=== PATIENT | female | born 1950 | race Caucasian/White ===

== ENCOUNTER 2021-04-01 11:02 | Outpatient (AMB) | payer MEDICARE, BC, SELFPAY ==
[2021-04-01 11:14] VITALS: BP 122/61; PULSE 61; RESP 18; TEMP 36.4; BMI 24.7
--- NOTE | 2021-04-01 11:14 | UROVISIT ---
Intake Vital Signs 04/01/21 11:14 Height 1.57 m Height Method Stated Weight 61.405 kg Weight Measurement Method Standing Scale BMI 24.7 Temp 97.6 F Temp Source Temporal Artery Scan Pulse 61 Pulse Source Monitor Respiration 18 BP 122/61 Blood Pressure Source Automatic Cuff Blood Pressure Location Left Upper Arm Position Sitting Intake Visit Reasons: Uro Cystocopy in office Allergy Allergies Penicillins Allergy (Mild, Verified 04/01/21 11:19) Rash Home Meds Medication Reconciliation buspirone 15 mg tablet 15 mg PO BID 06/27/19 [History Confirmed 04/01/21] levothyroxine 88 mcg tablet (Synthroid) 88 mcg PO QDAY 06/27/19 [History Confirmed 04/01/21] alprazolam 0.5 mg tablet 0.5 mg PO TID 03/03/21 [History Confirmed 04/01/21] trazodone 50 mg tablet 50 mg PO QHS PRN 04/01/21 [History Confirmed 04/01/21] Nurse Note: BALBIR Rueda- patient to follow up for biopsy results. Current Vital Signs Height Height Method Weight Weight Measurement Method Body Mass Index Temperature Temperature Source 1.57 m Stated 61.405 kg Standing Scale 24.7 97.6 F Temporal Artery Scan 04/01/21 11:14 04/01/21 11:14 04/01/21 11:14 04/01/21 11:14 04/01/21 11:14 04/01/21 11:14 04/01/21 11:14 Pulse Rate Pulse Source Respiratory Rate Blood Pressure Blood Pressure Source Blood Pressure Location Blood Pressure Position 61 Monitor 18 122/61 Automatic Cuff Left Upper Arm Sitting 04/01/21 11:14 04/01/21 11:14 04/01/21 11:14 04/01/21 11:14 04/01/21 11:14 04/01/21 11:14 04/01/21 11:14 Nursing Documentation Social History Living Situation History Housing: [facility] home Tobacco History Smoking Status: Never smoker Alcohol History Alcohol Intake: Current Office Procedures Uro Cystoscopy in office Office Procedure Informed consent given: Yes Consent signed: Yes Time out staff in room: Yes IMMEDIATELY PRIOR TO START OF PROCEDURE: ALL MEMBERS of the procedural team are in attendance and actively involved together in the TIME-OUT and verified as applies to the patient:: Correct Patient Identity, Correct Site, Consent Signed and Accurate, Team Agrees on Procedure, Patient has completed pre-procedure preparations, Antibiotic prophylaxis, Pre-procedure medications, Review of allergies and potential blood loss, Safety Precautions are in place based on patient history, Correct Patient Positioning, Procedural site marked by appropriate provider, Procedural site marking is visible after prep and draping, Relevant images and results are properly labeled and displayed, Reqd blood products, implants, devices and necessary equip available, Specimen container(s) and lab req(s) are available & labeled properly., H&P, assessments, and other pertinent documents are available and Antibiotics are administered, antibiotic irrigation fluids prepared. Time out verified: Yes Time out date: 04/01/21 Time out time: 12:01 Sterilizing agent: betadine Type of anesthesia: local Type of scope: rigid Tumor present: No Stone present: No Patient tolerated procedure: well Complications: No Visual taken: Yes Charges for this visit: My Supervising Practitioner for this visit is:: Syed Pitts Cystoscopy w/Biopsy: Yes Uro Level of Care Nursing/Assessment/Reassessment Patient Status: Established Patient Nursing Assessment/Reassessment: Update [facility] data in EMR, Vital Signs and Medication Reconciliation Coordination of Care: Comp Pt/[facility] Ed for care and Consent,records obtained Miscellaneous Interventions: Phys Asssit w/procedure Established Patient Point Assignment: 80 Procedure IM Injection: Yes Transrectal Ultrasound: No Office Meds lorazepam Performing Provider: Syed Pitts MD Documented (not given) by: JIAN Silvestre on 04/01/21 11:45 Reason Not Given: No Longer Necessary gentamicin Performing Provider: Syed Pitts MD Administered by: JIAN Silvestre on 04/01/21 11:45 Dose Route Admin Location Lot Number Expiration Date [facility] Team Facilitator 120 mg IM right glut lidocaine HCl Performing Provider: Syed Pitts MD Administered by: JIAN Silvesrte on 04/01/21 11:45 Dose Route Admin Location Lot Number Expiration Date [facility] Team Facilitator 1 applic topical hydrocodone-acetaminophen 5-325 mg Performing Provider: Syed Pitts MD Administered by: JIAN Silvestre on 04/01/21 11:45 Dose Route Admin Location Lot Number Expiration Date [facility] Team Facilitator 1 tab PO [facility] Office Visit Office Visit Date of visit:: April 01, 2021 11:02 Allergies & Home Medications: Allergies Penicillins Allergy (Mild, Verified 03/17/21 09:58) Rash Visit: Reason for visit: [] Office Visit findings: [] Urology Cystoscopy Cystoscopy Procedure Date: April 01, 2021 11:02 Pre-procedure diagnosis:: Microscopic hematuria recurrent Post-procedure diagnosis:: Same plus lesion in the bladder biopsy was obtained fulguration was carried out plus urethral stenosis Procedure:: Cystoscopic examination of bladder biopsy and urethral dilation biopsy and fulguration Anesthetic:: 2% lidocaine and 2% lidocaine + 0.25% Marcaine Indication(s): This is 70-year-old female she was seen by me because of recurrent microscopic hematuria urine for cytology was done this revealed atypical cells possible bladder tumor she was recommended above procedure procedure and complications were discussed with the patient in great detail informed consent is obtained she had CAT scan of the abdomen and pelvis done there was no stone identified. Procedure Description:: The patient received 120 mg Gentamicin IM pre-op prophylaxis. Informed consent was obtained for the procedure. The patient was prepped in a sterile manner. Local anesthetic was placed in the urethra. Cystoscopy was then performed. The urethra had no intrinsic lesions. Examination of the bladder revealed no evidence of cancerous lesions, papillary or polyp type, lesions or stones. Both ureters were putting out clear urine. There was a small lesion about 2 to 3 mm in the anterior bladder wall biopsy was obtained fulguration was carried out the urethra had mid urethral stenosis and the urethra was dilated up to 30Fr with dilators. The bladder was completely drained and the scope was removed. The patient tolerated the procedure well. Post-op instructions were given. The patient is to call the office should any problems occur. Patient disposition she is discharged home with a full postoperative instructions she is going to see me in the office in 2 weeks I will repeat her urine for cytology
[2021-04-01 13:47] LABS: Bilirubin,Urine Clinitek Negative (Negative); Blood,Urine Clinitek Negative (Negative); Glucose, Urine Clinitek Negative (Negative); Ketones,Urine Clinitek Negative (Negative); Leukocyte Esterase,Urine Clin 3+ (Negative); Nitrite,Urine Clinitek Negative (Negative); Protein,Urine Clinitek Negative (Neg - Trace); Urobilinogen,Urine Clinitek 0.2 mg/dL (0.0-1.0)
== END 2021-04-01 14:09 | disposition home or self-care (01) ==
LOC: HODURO 11:02
PROVIDERS: PCP Family Medicine; Visit Provider Urology

== ENCOUNTER 2024-05-10 18:19 | Inpatient (IN) | payer MEDICARE, BC, SELFPAY ==
[2024-05-10] VITALS (8 sets, daily range): BP systolic 116–164; BP diastolic 68–103; PULSE 81–100; RESP 18–20; TEMP 37.1; O2SAT 98–100
--- NOTE | 2024-05-10 18:22 | EKG_ITS ---
[facility] Test Date: 2024-05-10 Pat Name: NAYELY PERRY Department: Room: - Gender: Female Customer Contact Representative: : 1950 Requested By: ED Temporary Provider Order Number: [id number] Reading MD: ED Temporary Provider Measurements Intervals [place] Rate: 86 P: 61 [place]: 147 QRS: -29 QRSD: 83 T: 16 QT: 354 QTc: 425 Interpretive Statements SINUS RHYTHM WITH OCCASIONAL SUPRAVENTRICULAR PREMATURE COMPLEXES BORDERLINE LEFT AXIS DEVIATION [QRS AXIS < -20] Compared to ECG 03/12/2022 06:19:27 No significant changes /store/S0/[id number].pdf
--- NOTE | 2024-05-10 19:12 | PD.EDRME ---
Rapid Medical Screening Exam RME Arrival date/time: 05/10/24 18:19 73F with history of HTN, hypothyroidism and anxiety presents to ED with 1 hour of CP and some SOB. Chief Complaint: Chest Pain Vital signs: Vital Signs Temperature 98.7 F 05/10/24 19:07 Pulse Rate 81 05/10/24 19:07 Respiratory Rate 20 05/10/24 19:07 Blood Pressure 146/90 H 05/10/24 19:07 Pulse Oximetry (%) 98 05/10/24 19:07 Oxygen Delivery Method Room Air 05/10/24 19:07
--- NOTE | 2024-05-10 19:13 | XR_ITS ---
Examination: AP chest single view TECHNIQUE: AP portable upright chest single view Standing time: May 10, 2024 1949 hours INDICATIONS: Chest pain and nausea beginning 3 hours ago FINDINGS: Normal heart size No pneumonia or pulmonary edema. Prominent osteopenia IMPRESSION: No pneumonia or pulmonary edema
--- NOTE | 2024-05-10 19:33 | PD.EDCHEST ---
ED Chest Pain RME/HPI General Chief Complaint: Chest Pain Stated Complaint: PT THINKS SHE'S HAVING A HEART ATTACK Time Seen by Provider: 05/10/24 19:25 Arrival date/time: 05/10/24 18:19 Limitations: no limitations RME / HPI RME / HPI narrative: 05/10/24 18:19 73F with history of HTN, hypothyroidism and anxiety presents to ED with 1 hour of CP and some SOB. ------ Dr. 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 She describes her pain as sharp and aching in nature, reporting it started when she was laying in bed. No radiation or migration. No aggravating or alleviating factors. She currently rates her pain a 7 out of 10 in severity. She denies any shortness of breath, cough, fever, chills, dizziness, bloody stools or any other associated symptoms. She denies any tobacco use. She reports having a familial history of heart disease. PCP: Dr. Montilla Related Data Home Medications ?Medication ?Instructions ?Recorded ?Confirmed buspirone 15 mg tablet 15 mg PO BID 06/27/19 03/12/22 alprazolam 0.5 mg tablet 0.5 mg PO TID 03/03/21 03/12/22 Held on 07/31/21. Instructions: Resume on 08/01/21. lisinopril 5 mg tablet 5 mg PO QDAY 07/31/21 03/12/22 amitriptyline 10 mg tablet 20 mg PO HS 03/12/22 03/12/22 fluoxetine 20 mg capsule 20 mg PO BID 03/12/22 03/12/22 hydrocodone 5 mg-acetaminophen 325 1 tab PO TID PRN Pain 03/12/22 03/12/22 mg tablet levothyroxine 75 mcg tablet 75 mcg PO QAM 03/12/22 03/12/22 trazodone 100 mg tablet 200 mg PO HS 03/12/22 03/12/22 Allergies Allergy/AdvReac Type Severity Reaction Status Date / Time Penicillins Allergy Mild Rash Verified 05/10/24 18:21 Review of Systems Review of Systems Systems Reviewed: All systems reviewed, normal except as documented Past Medical History Past Medical History NEUROLOGIC: Positive Neurological Disorders and Head Trauma; Negative Seizures CARDIAC: Negative Cardiac Disorders, Congestive Heart Failure, Edema, Cellulitis or Varicose Veins RESPIRATORY: Negative Chronic Obstructive Pulmonary Disease (COPD), Asthma, Pulmonary Embolism or Sleep Apnea GASTROINTESTINAL: Positive Gastrointestinal Disorders, Gall Bladder Disease, Colitis, Ulcer, Irritable Bowel, Hiatal Hernia and Gastroesophageal Reflux Disease; Negative Hepatitis GENITOURINARY: Negative Genitourinary Disorders or Renal Disease REPRODUCTIVE: Positive Endometriosis and Previous Pregnancies MUSCULOSKELETAL: Positive Musculoskeletal Disorders, Arthritis and Fibromyalgia ENT: Positive Cataracts and Head Trauma ENDOCRINE: Positive Endocrine Disorders, Hypoglycemia and Hypothyroidism; Negative Diabetes Mellitus Type 1 or Diabetes Mellitus Type 2 HEMATOLOGIC: Negative Blood Disorders or Sickle Cell Disease PSYCHO/SOCIAL: Positive Depression and Anxiety OTHER HISTORY: Positive Anesthesia Reactions, Chicken Pox, Measles and Rubella (Hungarian Measles); Negative Hospitalization, Autoimmune Disease, Shingles, Falls, Blood Transfusions, Blood Transfusion Reaction, Chemotherapy, Radiation Therapy, MRSA, Mumps or Cancer Family History FAMILY HISTORY: Positive Family Psychiatric Problems, Family Respiratory Disorders, Family Cardiac Disorders, Family Gastrointestinal Problems, Family Cancer and Family Surgery; Negative Family Anesthesia Reaction Surgical History SURGICAL: Positive Thyroidectomy, Abdominal Surgery, Bowel Surgery, Hysterectomy and Section; Negative Cardiac Surgery or Pacemaker Social History SMOKING STATUS: Never smoker ED Exam General Limitations: Present no limitations General appearance: Present alert and in no apparent distress Head Head exam: Present atraumatic Eye Eye exam: Present normal appearance, PERRL and EOMI ENT ENT exam: Present normal exam, normal oropharynx and mucous membranes moist Neck Neck exam: Present normal inspection, full ROM and trachea midline Chest Chest inspection: Present normal inspection and symmetric chest wall rise Respiratory Respiratory exam: Present normal lung sounds bilaterally Cardiovascular Cardiovascular exam: Present regular rate, normal rhythm and normal heart sounds Abdominal Exam Abdominal exam: Present soft and normal bowel sounds Extremities Exam Extremities exam: Present normal inspection and full ROM Back Exam Back exam: Present normal inspection and full ROM Neurological Exam Neurological exam: Present alert, oriented X3 and CN II-XII intact Psychiatric Psychiatric exam: Present normal affect and normal mood Skin Skin exam: Present warm, dry, intact and normal color Course Course Course Narrative: CXR is ordered for determining the etiology of chest pain. Quality Measures none Orders Category Date Time Status Admit to Inpatient Status Routine Admission 05/10/24 21:18 Active COVID-19 Screening Questionnaire NOW Care 05/10/24 20:58 Active Decision to Admit X1 Care 05/10/24 20:58 Active EKG (ED ONLY) *Do not use* NOW Care 05/10/24 18:22 Completed EKG (ED ONLY) *Do not use* NOW Care 05/10/24 19:25 Completed Notify provider NOW Care 05/10/24 21:15 Active Consult to Cardiology Routine Cons 05/10/24 21:16 Ordered CA echo doppler complete Routine Exams 05/10/24 21:17 Ordered EKG (ED Only) Stat Exams 05/10/24 18:22 Draft EKG (ED Only) Stat Exams 05/10/24 19:25 Ordered XR chest 1V portable Stat Exams 05/10/24 19:13 Completed B-Type Natriuretic Peptide Stat Lab 05/10/24 19:22 Completed CBC Stat Lab 05/10/24 19:22 Completed Comprehensive Metabolic Panel Stat Lab 05/10/24 19:22 Completed INR [Prothrombin Time with INR] Stat Lab 05/10/24 21:15 Ordered Partial Thromboplastin Time AM DRAW Lab 05/12/24 05:00 Ordered Prothrombin Time with INR AM DRAW Lab 05/12/24 05:00 Ordered Troponin I Stat Lab 05/10/24 19:22 Completed Acetaminophen Tab [Tylenol Tab] Med 05/10/24 20:55 Active 650 mg PO PRN PRN Aspirin Med 05/10/24 19:13 Discontinued 325 mg PO X1 ONE Aspirin [Ecotrin] Med 05/11/24 09:00 Ordered 81 mg PO QDAY Diltiazem Inj [Cardizem Inj] Med 05/10/24 21:00 Discontinued 15 mg IV X1 ONE Heparin Inj Med 05/10/24 21:15 Once 3,550 unit IV X1 ONE Heparin/D5w 25K 250 ML Ivpb [Heparin in D5w Ivpb] Med 05/10/24 21:15 Ordered 25,000 unit in 250 ml IV 12 units/kg/hr Nitroglycerin [Nitrostat 1/150] Med 05/10/24 20:18 Discontinued 0.4 mg SL Q5MIN PRN Ticagrelor [Brilinta] Med 05/10/24 21:17 Once 180 mg PO X1 ONE Ticagrelor [Brilinta] Med 05/11/24 09:00 Ordered 90 mg PO BID Vital Signs Vital signs: Vital Signs Temperature 98.7 F 05/10/24 19:07 Pulse Rate 81 05/10/24 19:07 Respiratory Rate 20 05/10/24 19:07 Blood Pressure 146/90 H 05/10/24 19:07 Pulse Oximetry (%) 98 05/10/24 19:07 Oxygen Delivery Method Room Air 05/10/24 19:07 Chest Pain MDM Narrative MDM Narrative:: 73-year-old female with history of hypertension, and cardiac score of 2 based on age and hypertension presenting to the emergency department with chest pain that started approximately 2 hours prior to arrival. Patient was immediately placed into a bed and repeat EKG was checked which did not show an ST elevation [place] or ischemia. She was given nitroglycerin with improvement of her symptoms. While the workup was completed it was noted that her troponin is elevated at 0.33. Chest x-ray is noted to have no wide mediastinum, CHF, or pneumonia. I discussed the risks benefits for heparin and at this time the patient agrees to being heparinized. Initial EKG was not given to me until 1844. 2121: No contraindications to Heparin. Heparin ordered, by inpatient team. Repeat eKG s/p pain-free is pending. Disposition:Emergency Department nursing documentation was reviewed including triage complaint, associated symptoms, administration of medications, response to therapy and vital signs. Given the history, physical exam, and review of laboratory and imaging studies the patient is determined to be unsafe for discharge and is being moved into the hospital for further diagnostic tests, treatments, stabilization, and monitored response to therapy. I communicated the history, physical exam, pertinent laboratory and imaging studies to the inpatient physician. The inpatient physician has access to electronic copies of all emergency department laboratory testing and imaging studies as well as medications ordered and administered. Patient data External records reviewed:: [facility] previous records (Per chart review, patient was seen here on 03/12/22 for alcohol intoxication.) Clinical information provided by:: patient Social determinants that could affect healthcare access:: none Patient has the following chronic illnesses:: HTN How is presenting disease/condition affected by chronic disease/condition?: uneffected by Evaluation data The following diagnostics were reviewed and interpreted by me:: lab results, radiology exam(s) and EKG tracing(s) Lab and/or radiology exams considered but not ordered:: none Interpretation Summary: CBC is normal, CMP is normal, Troponin is elevated at 0.333, BNP is normal, according to my interpretation. EKG done at 1823, sinus tachycardia, rate of 100, left axis deviation, no ST elevation, QTc: 389, according to my interpretation. EKG done at 1934, NSR, rate of 86, left axis deviation, QTc: 425, no STEMI, similar to previous EKG done in 2022, according to my interpretation. [facility] Report Signed Patient: NAYELY PERRY Record#: [id number] Birthdate: 1950 Age/Sex: 73 / F Location: [facility] Attending Dr: Ordering Physician: Berhane Liao PA-C Date of Service: 05/10/24 Procedure(s): XR chest 1V portable Accession Number(s): [id number] cc: Sawyer Robles MD; Yamile Montilla MD; Berhane Liao PA-C~ Examination: AP chest single view TECHNIQUE: AP portable upright chest single view Standing time: May 10, 2024 1949 hours INDICATIONS: Chest pain and nausea beginning 3 hours ago FINDINGS: Normal heart size No pneumonia or pulmonary edema. Prominent osteopenia IMPRESSION: No pneumonia or pulmonary edema Dictated By: Sawyer Robles MD Signed By: <Electronically signed by Sawyer Robles MD in OV> 05/10/241954 Medications / Prescriptions Medications or Prescriptions considered but not ordered:: none Medication administrations:: Medication Administration History Acetaminophen (Acetaminophen 325 Mg Tablet) 650 mg PO PRN PRN PRN Reason: HEADACHE Stop: 06/09/24 20:54 Aspirin (Aspirin Ec 81 Mg Tabec) 81 mg PO QDAY ALPHONSO Stop: 06/10/24 08:59 Heparin Sodium (Porcine) (Heparin Sod Inj 5000 Unit/Ml Vial) 3,550 unit 60 unit/kg (3550 unit) IV X1 ONE; Protocol Stop: 05/10/24 21:16 Heparin Sodium/Dextrose (Heparin In D5w Ivpb) 25,000 unit in 250 mls @ 7.076 mls/hr IV .Q24H ALPHONSO; Protocol Stop: 05/24/24 21:14 Ticagrelor (Ticagrelor 90 Mg Tablet) 180 mg PO X1 ONE Stop: 05/10/24 21:18 Ticagrelor (Ticagrelor 90 Mg Tablet) 90 mg PO BID ALPHONSO Stop: 06/10/24 08:59 Discontinued Medications Aspirin (Aspirin 325 Mg Tablet) 325 mg PO X1 ONE Stop: 05/10/24 19:14 Last Admin: 05/10/24 19:38 Dose: 325 mg Documented By: KG Diltiazem HCl (Diltiazem Inj 5 Mg/Ml Vial 5 Ml) 15 mg IV X1 ONE Stop: 05/10/24 21:01 Nitroglycerin (Nitroglycerin 0.4 Mg Subl Btl #25) 0.4 mg SL Q5MIN PRN PRN Reason: CHEST PAIN Last Admin: 05/10/24 21:06 Dose: 0.4 mg Documented By: Admin: 05/10/24 21:00 Dose: 0.4 mg Documented By: Admin: 05/10/24 20:55 Dose: 0.4 mg Documented By: KG see above Consultations Consultation(s) initiated? (list below): Yes Consultation #1 (Physician, Specialty, Details): Discussed case with [Dr. Dubois] from Hospitalist service regarding admission. Discussed patients ED course, exam findings, labs, and radiology results. The Hospitalist [agrees] to accept the patient for admission. Time: 20:50 Diagnosis Chest Pain Differential Diagnosis: other (angina, stomach condition, IBS, NSTEMI, STEMI) Most likely diagnosis given after review of the tests above:: see clinical impression below Admission Indicated Admission indicated?: indicated Admission Request Was there a request for admission?: Yes Admission Attestation Admission request attestation: Discussed case with [] from Hospitalist service regarding admission. Discussed patients ED course, exam findings, labs, and radiology results. The Hospitalist [agrees,declines] to accept the patient for admission. Disposition Plan Disposition Plan: Admit Critical Care Time Critical Care Time Critical Care Time: Yes Total Critical Care Time (min.): 60 Attestation: The high probability of sudden, clinically significant deterioration in the patient?s condition required the highest level of my preparedness to intervene urgently. The services I provided to this patient were to treat and/or prevent clinically significant deterioration. Services included the following: chart data review, reviewing nursing notes and/or old charts, documentation time, [employer] consultant collaboration regarding findings and treatment options, medication orders and management, direct patient care, vital sign assessments and ordering, interpreting and reviewing diagnostic studies and lab tests. Aggregate critical care time includes only time during which I was engaged in work directly related to the patient?s care, as described above, whether at bedside or elsewhere in the Emergency Department. It did not include time spent performing other reported procedures or the services of residents, students, nurses or physician assistants. Discharge Plan Plan Patient Disposition: Admit Acute Care w/in Hospital Disposition Comment: Admitted to Dr. Dubois Prescriptions/Referrals Prescriptions/Med Rec: No Action buspirone 15 mg Tablet 15 mg PO BID Rx Instructions: 1 & 1/2 tab po bid. lisinopril 5 mg Tablet 5 mg PO QDAY alprazolam 0.5 mg tablet 0.5 mg PO TID levothyroxine 75 mcg tablet 75 mcg PO QAM Patient Comments: TAKE 1 TABLET BY MOUTH EVERY DAY IN THE MORNING ON AN EMPTY STOMACH trazodone 100 mg tablet 200 mg PO HS Patient Comments: TAKE 2 TABLETS BY MOUTH EVERY DAY AT BEDTIME 90 amitriptyline 10 mg tablet 20 mg PO HS Patient Comments: TAKE 2 TABLETS BY MOUTH EVERY DAY AT BEDTIME fluoxetine 20 mg capsule 20 mg PO BID Patient Comments: TAKE 1 CAPSULE BY MOUTH TWICE A DAY hydrocodone-acetaminophen 5-325 mg tablet 1 tab PO TID MDD 3 PRN (Reason: Pain) Referrals: Yamile Montilla MD [Primary Care Provider] - In 1 week Problem List Clinical Impression: Elevated troponin, Chest pain Patient/Caregiver Discharge Instructions Print Language: Togolese Stand Alone Forms: Iliana Award Info., Patient Portal Info Letter
--- NOTE | 2024-05-10 19:35 | PC.NURSE ---
Pt to room 3 at this time from lobby; assumed care.
[2024-05-10] MEDS: Aspirin 325 MG TABLET PO (19:38)
--- NOTE | 2024-05-10 19:45 | PC.NURSE ---
XRAY at the bedside.
[2024-05-10 19:50] LABS: Basophils % (Auto) 1 % (0-2.5); Eosinophils # (Auto) 0.2 Thou/mm3 (0.0-0.5); Eosinophils % (Auto) 3 % (0-10); Hematocrit 35.5 % (36.0-46.0); Hemoglobin 11.8 g/dL (12.0-16.0); Immature Granulocytes % (Auto) 0 % (0-0); Immature Granulocytes Auto 0.02 Thou/mm3 (0.00-0.00); Lymphocytes # (Auto) 1.5 Thou/mm3 (1.0-4.8); Lymphocytes % (Auto) 23 % (10-50); Mean Corpuscular HGB Conc 33.2 g/dl (31.0-37.0); Mean Corpuscular Hemoglobin 29.1 pg (25.0-35.0); Mean Corpuscular Volume 88 fL (80-100); Monocytes # (Auto) 0.5 Thou/mm3 (0.0-0.8); Monocytes % (Auto) 8 % (0-12); Neutrophils # (Auto) 4.2 Thou/mm3 (1.8-7.7); Neutrophils % (Auto) 65 % (37-80); Nucleated Red Blood Cell % 0 /100 WBC (0); Platelet Count 254 Thou/mm3 (140-440); RDW Standard Deviation 49.6 fL (36.4-46.3); Red Blood Count 4.05 Miln/mm3 (4.00-5.20); White Blood Count 6.4 Thou/mm3 (3.6-11.0)
--- NOTE | 2024-05-10 20:11 | PC.NURSE ---
Dr. Ortega at the bedside at this time.
[2024-05-10 20:13] LABS: B-Type Natriuretic Peptide 47 pg/mL (0-100)
[2024-05-10 20:31] LABS: Alanine Aminotransferase 31 U/L (10-49); Albumin, Serum 3.6 gm/dL (3.4-4.8); Albumin/Globulin Ratio 1.6 (1.2-2.2); Alkaline Phosphatase 61 U/L (46-116); Anion Gap 8 (7-16); Aspartate Amino Transferase 37 U/L (0-34); BUN/Creatinine Ratio 21 Ratio (12-20); Bilirubin,Total < 0.2 mg/dL (0.3-1.2); Blood Urea Nitrogen 23 mg/dL (9-23); Calcium 8.6 mg/dL (8.3-10.6); Calcium (Corrected) 8.9 mg/dL (8.5-10.1); Carbon Dioxide 26.7 mMol/L (20.0-31.0); Chloride 105 mMol/L (98-107); Creatinine (Component) 1.1 mg/dL (0.6-1.3); Globulin 2.3 gm/dL (2.3-3.5); Glucose 105 mg/dL (74-106); Osmolality,Calculated 283 (275-295); Potassium 4.8 mMol/L (3.4-5.1); Sodium 140 mMol/L (136-145); Total Protein 5.9 gm/dL (5.7-8.2); eGFR 54 See Note
[2024-05-10 20:33] LABS: Troponin I 0.333 ng/mL (0.0-0.045)
[2024-05-10] MEDS: NITROGLYCERIN 0.4 MG SUBL BTL #25 SL ×3 (20:55→21:06)
--- NOTE | 2024-05-10 21:04 | PC.NURSE ---
Dr. Dubois at the bedside.
--- NOTE | 2024-05-10 21:21 | EVENTNT_ITS ---
Documentation for date of: 05/10/24 Event Note Event Note: A 73-year-old female presented to the ER with the chief complaint of retrosternal chest pain. The patient reports that the chest pain began approximately four hours prior to arrival and is described as constant, pressure-like, and stabbing in character. The pain radiates slightly to the back but not to the arm. She notes associated nausea and shallow breathing. There was no diaphoresis or vomiting due to a prior gastrectomy. This is her first episode of chest pain. She is currently experiencing ongoing chest pain rated at 7?8 out of 10. 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 Additional surgical history includes thyroidectomy for benign pathology, orthopedic surgeries (shoulder, arm), and eye surgery. Current medications include Fluoxetine, Buspirone, Xanax, Levothyroxine 75 mcg, Lisinopril, Trazodone. Social history includes former alcohol use, last drink two days ago; no smoking or recreational drug use. She has a family history of significant cardiac disease (father with CABG, sisters with valvular disease and HTN). She has not had previous PR or stroke. Last hospitalization was over a year ago. She lives independently. In the ER, vital signs recorded as temp 98.7 F, HR 81, RR 20, BP 146/60 mmHg. GCS 15. Labs revealed WBC 6.4, Hb 11.8, Plt 254, Na 140, K 4.8, Cl 105, BUN 23, Creatinine 1.1, and Troponin 0.333 (H). CXR showed no pneumonia or pulmonary edema. EKG demonstrated sinus rhythm without ST elevation. The patient was admitted for NSTEMI. NSTEMI #Assessment: - Ongoing retrosternal chest pain (pressure-like, radiating to back), associated with nausea and dyspnea - Troponin elevated at 0.333 ng/mL - EKG: sinus rhythm, no ST elevation - No prior history of PR - Risk factors: age >65, female, family history of CAD, hypertension - ANDRESSA score at least 2 #Plan: - Monitor telemetry - Initiate dual antiplatelet therapy: Aspirin 325 mg loading dose, then 81 mg daily + Ticagrelor 180 mg loading dose, then 90 mg BID - Anticoagulation: IV Heparin per ACS protocol - Monitor serial troponins and EKGs - Cardiology consult - Continue Lisinopril - Add Beta-julia - Lipid panel, HbA1c for risk stratification - Address pain with acetaminophen; avoid NSAIDs
--- NOTE | 2024-05-10 22:07 | PC.NURSE ---
Resident at the bedside at this time.
[2024-05-10] MEDS: MORPHINE SULF INJ 10 MG/ML VIAL 2 MG IVP (22:17)
[2024-05-10 22:18] LABS: INR 0.9 (0.9-1.3); Partial Thromboplastin Time 23.7 Seconds (22.0-36.0); Prothrombin Time 10.4 Seconds (9.0-12.2)
[2024-05-10] MEDS: DILTIAZEM INJ 5 MG/ML VIAL 5 ML 15 MG IV (22:18)
[2024-05-10] MEDS: TICAGRELOR 90 MG TABLET 180 MG PO (22:18)
[2024-05-10 22:22] LABS: Alcohol, Blood Medical 36.4 mg/dL (0-10.0)
--- NOTE | 2024-05-10 22:43 | PD.RESHP ---
Documentation for date of: 05/10/24 HPI History of Present Illness Chief complaint: Chest pain for 2 hrs before presentation History of present illness: HPI: A 73-year-old female patient with past medical history of multiple abdominal surgeries, hypothyroidism, anxiety and depression, IBS, presented to the ED due to acute chest pain that started at 4:30 PM over 10 May 2024, patient arrived at 6:30 PM. Mentions that the pain is located in the central of the chest pressure-like not relieved by rest as the patient was lying in bed. She reported that the pain radiate to the left side of her neck and to the left shoulder. She reported that the pain associated with shortness of breath, however denied any orthopnea or paroxysmal nocturnal dyspnea denied any lower limb swelling the pain occurred when the patient was lying in bed after she received the news that her childhood friend has she also mentioned that she has lost her last year. Patient denied any palpitation, blackout,. Patient denied any relation between respiratory effort and the pain. Home medications: Alprazolam, buspirone, fluoxetine, levothyroxine, lisinopril, trazodone ED course: In the ER, vital signs recorded as temp 98.7 F, HR 81, RR 20, BP 146/60 mmHg. GCS 15. Labs revealed WBC 6.4, Hb 11.8, Plt 254, Na 140, K 4.8, Cl 105, BUN 23, Creatinine 1.1, and Troponin 0.333 (H). CXR showed no pneumonia or pulmonary edema. EKG demonstrated sinus rhythm without ST elevation. Chest x-ray was clear. Patient was given nitroglycerin sublingual x 3, morphine, aspirin at the ED. Her symptoms were relieved at that time. The patient was admitted for NSTEMI type I PMH: As above PSX:anti-reflux procedures, pyloroplasty, cholecystectomy, appendectomy, hysterectomy, , and partial liver resection for hemangioma. Additional surgical history includes thyroidectomy for benign pathology, orthopedic surgeries (shoulder, arm), and eye surgery. PFX: History of coronary artery disease in the father Social hx: Alcohol: Patient reported being drinking every 2 to 3 days, Tobacco: Denied Illicit drugs: Denied Allergies: Penicillins Review of Systems Review of Systems Systems Reviewed: All systems reviewed, normal except as documented Exam Vital Signs Temp Pulse Resp BP Pulse Ox O2 Del Method 98.7 F 90 18 138/82 H 98 Room Air 05/10/24 19:07 05/10/24 22:18 05/10/24 20:00 05/10/24 22:18 05/10/24 20:00 05/10/24 20:00 Narrative Exam GEN: AOx3, able to speak full sentences, appears anxious and shaky HEENT: NC/AC, oral mucosa moist, neck supple CVS: RRR, S1-S2 present, no murmurs appreciated RESP: CTAB GI: soft,non distended, non tender, NBS MSK: able to move all 4 limbs, no lower extremity edema SKIN: warm and dry [employer]: CN II-XII and Sensation grossly intact. Results: Labs 05/11/24 03:12 05/11/24 03:12 Labs: Short CBC 05/10/24 Range/Units 19:22 WBC 6.4 (3.6-11.0) Thou/mm3 Hgb 11.8 L (12.0-16.0) g/dL Hct 35.5 L (36.0-46.0) % Plt Count 254 (140-440) Thou/mm3 BMP 05/10/24 19:22 Sodium 140 Potassium 4.8 Chloride 105 Carbon Dioxide 26.7 BUN 23 Creatinine 1.1 Glucose 105 Calcium 8.6 Cardiac Enzymes 05/10/24 Range/Units 19:22 Troponin I 0.333 H* (0.0-0.045) ng/mL Liver Function 05/10/24 Range/Units 19:22 Total Bilirubin < 0.2 L (0.3-1.2) mg/dL AST 37 H (0-34) U/L ALT 31 (10-49) U/L Alkaline Phosphatase 61 (46-116) U/L Albumin 3.6 (3.4-4.8) gm/dL Quality Measures Quality Measures none Advance care planning discussed with:: patient and child Medications Home Medications and Allergies Home Medications ?Medication ?Instructions ?Recorded ?Confirmed ?Type buspirone 15 mg tablet 15 mg PO BID 06/27/19 05/10/24 History alprazolam 0.5 mg tablet 0.5 mg PO TID 03/03/21 05/10/24 History lisinopril 5 mg tablet 5 mg PO QDAY 07/31/21 05/10/24 History fluoxetine 20 mg capsule 20 mg PO BID 03/12/22 05/10/24 History levothyroxine 75 mcg tablet 75 mcg PO QAM 03/12/22 05/10/24 History trazodone 100 mg tablet 200 mg PO HS 03/12/22 05/10/24 History Allergies Allergy/AdvReac Type Severity Reaction Status Date / Time Penicillins Allergy Mild Rash Verified 05/10/24 18:21 Visit Medications Acetaminophen (Acetaminophen 325 Mg Tablet) 650 mg PO PRN PRN PRN Reason: Headache or mild pain 1-3 Stop: 06/09/24 20:54 Aspirin (Aspirin Ec 81 Mg Tabec) 81 mg PO QDAY [facility] Stop: 06/10/24 08:59 Folic Acid (Folic Acid 1 Mg Tablet) 1 mg PO BID [facility] Stop: 05/15/24 22:44 Heparin Sodium/Dextrose (Heparin In D5w Ivpb) 25,000 unit in 250 mls @ 7.076 mls/hr IV .Q24H [facility]; Protocol Stop: 05/24/24 21:14 Sodium Chloride (Ns) 1,000 mls @ 75 mls/hr IV .[id number] [facility] Stop: 05/11/24 11:49 Lorazepam (Lorazepam 0.5 Mg Tablet) 0.5 mg PO Q4HR PRN PRN Reason: CIWA Score 2-7 Stop: 05/15/24 22:33 Lorazepam (Lorazepam 2 Mg/Ml Vial) 0.5 mg IV Q2HR PRN PRN Reason: CIWA SCORE 8-13 Stop: 05/15/24 22:33 Lorazepam (Lorazepam 2 Mg/Ml Vial) 1 mg IV Q2HR PRN PRN Reason: CIWA SCORE 14-19 Stop: 05/15/24 22:33 Lorazepam (Lorazepam 2 Mg/Ml Vial) 2 mg IV Q2HR PRN PRN Reason: CIWA SCORE 20-25 Stop: 05/15/24 22:33 Morphine Sulfate (Morphine Sulf Inj 10 Mg/Ml Vial) 2 mg IVP Q4HR PRN PRN Reason: PAIN Stop: 05/15/24 22:01 Last Admin: 05/10/24 22:17 Dose: 2 mg Ondansetron HCl (Ondansetron Inj 2 Mg/Ml Inj 2 Ml) 4 mg IV Q6H PRN; Protocol PRN Reason: NAUSEA OR VOMITING Stop: 06/09/24 22:28 Oxycodone/Acetaminophen (Oxycodone/Apap 5/325 Tablet) 1 tab PO Q6H PRN PRN Reason: PAIN SCALE 4-6 (Moderate Stop: 05/15/24 22:28 Pantoprazole Sodium (Pantoprazole Inj 40 Mg Vial) 40 mg IVP QDAY [facility] Stop: 06/10/24 08:59 Thiamine HCl (Thiamine 100 Mg Tablet) 100 mg PO BID [facility] Stop: 05/15/24 22:44 Ticagrelor (Ticagrelor 90 Mg Tablet) 90 mg PO BID [facility] Stop: 06/10/24 08:59 Discontinued Medications Acetaminophen (Acetaminophen 325 Mg Tablet) 650 mg PO PRN PRN PRN Reason: HEADACHE Stop: 06/09/24 20:54 Aspirin (Aspirin 325 Mg Tablet) 325 mg PO X1 ONE Stop: 05/10/24 19:14 Last Admin: 05/10/24 19:38 Dose: 325 mg Diltiazem HCl (Diltiazem Inj 5 Mg/Ml Vial 5 Ml) 15 mg IV X1 ONE Stop: 05/10/24 21:01 Last Admin: 05/10/24 22:18 Dose: 15 mg Heparin Sodium (Porcine) (Heparin Sod Inj 5000 Unit/Ml Vial) 3,550 unit 60 unit/kg (3550 unit) IV X1 ONE; Protocol Stop: 05/10/24 21:16 Nitroglycerin (Nitroglycerin 0.4 Mg Subl Btl #25) 0.4 mg SL Q5MIN PRN PRN Reason: CHEST PAIN Last Admin: 05/10/24 21:06 Dose: 0.4 mg Ticagrelor (Ticagrelor 90 Mg Tablet) 180 mg PO X1 ONE Stop: 05/10/24 21:18 Last Admin: 05/10/24 22:18 Dose: 180 mg Assessment & Plan Plan Summary:A 73-year-old female patient with past medical history of multiple abdominal surgeries, hypothyroidism, anxiety and depression, IBS, presented to the ED due to acute chest pain that started at 4:30 PM over 10 May 2024, patient arrived at 6:30 PM. Mentions that the pain is located in the central of the chest pressure-like not relieved by rest as the patient was lying in bed. She reported that the pain radiate to the left side of her neck and to the left shoulder. Patient was admitted for management of non-STEMI type I. #Non-STEMI type I Patient presented with acute chest pain. Pressure-like, radiated to the left side of the neck and shoulder Troponin were elevated 0.333, EKG was with no significant ischemic changes ANDRESSA score was 2?points 8% risk at 14 days of: all-cause mortality, new or recurrent VA, or severe recurrent ischemia requiring urgent revascularization. Plan ? Admit patient telemetry ? Start the patient on aspirin, ticagrelor ? Start the patient on heparin ACS protocol ? Cardiology consultation to Dr. Teresa was sent, pending recommendations ? Coagulation panel as needed ? Pain management with acetaminophen, oxycodone, morphine ? Continue trending troponins ? Echocardiogram #? Alcohol use disorder Patient reported social drinking however on further questioning she reported being drinking every 2 to 3 days During her previous visits patient was noticed to be positive for alcohol, highest level was in the 300s Patient's appears to be jittery and shaky Apparently patient struggling with anxiety, her last year, her childhood friend 1 hour before her symptoms started Plan ? Send for blood alcohol level ? Start the patient on CIWA protocol #History of hypothyroidism Plan ? Resume patient's home medication levothyroxine 75 mcg before breakfast #History of anxiety #History of IBS Plan ? Consider resuming home medication Xanax after patient weaned off CIWA protocol Hospital Maintenance: FEN: Cardiac diet DVT ppx: Heparin GI ppx: Protonix IV lines: PIV Vicente: None Code status: Full code Dispo: Telemetry Patient's plan and care discussed with my attending, Dr. Silvino Mckinney MD Internal Medicine PGY-2 Attending Provider Attestation/Addendum Pt was evaluated and plan formulated together with the housestaff team. I have reviewed the residents note above and agree with most of its content. Please refer to the residents note for additional details.
[2024-05-10] MEDS: FOLIC ACID 1 MG TABLET PO (22:57)
[2024-05-10] MEDS: THIAMINE 100 MG TABLET PO (22:57)
[2024-05-10] MEDS: ONDANSETRON INJ 2 MG/ML INJ 2 ML 4 MG IV ×2 (22:57→23:01)
[2024-05-10] MEDS: SODIUM CHLORIDE 0.9% 1000 ML 1,000 ML 75 ML IV (23:01)
[2024-05-10] MEDS: HEPARIN SOD INJ 5000 UNIT/ML VIAL 3550 UNIT IV (23:03)
[2024-05-10] MEDS: Heparin/D5w 25K 250 ML Ivpb 25,000 UNIT/250 ML BAG 7.076 UNIT IV (23:03)
[2024-05-10] MEDS: oxyCODONE/APAP 5/325 TABLET 1 TAB PO (23:12)
[2024-05-11] VITALS (31 sets, daily range): BP systolic 95–187; BP diastolic 64–97; PULSE 75–99; RESP 10–23; TEMP 36.6–37; O2SAT 87–99
[2024-05-11 00:03] LABS: Cholesterol 182 mg/dL (132-200); HDL Cholesterol 89 mg/dL (40-60); LDL Cholesterol,Calculated 71 mg/dL (0-130); Triglycerides 112 mg/dL (30-150)
[2024-05-11 00:14] LABS: Troponin I 2.277 ng/mL (0.0-0.045)
[2024-05-11] MEDS: LORazepam 2 MG/ML VIAL 0.5 MG IV ×3 (01:32→21:01)
[2024-05-11 03:32] LABS: Basophils % (Auto) 0 % (0-2.5); Eosinophils % (Auto) 0 % (0-10); Hematocrit 33.5 % (36.0-46.0); Immature Granulocytes % (Auto) 0 % (0-0); Immature Granulocytes Auto 0.02 Thou/mm3 (0.00-0.00); Lymphocytes # (Auto) 0.8 Thou/mm3 (1.0-4.8); Lymphocytes % (Auto) 10 % (10-50); Mean Corpuscular HGB Conc 32.8 g/dl (31.0-37.0); Mean Corpuscular Hemoglobin 28.6 pg (25.0-35.0); Mean Corpuscular Volume 87 fL (80-100); Monocytes # (Auto) 0.8 Thou/mm3 (0.0-0.8); Monocytes % (Auto) 11 % (0-12); Neutrophils # (Auto) 5.8 Thou/mm3 (1.8-7.7); Neutrophils % (Auto) 78 % (37-80); Nucleated Red Blood Cell % 0 /100 WBC (0); Platelet Count 231 Thou/mm3 (140-440); RDW Standard Deviation 49.5 fL (36.4-46.3); Red Blood Count 3.84 Miln/mm3 (4.00-5.20); White Blood Count 7.3 Thou/mm3 (3.6-11.0)
[2024-05-11 04:13] LABS: Alanine Aminotransferase 275 U/L (10-49); Albumin, Serum 3.4 gm/dL (3.4-4.8); Albumin/Globulin Ratio 1.6 (1.2-2.2); Alkaline Phosphatase 134 U/L (46-116); Anion Gap 10 (7-16); Aspartate Amino Transferase 975 U/L (0-34); BUN/Creatinine Ratio 20 Ratio (12-20); Bilirubin,Total 0.5 mg/dL (0.3-1.2); Blood Urea Nitrogen 20 mg/dL (9-23); Calcium 7.7 mg/dL (8.3-10.6); Calcium (Corrected) 8.2 mg/dL (8.5-10.1); Carbon Dioxide 25.9 mMol/L (20.0-31.0); Chloride 103 mMol/L (98-107); Globulin 2.1 gm/dL (2.3-3.5); Glucose 98 mg/dL (74-106); Magnesium 1.9 mg/dL (1.6-2.6); Osmolality,Calculated 280 (275-295); Phosphorous 4.5 mg/dL (2.4-5.1); Potassium 4.3 mMol/L (3.4-5.1); Sodium 139 mMol/L (136-145); Total Protein 5.5 gm/dL (5.7-8.2); eGFR > 60 See Note
[2024-05-11 04:15] LABS: Troponin I 1.841 ng/mL (0.0-0.045)
--- NOTE | 2024-05-11 04:18 | XR_ITS ---
Examination: Abdomen sonogram, Limited Date and time of exam: May 11, 2024 0504 hours INDICATIONS: Elevated liver function tests on laboratory examination today Technique: Real-time ivey scale transabdominal sonographic images of the upper abdomen obtained. Findings: Absent gallbladder Common bile duct 1.2 cm Pancreatic head 2.5 cm Liver 14.4 cm no focal liver lesions Normal hepatopedal portal venous flow Patent IVC IMPRESSION: Abnormally enlarged common bile duct 12 mm, consider MRCP follow-up to exclude common bile duct stones and/or stricture
[2024-05-11 05:12] LABS: Amphetamine/Methamp Scrn,U Negative (Negative); Barbiturate Screen,Urine Negative (Negative); Benzodiazepines Screen,Urine Positive (Negative); Benzoylecgonine Screen, Ur Negative (Negative); Fentanyl Screen,Urine Negative (Negative); Opiate Screen,Urine Positive (Negative); THC Screen,Urine Negative (Negative)
--- NOTE | 2024-05-11 05:49 | PRELIM_ITS ---
Ultrasound liver with doppler and wave doppler spectral analysis. May 11, 2024 at 0504 hours Clinical history: Abnormal LFT. Comparison: No prior study is available for comparison. Findings: The liver measures cm and demonstrates normal echotexture. There is no intrahepatic biliary ductal dilatation. The main portal vein demonstrates hepatopetal flow. The visualized hepatic veins appear patent. The common hepatic duct is normal in caliber. Status post cholecystectomy. The CBD measures 1.2 cm. The hepatic veins are patent with normal wave Doppler spectral analysis. The inferior vena cava is patent with normal wave Doppler spectral analysis. The portal vein is patent with hepatopetal flow and normal wave Doppler spectral analysis. Impression: Dilated CBD in status post cholecystectomy, probably functional. Report Electronically Signed By: Eitan Veloz 05/11/2024 5:49:28 AM [EST]
[2024-05-11 06:23] LABS: Partial Thromboplastin Time 44.7 Seconds (22.0-36.0)
[2024-05-11 06:56] LABS: Troponin I 1.676 ng/mL (0.0-0.045)
[2024-05-11 08:05] LABS: Hepatitis A Antibody IgM Non Reactive (Non React); Hepatitis B Core Antibody IgM Non Reactive (Non React); Hepatitis B Surface Antigen Non Reactive (Non React); Hepatitis C Antibody Non Reactive (Non React)
[2024-05-11] MEDS: PANTOPRAZOLE INJ 40 MG VIAL IVP (08:18)
[2024-05-11] MEDS: ASPIRIN EC 81 MG TABEC PO (08:19)
[2024-05-11] MEDS: LEVOTHYROXINE SODIUM 25 MCG TABLET 75 MCG PO (08:19)
[2024-05-11] MEDS: FOLIC ACID 1 MG TABLET PO ×2 (08:19→20:57)
[2024-05-11] MEDS: THIAMINE 100 MG TABLET PO ×2 (08:19→20:58)
[2024-05-11] MEDS: HEPARIN SOD INJ 5000 UNIT/ML VIAL 1750 UNIT IV (08:34)
--- NOTE | 2024-05-11 09:22 | PD.RESCONSUL ---
HPI Data of Consult Patient: new to practice Consult date: 05/10/24 Requesting Physician: Dick Arechiga MD Admitting Provider: Nicolas Dubois MD Attending Provider: Dick Arechiga MD Primary Care Provider: Yamile Montilla MD Consult Narrative Reason for consult: Chest pain History of present illness: Ms. Manzo is a 73-year-old female with history of anxiety, hypothyroidism, depression, multiple abdominal surgeries, binge drinking alcohol use disorder, irritable bowel syndrome who presented to [facility] emergency department on 05/10/2024 with a chief complaint of chest pain. Patient reported that she received a phone call that her childhood friend , since then later in the afternoon she started having substernal chest pressure 10/10 while she was lying in bed, reported that the pain radiated to her neck and abdomen was associated with shortness of breath has not been relieved to totally, currently still has 5/10 similar chest pressure. 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 Patient on examination is anxious, nohemi reports that she has severe anxiety and is on alprazolam 3 times daily 0.5 mg, has fallen multiple psychiatrists and positions for anxiety in the past and alprazolam works best for her, denies any recent alcohol use reports last drink was 2 weeks ago. Patient also complains of generalized body pain for which she takes [id number] Tylenol frequently, she also mentioned that she has been having more anxiety since her last year. Patient denies any orthopnea, PND, lower extremity edema, palpitations, syncope, near syncope, dizziness. ED course: On presentation in ED patient blood pressure 146/90, heart rate 81, respiratory rate 20, temp 98.7, O2 sat 98 on room air ED labs significant for hemoglobin 11.8, hematocrit 35.5, sodium 140 potassium 4.8 chloride 105 venous CO2 26.7 AST 37 troponin I 0.333. Urine tox screen positive for opiates, benzodiazepine, blood alcohol level 36.4.Chest x-ray in ED was negative for pneumonia or pulmonary edema EKG showed sinus rhythm with no acute ST?T changes. Patient was given aspirin loading dose 325 in ED, nitroglycerin 0.4 mg sublingual x 3, morphine 2 mg IV x 1 and Dilt 15 mg IV x 1 in ED cc:: cc: Dick Arechiga MD Review of Systems Review of Systems Narrative Review of Systems: ROS: -CONSTITUTIONAL: Denies weight loss, fever and chills. -HEENT: Denies changes in vision and hearing. -RESPIRATORY: Denies SOB and cough. -CV: Denies palpitations and positive for Chest Pain. -GI: Denies abdominal pain, nausea, vomiting,constipation and diarrhea. -: Denies dysuria and urinary frequency. -MSK: Denies myalgia and joint pain. -SKIN: Denies rash and pruritus. -NEUROLOGICAL: Denies headache and syncope. -PSYCHIATRIC: Denies recent changes in mood. Denies anxiety and depression. 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 Additional surgical history includes thyroidectomy for benign pathology, orthopedic surgeries (shoulder, arm), and eye surgery. Allergies: Penicillin?rash Social history: -Smoking: Denied -Alcohol Use: Reports last use was 2 weeks ago, however blood alcohol level positive on admission -Illicit Drug Use: Denies -Martial Status: , has 1 son Family History:father with CABG, sisters with valvular disease and HTN Exam Vital Signs Temp Pulse Resp BP Pulse Ox O2 Del Method 98.7 F 92 18 147/73 H 97 Room Air 05/10/24 19:07 05/11/24 05:00 05/11/24 05:00 05/11/24 05:00 05/11/24 05:00 05/11/24 05:00 Narrative Exam Physical Exam General: Awake and in no acute distress. Conversational and non-toxic appearing. Shaky and anxious HEENT: Normocephalic, atraumatic, mucous membranes moist. Heart: Tachycardic regular rhythm, no murmurs. Lungs: Clear to auscultation with no wheezing or crackles. Abdomen: Soft, nondistended, nontender, positive bowel sounds. ?No guarding or rebound tenderness. Neurologic: Alert and oriented x3, no gross neurological deficit, and patient able to move all 4 extremities. Extremities: No edema. Skin: No rash or ecchymoses. Results Labs 05/11/24 03:12 05/11/24 03:12 Labs: Short CBC 05/10/24 05/11/24 Range/Units 19:22 03:12 WBC 6.4 7.3 (3.6-11.0) Thou/mm3 Hgb 11.8 L 11.0 L (12.0-16.0) g/dL Hct 35.5 L 33.5 L (36.0-46.0) % Plt Count 254 231 (140-440) Thou/mm3 BMP 05/10/24 05/11/24 19:22 03:12 Sodium 140 139 Potassium 4.8 4.3 D Chloride 105 103 Carbon Dioxide 26.7 25.9 BUN 23 20 Creatinine 1.1 1.0 Glucose 105 98 Calcium 8.6 7.7 L Cardiac Enzymes 05/10/24 05/10/24 05/11/24 Range/Units 19:22 23:09 03:12 Troponin I 0.333 H* 2.277 H* D 1.841 H* D (0.0-0.045) ng/mL 05/11/24 Range/Units 05:00 Troponin I 1.676 H* (0.0-0.045) ng/mL Liver Function 05/10/24 05/11/24 Range/Units 19:22 03:12 Total Bilirubin < 0.2 L 0.5 (0.3-1.2) mg/dL AST 37 H 975 H* (0-34) U/L ALT 31 275 H (10-49) U/L Alkaline Phosphatase 61 134 H D (46-116) U/L Albumin 3.6 3.4 (3.4-4.8) gm/dL Quality Measures Quality Measures none Advance care planning discussed with:: patient Medications Home Medications and Allergies Home Medications ?Medication ?Instructions ?Recorded ?Confirmed ?Type buspirone 15 mg tablet 15 mg PO BID 06/27/19 05/10/24 History alprazolam 0.5 mg tablet 0.5 mg PO TID 03/03/21 05/10/24 History lisinopril 5 mg tablet 5 mg PO QDAY 07/31/21 05/10/24 History fluoxetine 20 mg capsule 20 mg PO BID 03/12/22 05/10/24 History levothyroxine 75 mcg tablet 75 mcg PO QAM 03/12/22 05/10/24 History trazodone 100 mg tablet 200 mg PO HS 03/12/22 05/10/24 History Allergies Allergy/AdvReac Type Severity Reaction Status Date / Time Penicillins Allergy Mild Rash Verified 05/10/24 18:21 Visit Medications Acetaminophen (Acetaminophen 325 Mg Tablet) 650 mg PO Q6HR PRN PRN Reason: HEADACHE OR MILD PAIN 1-3 Stop: 06/10/24 01:41 Aspirin (Aspirin Ec 81 Mg Tabec) 81 mg PO QDAY [facility] Stop: 06/10/24 08:59 Last Admin: 05/11/24 08:19 Dose: 81 mg Folic Acid (Folic Acid 1 Mg Tablet) 1 mg PO BID [facility] Stop: 05/15/24 22:44 Last Admin: 05/11/24 08:19 Dose: 1 mg Heparin Sodium/Dextrose (Heparin In D5w Ivpb) 25,000 unit in 250 mls @ 7.076 mls/hr IV .Q24H [facility]; Protocol Stop: 05/24/24 21:14 Last Titration: 05/11/24 08:37 Dose: 14 units/kg/hr, 8.255 mls/hr Sodium Chloride (Ns) 1,000 mls @ 75 mls/hr IV .[id number] [facility] Stop: 05/11/24 11:49 Last Admin: 05/10/24 23:01 Dose: 75 mls/hr Magnesium Sulfate (Magnesium Sulfate Ivpb) 2 gm in 50 mls @ 25 mls/hr IV X1 ONE Stop: 05/11/24 10:47 Levothyroxine Sodium (Levothyroxine Sodium 25 Mcg Tablet) 75 mcg PO ACBR [facility] Stop: 06/10/24 07:59 Last Admin: 05/11/24 08:19 Dose: 75 mcg Lisinopril (Lisinopril 2.5 Mg Tablet) 5 mg PO QDAY [facility] Stop: 06/10/24 09:14 Lorazepam (Lorazepam 0.5 Mg Tablet) 0.5 mg PO Q4HR PRN PRN Reason: CIWA Score 2-7 Stop: 05/15/24 22:33 Lorazepam (Lorazepam 2 Mg/Ml Vial) 0.5 mg IV Q2HR PRN PRN Reason: CIWA SCORE 8-13 Stop: 05/15/24 22:33 Last Admin: 05/11/24 01:32 Dose: 0.5 mg Lorazepam (Lorazepam 2 Mg/Ml Vial) 1 mg IV Q2HR PRN PRN Reason: CIWA SCORE 14-19 Stop: 05/15/24 22:33 Lorazepam (Lorazepam 2 Mg/Ml Vial) 2 mg IV Q2HR PRN PRN Reason: CIWA SCORE 20-25 Stop: 05/15/24 22:33 Morphine Sulfate (Morphine Sulf Inj 10 Mg/Ml Vial) 2 mg IVP Q4HR PRN PRN Reason: PAIN Stop: 05/15/24 22:01 Last Admin: 05/10/24 22:17 Dose: 2 mg Ondansetron HCl (Ondansetron Inj 2 Mg/Ml Inj 2 Ml) 4 mg IV Q6H PRN; Protocol PRN Reason: NAUSEA OR VOMITING Stop: 06/09/24 22:28 Last Admin: 05/10/24 23:01 Dose: 4 mg Oxycodone/Acetaminophen (Oxycodone/Apap 5/325 Tablet) 1 tab PO Q6H PRN PRN Reason: PAIN SCALE 4-6 (Moderate Stop: 05/15/24 22:28 Last Admin: 05/10/24 23:12 Dose: 1 tab Pantoprazole Sodium (Pantoprazole Inj 40 Mg Vial) 40 mg IVP QDAY [facility] Stop: 06/10/24 08:59 Last Admin: 05/11/24 08:18 Dose: 40 mg Thiamine HCl (Thiamine 100 Mg Tablet) 100 mg PO BID [facility] Stop: 05/15/24 22:44 Last Admin: 05/11/24 08:19 Dose: 100 mg Ticagrelor (Ticagrelor 90 Mg Tablet) 90 mg PO BID [facility] Stop: 06/10/24 08:59 Discontinued Medications Acetaminophen (Acetaminophen 325 Mg Tablet) 650 mg PO PRN PRN PRN Reason: HEADACHE Stop: 06/09/24 20:54 Acetaminophen (Acetaminophen 325 Mg Tablet) 650 mg PO PRN PRN PRN Reason: Headache or mild pain 1-3 Stop: 06/09/24 20:54 Aspirin (Aspirin 325 Mg Tablet) 325 mg PO X1 ONE Stop: 05/10/24 19:14 Last Admin: 05/10/24 19:38 Dose: 325 mg Diltiazem HCl (Diltiazem Inj 5 Mg/Ml Vial 5 Ml) 15 mg IV X1 ONE Stop: 05/10/24 21:01 Last Admin: 05/10/24 22:18 Dose: 15 mg Heparin Sodium (Porcine) (Heparin Sod Inj 5000 Unit/Ml Vial) 3,550 unit 60 unit/kg (3550 unit) IV X1 ONE; Protocol Stop: 05/10/24 21:16 Last Admin: 05/10/24 23:03 Dose: 3,550 unit Heparin Sodium (Porcine) (Heparin Sod Inj 5000 Unit/Ml Vial) 1,750 unit 30 unit/kg (1750 unit) IV X1 ONE Stop: 05/11/24 07:51 Last Admin: 05/11/24 08:34 Dose: 1,750 unit Levothyroxine Sodium (Levothyroxine Sodium 88 Mcg Tablet) 75 mcg PO ACBR [facility] Stop: 06/10/24 05:59 Nitroglycerin (Nitroglycerin 0.4 Mg Subl Btl #25) 0.4 mg SL Q5MIN PRN PRN Reason: CHEST PAIN Last Admin: 05/10/24 21:06 Dose: 0.4 mg Ticagrelor (Ticagrelor 90 Mg Tablet) 180 mg PO X1 ONE Stop: 05/10/24 21:18 Last Admin: 05/10/24 22:18 Dose: 180 mg Assessment & Plan Plan Assessment and Plan: Summary: Ms. Manzo is a 73-year-old female with history of anxiety, hypothyroidism, depression, multiple abdominal surgeries, binge drinking alcohol use disorder, irritable bowel syndrome who presented to [facility] emergency department on 05/10/2024 with a chief complaint of chest pain. Cardiology consulted for NSTEMI type I versus type II. #ACS?NSTEMI type I versus type II #Typical cardiac chest pain #Elevated troponin Reported that she received a phone call that her childhood friend , since then later in the afternoon she started having substernal chest pressure 10/10 while she was lying in bed, reported that the pain radiated to her neck and abdomen was associated with shortness of breath has not been relieved to totally. 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 EKG showed sinus rhythm with no acute ST?T changes. Pain alleviated with 3 times dose of nitro and one-time morphine, still had some chest pain. Troponin 0.333 -> 2.277 -> 1.841 -> 1.676 Chanelle score 107 points, low risk category less than 1% probability of in hospital, intermediate risk 6-month post discharge, 3 to 8% probability of post discharge Patient currently complaining of chest pain as well, 05/25 Recommendations: -Patient has significant transaminitis and labs from today compared to yesterday consistent with acute liver injury. -Will repeat liver panel today, if LFTs trending down we will schedule patient for cardiac catheterization -Explained the plan to the patient; explained risks and benefits of cardiac catheterization, patient agrees to proceed with procedure if needed -Continue aspirin and Brilinta -Continue heparin drip -Monitor for chest pain #Hypothyroidism Patient has history of hypothyroidism TSH 0.60, within normal limits, home dose levothyroxine 75 mcg resumed by primary team #Acute liver injury #Binge drinking alcohol use disorder #Transaminitis Patient's liver function enzyme AST 975, ALT 275, alk phos 134 compared to yesterday AST 37, ALT 31, alk phos 61, significant elevation noted Tylenol levels negative, platelet count within normal limits bilirubin within normal limits, Tylenol levels normal. Patient did have positive blood alcohol level on presentation, reports only drinking wine last 2 weeks ago Possible acute alcoholic hepatitis, ultrasound negative for thrombus does show CBD 1.2 cm. Patient does have history of cholecystectomy, did have choledocholithiasis in the past. Per Dr. Mcneill's note from 2021 patient has some sort of a blind loop which common bile duct is attached to and finding that blind loop prior to proceeding with procedure was the plan. -Management per primary team #Normocytic normochromic anemia -Consider outpatient workup #Alcohol dependence with withdrawal #Benzodiazepine dependence with withdrawal Patient is anxious, sweating, tremulous, has elevated CIWA scores on CIWA protocol #Hypocalcemia Corrected calcium 8.2 today, continue to follow, consider outpatient workup if consistently low #Anxiety On BuSpar, trazodone and alprazolam at home, currently on CIWA protocol. Thank you for the consult and allowing to participate in the care of the patient. Cardiology will continue to follow. Case discussed with Attending Dr. Rivas. Marcellus Downey PGY1 Disclaimer: This note was dictated by speech recognition. Minor errors in finisher map and chart may be present due to voice recognition software. Attending Provider Attestation/Addendum I have personally seen and examined the patient separately on the above date of service and discussed the plan of care with the resident. I reviewed the resident Dr. Marcellus Downey consultation progress note and agree with the resident findings and plan in the note above and have also edited the documentation to reflect my findings and plan. 19-year-old female with a past medical history of hypothyroidism, anxiety, depression, history of abdominal surgeries including cholecystectomy, alcohol abuse with history of binge drinking in the last 1 year since she lost her , irritable bowel syndrome and came in for further evaluation of chest pain to the emergency department on 05/10/2024. Patient apparently received a phone call last night with her friend and later in the lobe she started having substernal chest pain 11/24 as if there is a heavy boulders placed on her chest patient with complaint of pain radiating to the neck as well as the complaint of shortness of breath and patient has been feeling anxious. Also complained of some abdominal pain. Patient came into the emergency department blood pressure slightly elevated but rest of vitals were stable. Rest of the labs were normal initial troponin was 0.33 with repeat troponin was 2.22 and peaked around 2.22 and now downtrending. Initial LFTs were normal with repeat LFTs showed AST of 975 and ALT of 275, alk phos of 134. Cholesterol 182, LDL 71, HDL 89, and TG 112 TSH normal, EKG showed normal sinus rhythm without any acute ST-T changes. Assessment and plan: 1. Acute coronary syndrome-elevated troponins-NSTEMI type I versus type II 2. Typical chest pain 3. Abnormal liver tests-transaminitis 4. Hypothyroidism 5. Alcohol use disorder with recent EGD for the last 1 year 6. Anxiety 7. Depression 8. Mild anemia Patient presented with typical chest pain Troponins increased to 2.2. EKG without any acute ST changes. NSTEMI type I versus type II and recommended cardiac catheterization given her above risk factors. Patient continues to have some chest pain. Patient is already on heparin drip, aspirin and Brilinta by the night team which will continue after the cardiac catheterization. Unfortunately patient has elevated LFTs which showed normal earlier on presentation but now at 975. Will repeat the care function test and if it concentrates or downtrending then will perform a cardiac catheterization today echocardiogram was ordered and will follow-up echo prior to cardiac catheterization. Aspirin high intensity statin as well as beta-julia if blood pressure is permissible. Continue Brilinta until on-call to the cardiac Nub Card Tender. Troponin is now downtrending and recommend no further troponins for now. Already significantly moderators of performing a left heart cardiac evaluation including the risks of bleeding, heart attack, stroke and were discussed in detail with the patient and patient agreeable and provided the consent. Will keep the patient n.p.o. and will plan for the cardiac cath in the afternoon after reviewing the labs of repeat liver function test, INR. Malick Rivas M.D. Interventional Cardiology
[2024-05-11 09:56] LABS: Acetaminophen 2.6 mcg/mL (10.0-20.0); Bilirubin,Direct 0.2 mg/dL (0.0-0.3); LDH (Lactate Dehydrogenase) 561 U/L (120-246)
[2024-05-11] MEDS: TICAGRELOR 90 MG TABLET PO (10:35)
[2024-05-11] MEDS: Magnesium Sulfate 2 GM Ivpb 2 GM/50 ML BAG IV (10:37)
[2024-05-11] MEDS: Lisinopril 2.5 MG TABLET 5 MG PO (10:38)
[2024-05-11 13:07] LABS: Alanine Aminotransferase 265 U/L (10-49); Albumin, Serum 3.4 gm/dL (3.4-4.8); Alkaline Phosphatase 140 U/L (46-116); Aspartate Amino Transferase 506 U/L (0-34); Bilirubin,Direct 0.2 mg/dL (0.0-0.3); Bilirubin,Total 0.5 mg/dL (0.3-1.2); Total Protein 5.6 gm/dL (5.7-8.2)
[2024-05-11 13:18] LABS: Partial Thromboplastin Time 59.3 Seconds (22.0-36.0); Prothrombin Time 10.5 Seconds (9.0-12.2)
--- NOTE | 2024-05-11 14:29 | ESPR_ITS ---
<Statement entered by Dick Arechiga MD - 05/12/24 11:26> I have discussed and was present for the essential components of the history, physical examination, diagnosis, and treatment plan with the resident. I agree with the patient's care as documented by the resident and amended herein by me. Dick Arechiga MD FACP. <Statement entered by Joann Rincon MD - 05/11/24 16:22> I discussed with and supervised the application development intern physician who took care of this patient. I personally saw and examined the patient and discussed the assessment and plan with the entire medicine team, including my attending Dr. Arechiga, I agree with most of the assessment and plan as documented below Joann Rincon M.D. PGY-2 Documentation for date of: 05/11/24 Subjective Subjective Interval history: No overnight events. Patient seen and examined at bedside. Patient is restless headache, anxiety, chest pain, denies fever, chills, shortness of breath, nausea, vomiting, abdominal pain. Patient went for cardiac catheterization. Continue to trend LFTs. Continue CIWA protocol. Cardiac catheterization revealed no new disease. Exam Vital Signs Temp Pulse Resp BP Pulse Ox O2 Del Method 98.7 F 92 18 146/78 H 97 Room Air 05/10/24 19:07 05/11/24 10:38 05/11/24 05:00 05/11/24 10:38 05/11/24 05:00 05/11/24 05:00 Narrative Exam PE: Gen: Well-developed and well-nourished. Anxious. HEENT: NCAT, PERRLA, EOMI, MMM, anicteric conjunctivae. CVS: normal S1 and S2. RRR. No M/R/G. Resp: CTA B/L. No rhonchi, rales, crackles or wheezing. Abd: soft, non-tender, non-distended. MSK: Good ROM in BUE & BLE. No edema or rash. Neuro: CN II-XII grossly intact. Strength 5/5 in BUE & BLE. Alert and oriented x3. Mild tremors. Psych: appropriate mood and affect. Objective Labs 05/11/24 03:12 05/11/24 03:12 Labs: Laboratory Results - last 24 hr 05/10/24 05/10/24 05/10/24 04:30 19:22 23:09 WBC 6.4 RBC 4.05 Hgb 11.8 L Hct 35.5 L MCV 88 MCH 29.1 MCHC 33.2 RDW Std Deviation 49.6 H Plt Count 254 Neut % (Auto) 65 Lymph % (Auto) 23 [place] % (Auto) 8 Eos % (Auto) 3 Baso % (Auto) 1 Neut # (Auto) 4.2 Lymph # (Auto) 1.5 [place] # (Auto) 0.5 Eos # (Auto) 0.2 Baso # (Auto) 0.0 Immature Gran # (Auto) 0.02 H Absolute Nucleated RBC 0.00 Immature Gran % 0 Nucleated RBC % 0 PT 10.4 INR 0.9 APTT 23.7 Sodium 140 Potassium 4.8 Chloride 105 Carbon Dioxide 26.7 Anion Gap 8 BUN 23 Creatinine 1.1 Estim Creat Clear Calc Not Performed. eGFR 54 L BUN/Creatinine Ratio 21 H Glucose 105 Calculated Osmolality 283 Calcium 8.6 Corrected Calcium 8.9 Phosphorus Magnesium Total Bilirubin < 0.2 L Direct Bilirubin AST 37 H ALT 31 Alkaline Phosphatase 61 Lactate Dehydrogenase Troponin I 0.333 H* 2.277 H* D B-Natriuretic Peptide 47 Total Protein 5.9 Albumin 3.6 Globulin 2.3 Albumin/Globulin Ratio 1.6 Triglycerides 112 Cholesterol 182 LDL Cholesterol, Calc 71 HDL Cholesterol 89 H Cholesterol/HDL Ratio 2.0 L TSH Urine Opiates Screen Positive A Urine Fentanyl Screen Negative Acetaminophen Ur Barbiturates Screen Negative U Amphetamin/Meth Scrn Negative U Benzodiazepines Scrn Positive A U Cocaine Metab Screen Negative U Marijuana (THC) Screen Negative Ethyl Alcohol 36.4 H Hepatitis A IgM Ab Hep Bs Antigen Hep B Core IgM Ab Hepatitis C Antibody 05/11/24 05/11/24 05/11/24 03:12 05:00 12:40 WBC 7.3 RBC 3.84 L Hgb 11.0 L Hct 33.5 L MCV 87 MCH 28.6 MCHC 32.8 RDW Std Deviation 49.5 H Plt Count 231 Neut % (Auto) 78 Lymph % (Auto) 10 [place] % (Auto) 11 Eos % (Auto) 0 Baso % (Auto) 0 Neut # (Auto) 5.8 Lymph # (Auto) 0.8 L [place] # (Auto) 0.8 Eos # (Auto) 0.0 Baso # (Auto) 0.0 Immature Gran # (Auto) 0.02 H Absolute Nucleated RBC 0.00 Immature Gran % 0 Nucleated RBC % 0 PT 10.5 INR 1.0 APTT 44.7 H D 59.3 H D Sodium 139 Potassium 4.3 D Chloride 103 Carbon Dioxide 25.9 Anion Gap 10 BUN 20 Creatinine 1.0 Estim Creat Clear Calc Not Performed. eGFR > 60 BUN/Creatinine Ratio 20 Glucose 98 Calculated Osmolality 280 Calcium 7.7 L Corrected Calcium 8.2 L Phosphorus 4.5 Magnesium 1.9 Total Bilirubin 0.5 0.5 Direct Bilirubin 0.2 0.2 AST 975 H* 506 H* ALT 275 H 265 H Alkaline Phosphatase 134 H D 140 H Lactate Dehydrogenase 561 H Troponin I 1.841 H* D 1.676 H* B-Natriuretic Peptide Total Protein 5.5 L 5.6 L Albumin 3.4 3.4 Globulin 2.1 L Albumin/Globulin Ratio 1.6 Triglycerides Cholesterol LDL Cholesterol, Calc HDL Cholesterol Cholesterol/HDL Ratio TSH 0.60 Urine Opiates Screen Urine Fentanyl Screen Acetaminophen 2.6 L Ur Barbiturates Screen U Amphetamin/Meth Scrn U Benzodiazepines Scrn U Cocaine Metab Screen U Marijuana (THC) Screen Ethyl Alcohol Hepatitis A IgM Ab Non Reactive Hep Bs Antigen Non Reactive Hep B Core IgM Ab Non Reactive Hepatitis C Antibody Non Reactive Quality Measures Quality Measures VTE prophylaxis Advance care planning discussed with:: patient Assessment & Plan Assessment Current Active Medications: Generic Name Dose Route Start Last Admin Trade Name Freq PRN Reason Stop Dose Admin Acetaminophen 650 mg 05/11/24 01:42 Acetaminophen 325 Mg Tablet PO 06/10/24 01:41 Q6HR PRN HEADACHE OR MILD PAIN 1-3 Aspirin 81 mg 05/11/24 09:00 05/11/24 08:19 Aspirin Ec 81 Mg Tabec PO 06/10/24 08:59 81 mg QDAY ALPHONSO Administration Chlordiazepoxide HCl 25 mg 05/11/24 14:00 Chlordiazepoxide Hcl 25 Mg Capsule PO 05/15/24 13:59 Q4HR ALPHONSO Taper Folic Acid 1 mg 05/10/24 22:45 05/11/24 08:19 Folic Acid 1 Mg Tablet PO 05/15/24 22:44 1 mg BID ALPHONSO Administration Heparin Sodium/Dextrose 25,000 unit in 250 mls @ 7.076 mls/hr 05/10/24 21:15 05/11/24 08:37 Heparin In D5w Ivpb IV 05/24/24 21:14 14 units/kg/hr .Q24H ALPHONSO 8.255 mls/hr Titration Protocol 12 UNITS/KG/HR Levothyroxine Sodium 75 mcg 05/11/24 08:00 05/11/24 08:19 Levothyroxine Sodium 25 Mcg Tablet PO 06/10/24 07:59 75 mcg ACBR ALPHONSO Administration Lisinopril 5 mg 05/11/24 09:15 05/11/24 10:38 Lisinopril 2.5 Mg Tablet PO 06/10/24 09:14 5 mg QDAY ALPHONSO Administration Lorazepam 0.5 mg 05/10/24 22:34 Lorazepam 0.5 Mg Tablet PO 05/15/24 22:33 Q4HR PRN CIWA Score 2-7 Lorazepam 0.5 mg 05/11/24 11:11 05/11/24 12:05 Lorazepam 2 Mg/Ml Vial IV 05/16/24 11:10 0.5 mg Q2HR PRN Administration CIWA SCORE 8-13 Lorazepam 1 mg 05/11/24 11:11 Lorazepam 2 Mg/Ml Vial IV 05/16/24 11:10 Q2HR PRN CIWA SCORE 14-19 Lorazepam 2 mg 05/11/24 11:11 Lorazepam 2 Mg/Ml Vial IV 05/16/24 11:10 Q2HR PRN CIWA SCORE 20-25 Morphine Sulfate 2 mg 05/10/24 22:02 05/10/24 22:17 Morphine Sulf Inj 10 Mg/Ml Vial IVP 05/15/24 22:01 2 mg Q4HR PRN Administration PAIN Protocol Ondansetron HCl 4 mg 05/10/24 22:29 05/10/24 23:01 Ondansetron Inj 2 Mg/Ml Inj 2 Ml IV 06/09/24 22:28 4 mg Q6H PRN Administration NAUSEA OR VOMITING Protocol Oxycodone/Acetaminophen 1 tab 05/10/24 22:29 05/10/24 23:12 Oxycodone/Apap 5/325 Tablet PO 05/15/24 22:28 1 tab Q6H PRN Administration PAIN SCALE 4-6 (Moderate Pantoprazole Sodium 40 mg 05/11/24 09:00 05/11/24 08:18 Pantoprazole Inj 40 Mg Vial IVP 06/10/24 08:59 40 mg QDAY ALPHONSO Administration Thiamine HCl 100 mg 05/10/24 22:45 05/11/24 08:19 Thiamine 100 Mg Tablet PO 05/15/24 22:44 100 mg BID ALPHONSO Administration Ticagrelor 90 mg 05/11/24 09:00 05/11/24 10:35 Ticagrelor 90 Mg Tablet PO 06/10/24 08:59 90 mg BID LAPHONSO Administration Plan 73-year-old female patient with past medical history of multiple abdominal surgeries, hypothyroidism, anxiety and depression, IBS, presented to the ED due to acute chest pain that started at 4:30 PM over 10 May 2024, patient arrived at 6:30 PM. Mentions that the pain is located in the central of the chest pressure-like not relieved by rest as the patient was lying in bed. She reported that the pain radiate to the left side of her neck and to the left shoulder. Patient was admitted for management of non-STEMI type I. #Alcohol use disorder #Transaminitis Patient reported social drinking however on further questioning she reported being drinking every 2 to 3 days During her previous visits patient was noticed to be positive for alcohol, highest level was in the 300s Patient's appears to be jittery and shaky Apparently patient struggling with anxiety, her last year, her childhood friend 1 hour before her symptoms started Blood alcohol level elevated. Patient had significant elevation in LFTs, rapidly downtrended. Suspect component of alcoholic hepatitis.?Now negative, liver ultrasound unremarkable. MELD score 6, low risk of mortality. Maddrey's discriminant function -6.9, good prognosis, steroids not recommended. -[facility] protocol -Trend LFTs daily -Avoid hepatotoxins -Counseled patient regarding alcohol use #Non-STEMI type II Patient presented with acute chest pain. Pressure-like, radiated to the left side of the neck and shoulder Troponin were elevated 0.333, EKG was with no significant ischemic changes ANDRESSA score was 2?points 8% risk at 14 days of: all-cause mortality, new or recurrent MS, or severe recurrent ischemia requiring urgent revascularization. Troponin peaked at 2.27 Patient a cardiac catheterization, showed no signs of blockage. Cardiology recommend stop anticoagulation. -Telemetry -Appreciate cardiology recommendations -Pain management with acetaminophen, oxycodone, morphine -Echocardiogram #History of hypertension #History of hypothyroidism Patient history as stated. -Resume patient's home medication levothyroxine 75 mcg before breakfast -Resume home meds: Lisinopril 5 mg p.o. daily #History of anxiety #History of IBS Patient history as stated. -Consider resuming home medication Xanax after patient weaned off CIWA protocol FEN: Cardiac diet DVT ppx: Lovenox GI ppx: Protonix IV lines: PIV Code status: Full code Plan of care discussed with senior resident Dr. Rincon PGY?[address] Arechiga. Kyle Marquez MD PGY?1
--- NOTE | 2024-05-11 15:00 | PD.CARDCATH ---
Cardiac Cath Procedure Procedure Name Date of procedure: 05/11/2024 SHAREPOINT APPLICATION DEVELOPER: Malick Rivas MD PROCEDURE PERFORMED: 1. Left heart cardiac catheterization including right, left coronary angiograms and left ventriculogram 2. Ultrasound-guided access of the right radial artery 3. Conscious sedation for 30 minutes. Procedure Narrative HISTORY AND INDICATIONS: A 73 year-old female with a past medical history of hypothyroidism, anxiety, depression, history of abdominal surgeries including cholecystectomy, alcohol abuse with history of binge drinking in the last 1 year since she lost her , irritable bowel syndrome and came in for further evaluation of chest pain to the emergency department on 05/10/2024. Troponins peaked at 2.2 and pt continued to complain of chest pain inspite of medical treatment and decision was made to perform a cardiac catheterization. Patient was explained the risk benefits and alternatives of performing a left heart cardiac catheterization including the risk of bleeding, heart attack, stroke and in detail and the agreeable for the procedure. Consent signed, placed in the chart and H&P updated. DESCRIPTION OF PROCEDURE: The patient was brought to the cardiac catheterization lab and all asceptic precautions were followed. Patient was given 1 Mg of Versed and 50 mcg of fentanyl for moderate conscious sedation. 2 mL of lidocaine was given in the right wrist. The right radial artery was accessed via the ultrasound guidance as well as micropuncture technique. A 6 Yoruba glide sheath was introduced. We then used a 5 Yoruba TIG 4 catheter to perform the left and right coronary angiograms as well as a left ventriculogram which showed the following findings. 1. Left ventricular ejection fraction was normal at 60 to 65% without any regional wall motion abnormalities. LVEDP was elevated at 18 mmHg. There was no significant transvalvular aortic gradient. 2. Left dominant circulation 3. Left main artery is a large-caliber vessel without any significant stenosis. 4. LAD is a large sized artery with a medium size diagonal and without show any significant disease. 5. LCx is a large sized artery with medium OM1, small OM2, medium LPDA and small LPL without any significant disease. 6. RCA is a small non dominant artery without any significant disease. A radial band was used to achieve the hemostasis of the right radial artery access. Patient will be monitored in the cardiac joint machine operator for the next 2 to 3 hours and will be discharged home / telemetry later today if hemodynamically stable. Patient had brief afib with RVR during the procedure which was immediately terminated with 5 mg metoprolol IV x 1. Complications: None Specimens: None Blood loss: Estimated 5-10 ml Summary/findings: 1. NSTEMI - Typical chest pain with troponin of 2.2: LHC showed normal coronaries without any angiographically significant obstruction. 2. LVEF was normal at 60-65% and normal LVEDP of 18 mmHg. No transvalvular aortic gradient. Recommendations: 1. Recommended aggressive risk factor modification, aggressive medical treatment of her HTN and pt possibly has underlying microvascular dysfunction. 2. Recommended no lifting more than 5 pounds for next 7-10 days and follow up in my office in 7 days. Malick Rivas MD Interventional Cardiology.
--- NOTE | 2024-05-11 17:45 | PC.NURSE ---
TR band removed at this time. Surgical site note with a bruise extending about 5 cm distal to the surgical site and 6 cm proximal to the surgical site and about 2 cm wide, no active bleeding, no hematoma noted on right upper extremity or around the surgical site. Capillary refill < 3 seconds. No noted changes in color or temperature on right upper extremity. Patient denies general and localized pain, no loss in sensation, no tingling or numbness felt to right upper extremity. Tagaderm and Coban wrap applied. Will continue to monitor
[2024-05-11] MEDS: oxyCODONE/APAP 5/325 TABLET 1 TAB PO (18:15)
[2024-05-11 19:27] LABS: Partial Thromboplastin Time 23.2 Seconds (22.0-36.0)
[2024-05-11] MEDS: ONDANSETRON INJ 2 MG/ML INJ 2 ML 4 MG IV (20:58)
[2024-05-11] MEDS: chlordiazePOXIDE HCl 25 MG CAPSULE PO (21:02)
--- NOTE | 2024-05-11 21:17 | ECHO_ITS ---
Transthoracic Echo Report Ht (in): 62 Wt (lb): 129 Exam Location: Echo Lab Status: Inpatient Herpetology Teacher: EMILE Martínez^^^^ Indications: Procedure Performed: BP: 116 / 89 HR: 93 Technical Quality: Fair MEASUREMENTS (Male / Female) Normal Values 2D ECHO LV Diastolic Diameter PLAX 4.5 cm 4.2 - 5.9 / 3.9 - 5.3 cm LV Systolic Diameter PLAX 3.2 cm IVS Diastolic Thickness 0.9 cm 0.6 - 1.0 / 0.6 - 0.9 cm LVPW Diastolic Thickness 0.7 cm 0.6 - 1.0 / 0.6 - 0.9 cm LV Relative Wall Thickness 0.4 LVOT Diameter 1.8 cm Aortic Root Diameter 3.4 cm LA Systolic Diameter LX 3.2 cm 3.0 - 4.0 / 2.7 - 3.8 cm LV Ejection Fraction MOD BP 60.5 % >= 55 % LV Cardiac Index MOD BP 2440.1 cm?/min?m? LV Ejection Fraction MOD 4C 59.9 % LV Cardiac Index MOD 4C 2792.8 cm?/min?m? LV Ejection Fraction 4C AL 60.6 % LV Cardiac Index 4C AL 2922.1 cm?/min?m? LV Ejection Fraction MOD 2C 61.5 % LV Cardiac Index MOD 2C 2151.0 cm?/min?m? LV Ejection Fraction 2C AL 64.1 % LV Cardiac Index 2C AL 2335.6 cm?/min?m? LA Volume Index 26.2 cm?/m? 16 - 28 cm?/m? Ascending Aorta Diameter 2.6 cm DOPPLER AV Peak Velocity 154.0 cm/s AV Peak Gradient 9.5 mmHg AV Mean Gradient 6.0 mmHg AV Velocity Time Integral 32.5 cm LVOT Peak Velocity 99.0 cm/s LVOT Peak Gradient 3.9 mmHg LVOT Velocity Time Integral 25.3 cm LVOT Cardiac Index 3722.7 cm?/min?m? AV Area Cont Eq vti 2.0 cm? AV Area Cont Eq pk 1.6 cm? MV Peak Velocity 103.0 cm/s MV Peak Gradient 4.2 mmHg MV Mean Velocity 69.4 cm/s MV Mean Gradient 2.0 mmHg MV Area PHT 2.9 cm? MR Peak Velocity 727.0 cm/s MR Peak Gradient 211.4 mmHg Mitral E Point Velocity 56.3 cm/s Mitral A Point Velocity 79.4 cm/s Mitral E to A Ratio 0.7 TR Peak Velocity 301.5 cm/s TR Peak Gradient 36.4 mmHg PV Peak Velocity 90.4 cm/s PV Peak Gradient 3.3 mmHg RVOT Peak Velocity 51.0 cm/s FINDINGS Left Ventricle Normal left ventricular size, wall thickness, systolic function with no obvious regional wall motion abnormalities.there is grade III diastolic dysfunction of the left ventricle (restrictive filling pattern). The left ventricular ejection fraction is normal, estimated at 55-60%. Right Ventricle The right ventricle is normal in size and systolic function. The estimated right ventricular systolic pressure, 45 mmHg. Left Atrium The left atrium is normal by two-dimensional, color flow and Doppler imaging with no structural abnormalities, no thrombus formation present. Right Atrium The right atrium is normal by two-dimensional imaging, color flow and Doppler imaging with no structural abnormalities, no thrombus formation present. Atrial Septum The interatrial septum appears normal with no evidence of a shunt. Aorta The aorta is normal by two-dimensional, color flow and Doppler interrogation. Mitral Valve Moderate mitral regurgitation. Mitral annular calcification. Aortic Valve The aortic valve is trileaflet and normal to two-dimensional, color flow and Doppler interrogation. Tricuspid Valve There is mild to moderate tricuspid valve regurgitation. Pulmonic Valve Trivial pulmonic valve regurgitation. Vessels The pulmonary artery appears normal. The inferior vena cava pulmonary and hepatic veins appear normal. Pericardium The pericardium is normal by two-dimensional imaging. There is no significant pericardial effusion. CONCLUSIONS Indication: Chest pain, NSTEMI Normal LV size and function with and estimated EF 55-60%. Mild LVH. Diastolic Dysfunction stage I. Normal RV size and function with mildly elevated RVSP 45 mmHg. Mild MR & mild MAC. Mild-moderate TR. Ni pericardial effusion. Malick Rivas (Electronically Signed) Final Date: 12 May 2024 01:24
[2024-05-12] VITALS (7 sets, daily range): BP systolic 128–155; BP diastolic 75–89; PULSE 81–105; RESP 17–18; TEMP 36–36.7; O2SAT 93–98; BMI 26.8; BMI 25.3
[2024-05-12] MEDS: chlordiazePOXIDE HCl 25 MG CAPSULE PO ×5 (02:07→21:08)
[2024-05-12] MEDS: ACETAMINOPHEN 325 MG TABLET 650 MG PO ×2 (02:16→14:27)
[2024-05-12] MEDS: LEVOTHYROXINE SODIUM 25 MCG TABLET 75 MCG PO (05:57)
[2024-05-12] MEDS: LORazepam 0.5 MG TABLET PO (06:05)
[2024-05-12 06:33] LABS: Basophils % (Auto) 1 % (0-2.5); Eosinophils # (Auto) 0.1 Thou/mm3 (0.0-0.5); Eosinophils % (Auto) 2 % (0-10); Hematocrit 34.5 % (36.0-46.0); Hemoglobin 11.3 g/dL (12.0-16.0); Immature Granulocytes % (Auto) 0 % (0-0); Immature Granulocytes Auto 0.01 Thou/mm3 (0.00-0.00); Lymphocytes # (Auto) 0.9 Thou/mm3 (1.0-4.8); Lymphocytes % (Auto) 19 % (10-50); Mean Corpuscular HGB Conc 32.8 g/dl (31.0-37.0); Mean Corpuscular Volume 89 fL (80-100); Monocytes # (Auto) 0.6 Thou/mm3 (0.0-0.8); Monocytes % (Auto) 11 % (0-12); Neutrophils # (Auto) 3.4 Thou/mm3 (1.8-7.7); Neutrophils % (Auto) 67 % (37-80); Nucleated Red Blood Cell % 0 /100 WBC (0); Platelet Count 234 Thou/mm3 (140-440); RDW Standard Deviation 51.8 fL (36.4-46.3); Red Blood Count 3.89 Miln/mm3 (4.00-5.20)
[2024-05-12 07:01] LABS: Alanine Aminotransferase 176 U/L (10-49); Albumin, Serum 3.4 gm/dL (3.4-4.8); Albumin/Globulin Ratio 1.6 (1.2-2.2); Alkaline Phosphatase 123 U/L (46-116); Anion Gap 7 (7-16); Aspartate Amino Transferase 150 U/L (0-34); BUN/Creatinine Ratio 10 Ratio (12-20); Bilirubin,Total 0.4 mg/dL (0.3-1.2); Blood Urea Nitrogen 8 mg/dL (9-23); Calcium 8.5 mg/dL (8.3-10.6); Carbon Dioxide 28.7 mMol/L (20.0-31.0); Chloride 104 mMol/L (98-107); Creatinine (Component) 0.8 mg/dL (0.6-1.3); Estimated Creatinine Clearance 56.1 mL/min (>60); Globulin 2.1 gm/dL (2.3-3.5); Glucose 108 mg/dL (74-106); Magnesium 2.1 mg/dL (1.6-2.6); Osmolality,Calculated 278 (275-295); Phosphorous 3.3 mg/dL (2.4-5.1); Potassium 4.6 mMol/L (3.4-5.1); Sodium 140 mMol/L (136-145); Total Protein 5.5 gm/dL (5.7-8.2); eGFR > 60 See Note
[2024-05-12 07:43] LABS: INR 0.9 (0.9-1.3); Partial Thromboplastin Time 23.1 Seconds (22.0-36.0); Prothrombin Time 10.1 Seconds (9.0-12.2)
--- NOTE | 2024-05-12 08:46 | ESPR_ITS ---
Documentation for date of: 05/12/24 Subjective Subjective Interval history: Patient seen and examined at bedside. Labs and vitals reviewed Considering patient's cardiac chest pain, elevated troponin 2.2 multiple risk factors patient had a successful cardiac catheterization performed yesterday. Left heart cardiac catheterization significant for normal coronaries without any angiographically significant obstruction LVEF was normal at 60 to 65% with normal LVEDP of 18 mmHg. Patient probably has underlying microvascular dysfunction, recommend aggressive risk factor modification and medical management of hypertension Patient did have an episode of A-fib with RVR during cardiac catheterization yesterday which resolved with metoprolol tartrate 5 mg IV, continue telemetry monitoring Today patient reports that her chest pain has resolved and reports that she is feeling much better. Patient continues to require as needed Ativan for management of alcohol withdrawal, was given Librium yesterday, management per primary team. Exam Vital Signs Temp Pulse Resp BP Pulse Ox O2 Del Method 98.0 F 87 18 154/89 H 93 L Room Air 05/12/24 04:00 05/12/24 04:00 05/12/24 04:00 05/12/24 04:00 05/12/24 04:00 05/11/24 18:35 Narrative Exam Physical Exam General: Awake and in no acute distress. Conversational and non-toxic appearing. Shaky and anxious HEENT: Normocephalic, atraumatic, mucous membranes moist. Heart: Regular rate and rhythm, no murmurs. Lungs: Clear to auscultation with no wheezing or crackles. Abdomen: Soft, nondistended, nontender, positive bowel sounds. ?No guarding or rebound tenderness. Neurologic: Alert and oriented x3, no gross neurological deficit, and patient able to move all 4 extremities. Extremities: No edema. Skin: No rash or ecchymoses. Objective Labs 05/13/24 05:05 05/13/24 05:05 Labs: Laboratory Results - last 24 hr 05/11/24 05/11/24 05/11/24 05:00 12:40 18:56 WBC RBC Hgb Hct MCV MCH MCHC RDW Std Deviation Plt Count Neut % (Auto) Lymph % (Auto) [place] % (Auto) Eos % (Auto) Baso % (Auto) Neut # (Auto) Lymph # (Auto) [place] # (Auto) Eos # (Auto) Baso # (Auto) Immature Gran # (Auto) Absolute Nucleated RBC Immature Gran % Nucleated RBC % PT 10.5 INR 1.0 APTT 59.3 H D 23.2 D Sodium Potassium Chloride Carbon Dioxide Anion Gap BUN Creatinine Estim Creat Clear Calc eGFR BUN/Creatinine Ratio Glucose Calculated Osmolality Calcium Corrected Calcium Phosphorus Magnesium Total Bilirubin 0.5 Direct Bilirubin 0.2 0.2 AST 506 H* ALT 265 H Alkaline Phosphatase 140 H Lactate Dehydrogenase 561 H Total Protein 5.6 L Albumin 3.4 Globulin Albumin/Globulin Ratio Acetaminophen 2.6 L 05/12/24 05:56 WBC 5.0 RBC 3.89 L Hgb 11.3 L Hct 34.5 L MCV 89 MCH 29.0 MCHC 32.8 RDW Std Deviation 51.8 H Plt Count 234 Neut % (Auto) 67 Lymph % (Auto) 19 [place] % (Auto) 11 Eos % (Auto) 2 Baso % (Auto) 1 Neut # (Auto) 3.4 Lymph # (Auto) 0.9 L [place] # (Auto) 0.6 Eos # (Auto) 0.1 Baso # (Auto) 0.0 Immature Gran # (Auto) 0.01 H Absolute Nucleated RBC 0.00 Immature Gran % 0 Nucleated RBC % 0 PT 10.1 INR 0.9 APTT 23.1 Sodium 140 Potassium 4.6 Chloride 104 Carbon Dioxide 28.7 Anion Gap 7 BUN 8 L Creatinine 0.8 Estim Creat Clear Calc 56.1 L eGFR > 60 BUN/Creatinine Ratio 10 L Glucose 108 H Calculated Osmolality 278 Calcium 8.5 Corrected Calcium 9.0 Phosphorus 3.3 Magnesium 2.1 Total Bilirubin 0.4 Direct Bilirubin AST 150 H ALT 176 H Alkaline Phosphatase 123 H Lactate Dehydrogenase Total Protein 5.5 L Albumin 3.4 Globulin 2.1 L Albumin/Globulin Ratio 1.6 Acetaminophen Quality Measures Quality Measures VTE prophylaxis Advance care planning discussed with:: patient Assessment & Plan Assessment Current Active Medications: Generic Name Dose Route Start Last Admin Trade Name Freq PRN Reason Stop Dose Admin Acetaminophen 650 mg 05/11/24 01:42 05/12/24 02:16 Acetaminophen 325 Mg Tablet PO 06/10/24 01:41 650 mg Q6HR PRN Administration HEADACHE OR MILD PAIN 1-3 Chlordiazepoxide HCl 25 mg 05/12/24 14:00 Chlordiazepoxide Hcl 25 Mg Capsule PO 05/16/24 13:59 TID ALPHONSO Taper Enoxaparin Sodium 40 mg 05/12/24 09:00 Enoxaparin Sod Inj 40 Mg/0.4 Ml Syringe SC 05/26/24 08:59 QDAY ALPHONSO Folic Acid 1 mg 05/10/24 22:45 05/11/24 20:57 Folic Acid 1 Mg Tablet PO 05/15/24 22:44 1 mg BID ALPHONSO Administration Levothyroxine Sodium 75 mcg 05/11/24 08:00 05/12/24 05:57 Levothyroxine Sodium 25 Mcg Tablet PO 06/10/24 07:59 75 mcg ACBR ALPHONSO Administration Lisinopril 5 mg 05/11/24 09:15 05/11/24 10:38 Lisinopril 2.5 Mg Tablet PO 06/10/24 09:14 5 mg QDAY ALPHONSO Administration Lorazepam 0.5 mg 05/10/24 22:34 05/12/24 06:05 Lorazepam 0.5 Mg Tablet PO 05/15/24 22:33 0.5 mg Q4HR PRN Administration CIWA Score 2-7 Lorazepam 0.5 mg 05/11/24 11:11 05/11/24 21:01 Lorazepam 2 Mg/Ml Vial IV 05/16/24 11:10 0.5 mg Q2HR PRN Administration CIWA SCORE 8-13 Lorazepam 1 mg 05/11/24 11:11 Lorazepam 2 Mg/Ml Vial IV 05/16/24 11:10 Q2HR PRN CIWA SCORE 14-19 Lorazepam 2 mg 05/11/24 11:11 Lorazepam 2 Mg/Ml Vial IV 05/16/24 11:10 Q2HR PRN CIWA SCORE 20-25 Morphine Sulfate 2 mg 05/10/24 22:02 05/10/24 22:17 Morphine Sulf Inj 10 Mg/Ml Vial IVP 05/15/24 22:01 2 mg Q4HR PRN Administration PAIN Protocol Ondansetron HCl 4 mg 05/10/24 22:29 05/11/24 20:58 Ondansetron Inj 2 Mg/Ml Inj 2 Ml IV 06/09/24 22:28 4 mg Q6H PRN Administration NAUSEA OR VOMITING Protocol Oxycodone/Acetaminophen 1 tab 05/10/24 22:29 05/11/24 18:15 Oxycodone/Apap 5/325 Tablet PO 05/15/24 22:28 1 tab Q6H PRN Administration PAIN SCALE 4-6 (Moderate Pantoprazole Sodium 40 mg 05/11/24 09:00 05/11/24 08:18 Pantoprazole Inj 40 Mg Vial IVP 06/10/24 08:59 40 mg QDAY ALPHONSO Administration Thiamine HCl 100 mg 05/10/24 22:45 05/11/24 20:58 Thiamine 100 Mg Tablet PO 05/15/24 22:44 100 mg BID ALPHONSO Administration Plan Assessment and Plan: Summary: Ms. Manzo is a 73-year-old female with history of anxiety, hypothyroidism, depression, multiple abdominal surgeries, binge drinking alcohol use disorder, irritable bowel syndrome who presented to [facility] emergency department on 05/10/2024 with a chief complaint of chest pain. Cardiology consulted for NSTEMI type I versus type II. #ACS?NSTEMI type I versus type II # Status post cardiac catheterization 05/11/24 #Typical cardiac chest pain, resolved #Elevated troponin Reported that she received a phone call that her childhood friend , since then later in the afternoon she started having substernal chest pressure 10/10 while she was lying in bed, reported that the pain radiated to her neck and abdomen was associated with shortness of breath has not been relieved to totally. 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 EKG showed sinus rhythm with no acute ST?T changes. Pain alleviated with 3 times dose of nitro and one-time morphine, still had some chest pain. Troponin 0.333 -> 2.277 -> 1.841 -> 1.676 Chanelle score 107 points, low risk category less than 1% probability of in hospital, intermediate risk 6-month post discharge, 3 to 8% probability of post discharge. Lipid panel: Triglyceride 112, cholesterol 182, LDL 71, HDL 89 TSH 0.60 A1c 5.1 - 08/31/2023 Echocardiogram 05/11/2024: Normal LV size and function with and estimated EF 55-60%. Mild LVH. Diastolic Dysfunction stage I. Normal RV size and function with mildly elevated RVSP 45 mmHg. Mild MR & mild MAC. Mild-moderate TR. No pericardial effusion. Left heart cardiac catheterization 05/11/2024: LHC showed normal coronaries without any angiographically significant obstruction. LVEF was normal at 60-65% and normal LVEDP of 18 mmHg. No transvalvular aortic gradient. Recommendations: -Discontinue aspirin, Brilinta and heparin drip. -Patient has microvascular disease suspicion of microvascular angina. -Recommend aggressive risk factor management, consider starting on low-dose statin after stabilization of liver enzymes, LDL goal less than 70. -Patient is currently experiencing alcohol withdrawal, once stable aggressive management of hypertension. -Continue levothyroxine, maintain euthyroidism -Recommend following outpatient in 1 week to establish cardiology care. #Hypothyroidism Patient has history of hypothyroidism TSH 0.60, within normal limits, home dose levothyroxine 75 mcg resumed by primary team #Acute liver injury #Binge drinking alcohol use disorder #Transaminitis, improving Patient's liver function enzyme AST 975, ALT 275, alk phos 134 compared to yesterday AST 37, ALT 31, alk phos 61, significant elevation noted Tylenol levels negative, platelet count within normal limits bilirubin within normal limits, Tylenol levels normal. Patient did have positive blood alcohol level on presentation, reports only drinking wine last 2 weeks ago Possible acute alcoholic hepatitis, ultrasound negative for thrombus does show CBD 1.2 cm. Patient does have history of cholecystectomy, did have choledocholithiasis in the past. Per Dr. Mcneill's note from 2021 patient has some sort of a blind loop which common bile duct is attached to and finding that blind loop prior to proceeding with procedure was the plan. -Management per primary team #Normocytic normochromic anemia -Consider outpatient workup #Alcohol dependence with withdrawal #Benzodiazepine dependence with withdrawal Patient is anxious, sweating, tremulous, has elevated CIWA scores on CIWA protocol #Hypocalcemia Corrected calcium 8.2 today, continue to follow, consider outpatient workup if consistently low #Anxiety On BuSpar, trazodone and alprazolam at home, currently on CIWA protocol. Thank you for the consult and allowing to participate in the care of the patient. Cardiology will continue to follow. Case discussed with Attending Dr. Rivas. Marcellus Downey PGY1 Disclaimer: This note was dictated by speech recognition. Minor errors in coagulating operator may be present due to voice recognition software. Attending Provider Attestation/Addendum I have personally seen and examined the patient separately on the above date of service and discussed the plan of care with the resident. I reviewed the resident Dr. Marcellus Downey consultation progress note and agree with the resident findings and plan in the note above and have also edited the documentation to reflect my findings and plan. Malick Rivas M.D. Interventional Cardiology
[2024-05-12] MEDS: PANTOPRAZOLE INJ 40 MG VIAL IVP (09:08)
[2024-05-12] MEDS: FOLIC ACID 1 MG TABLET PO ×2 (09:09→21:08)
[2024-05-12] MEDS: Lisinopril 2.5 MG TABLET 5 MG PO (09:09)
[2024-05-12] MEDS: ENOXAPARIN SOD INJ 40 MG/0.4 ML SYRINGE SC (09:09)
[2024-05-12] MEDS: THIAMINE 100 MG TABLET PO ×2 (09:09→21:08)
[2024-05-12] MEDS: LORazepam 2 MG/ML VIAL 0.5 MG IV ×2 (09:22→15:06)
--- NOTE | 2024-05-12 11:19 | ESPR_ITS ---
<Statement entered by Dick Arechiga MD - 05/13/24 17:12> I have discussed and was present for the essential components of the history, physical examination, diagnosis, and treatment plan with the resident. I agree with the patient's care as documented by the resident and amended herein by me. Dick Arechiga MD FACP. <Statement entered by Joann Rincon MD - 05/13/24 14:38> I discussed with and supervised the mechanical engineering intern physician who took care of this patient. I personally saw and examined the patient and discussed the assessment and plan with the entire medicine team, including my attending Dr. Arechiga, I agree with most of the assessment and plan as documented below Joann Rincon M.D. PGY-2 Documentation for date of: 05/12/24 Subjective Subjective Interval history: No overnight events. Patient seen and examined at bedside, resting comfortably. Patient had cardiac catheterization which showed no blockage. Patient denies chest pain, shortness of breath, fevers, chills. Patient does continue to endorse anxiety, nausea, tremors. Continue CIWA protocol. Continue to monitor LFTs. Weaning down Librium, probable DC tomorrow. Exam Vital Signs Temp Pulse Resp BP Pulse Ox O2 Del Method 96.8 F 81 18 144/84 H 98 Room Air 05/12/24 08:00 05/12/24 09:09 05/12/24 08:00 05/12/24 09:09 05/12/24 08:00 05/11/24 18:35 Narrative Exam PE: Gen: Well-developed and well-nourished. Anxious. HEENT: NCAT, PERRLA, EOMI, MMM, anicteric conjunctivae. CVS: normal S1 and S2. RRR. No M/R/G. Resp: CTA B/L. No rhonchi, rales, crackles or wheezing. Abd: soft, non-tender, non-distended. MSK: Good ROM in BUE & BLE. No edema or rash. Neuro: CN II-XII grossly intact. Strength 5/5 in BUE & BLE. Alert and oriented x3. Mild tremors. Psych: appropriate mood and affect. Objective Labs 05/12/24 05:56 05/12/24 05:56 Labs: Laboratory Results - last 24 hr 05/11/24 05/11/24 05/12/24 12:40 18:56 05:56 WBC 5.0 RBC 3.89 L Hgb 11.3 L Hct 34.5 L MCV 89 MCH 29.0 MCHC 32.8 RDW Std Deviation 51.8 H Plt Count 234 Neut % (Auto) 67 Lymph % (Auto) 19 [place] % (Auto) 11 Eos % (Auto) 2 Baso % (Auto) 1 Neut # (Auto) 3.4 Lymph # (Auto) 0.9 L [place] # (Auto) 0.6 Eos # (Auto) 0.1 Baso # (Auto) 0.0 Immature Gran # (Auto) 0.01 H Absolute Nucleated RBC 0.00 Immature Gran % 0 Nucleated RBC % 0 PT 10.5 10.1 INR 1.0 0.9 APTT 59.3 H D 23.2 D 23.1 Sodium 140 Potassium 4.6 Chloride 104 Carbon Dioxide 28.7 Anion Gap 7 BUN 8 L Creatinine 0.8 Estim Creat Clear Calc 56.1 L eGFR > 60 BUN/Creatinine Ratio 10 L Glucose 108 H Calculated Osmolality 278 Calcium 8.5 Corrected Calcium 9.0 Phosphorus 3.3 Magnesium 2.1 Total Bilirubin 0.5 0.4 Direct Bilirubin 0.2 AST 506 H* 150 H ALT 265 H 176 H Alkaline Phosphatase 140 H 123 H Total Protein 5.6 L 5.5 L Albumin 3.4 3.4 Globulin 2.1 L Albumin/Globulin Ratio 1.6 Quality Measures Quality Measures VTE prophylaxis Advance care planning discussed with:: patient Assessment & Plan Assessment Current Active Medications: Generic Name Dose Route Start Last Admin Trade Name Neelima PRN Reason Stop Dose Admin Acetaminophen 650 mg 05/11/24 01:42 05/12/24 02:16 Acetaminophen 325 Mg Tablet PO 06/10/24 01:41 650 mg Q6HR PRN Administration HEADACHE OR MILD PAIN 1-3 Chlordiazepoxide HCl 25 mg 05/12/24 14:00 Chlordiazepoxide Hcl 25 Mg Capsule PO 05/16/24 13:59 TID ALPHONSO Taper Enoxaparin Sodium 40 mg 05/12/24 09:00 05/12/24 09:09 Enoxaparin Sod Inj 40 Mg/0.4 Ml Syringe SC 05/26/24 08:59 40 mg QDAY ALPHONSO Administration Folic Acid 1 mg 05/10/24 22:45 05/12/24 09:09 Folic Acid 1 Mg Tablet PO 05/15/24 22:44 1 mg BID ALPHONSO Administration Levothyroxine Sodium 75 mcg 05/11/24 08:00 05/12/24 05:57 Levothyroxine Sodium 25 Mcg Tablet PO 06/10/24 07:59 75 mcg ACBR ALPHONSO Administration Lisinopril 5 mg 05/11/24 09:15 05/12/24 09:09 Lisinopril 2.5 Mg Tablet PO 06/10/24 09:14 5 mg QDAY ALPHONSO Administration Lorazepam 0.5 mg 05/10/24 22:34 05/12/24 06:05 Lorazepam 0.5 Mg Tablet PO 05/15/24 22:33 0.5 mg Q4HR PRN Administration CIWA Score 2-7 Lorazepam 0.5 mg 05/11/24 11:11 05/12/24 09:22 Lorazepam 2 Mg/Ml Vial IV 05/16/24 11:10 0.5 mg Q2HR PRN Administration CIWA SCORE 8-13 Lorazepam 1 mg 05/11/24 11:11 Lorazepam 2 Mg/Ml Vial IV 05/16/24 11:10 Q2HR PRN CIWA SCORE 14-19 Lorazepam 2 mg 05/11/24 11:11 Lorazepam 2 Mg/Ml Vial IV 05/16/24 11:10 Q2HR PRN CIWA SCORE 20-25 Morphine Sulfate 2 mg 05/10/24 22:02 05/10/24 22:17 Morphine Sulf Inj 10 Mg/Ml Vial IVP 05/15/24 22:01 2 mg Q4HR PRN Administration PAIN Protocol Ondansetron HCl 4 mg 05/10/24 22:29 05/11/24 20:58 Ondansetron Inj 2 Mg/Ml Inj 2 Ml IV 06/09/24 22:28 4 mg Q6H PRN Administration NAUSEA OR VOMITING Protocol Oxycodone/Acetaminophen 1 tab 05/10/24 22:29 05/11/24 18:15 Oxycodone/Apap 5/325 Tablet PO 05/15/24 22:28 1 tab Q6H PRN Administration PAIN SCALE 4-6 (Moderate Pantoprazole Sodium 40 mg 05/11/24 09:00 05/12/24 09:08 Pantoprazole Inj 40 Mg Vial IVP 06/10/24 08:59 40 mg QDAY ALPHONSO Administration Thiamine HCl 100 mg 05/10/24 22:45 05/12/24 09:09 Thiamine 100 Mg Tablet PO 05/15/24 22:44 100 mg BID ALPHONSO Administration Plan 73-year-old female patient with past medical history of multiple abdominal surgeries, hypothyroidism, anxiety and depression, IBS, presented to the ED due to acute chest pain that started at 4:30 PM over 10 May 2024, patient arrived at 6:30 PM. Mentions that the pain is located in the central of the chest pressure-like not relieved by rest as the patient was lying in bed. She reported that the pain radiate to the left side of her neck and to the left shoulder. Patient was admitted for management of non-STEMI type I. #Alcohol use disorder #Transaminitis, improving Patient reported social drinking however on further questioning she reported being drinking every 2 to 3 days During her previous visits patient was noticed to be positive for alcohol, highest level was in the 300s Patient's appears to be jittery and shaky Apparently patient struggling with anxiety, her last year, her childhood friend 1 hour before her symptoms started Blood alcohol level elevated. Patient had significant elevation in LFTs, rapidly downtrended. Suspect component of alcoholic hepatitis.?Now negative, liver ultrasound unremarkable. MELD score 6, low risk of mortality. Maddrey's discriminant function -6.9, good prognosis, steroids not recommended. -[facility] protocol -Trend LFTs daily -Avoid hepatotoxins -Counseled patient regarding alcohol use -Librium 3 times daily, wean down #Non-STEMI type II Patient presented with acute chest pain. Pressure-like, radiated to the left side of the neck and shoulder Troponin were elevated 0.333, EKG was with no significant ischemic changes ANDRESSA score was 2?points 8% risk at 14 days of: all-cause mortality, new or recurrent AL, or severe recurrent ischemia requiring urgent revascularization. Troponin peaked at 2.27 Patient a cardiac catheterization, showed no signs of blockage. Cardiology recommend stop anticoagulation. Echocardiogram showed mild LVH. Diastolic Dysfunction stage I. -Telemetry -Appreciate cardiology recommendations -Pain management with acetaminophen, oxycodone, morphine #History of hypertension #History of hypothyroidism Patient history as stated. -Resume patient's home medication levothyroxine 75 mcg before breakfast -Resume home meds: Lisinopril 5 mg p.o. daily #History of anxiety #History of IBS Patient history as stated. -Consider resuming home medication Xanax after patient weaned off CIWA protocol FEN: Cardiac diet DVT ppx: Lovenox GI ppx: Protonix IV lines: PIV Code status: Full code Plan of care discussed with senior resident Dr. Rincon PGY?[address] Arechiga. Kyle Marquez MD PGY?1
--- NOTE | 2024-05-12 12:30 | CHAP ---
[employer] Volunteer prayed silently for them. (Volunteer was in the hospital from 09:15-12:30).
--- NOTE | 2024-05-12 15:47 | PC.SS ---
SS met with patient who is alert/oriented. Patient was admitted for NStemi. Patient is independent with ADL's. She drives herself to appointments. No DME at home. Patient pharmacy: [facility] Alt medical decision maker: SonJuan Carlos, . PCP: Dr. Montilla Patient states she has not seen an o/p [facility]. She is aware to follow up with PCP for referral to [facility]. No further d/c needs.
[2024-05-12] MEDS: MORPHINE SULF INJ 10 MG/ML VIAL 2 MG IVP (16:38)
[2024-05-12] MEDS: oxyCODONE/APAP 5/325 TABLET 1 TAB PO (21:12)
[2024-05-13] VITALS (8 sets, daily range): BP systolic 128–146; BP diastolic 72–86; PULSE 83–140; RESP 13–20; TEMP 36.3–36.9; O2SAT 93–98; BMI 26.6
[2024-05-13] MEDS: MORPHINE SULF INJ 10 MG/ML VIAL 2 MG IVP (02:30)
[2024-05-13] MEDS: chlordiazePOXIDE HCl 25 MG CAPSULE PO ×5 (02:30→23:00)
[2024-05-13] MEDS: ONDANSETRON INJ 2 MG/ML INJ 2 ML 4 MG IV (05:13)
[2024-05-13] MEDS: LEVOTHYROXINE SODIUM 25 MCG TABLET 75 MCG PO (05:51)
[2024-05-13] MEDS: LORazepam 0.5 MG TABLET PO ×3 (05:51→21:02)
[2024-05-13 05:57] LABS: Basophils % (Auto) 0 % (0-2.5); Eosinophils # (Auto) 0.1 Thou/mm3 (0.0-0.5); Eosinophils % (Auto) 3 % (0-10); Hematocrit 34.9 % (36.0-46.0); Hemoglobin 11.3 g/dL (12.0-16.0); Immature Granulocytes % (Auto) 0 % (0-0); Immature Granulocytes Auto 0.02 Thou/mm3 (0.00-0.00); Lymphocytes # (Auto) 1.1 Thou/mm3 (1.0-4.8); Lymphocytes % (Auto) 23 % (10-50); Mean Corpuscular HGB Conc 32.4 g/dl (31.0-37.0); Mean Corpuscular Hemoglobin 29.2 pg (25.0-35.0); Mean Corpuscular Volume 90 fL (80-100); Monocytes # (Auto) 0.5 Thou/mm3 (0.0-0.8); Monocytes % (Auto) 10 % (0-12); Neutrophils # (Auto) 3.1 Thou/mm3 (1.8-7.7); Neutrophils % (Auto) 64 % (37-80); Nucleated Red Blood Cell % 0 /100 WBC (0); Platelet Count 220 Thou/mm3 (140-440); RDW Standard Deviation 52.2 fL (36.4-46.3); Red Blood Count 3.87 Miln/mm3 (4.00-5.20); White Blood Count 4.9 Thou/mm3 (3.6-11.0)
[2024-05-13 06:53] LABS: Alanine Aminotransferase 356 U/L (10-49); Albumin, Serum 3.4 gm/dL (3.4-4.8); Albumin/Globulin Ratio 1.5 (1.2-2.2); Alkaline Phosphatase 262 U/L (46-116); Anion Gap 4 (7-16); Aspartate Amino Transferase 728 U/L (0-34); BUN/Creatinine Ratio 11 Ratio (12-20); Bilirubin,Total 0.8 mg/dL (0.3-1.2); Blood Urea Nitrogen 9 mg/dL (9-23); Calcium 8.5 mg/dL (8.3-10.6); Carbon Dioxide 31.1 mMol/L (20.0-31.0); Chloride 105 mMol/L (98-107); Creatinine (Component) 0.8 mg/dL (0.6-1.3); Estimated Creatinine Clearance 55.9 mL/min (>60); Globulin 2.2 gm/dL (2.3-3.5); Glucose 101 mg/dL (74-106); Magnesium 2.1 mg/dL (1.6-2.6); Osmolality,Calculated 278 (275-295); Phosphorous 3.7 mg/dL (2.4-5.1); Potassium 4.2 mMol/L (3.4-5.1); Sodium 140 mMol/L (136-145); Total Protein 5.6 gm/dL (5.7-8.2); eGFR > 60 See Note
[2024-05-13] MEDS: Lisinopril 2.5 MG TABLET 5 MG PO (09:14)
[2024-05-13] MEDS: FOLIC ACID 1 MG TABLET PO ×2 (09:14→20:57)
[2024-05-13] MEDS: ENOXAPARIN SOD INJ 40 MG/0.4 ML SYRINGE SC (09:14)
[2024-05-13] MEDS: PANTOPRAZOLE INJ 40 MG VIAL IVP (09:14)
[2024-05-13] MEDS: THIAMINE 100 MG TABLET PO ×2 (09:15→20:57)
[2024-05-13] MEDS: ACETAMINOPHEN 325 MG TABLET 650 MG PO (09:19)
--- NOTE | 2024-05-13 10:09 | PD.RESPRO ---
Documentation for date of: 05/13/24 Subjective Subjective Interval history: Patient seen and examined at bedside. Patient's labs and vitals reviewed. Patient denies any chest pain today, is currently on Librium 25 every 4 hours and CIWA protocol. Continues to have symptoms of withdrawal, complains of headache today. Patient's AST/ALT elevated again today. Patient denies any right upper quadrant pain. 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 Patient did have a CBD stone in distal common bile duct in 2020, was following Dr. Mcneill outpatient, per review of chart last note by Dr. Mcneill from 2021, patient reports that she has been on to follow-up with Dr. Mcneill otherwise. Patient currently has no cardiac applications, will continue to monitor patient. Exam Vital Signs Temp Pulse Resp BP Pulse Ox O2 Del Method 97.6 F 90 13 146/77 H 98 Room Air 05/13/24 08:00 05/13/24 09:14 05/13/24 08:00 05/13/24 09:14 05/13/24 08:00 05/13/24 08:00 Narrative Exam Physical Exam General: Awake and in no acute distress. Conversational and non-toxic appearing. Shaky and anxious HEENT: Normocephalic, atraumatic, mucous membranes moist. Heart: Regular rate and rhythm, no murmurs. Lungs: Clear to auscultation with no wheezing or crackles. Abdomen: Soft, nondistended, nontender, positive bowel sounds. ?No guarding or rebound tenderness. Neurologic: Alert and oriented x3, no gross neurological deficit, and patient able to move all 4 extremities. Extremities: No edema. Skin: No rash or ecchymoses. Objective Labs 05/13/24 05:05 05/13/24 05:05 Labs: Laboratory Results - last 24 hr 05/13/24 05:05 WBC 4.9 RBC 3.87 L Hgb 11.3 L Hct 34.9 L MCV 90 MCH 29.2 MCHC 32.4 RDW Std Deviation 52.2 H Plt Count 220 Neut % (Auto) 64 Lymph % (Auto) 23 [place] % (Auto) 10 Eos % (Auto) 3 Baso % (Auto) 0 Neut # (Auto) 3.1 Lymph # (Auto) 1.1 [place] # (Auto) 0.5 Eos # (Auto) 0.1 Baso # (Auto) 0.0 Immature Gran # (Auto) 0.02 H Absolute Nucleated RBC 0.00 Immature Gran % 0 Nucleated RBC % 0 Sodium 140 Potassium 4.2 Chloride 105 Carbon Dioxide 31.1 H Anion Gap 4 L BUN 9 Creatinine 0.8 Estim Creat Clear Calc 55.9 L eGFR > 60 BUN/Creatinine Ratio 11 L Glucose 101 Calculated Osmolality 278 Calcium 8.5 Corrected Calcium 9.0 Phosphorus 3.7 Magnesium 2.1 Total Bilirubin 0.8 AST 728 H* ALT 356 H Alkaline Phosphatase 262 H D Total Protein 5.6 L Albumin 3.4 Globulin 2.2 L Albumin/Globulin Ratio 1.5 Quality Measures Quality Measures VTE prophylaxis Advance care planning discussed with:: patient Assessment & Plan Assessment Current Active Medications: Generic Name Dose Route Start Last Admin Trade Name Freq PRN Reason Stop Dose Admin Acetaminophen 650 mg 05/11/24 01:42 05/13/24 09:19 Acetaminophen 325 Mg Tablet PO 06/10/24 01:41 650 mg Q6HR PRN Administration HEADACHE OR MILD PAIN 1-3 Chlordiazepoxide HCl 25 mg 05/12/24 14:00 05/13/24 09:15 Chlordiazepoxide Hcl 25 Mg Capsule PO 05/16/24 13:59 25 mg Q4HR ALPHONSO Administration Taper Enoxaparin Sodium 40 mg 05/12/24 09:00 05/13/24 09:14 Enoxaparin Sod Inj 40 Mg/0.4 Ml Syringe SC 05/26/24 08:59 40 mg QDAY ALPHONSO Administration Folic Acid 1 mg 05/10/24 22:45 05/13/24 09:14 Folic Acid 1 Mg Tablet PO 05/15/24 22:44 1 mg BID ALPHONSO Administration Levothyroxine Sodium 75 mcg 05/11/24 08:00 05/13/24 05:51 Levothyroxine Sodium 25 Mcg Tablet PO 06/10/24 07:59 75 mcg ACBR ALPHONSO Administration Lisinopril 5 mg 05/11/24 09:15 05/13/24 09:14 Lisinopril 2.5 Mg Tablet PO 06/10/24 09:14 5 mg QDAY ALPHONSO Administration Lorazepam 0.5 mg 05/10/24 22:34 05/13/24 05:51 Lorazepam 0.5 Mg Tablet PO 05/15/24 22:33 0.5 mg Q4HR PRN Administration CIWA Score 2-7 Lorazepam 0.5 mg 05/11/24 11:11 05/12/24 09:22 Lorazepam 2 Mg/Ml Vial IV 05/16/24 11:10 0.5 mg Q2HR PRN Administration CIWA SCORE 8-13 Lorazepam 1 mg 05/11/24 11:11 Lorazepam 2 Mg/Ml Vial IV 05/16/24 11:10 Q2HR PRN CIWA SCORE 14-19 Lorazepam 2 mg 05/11/24 11:11 Lorazepam 2 Mg/Ml Vial IV 05/16/24 11:10 Q2HR PRN CIWA SCORE 20-25 Morphine Sulfate 2 mg 05/10/24 22:02 05/13/24 02:30 Morphine Sulf Inj 10 Mg/Ml Vial IVP 05/15/24 22:01 2 mg Q4HR PRN Administration PAIN Protocol Ondansetron HCl 4 mg 05/10/24 22:29 05/13/24 05:13 Ondansetron Inj 2 Mg/Ml Inj 2 Ml IV 06/09/24 22:28 4 mg Q6H PRN Administration NAUSEA OR VOMITING Protocol Oxycodone/Acetaminophen 1 tab 05/10/24 22:29 05/12/24 21:12 Oxycodone/Apap 5/325 Tablet PO 05/15/24 22:28 1 tab Q6H PRN Administration PAIN SCALE 4-6 (Moderate Pantoprazole Sodium 40 mg 05/11/24 09:00 05/13/24 09:14 Pantoprazole Inj 40 Mg Vial IVP 06/10/24 08:59 40 mg QDAY ALPHONSO Administration Thiamine HCl 100 mg 05/10/24 22:45 05/13/24 09:15 Thiamine 100 Mg Tablet PO 05/15/24 22:44 100 mg BID ALPHONSO Administration Plan Assessment and Plan: Summary: Ms. Manzo is a 73-year-old female with history of anxiety, hypothyroidism, depression, multiple abdominal surgeries, binge drinking alcohol use disorder, irritable bowel syndrome who presented to [facility] emergency department on 05/10/2024 with a chief complaint of chest pain. Cardiology consulted for NSTEMI type I versus type II. #ACS?NSTEMI type I versus type II #Status post Cardiac Catheterization 05/11/24 #Typical cardiac chest pain, resolved #Elevated troponin Reported that she received a phone call that her childhood friend , since then later in the afternoon she started having substernal chest pressure 10/10 while she was lying in bed, reported that the pain radiated to her neck and abdomen was associated with shortness of breath has not been relieved to totally. 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 EKG showed sinus rhythm with no acute ST?T changes. Pain alleviated with 3 times dose of nitro and one-time morphine, still had some chest pain. Troponin 0.333 -> 2.277 -> 1.841 -> 1.676 Chanelle score 107 points, low risk category less than 1% probability of in hospital, intermediate risk 6-month post discharge, 3 to 8% probability of post discharge. Lipid panel: Triglyceride 112, cholesterol 182, LDL 71, HDL 89 TSH 0.60 Hgb A1c 5.1 - 08/31/2023 Echocardiogram 05/11/2024: Normal LV size and function with and estimated EF 55-60%. Mild LVH. Diastolic Dysfunction stage I. Normal RV size and function with mildly elevated RVSP 45 mmHg. Mild MR & mild MAC. Mild-moderate TR. No pericardial effusion. Left heart cardiac catheterization 05/11/2024: LHC showed normal coronaries without any angiographically significant obstruction. LVEF was normal at 60-65% and normal LVEDP of 18 mmHg. No transvalvular aortic gradient. Recommendations: -Discontinue aspirin, Brilinta and heparin drip. -Patient has microvascular disease suspicion of microvascular angina. -Recommend aggressive risk factor management, consider starting on low-dose statin after stabilization of liver enzymes, LDL goal less than 70. -Patient is currently experiencing alcohol withdrawal, once stable aggressive management of hypertension. -Continue levothyroxine, maintain euthyroidism -Recommend following outpatient in 1 week to establish cardiology care. #Hypothyroidism Patient has history of hypothyroidism TSH 0.60, within normal limits, home dose levothyroxine 75 mcg resumed by primary team #Acute liver injury #Binge drinking alcohol use disorder #Transaminitis Patient's liver function enzyme AST 975, ALT 275, alk phos 134 compared to yesterday AST 37, ALT 31, alk phos 61, significant elevation noted Tylenol levels negative, platelet count within normal limits bilirubin within normal limits, Tylenol levels normal. Patient did have positive blood alcohol level on presentation, reports only drinking wine last 2 weeks ago Possible acute alcoholic hepatitis, ultrasound negative for thrombus does show CBD 1.2 cm. Patient does have history of cholecystectomy, did have choledocholithiasis in the past. 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 Patient did have a CBD stone in distal common bile duct in 2020, was following Dr. Mcneill outpatient, per review of chart last note by Dr. Mcneill from 2021, patient reports that she has been on to follow-up with Dr. Mcneill otherwise. Per Dr. Mcneill's note from 2021 patient has some sort of a blind loop which common bile duct is attached to and finding that blind loop prior to proceeding with procedure was the plan. Patient's transaminitis has worsened today, has waxing and waning LFT, possible etiology secondary to Biliary disease vs alcohol use #Normocytic normochromic anemia -Consider outpatient workup #Alcohol dependence with withdrawal #Benzodiazepine dependence with withdrawal Patient is anxious, sweating, tremulous, has elevated CIWA scores on CIWA protocol and Librium. #Hypocalcemia Corrected calcium 8.2 today, continue to follow, consider outpatient workup if consistently low #Anxiety On BuSpar, trazodone and alprazolam at home, currently on CIWA protocol. Thank you for the consult and allowing to participate in the care of the patient. Cardiology will continue to follow. Case discussed with Attending Dr. Rivas. Marcellus Downey PGY1 Disclaimer: This note was dictated by speech recognition. Minor errors in home assessment nurse may be present due to voice recognition software. Attending Provider Attestation/Addendum I have personally seen and examined the patient separately on the above date of service and discussed the plan of care with the resident. I reviewed the resident Dr. Marcellus Downey consultation progress note and agree with the resident findings and plan in the note above and have also edited the documentation to reflect my findings and plan. Malick Rivas M.D. Interventional Cardiology
[2024-05-13 11:23] LABS: Creatine Kinase 86 U/L (34-171)
--- NOTE | 2024-05-13 14:48 | ESPR_ITS ---
<Statement entered by Dick Arechiga MD - 05/13/24 17:11> I have discussed and was present for the essential components of the history, physical examination, diagnosis, and treatment plan with the resident. I agree with the patient's care as documented by the resident and amended herein by me. Dick Arechiga MD FACP. Documentation for date of: 05/13/24 Subjective Subjective Interval history: Patient seen at bedside. NAEO. Patient is clinically stable . No N/V/D. No CP, Palpitations. No SOB, Tachypnea. No Fever / Chills. Does feel lethargic and weak, and complains of headache. Patient is tolerating PO intake, has adequate urine output and mentation is at baseline. Rounded with RN. No additional complains at this time. Exam Vital Signs Temp Pulse Resp BP Pulse Ox O2 Del Method 97.4 F 92 15 142/72 H 97 Room Air 05/13/24 12:00 05/13/24 12:00 05/13/24 12:00 05/13/24 12:00 05/13/24 12:05/13/24 12:00 Narrative Exam PE: Gen: Well-developed and well-nourished. Anxious. HEENT: NCAT, PERRLA, EOMI, MMM, anicteric conjunctivae. CVS: normal S1 and S2. RRR. No M/R/G. Resp: CTA B/L. No rhonchi, rales, crackles or wheezing. Abd: soft, non-tender, non-distended. MSK: Good ROM in BUE & BLE. No edema or rash. Neuro: CN II-XII grossly intact. Strength 5/5 in BUE & BLE. Alert and oriented x3. Mild tremors. Psych: appropriate mood and affect. Objective Labs 05/13/24 05:05 05/13/24 05:05 Labs: Laboratory Results - last 24 hr 05/13/24 05:05 WBC 4.9 RBC 3.87 L Hgb 11.3 L Hct 34.9 L MCV 90 MCH 29.2 MCHC 32.4 RDW Std Deviation 52.2 H Plt Count 220 Neut % (Auto) 64 Lymph % (Auto) 23 [place] % (Auto) 10 Eos % (Auto) 3 Baso % (Auto) 0 Neut # (Auto) 3.1 Lymph # (Auto) 1.1 [place] # (Auto) 0.5 Eos # (Auto) 0.1 Baso # (Auto) 0.0 Immature Gran # (Auto) 0.02 H Absolute Nucleated RBC 0.00 Immature Gran % 0 Nucleated RBC % 0 Sodium 140 Potassium 4.2 Chloride 105 Carbon Dioxide 31.1 H Anion Gap 4 L BUN 9 Creatinine 0.8 Estim Creat Clear Calc 55.9 L eGFR > 60 BUN/Creatinine Ratio 11 L Glucose 101 Calculated Osmolality 278 Calcium 8.5 Corrected Calcium 9.0 Phosphorus 3.7 Magnesium 2.1 Total Bilirubin 0.8 AST 728 H* ALT 356 H Alkaline Phosphatase 262 H D Total Creatine Kinase 86 Total Protein 5.6 L Albumin 3.4 Globulin 2.2 L Albumin/Globulin Ratio 1.5 Quality Measures Quality Measures VTE prophylaxis Advance care planning discussed with:: patient Assessment & Plan Assessment Current Active Medications: Generic Name Dose Route Start Last Admin Trade Name Freq PRN Reason Stop Dose Admin Acetaminophen 650 mg 05/11/24 01:42 05/13/24 09:19 Acetaminophen 325 Mg Tablet PO 06/10/24 01:41 650 mg Q6HR PRN Administration HEADACHE OR MILD PAIN 1-3 Chlordiazepoxide HCl 25 mg 05/12/24 14:00 05/13/24 09:15 Chlordiazepoxide Hcl 25 Mg Capsule PO 05/16/24 13:59 25 mg Q6HR ALPHONSO Administration Taper Enoxaparin Sodium 40 mg 05/12/24 09:00 05/13/24 09:14 Enoxaparin Sod Inj 40 Mg/0.4 Ml Syringe SC 05/26/24 08:59 40 mg QDAY ALPHONSO Administration Folic Acid 1 mg 05/10/24 22:45 05/13/24 09:14 Folic Acid 1 Mg Tablet PO 05/15/24 22:44 1 mg BID ALPHONSO Administration Levothyroxine Sodium 75 mcg 05/11/24 08:00 05/13/24 05:51 Levothyroxine Sodium 25 Mcg Tablet PO 06/10/24 07:59 75 mcg ACBR ALHPONSO Administration Lisinopril 5 mg 05/11/24 09:15 05/13/24 09:14 Lisinopril 2.5 Mg Tablet PO 06/10/24 09:14 5 mg QDAY ALPHONSO Administration Lorazepam 0.5 mg 05/11/24 11:11 05/12/24 09:22 Lorazepam 2 Mg/Ml Vial IV 05/16/24 11:10 0.5 mg Q2HR PRN Administration CIWA SCORE 8-13 Lorazepam 1 mg 05/11/24 11:11 Lorazepam 2 Mg/Ml Vial IV 05/16/24 11:10 Q2HR PRN CIWA SCORE 14-19 Lorazepam 2 mg 05/11/24 11:11 Lorazepam 2 Mg/Ml Vial IV 05/16/24 11:10 Q2HR PRN CIWA SCORE 20-25 Lorazepam 0.5 mg 05/13/24 12:44 05/13/24 12:47 Lorazepam 0.5 Mg Tablet PO 05/15/24 22:33 0.5 mg Q4HR PRN Administration CIWA Score 2-7 Morphine Sulfate 2 mg 05/10/24 22:02 05/13/24 02:30 Morphine Sulf Inj 10 Mg/Ml Vial IVP 05/15/24 22:01 2 mg Q4HR PRN Administration PAIN Protocol Ondansetron HCl 4 mg 05/10/24 22:29 05/13/24 05:13 Ondansetron Inj 2 Mg/Ml Inj 2 Ml IV 06/09/24 22:28 4 mg Q6H PRN Administration NAUSEA OR VOMITING Protocol Oxycodone/Acetaminophen 1 tab 05/10/24 22:29 05/12/24 21:12 Oxycodone/Apap 5/325 Tablet PO 05/15/24 22:28 1 tab Q6H PRN Administration PAIN SCALE 4-6 (Moderate Pantoprazole Sodium 40 mg 05/11/24 09:00 05/13/24 09:14 Pantoprazole Inj 40 Mg Vial IVP 06/10/24 08:59 40 mg QDAY ALPHONSO Administration Thiamine HCl 100 mg 05/10/24 22:45 05/13/24 09:15 Thiamine 100 Mg Tablet PO 05/15/24 22:44 100 mg BID ALPHONSO Administration Plan 73-year-old female patient with past medical history of multiple abdominal surgeries, hypothyroidism, anxiety and depression, IBS, presented to the ED due to acute chest pain that started at 4:30 PM over 10 May 2024, patient arrived at 6:30 PM. Mentions that the pain is located in the central of the chest pressure-like not relieved by rest as the patient was lying in bed. She reported that the pain radiate to the left side of her neck and to the left shoulder. Patient was admitted for management of non-STEMI type I. #Alcohol use disorder #Transaminitis, uptrending Patient reported social drinking however on further questioning she reported being drinking every 2 to 3 days During her previous visits patient was noticed to be positive for alcohol, highest level was in the 300s Patient's appears to be jittery and shaky Apparently patient struggling with anxiety, her last year, her childhood friend 1 hour before her symptoms started Blood alcohol level elevated. Patient had significant elevation in LFTs, rapidly downtrended. Suspect component of alcoholic hepatitis.?Now negative, liver ultrasound unremarkable. MELD score 6, low risk of mortality. Maddrey's discriminant function -6.9, good prognosis, steroids not recommended. Plan: -CIKS protocol -Trend LFTs daily -Avoid hepatotoxins -CK lvl was wnl -Counseled patient regarding alcohol use -Librium 3 times daily, wean down #Non-STEMI type II s/p [facility] Patient presented with acute chest pain. Pressure-like, radiated to the left side of the neck and shoulder Troponin were elevated 0.333, EKG was with no significant ischemic changes ANDRESSA score was 2?points 8% risk at 14 days of: all-cause mortality, new or recurrent PA, or severe recurrent ischemia requiring urgent revascularization. Troponin peaked at 2.27 Patient a cardiac catheterization, showed no signs of blockage. Cardiology recommend stop anticoagulation. Echocardiogram showed mild LVH. Diastolic Dysfunction stage I. -Telemetry -Appreciate cardiology recommendations -Pain management with acetaminophen, oxycodone, morphine #History of hypertension #History of hypothyroidism Patient history as stated. -Resume patient's home medication levothyroxine 75 mcg before breakfast -Resume home meds: Lisinopril 5 mg p.o. daily #History of anxiety #History of IBS Patient history as stated. -Consider resuming home medication Xanax after patient weaned off CIWA protocol FEN: Cardiac diet DVT ppx: Lovenox GI ppx: Protonix IV lines: PIV Code status: Full code - Patient's care was discussed with my attending physician, Dr. Geni Kuo MD Internal Medicine PGY-3
[2024-05-13] MEDS: oxyCODONE/APAP 5/325 TABLET 1 TAB PO (16:16)
--- NOTE | 2024-05-13 16:43 | PC.NURSE ---
Notified Dr. Kuo about HR 140, at rest HR 98.
[2024-05-14] VITALS (7 sets, daily range): BP systolic 121–128; BP diastolic 66–78; PULSE 83–112; RESP 15–21; TEMP 36.3–36.9; O2SAT 91–98; BMI 26.6
[2024-05-14] MEDS: LORazepam 0.5 MG TABLET PO ×2 (01:26→09:31)
[2024-05-14] MEDS: chlordiazePOXIDE HCl 25 MG CAPSULE PO ×3 (05:20→22:57)
[2024-05-14] MEDS: LEVOTHYROXINE SODIUM 25 MCG TABLET 75 MCG PO (05:20)
[2024-05-14 06:05] LABS: Basophils % (Auto) 1 % (0-2.5); Eosinophils # (Auto) 0.2 Thou/mm3 (0.0-0.5); Eosinophils % (Auto) 5 % (0-10); Hematocrit 32.6 % (36.0-46.0); Hemoglobin 11.3 g/dL (12.0-16.0); Immature Granulocytes % (Auto) 0 % (0-0); Immature Granulocytes Auto 0.01 Thou/mm3 (0.00-0.00); Lymphocytes # (Auto) 1.2 Thou/mm3 (1.0-4.8); Lymphocytes % (Auto) 29 % (10-50); Mean Corpuscular HGB Conc 34.7 g/dl (31.0-37.0); Mean Corpuscular Hemoglobin 30.2 pg (25.0-35.0); Mean Corpuscular Volume 87 fL (80-100); Monocytes # (Auto) 0.5 Thou/mm3 (0.0-0.8); Monocytes % (Auto) 11 % (0-12); Neutrophils # (Auto) 2.3 Thou/mm3 (1.8-7.7); Neutrophils % (Auto) 55 % (37-80); Nucleated Red Blood Cell % 0 /100 WBC (0); Platelet Count 391 Thou/mm3 (140-440); RDW Standard Deviation 51.1 fL (36.4-46.3); Red Blood Count 3.74 Miln/mm3 (4.00-5.20); White Blood Count 4.2 Thou/mm3 (3.6-11.0)
[2024-05-14 07:22] LABS: Alanine Aminotransferase 261 U/L (10-49); Albumin, Serum 3.2 gm/dL (3.4-4.8); Albumin/Globulin Ratio 1.5 (1.2-2.2); Alkaline Phosphatase 212 U/L (46-116); Anion Gap 3 (7-16); Aspartate Amino Transferase 147 U/L (0-34); BUN/Creatinine Ratio 14 Ratio (12-20); Bilirubin,Total 0.3 mg/dL (0.3-1.2); Blood Urea Nitrogen 11 mg/dL (9-23); Calcium 8.3 mg/dL (8.3-10.6); Calcium (Corrected) 8.9 mg/dL (8.5-10.1); Carbon Dioxide 31.8 mMol/L (20.0-31.0); Chloride 105 mMol/L (98-107); Creatinine (Component) 0.8 mg/dL (0.6-1.3); Estimated Creatinine Clearance 55.9 mL/min (>60); Globulin 2.1 gm/dL (2.3-3.5); Glucose 100 mg/dL (74-106); Osmolality,Calculated 278 (275-295); Potassium 4.3 mMol/L (3.4-5.1); Sodium 140 mMol/L (136-145); Total Protein 5.3 gm/dL (5.7-8.2); eGFR > 60 See Note
[2024-05-14] MEDS: ENOXAPARIN SOD INJ 40 MG/0.4 ML SYRINGE SC (09:30)
[2024-05-14] MEDS: Lisinopril 2.5 MG TABLET 5 MG PO (09:31)
[2024-05-14] MEDS: FOLIC ACID 1 MG TABLET PO ×2 (09:31→20:14)
[2024-05-14] MEDS: THIAMINE 100 MG TABLET PO ×2 (09:32→20:14)
[2024-05-14] MEDS: PANTOPRAZOLE INJ 40 MG VIAL IVP (09:32)
--- NOTE | 2024-05-14 10:27 | ESPR_ITS ---
Documentation for date of: 05/14/24 Subjective Subjective Interval history: Patient seen and examined at bedside Patient complains of no chest pain, shortness of breath, dizziness or palpitations. Patient's withdrawal symptoms have improved significantly, LFTs trended down. Patient's Librium was titrated down yesterday, patient is stable for discharge today per primary team. Patient recommended to follow-up with office in 1 week postdischarge. Aggressive control of risk factors for CAD recommended. Exam Vital Signs Temp Pulse Resp BP Pulse Ox O2 Del Method 97.5 F 87 17 128/78 95 Room Air 05/14/24 08:00 05/14/24 09:31 05/14/24 08:00 05/14/24 09:31 05/14/24 08:00 05/14/24 08:00 Narrative Exam Physical Exam General: Awake and in no acute distress. Conversational and non-toxic appearing. Minimally tremulous. HEENT: Normocephalic, atraumatic, mucous membranes moist. Heart: Regular rate and rhythm, no murmurs. Lungs: Clear to auscultation with no wheezing or crackles. Abdomen: Soft, nondistended, nontender, positive bowel sounds. ?No guarding or rebound tenderness. Neurologic: Alert and oriented x3, no gross neurological deficit, and patient able to move all 4 extremities. Extremities: No edema. Skin: No rash or ecchymoses. Objective Labs 05/15/24 05:05 05/15/24 05:05 Labs: Laboratory Results - last 24 hr 05/13/24 05/14/24 05/14/24 05:05 05:03 06:35 WBC 4.2 RBC 3.74 L Hgb 11.3 L Hct 32.6 L MCV 87 MCH 30.2 MCHC 34.7 RDW Std Deviation 51.1 H Plt Count 391 D Neut % (Auto) 55 Lymph % (Auto) 29 [place] % (Auto) 11 Eos % (Auto) 5 Baso % (Auto) 1 Neut # (Auto) 2.3 Lymph # (Auto) 1.2 [place] # (Auto) 0.5 Eos # (Auto) 0.2 Baso # (Auto) 0.0 Immature Gran # (Auto) 0.01 H Absolute Nucleated RBC 0.00 Immature Gran % 0 Nucleated RBC % 0 Sodium 140 Potassium 4.3 Chloride 105 Carbon Dioxide 31.8 H Anion Gap 3 L BUN 11 Creatinine 0.8 Estim Creat Clear Calc 55.9 L eGFR > 60 BUN/Creatinine Ratio 14 Glucose 100 Calculated Osmolality 278 Calcium 8.3 Corrected Calcium 8.9 Total Bilirubin 0.3 D AST 147 H ALT 261 H Alkaline Phosphatase 212 H D Total Creatine Kinase 86 Total Protein 5.3 L Albumin 3.2 L Globulin 2.1 L Albumin/Globulin Ratio 1.5 Quality Measures Quality Measures VTE prophylaxis Advance care planning discussed with:: patient Assessment & Plan Assessment Current Active Medications: Generic Name Dose Route Start Last Admin Trade Name Freq PRN Reason Stop Dose Admin Acetaminophen 650 mg 05/11/24 01:42 05/13/24 09:19 Acetaminophen 325 Mg Tablet PO 06/10/24 01:41 650 mg Q6HR PRN Administration HEADACHE OR MILD PAIN 1-3 Chlordiazepoxide HCl 25 mg 05/14/24 14:00 Chlordiazepoxide Hcl 25 Mg Capsule PO 05/19/24 13:59 TID ALPHONSO Enoxaparin Sodium 40 mg 05/12/24 09:00 05/14/24 09:30 Enoxaparin Sod Inj 40 Mg/0.4 Ml Syringe SC 05/26/24 08:59 40 mg QDAY ALPHONSO Administration Folic Acid 1 mg 05/10/24 22:45 05/14/24 09:31 Folic Acid 1 Mg Tablet PO 05/15/24 22:44 1 mg BID ALPHONSO Administration Levothyroxine Sodium 75 mcg 05/11/24 08:00 05/14/24 05:20 Levothyroxine Sodium 25 Mcg Tablet PO 06/10/24 07:59 75 mcg ACBR ALPHONSO Administration Lisinopril 5 mg 05/11/24 09:15 05/14/24 09:31 Lisinopril 2.5 Mg Tablet PO 06/10/24 09:14 5 mg QDAY ALPHONSO Administration Lorazepam 0.5 mg 05/11/24 11:11 05/12/24 09:22 Lorazepam 2 Mg/Ml Vial IV 05/16/24 11:10 0.5 mg Q2HR PRN Administration CIWA SCORE 8-13 Lorazepam 1 mg 05/11/24 11:11 Lorazepam 2 Mg/Ml Vial IV 05/16/24 11:10 Q2HR PRN CIWA SCORE 14-19 Lorazepam 2 mg 05/11/24 11:11 Lorazepam 2 Mg/Ml Vial IV 05/16/24 11:10 Q2HR PRN CIWA SCORE 20-25 Lorazepam 0.5 mg 05/13/24 12:44 05/14/24 09:31 Lorazepam 0.5 Mg Tablet PO 05/15/24 22:33 0.5 mg Q4HR PRN Administration CIWA Score 2-7 Morphine Sulfate 2 mg 05/10/24 22:02 05/13/24 02:30 Morphine Sulf Inj 10 Mg/Ml Vial IVP 05/15/24 22:01 2 mg Q4HR PRN Administration PAIN Protocol Ondansetron HCl 4 mg 05/10/24 22:29 05/13/24 05:13 Ondansetron Inj 2 Mg/Ml Inj 2 Ml IV 06/09/24 22:28 4 mg Q6H PRN Administration NAUSEA OR VOMITING Protocol Oxycodone/Acetaminophen 1 tab 05/10/24 22:29 05/13/24 16:16 Oxycodone/Apap 5/325 Tablet PO 05/15/24 22:28 1 tab Q6H PRN Administration PAIN SCALE 4-6 (Moderate Pantoprazole Sodium 40 mg 05/11/24 09:00 05/14/24 09:32 Pantoprazole Inj 40 Mg Vial IVP 06/10/24 08:59 40 mg QDAY ALPHONSO Administration Thiamine HCl 100 mg 05/10/24 22:45 05/14/24 09:32 Thiamine 100 Mg Tablet PO 05/15/24 22:44 100 mg BID ALPHONSO Administration Plan Assessment and Plan: Summary: Ms. Manzo is a 73-year-old female with history of anxiety, hypothyroidism, depression, multiple abdominal surgeries, binge drinking alcohol use disorder, irritable bowel syndrome who presented to [facility] emergency department on 05/10/2024 with a chief complaint of chest pain. Cardiology consulted for NSTEMI type I versus type II. #ACS?NSTEMI type I versus type II #Status post Cardiac Catheterization 05/11/24 #Typical cardiac chest pain, resolved #Elevated troponin Reported that she received a phone call that her childhood friend , since then later in the afternoon she started having substernal chest pressure 10/10 while she was lying in bed, reported that the pain radiated to her neck and abdomen was associated with shortness of breath has not been relieved to totally. She does endorse on and off similar chest pain for the last 2 weeks, denies following up with a computational linguist in the past. EKG showed sinus rhythm with no acute ST?T changes. Pain alleviated with 3 times dose of nitro and one-time morphine, still had some chest pain. Troponin 0.333 -> 2.277 -> 1.841 -> 1.676 Chanelle score 107 points, low risk category less than 1% probability of in hospital, intermediate risk 6-month post discharge, 3 to 8% probability of post discharge. Lipid panel: Triglyceride 112, cholesterol 182, LDL 71, HDL 89 TSH 0.60 Hgb A1c 5.1 - 08/31/2023 Echocardiogram 05/11/2024: Normal LV size and function with and estimated EF 55-60%. Mild LVH. Diastolic Dysfunction stage I. Normal RV size and function with mildly elevated RVSP 45 mmHg. Mild MR & mild MAC. Mild-moderate TR. No pericardial effusion. Left heart cardiac catheterization 05/11/2024: LHC showed normal coronaries without any angiographically significant obstruction. LVEF was normal at 60-65% and normal LVEDP of 18 mmHg. No transvalvular aortic gradient. Recommendations: -Discontinue aspirin, Brilinta and heparin drip. -Patient has microvascular disease suspicion of microvascular angina. -Recommend aggressive risk factor management, consider starting on low-dose statin after stabilization of liver enzymes, LDL goal less than 70. -Patient is currently experiencing alcohol withdrawal, once stable aggressive management of hypertension. -Continue levothyroxine, maintain euthyroidism -Recommend following outpatient in 1 week to establish cardiology care. #Hypothyroidism Patient has history of hypothyroidism TSH 0.60, within normal limits, home dose levothyroxine 75 mcg resumed by primary team #Acute liver injury, resolved #Alcohol associated liver disease #Binge drinking alcohol use disorder #Transaminitis Patient's liver function enzyme AST 975, ALT 275, alk phos 134 compared to yesterday AST 37, ALT 31, alk phos 61, significant elevation noted Tylenol levels negative, platelet count within normal limits bilirubin within normal limits, Tylenol levels normal. Patient did have positive blood alcohol level on presentation, reports only drinking wine last 2 weeks ago Possible acute alcoholic hepatitis, ultrasound negative for thrombus does show CBD 1.2 cm. Patient does have history of cholecystectomy, did have choledocholithiasis in the past. 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 Patient did have a CBD stone in distal common bile duct in 2020, was following Dr. Mcneill outpatient, per review of chart last note by Dr. Mcneill from 2021, patient reports that she has been on to follow-up with Dr. Mcneill otherwise. Per Dr. Mcneill's note from 2021 patient has some sort of a blind loop which common bile duct is attached to and finding that blind loop prior to proceeding with procedure was the plan. Patient's transaminitis has improved today, has waxing and waning LFT, possible etiology secondary to Biliary disease vs alcohol use Recommended outpatient follow-up with gastroenterology for further workup #Normocytic normochromic anemia -Consider outpatient workup #Alcohol dependence with withdrawal #Benzodiazepine dependence with withdrawal Patient is anxious, sweating, tremulous, has elevated CIWA scores on CIWA protocol and Librium. #Anxiety On BuSpar, trazodone and alprazolam at home, currently on CIWA protocol. #Status post total gastrectomy, by history #Status post liver resection secondary to hemangioma, by history #Status post cholecystectomy, by history Thank you for the consult and allowing to participate in the care of the patient. Cardiology will continue to follow. Case discussed with Attending Dr. Rivas. Marcellus Downey PGY1 Disclaimer: This note was dictated by speech recognition. Minor errors in hull and deck remover may be present due to voice recognition software. Attending Provider Attestation/Addendum I have personally seen and examined the patient separately on the above date of service and discussed the plan of care with the resident. I reviewed the resident Dr. Marcellus Downey consultation progress note and agree with the resident findings and plan in the note above and have also edited the documentation to reflect my findings and plan. Malick Rivas M.D. Interventional Cardiology
[2024-05-14] MEDS: oxyCODONE/APAP 5/325 TABLET 1 TAB PO (12:46)
--- NOTE | 2024-05-14 12:54 | ESDS_ITS ---
<Statement entered by Dick Arechiga MD - 05/15/24 10:29> I have discussed and was present for the essential components of the history, physical examination, diagnosis, and treatment plan with the resident. I agree with the patient's care as documented by the resident and amended herein by me. Dick Arechiga MD FACP. Planned Discharge Date 05/14/24 DS: Providers Provider Date of admission: 05/10/24 21:25 Primary care physician: Yamile Montilla MD Admitting Provider: Nicolas Dubois MD Attending Provider on Admission: Dick Arechiga MD Consults: 05/10/24 21:16 Consult to Cardiology Routine Comment: Consulting Provider: Malick Rivas 05/11/24 06:51 Referral Liza Routine Comment: Attending Provider on DC: Dick Arechiga MD Discharging Provider: Kyle Marquez MD DS: Diagnosis Problem List Completed Was Problem List Reviewed/Reconciled?: Yes Hospital Course Hospital Course Hospital course: 73-year-old female patient with past medical history of multiple abdominal surgeries, hypothyroidism, anxiety and depression, IBS, presented to the ED on 05/10/2024 due to acute chest pain. Patient found to have mildly elevated troponin, received cardiac catheterization showed luminal blockage. During hospitalization patient had significant elevated liver enzymes, possibly due to acute alcoholic hepatitis. Patient treated with CIWA protocol, successfully weaned down. Patient stable for discharge from cardio perspective. Patient medically clear and stable for discharge. Discharge plan: You have been started on the following medications: -Ketorolac 10 mg up to 3 times daily, for up to 5 days, as needed for headaches. Please continue to take all other medications as previously prescribed. Please follow-up with your PCP within 1-2 weeks. Please speak to your PCP about tapering down Xanax. Please speak to your PCP about a referral to Dr. Dahiana Murphy cardiology for follow-up appointment. Return to ED if you develop new or worsening symptoms. Diagnoses: #Alcohol use disorder #Transaminitis, uptrending #Non-STEMI type II s/p LHC #History of hypertension #History of hypothyroidism #History of anxiety #History of IBS Plan of care discussed with attending Dr. Arechiga. Kyle Marquez MD PGY?1 Status at Discharge Overall status at discharge: patient is progressing back to baseline Time Spent with Patient Time attestation: Total time spent providing and/or coordinating discharge services: Time spent: Greater than 30 minutes Exam Vital Signs Temp Pulse Resp BP Pulse Ox O2 Del Method 97.4 F 91 15 128/66 98 Room Air 05/14/24 12:00 05/14/24 12:00 05/14/24 12:00 05/14/24 12:00 05/14/24 12:00 05/14/24 12:00 Narrative Exam PE: Gen: Well-developed and well-nourished. HEENT: NCAT, PERRLA, EOMI, MMM, anicteric conjunctivae. CVS: normal S1 and S2. RRR. No M/R/G. Resp: CTA B/L. No rhonchi, rales, crackles or wheezing. Abd: soft, non-tender, non-distended. MSK: Good ROM in BUE & BLE. No edema or rash. Neuro: CN II-XII grossly intact. Strength 5/5 in BUE & BLE. Alert and oriented x3. Mild tremors. Psych: appropriate mood and affect. Discharge Plan Plan Patient Disposition: HOME (Self Care) Patient condition on transfer: Stable Care Plan Goals: You have been started on the following medications: -Ketorolac 10 mg up to 3 times daily, for up to 5 days, as needed for headaches. Please continue to take all other medications as previously prescribed. Please follow-up with your PCP within 1-2 weeks. Please speak to your PCP about tapering down Xanax. Please speak to your PCP about a referral to Dr. Dahiana Murphy cardiology for follow-up appointment. Return to ED if you develop new or worsening symptoms. Prescriptions/Referrals Prescriptions/Med Rec: New ketorolac 10 mg tablet 10 mg PO Q8H PRN (Reason: pain, headache) 5 Days Qty: 15 0RF Rx Instructions: maximum total duration of 5 days from all oral, intranasal, or parenteral formulations Continued buspirone 15 mg Tablet 15 mg PO BID Rx Instructions: 1 & 1/2 tab po bid. lisinopril 5 mg Tablet 5 mg PO QDAY alprazolam 0.5 mg tablet 0.5 mg PO TID levothyroxine 75 mcg tablet 75 mcg PO QAM Patient Comments: TAKE 1 TABLET BY MOUTH EVERY DAY IN THE MORNING ON AN EMPTY STOMACH trazodone 100 mg tablet 200 mg PO HS Patient Comments: TAKE 2 TABLETS BY MOUTH EVERY DAY AT BEDTIME 90 fluoxetine 20 mg capsule 20 mg PO BID Patient Comments: TAKE 1 CAPSULE BY MOUTH TWICE A DAY Referrals: Malick Rivas MD [Physician] - (New Address [address] [place] [address]) Yamile Montilla MD [Primary Care Provider] - Patient/Caregiver Discharge Instructions Discharge Activity: resume usual activities Education Materials: Headaches Migraine & Tension, Headache Migraine Triggers Prevent, Headache Migraine Meds Lifestyle Print Language: Macedonian Stand Alone Forms: Iliana Award Info., Patient Portal Info Letter Discharge Order Discharge Orders: Discharge (Routine); Ordered 05/14/24 Ordered By: Kyle Marquez Quality Discharge Quality Measures VTE prophylaxis
[2024-05-14] MEDS: LORazepam 2 MG/ML VIAL 0.5 MG IV (13:15)
[2024-05-14] MEDS: ALPRazoLAM 0.25 MG TABLET 0.5 MG PO (18:23)
[2024-05-14] MEDS: ACETAMINOPHEN 325 MG TABLET 650 MG PO (18:26)
[2024-05-15] VITALS: BP 110/62; PULSE 80; PULSE 88; RESP 17; TEMP 36.1; O2SAT 93
[2024-05-15] MEDS: LORazepam 0.5 MG TABLET PO (00:48)
[2024-05-15 04:00] VITALS: BP 110/62; PULSE 80; PULSE 82; RESP 17; TEMP 36.1; O2SAT 93
[2024-05-15] MEDS: chlordiazePOXIDE HCl 25 MG CAPSULE PO (05:07)
[2024-05-15] MEDS: LEVOTHYROXINE SODIUM 25 MCG TABLET 75 MCG PO (05:07)
[2024-05-15 06:08] LABS: Basophils % (Auto) 1 % (0-2.5); Eosinophils # (Auto) 0.2 Thou/mm3 (0.0-0.5); Eosinophils % (Auto) 4 % (0-10); Hematocrit 33.2 % (36.0-46.0); Immature Granulocytes % (Auto) 0 % (0-0); Immature Granulocytes Auto 0.02 Thou/mm3 (0.00-0.00); Lymphocytes # (Auto) 1.4 Thou/mm3 (1.0-4.8); Lymphocytes % (Auto) 31 % (10-50); Mean Corpuscular HGB Conc 33.1 g/dl (31.0-37.0); Mean Corpuscular Hemoglobin 29.2 pg (25.0-35.0); Mean Corpuscular Volume 88 fL (80-100); Monocytes # (Auto) 0.5 Thou/mm3 (0.0-0.8); Monocytes % (Auto) 11 % (0-12); Neutrophils # (Auto) 2.4 Thou/mm3 (1.8-7.7); Neutrophils % (Auto) 53 % (37-80); Nucleated Red Blood Cell % 0 /100 WBC (0); Platelet Count 215 Thou/mm3 (140-440); RDW Standard Deviation 51.5 fL (36.4-46.3); Red Blood Count 3.77 Miln/mm3 (4.00-5.20); White Blood Count 4.5 Thou/mm3 (3.6-11.0)
[2024-05-15 06:32] LABS: Alanine Aminotransferase 188 U/L (10-49); Albumin, Serum 3.3 gm/dL (3.4-4.8); Albumin/Globulin Ratio 1.4 (1.2-2.2); Alkaline Phosphatase 175 U/L (46-116); Anion Gap 7 (7-16); Aspartate Amino Transferase 63 U/L (0-34); BUN/Creatinine Ratio 20 Ratio (12-20); Bilirubin,Total 0.4 mg/dL (0.3-1.2); Blood Urea Nitrogen 14 mg/dL (9-23); Calcium 9.4 mg/dL (8.3-10.6); Carbon Dioxide 30.6 mMol/L (20.0-31.0); Chloride 104 mMol/L (98-107); Creatinine (Component) 0.7 mg/dL (0.6-1.3); Estimated Creatinine Clearance 63.9 mL/min (>60); Globulin 2.3 gm/dL (2.3-3.5); Glucose 91 mg/dL (74-106); Osmolality,Calculated 283 (275-295); Potassium 4.5 mMol/L (3.4-5.1); Sodium 142 mMol/L (136-145); Total Protein 5.6 gm/dL (5.7-8.2); eGFR > 60 See Note
[2024-05-15 07:34] VITALS: BP 138/84; PULSE 85; RESP 12; TEMP 36.2; O2SAT 96
[2024-05-15 08:00] VITALS: PULSE 93
--- NOTE | 2024-05-15 09:00 | ESPR_ITS ---
Documentation for date of: 05/15/24 Subjective Subjective Interval history: Patient seen and examined at bedside, vitals reviewed. AST/ALT trended down significantly. Patient was scheduled for discharge yesterday, reports had significant anxiety hence discharge was held. Patient being weaned off of Librium, was given alprazolam x 1 yesterday evening. Otherwise patient is stable, scheduled for discharge later today. Recommended to follow-up outpatient in clinic in 1 week. Exam Vital Signs Temp Pulse Resp BP Pulse Ox O2 Del Method 97.1 F 85 12 138/84 H 96 Room Air 05/15/24 07:34 05/15/24 07:34 05/15/24 07:34 05/15/24 07:34 05/15/24 07:34 05/15/24 04:00 Narrative Exam Physical Exam General: Awake and in no acute distress. Conversational and non-toxic appearing. HEENT: Normocephalic, atraumatic, mucous membranes moist. Heart: Regular rate and rhythm, no murmurs. Lungs: Clear to auscultation with no wheezing or crackles. Abdomen: Soft, nondistended, nontender, positive bowel sounds. ?No guarding or rebound tenderness. Neurologic: Alert and oriented x3, no gross neurological deficit, and patient able to move all 4 extremities. Extremities: No edema. Skin: No rash or ecchymoses. Objective Labs 05/15/24 05:05 05/15/24 05:05 Labs: Laboratory Results - last 24 hr 05/15/24 05:05 WBC 4.5 RBC 3.77 L Hgb 11.0 L Hct 33.2 L MCV 88 MCH 29.2 MCHC 33.1 RDW Std Deviation 51.5 H Plt Count 215 D Neut % (Auto) 53 Lymph % (Auto) 31 [place] % (Auto) 11 Eos % (Auto) 4 Baso % (Auto) 1 Neut # (Auto) 2.4 Lymph # (Auto) 1.4 [place] # (Auto) 0.5 Eos # (Auto) 0.2 Baso # (Auto) 0.0 Immature Gran # (Auto) 0.02 H Absolute Nucleated RBC 0.00 Immature Gran % 0 Nucleated RBC % 0 Sodium 142 Potassium 4.5 Chloride 104 Carbon Dioxide 30.6 Anion Gap 7 BUN 14 Creatinine 0.7 Estim Creat Clear Calc 63.9 eGFR > 60 BUN/Creatinine Ratio 20 Glucose 91 Calculated Osmolality 283 Calcium 9.4 Corrected Calcium 10.0 Total Bilirubin 0.4 AST 63 H ALT 188 H Alkaline Phosphatase 175 H D Total Protein 5.6 L Albumin 3.3 L Globulin 2.3 Albumin/Globulin Ratio 1.4 Quality Measures Quality Measures VTE prophylaxis Advance care planning discussed with:: patient Assessment & Plan Assessment Current Active Medications: Generic Name Dose Route Start Last Admin Trade Name Freq PRN Reason Stop Dose Admin Acetaminophen 650 mg 05/11/24 01:42 05/14/24 18:26 Acetaminophen 325 Mg Tablet PO 06/10/24 01:41 650 mg Q6HR PRN Administration HEADACHE OR MILD PAIN 1-3 Chlordiazepoxide HCl 25 mg 05/15/24 09:00 Chlordiazepoxide Hcl 25 Mg Capsule PO 05/20/24 08:59 BID ALPHONSO Enoxaparin Sodium 40 mg 05/12/24 09:00 05/14/24 09:30 Enoxaparin Sod Inj 40 Mg/0.4 Ml Syringe SC 05/26/24 08:59 40 mg QDAY ALPHONSO Administration Folic Acid 1 mg 05/10/24 22:45 05/14/24 20:14 Folic Acid 1 Mg Tablet PO 05/15/24 22:44 1 mg BID ALPHONSO Administration Levothyroxine Sodium 75 mcg 05/11/24 08:00 05/15/24 05:07 Levothyroxine Sodium 25 Mcg Tablet PO 06/10/24 07:59 75 mcg ACBR ALPHONSO Administration Lisinopril 5 mg 05/11/24 09:15 05/14/24 09:31 Lisinopril 2.5 Mg Tablet PO 06/10/24 09:14 5 mg QDAY ALPHONSO Administration Lorazepam 0.5 mg 05/11/24 11:11 05/14/24 13:15 Lorazepam 2 Mg/Ml Vial IV 05/16/24 11:10 0.5 mg Q2HR PRN Administration CIWA SCORE 8-13 Lorazepam 1 mg 05/11/24 11:11 Lorazepam 2 Mg/Ml Vial IV 05/16/24 11:10 Q2HR PRN CIWA SCORE 14-19 Lorazepam 2 mg 05/11/24 11:11 Lorazepam 2 Mg/Ml Vial IV 05/16/24 11:10 Q2HR PRN CIWA SCORE 20-25 Lorazepam 0.5 mg 05/13/24 12:44 05/15/24 00:48 Lorazepam 0.5 Mg Tablet PO 05/15/24 22:33 0.5 mg Q4HR PRN Administration CIWA Score 2-7 Morphine Sulfate 2 mg 05/10/24 22:02 05/13/24 02:30 Morphine Sulf Inj 10 Mg/Ml Vial IVP 05/15/24 22:01 2 mg Q4HR PRN Administration PAIN Protocol Ondansetron HCl 4 mg 05/10/24 22:29 05/13/24 05:13 Ondansetron Inj 2 Mg/Ml Inj 2 Ml IV 06/09/24 22:28 4 mg Q6H PRN Administration NAUSEA OR VOMITING Protocol Oxycodone/Acetaminophen 1 tab 05/10/24 22:29 05/14/24 12:46 Oxycodone/Apap 5/325 Tablet PO 05/15/24 22:28 1 tab Q6H PRN Administration PAIN SCALE 4-6 (Moderate Pantoprazole Sodium 40 mg 05/11/24 09:00 05/14/24 09:32 Pantoprazole Inj 40 Mg Vial IVP 06/10/24 08:59 40 mg QDAY ALPHONSO Administration Thiamine HCl 100 mg 05/10/24 22:45 05/14/24 20:14 Thiamine 100 Mg Tablet PO 05/15/24 22:44 100 mg BID ALPHONSO Administration Plan Assessment and Plan: Summary: Ms. Manzo is a 73-year-old female with history of anxiety, hypothyroidism, depression, multiple abdominal surgeries, binge drinking alcohol use disorder, irritable bowel syndrome who presented to [facility] emergency department on 05/10/2024 with a chief complaint of chest pain. Cardiology consulted for NSTEMI type I versus type II. #ACS?NSTEMI type I versus type II #Status post Cardiac Catheterization 05/11/24 #Typical cardiac chest pain, resolved #Elevated troponin Reported that she received a phone call that her childhood friend , since then later in the afternoon she started having substernal chest pressure 10/10 while she was lying in bed, reported that the pain radiated to her neck and abdomen was associated with shortness of breath has not been relieved to totally. 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 EKG showed sinus rhythm with no acute ST?T changes. Pain alleviated with 3 times dose of nitro and one-time morphine, still had some chest pain. Troponin 0.333 -> 2.277 -> 1.841 -> 1.676 Chanelle score 107 points, low risk category less than 1% probability of in hospital, intermediate risk 6-month post discharge, 3 to 8% probability of post discharge. Lipid panel: Triglyceride 112, cholesterol 182, LDL 71, HDL 89 TSH 0.60 Hgb A1c 5.1 - 08/31/2023 Echocardiogram 05/11/2024: Normal LV size and function with and estimated EF 55-60%. Mild LVH. Diastolic Dysfunction stage I. Normal RV size and function with mildly elevated RVSP 45 mmHg. Mild MR & mild MAC. Mild-moderate TR. No pericardial effusion. Left heart cardiac catheterization 05/11/2024: LHC showed normal coronaries without any angiographically significant obstruction. LVEF was normal at 60-65% and normal LVEDP of 18 mmHg. No transvalvular aortic gradient. Recommendations: -Discontinue aspirin, Brilinta and heparin drip. -Patient has microvascular disease suspicion of microvascular angina. -Recommend aggressive risk factor management, consider starting on low-dose statin after stabilization of liver enzymes, LDL goal less than 70. -Patient is currently experiencing alcohol withdrawal, once stable aggressive management of hypertension. -Continue levothyroxine, maintain euthyroidism -Recommend following outpatient in 1 week to establish cardiology care. #Hypothyroidism Patient has history of hypothyroidism TSH 0.60, within normal limits, home dose levothyroxine 75 mcg resumed by primary team #Acute liver injury, resolved #Alcohol associated liver disease #Binge drinking alcohol use disorder #Transaminitis Patient's liver function enzyme AST 975, ALT 275, alk phos 134 compared to yesterday AST 37, ALT 31, alk phos 61, significant elevation noted Tylenol levels negative, platelet count within normal limits bilirubin within normal limits, Tylenol levels normal. Patient did have positive blood alcohol level on presentation, reports only drinking wine last 2 weeks ago Possible acute alcoholic hepatitis, ultrasound negative for thrombus does show CBD 1.2 cm. Patient does have history of cholecystectomy, did have choledocholithiasis in the past. 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 Patient did have a CBD stone in distal common bile duct in 2020, was following Dr. Mcneill outpatient, per review of chart last note by Dr. Mcneill from 2021, patient reports that she has been on to follow-up with Dr. Mcneill otherwise. Per Dr. Mcneill's note from 2021 patient has some sort of a blind loop which common bile duct is attached to and finding that blind loop prior to proceeding with procedure was the plan. Patient's transaminitis has improved today, has waxing and waning LFT, possible etiology secondary to Biliary disease vs alcohol use Recommended outpatient follow-up with gastroenterology for further workup #Normocytic normochromic anemia -Consider outpatient workup #Alcohol dependence with withdrawal #Benzodiazepine dependence with withdrawal Patient is anxious, sweating, tremulous, has elevated CIWA scores on CIWA protocol and Librium. #Anxiety On BuSpar, trazodone and alprazolam at home, currently on CIWA protocol. #Status post total gastrectomy, by history #Status post liver resection secondary to hemangioma, by history #Status post cholecystectomy, by history Thank you for the consult and allowing to participate in the care of the patient. Cardiology will continue to follow. Case discussed with Attending Dr. Rivas. Marcellus Downey PGY1 Disclaimer: This note was dictated by speech recognition. Minor errors in floor manager may be present due to voice recognition software. Attending Provider Attestation/Addendum I have personally seen and examined the patient separately on the above date of service and discussed the plan of care with the resident. I reviewed the resident Dr. Marcellus Downey consultation progress note and agree with the resident findings and plan in the note above and have also edited the documentation to reflect my findings and plan. Malick Rivas M.D. Interventional Cardiology
[2024-05-15] MEDS: ENOXAPARIN SOD INJ 40 MG/0.4 ML SYRINGE SC (09:17)
[2024-05-15] MEDS: PANTOPRAZOLE INJ 40 MG VIAL IVP (09:17)
[2024-05-15 09:18] VITALS: BP 131/80; PULSE 88
[2024-05-15] MEDS: Lisinopril 2.5 MG TABLET 5 MG PO (09:18)
[2024-05-15] MEDS: THIAMINE 100 MG TABLET PO (09:19)
[2024-05-15] MEDS: FOLIC ACID 1 MG TABLET PO (09:19)
--- NOTE | 2024-05-15 11:16 | PC.SS ---
SS met with pt at bedside to discuss DC planning. Pt stated she will return home today and her son will be here to pick her up about 1530. SS offered TAXI/Uber option but pt declined. IMM provided.
[2024-05-15 12:00] VITALS: BP 144/86; PULSE 100; PULSE 101; RESP 18; TEMP 36.2; O2SAT 97
[2024-05-15] MEDS: oxyCODONE/APAP 5/325 TABLET 1 TAB PO (12:20)
--- NOTE | 2024-05-15 14:35 | ESDS_ITS ---
<Statement entered by Joann Rincon MD - 05/15/24 17:42> I discussed with and supervised the nutrition intern physician who took care of this patient. I personally saw and examined the patient and discussed the assessment and plan with the entire medicine team, including my attending Dr. Huber, I agree with most of the assessment and plan as documented below Joann Rincon M.D. PGY-2 Planned Discharge Date 05/15/24 DS: Providers Provider Date of admission: 05/10/24 21:25 Primary care physician: Yamile Montilla MD Admitting Provider: Nicolas Dubois MD Attending Provider on Admission: Santi Huber DO Consults: 05/10/24 21:16 Consult to Cardiology Routine Comment: Consulting Provider: Malick Rivas 05/11/24 06:51 Referral [place] Routine Comment: Attending Provider on DC: Santi Huber DO Discharging Provider: Kyle Marquez MD DS: Diagnosis Problem List Completed Was Problem List Reviewed/Reconciled?: Yes Hospital Course Hospital Course Hospital course: 73-year-old female patient with past medical history of multiple abdominal surgeries, hypothyroidism, anxiety and depression, IBS, presented to the ED on 05/10/2024 due to acute chest pain. Patient found to have mildly elevated troponin, received cardiac catheterization showed luminal blockage. During hospitalization patient had significant elevated liver enzymes, possibly due to acute alcoholic hepatitis. Patient treated with CIWA protocol, successfully weaned down. Patient stable for discharge from cardio perspective. Patient medically clear and stable for discharge. Discharge plan: You have been started on the following medications: -Ketorolac 10 mg up to 3 times daily, for up to 5 days, as needed for headaches. Please continue to take all other medications as previously prescribed. Please follow-up with your PCP within 1-2 weeks. Please speak to your PCP about tapering down Xanax. Please speak to your PCP about a referral to Dr. Rivas cardiology for follow-up appointment. Return to ED if you develop new or worsening symptoms. Diagnoses: #Alcohol use disorder #Transaminitis, uptrending #Non-STEMI type II s/p LHC #History of hypertension #History of hypothyroidism #History of anxiety #History of IBS Plan of care discussed with senior resident Dr. Rincon PGY?[address] Huber. Kyle Marquez MD PGY?1 Status at Discharge Overall status at discharge: patient is progressing back to baseline Time Spent with Patient Time attestation: Total time spent providing and/or coordinating discharge services: Time spent: Greater than 30 minutes Exam Vital Signs Temp Pulse Resp BP Pulse Ox O2 Del Method 97.1 F 100 18 144/86 H 97 Room Air 05/15/24 12:00 05/15/24 12:05/15/24 12:00 05/15/24 12:00 05/15/24 12:05/15/24 04:00 Narrative Exam PE: Gen: Well-developed and well-nourished. HEENT: NCAT, PERRLA, EOMI, MMM, anicteric conjunctivae. CVS: normal S1 and S2. RRR. No M/R/G. Resp: CTA B/L. No rhonchi, rales, crackles or wheezing. Abd: soft, non-tender, non-distended. MSK: Good ROM in BUE & BLE. No edema or rash. Neuro: CN II-XII grossly intact. Strength 5/5 in BUE & BLE. Alert and oriented x3. Mild tremors. Psych: appropriate mood and affect. Discharge Plan Plan Patient Disposition: HOME (Self Care) Patient condition on transfer: Stable Care Plan Goals: You have been started on the following medications: -Ketorolac 10 mg up to 3 times daily, for up to 5 days, as needed for headaches. Please continue to take all other medications as previously prescribed. Please follow-up with your PCP within 1-2 weeks. Please speak to your PCP about tapering down Xanax. Please speak to your PCP about a referral to Dr. Rivas cardiology for follow-up appointment. Return to ED if you develop new or worsening symptoms. Prescriptions/Referrals Prescriptions/Med Rec: New ketorolac 10 mg tablet 10 mg PO Q8H PRN (Reason: pain, headache) 5 Days Qty: 15 0RF Rx Instructions: maximum total duration of 5 days from all oral, intranasal, or parenteral formulations Continued buspirone 15 mg Tablet 15 mg PO BID Rx Instructions: 1 & 1/2 tab po bid. lisinopril 5 mg Tablet 5 mg PO QDAY alprazolam 0.5 mg tablet 0.5 mg PO TID levothyroxine 75 mcg tablet 75 mcg PO QAM Patient Comments: TAKE 1 TABLET BY MOUTH EVERY DAY IN THE MORNING ON AN EMPTY STOMACH trazodone 100 mg tablet 200 mg PO HS Patient Comments: TAKE 2 TABLETS BY MOUTH EVERY DAY AT BEDTIME 90 fluoxetine 20 mg capsule 20 mg PO BID Patient Comments: TAKE 1 CAPSULE BY MOUTH TWICE A DAY Referrals: Malick Rivas MD [Physician] - (New Address [address] [place] [address]) Yamile Montilla MD [Primary Care Provider] - Patient/Caregiver Discharge Instructions Discharge Activity: resume usual activities Education Materials: Headaches Migraine & Tension, Headache Migraine Triggers Prevent, Headache Migraine Meds Lifestyle Print Language: Indonesian Stand Alone Forms: Iliana Award Info., Patient Portal Info Letter Discharge Order Discharge Orders: Discharge (Routine); Ordered 05/15/24 Ordered By: Kyle Marquez Quality Discharge Quality Measures VTE prophylaxis Attestestation MD Attestation I have discussed and was present for the essential components of the discharge history, physical examination, diagnosis, and discharge treatment plan with the resident. I agree with the patient's discharge care as documented by the resident and amended herein by me. Gage Huber DO. The patient understood all discharge instructions, all questions were answered satisfactorily. The patient was instructed to return to the Emergency Department is symptoms worsened or persisted. Although this document has been carefully reviewed, there may still be some phonetic and other typographical errors. These errors are purely grammatical due to imperfections in the software program and should not be construed in any way to compromise the substance of the patient's medical care during this visit.
== END 2024-05-15 15:45 | disposition home or self-care (01) | DRG 281 ==
LOC: SERX 21:00 → SERHOLD 21:32 → S2SX 05-11 06:23 → S3NX 05-11 18:27
PROVIDERS: Internal Medicine Cardiovascular Disease; Physician Assistant; Student in an Organized Health Care Education/Training Program; Admitting Provider Internal Medicine; Emergency Provider Emergency Medicine; PCP Family Medicine; Visit Provider Student in an Organized Health Care Education/Training Program
PROC: 4A023N7 Measurement of Cardiac Sampling and Pressure, Left Heart, Percutaneous Approach (ICD-10-PCS; principal; 2024-05-11 14:00)
DX: I21.4 Non-ST elevation (NSTEMI) myocardial infarction (principal); F10.239 Alcohol dependence with withdrawal, unspecified; F13.239 Sedative, hypnotic or anxiolytic dependence with withdrawal, unspecified; I10 Essential (primary) hypertension; E89.0 Postprocedural hypothyroidism; F41.9 Anxiety disorder, unspecified; I48.91 Unspecified atrial fibrillation; G43.909 Migraine, unspecified, not intractable, without status migrainosus; K80.50 Calculus of bile duct without cholangitis or cholecystitis without obstruction; R74.01 Elevation of levels of liver transaminase levels; D64.9 Anemia, unspecified; E83.51 Hypocalcemia; Z90.3 Acquired absence of stomach [part of]; Z90.710 Acquired absence of both cervix and uterus; K58.9 Irritable bowel syndrome, unspecified; F32.A Depression, unspecified; Z79.02 Long term (current) use of antithrombotics/antiplatelets; Z79.899 Other long term (current) drug therapy; Y90.1 Blood alcohol level of 20-39 mg/100 ml
CPT/HCPCS: 36415; 71045; 76705; 80053; 80061; 80074; 80076; 80307; 80320; 80329; 82248; 82550; 83615; 83735; 83880; 84100; 84443; 84484; 85025; 85610; 85730; 93005; 93306; 96374; 96375; 99152; 99153; 99291; A4649; C1769; C1887; C1894; J0171; J0461; J1643; J1644; J1650; J2060; J2250; J2270; J2310; J2371; J2405; J2470; J3010; J3475; J3490; J7030; Q9967; A9270; G0480; J2305

== ENCOUNTER → 2024-06-02 | Outpatient (CLI) | payer MEDICARE, BC, SELFPAY ==
--- NOTE | 2024-06-02 16:42 | XR_ITS ---
Examination: Sinus series 3 views Technique: Angel Monsivais lateral sinus series 3 views Exam date and time: June 02, 2024 1640 hrs. Indications: Sinus pressure and pain headaches one month Findings: Mild opacity in the frontal ethmoid air cells as well as maxillary antral and sphenoid air cells. No fluid-filled No retention cysts Impression: Mild chronic pansinusitis Moderate hypertrophy inferior nasal turbinates No cortical bone destruction
[2024-06-02 17:27] LABS: Basophils % (Auto) 1 % (0-2.5); Eosinophils # (Auto) 0.1 Thou/mm3 (0.0-0.5); Eosinophils % (Auto) 2 % (0-10); Hematocrit 38.1 % (36.0-46.0); Hemoglobin 12.2 g/dL (12.0-16.0); Immature Granulocytes % (Auto) 0 % (0-0); Immature Granulocytes Auto 0.01 Thou/mm3 (0.00-0.00); Lymphocytes # (Auto) 1.6 Thou/mm3 (1.0-4.8); Lymphocytes % (Auto) 24 % (10-50); Mean Corpuscular Hemoglobin 28.9 pg (25.0-35.0); Mean Corpuscular Volume 90 fL (80-100); Monocytes # (Auto) 0.6 Thou/mm3 (0.0-0.8); Monocytes % (Auto) 8 % (0-12); Neutrophils # (Auto) 4.3 Thou/mm3 (1.8-7.7); Neutrophils % (Auto) 65 % (37-80); Nucleated Red Blood Cell % 0 /100 WBC (0); Platelet Count 301 Thou/mm3 (140-440); RDW Standard Deviation 48.8 fL (36.4-46.3); Red Blood Count 4.22 Miln/mm3 (4.00-5.20); White Blood Count 6.7 Thou/mm3 (3.6-11.0)
[2024-06-02 17:41] LABS: Alanine Aminotransferase 26 U/L (10-49); Albumin/Globulin Ratio 1.7 (1.2-2.2); Alkaline Phosphatase 81 U/L (46-116); Anion Gap 6 (7-16); Aspartate Amino Transferase 26 U/L (0-34); BUN/Creatinine Ratio 11 Ratio (12-20); Bilirubin,Total 0.2 mg/dL (0.3-1.2); Blood Urea Nitrogen 13 mg/dL (9-23); Calcium 8.9 mg/dL (8.3-10.6); Calcium (Corrected) 8.9 mg/dL (8.5-10.1); Carbon Dioxide 28.9 mMol/L (20.0-31.0); Chloride 107 mMol/L (98-107); Creatinine (Component) 1.2 mg/dL (0.6-1.3); Globulin 2.3 gm/dL (2.3-3.5); Glucose 96 mg/dL (74-106); Osmolality,Calculated 283 (275-295); Sodium 142 mMol/L (136-145); Total Protein 6.3 gm/dL (5.7-8.2); eGFR 48 See Note
== END | disposition home or self-care (01) ==
LOC: CDIM 16:31 → COPL 17:02
PROVIDERS: PCP Family Medicine; Referring Provider Family Medicine; Visit Provider Radiology Diagnostic Radiology
DX: J32.4 Chronic pansinusitis (principal); J34.3 Hypertrophy of nasal turbinates; B27.90 Infectious mononucleosis, unspecified without complication
CPT/HCPCS: 36415; 70220; 80053; 85025

== ENCOUNTER 2024-06-08 16:09 | Inpatient (IN) | payer MEDICARE, BC, SELFPAY ==
[2024-06-08] VITALS (7 sets, daily range): BP systolic 117–133; BP diastolic 75–93; PULSE 74–103; RESP 16–24; TEMP 36.7–36.8; O2SAT 91–98; BMI 23.6
--- NOTE | 2024-06-08 17:39 | EKG_ITS ---
[facility] Test Date: 2024-06-08 Pat Name: NAYELY PERRY Department: Room: - Gender: Female Cellar Pumper: : 1950 Requested By: Gordy Cherry Order Number: [id number] Reading MD: Gordy Cherry Measurements Intervals [place] Rate: 85 P: 34 [place]: 139 QRS: -38 QRSD: 84 T: 15 QT: 368 QTc: 438 Interpretive Statements SINUS RHYTHM LEFT AXIS DEVIATION [QRS AXIS < -30] Compared to ECG 05/10/2024 19:34:53 No significant changes /store/S0/[id number].pdf
--- NOTE | 2024-06-08 17:39 | XR_ITS ---
Examination: AP chest single view Technique: AP portable upright chest single view Exam date and time: June 08, 2024 7059 hours Comparison May 10, 2024 Indications: Chest pain beginning 3 days ago. Findings: Normal heart size Mild elevation right hemidiaphragm. No pneumonia or pulmonary edema Impression: No active disease
--- NOTE | 2024-06-08 17:40 | XR_ITS ---
Examination: CT brain head without contrast. 2-D sagittal coronal reconstructions Date and time of exam:June 08, 2024 1823 hrs. Indications: Patient fell 2 days ago with injury to the head, head pain CTDI: vol (mGy):42.2 DLP: (mGycm):865 Technique: Multiple CT axial sections of the brain have been obtained, 5 mm slice thickness. Contrast has not been administered. 2-D sagittal, coronal reconstructions have been obtained Low dose protocols were performed. One or more of the following dose reduction techniques were used; automated exposure control, adjustment of the mA and/or KV according to patient size, use of iterative reconstruction technique. Findings: No significant ventricular enlargement. Intra-axial or extra-axial hemorrhage density is not seen. No mass effect or midline shift Basal cisterns are not remarkable. Fourth ventricle is midline. Cranial vault intact. Impression: Negative for acute hemorrhage, mass effect or midline shift
--- NOTE | 2024-06-08 17:51 | PD.EDADDENDU ---
Emergency Room Addendum Addendum Narrative: This patient arrived by EMS evidently had a syncopal event at home. Patient states she is having increasing weakness since she recently left the hospital after having a heart attack she had extensive workup including angiogram which showed normal coronary arteries. Ejection fraction was normal. Evidently she had a Holter monitor but the results of that are unknown she saw Dr. Titus in the hospital. The and patient state the patient is very weak she has fallen several times. She hit her head twice in the past 24 hours. She states she has not been drinking for the last couple weeks. She has opioids and benzodiazepines and her recent drug screen She states she is not on any blood thinners but she does bleed easily. Physical exam she is alert awake in no distress O2 sats are normal on room air. She is not have any active chest pain and denies any abdominal pain. She denies any blood in her stool. There is been no vomiting. Review of the chart reveals she had history of drinking. There was concerns for liver and they work that up because transaminases were elevated. The final answer or cause of that was unclear. I saw this patient at approximately 1740 hrs. did a brief history chart review and put in orders so my oncoming doctor could assume care and provide a full physical exam accordingly.
--- NOTE | 2024-06-08 18:23 | PD.EDADDENDU ---
Emergency Room Addendum Addendum Narrative: 1800: Care assumed from Dr. Cherry, the previous shift emergency physician. Past medical, surgical, social and family history reviewed. Vitals and home medications reviewed. Results and treatment plan discussed. I will assume the care of the patient at this time and will follow the patient, pending labs. Please refer to the emergency department record for history and examination from initial visit. Patient's son at bedside states the patient was dizzy and fell 2 days ago, reporting she hit her head. He states he's noticed the patient has been complaining of a headache. He voiced concerns over the patient possibly being on too many medications. Patient is oriented to self and date, but has significant confusion regarding the circumstances of her visit today. She is slow in mentation and thinks she's been here in the ED for 2 days. She notes my tailbone hurts . She states she quit drinking alcohol one month ago. EKG done at 1754, NSR, rate of 85, left axis deviation, no ectopy, Q waves in lead III and avF, no acute ischemia, according to my interpretation.
--- NOTE | 2024-06-08 18:42 | XR_ITS ---
Examination: Sacrum and coccyx 3 views Technique one AP inclined AP lateral sacrum and coccyx 3 views Exam date and time: June 08, 2024 1911 hrs. Indications: Patient fell today with injury to the sacrum, sacral pain. Findings: Prominent osteopenia Suspicious for nondisplaced fracture third sacral segment No cortical bone destruction Impression: Suspicious for acute nondisplaced fracture third sacral segment
--- NOTE | 2024-06-08 18:49 | PD.EDSYNC ---
ED Syncope RME/HPI General Chief Complaint: Syncope / Near Syncope Stated Complaint: SYNCOPE Time Seen by Provider: 06/08/24 18:19 Arrival date/time: 06/08/24 16:09 RME / HPI RME / HPI narrative: Dr. Carver?s Main ED Evaluation: 73yo female with a history of multiple abdominal surgeries, hypothyroidism, anxiety and depression, IBS, recent NSTEMI BIBA from home presents to the ED for complaints of generalized weakness, headache, lightheadedness, and confusion. Son states the patient has been shuffling with a wide-based gait and has frequent falls, reporting her last fall was 2 days ago. She did hit her head, but did not lose consciousness. Son states the patient was generally weak prior to her fall, noting the patient has been more confused over the past one year. Patient endorses having a headache and tailbone pain. Patient states I slip, trip, and pass out a lot . Patient denies any neck pain, chest pain, abdominal pain, shortness of breath or any other associated symptoms. Related Data Home Medications ?Medication ?Instructions ?Recorded ?Confirmed buspirone 15 mg tablet 15 mg PO BID 06/27/19 06/08/24 alprazolam 0.5 mg tablet 0.5 mg PO TID 03/03/21 06/08/24 lisinopril 5 mg tablet 5 mg PO QDAY 07/31/21 05/10/24 fluoxetine 20 mg capsule 20 mg PO BID 03/12/22 06/08/24 levothyroxine 75 mcg tablet 75 mcg PO QAM 03/12/22 06/08/24 trazodone 100 mg tablet 200 mg PO HS 03/12/22 06/08/24 dicyclomine 10 mg capsule mg 06/08/24 fluoxetine 40 mg capsule mg 06/08/24 Allergies Allergy/AdvReac Type Severity Reaction Status Date / Time Penicillins Allergy Mild Rash Verified 05/10/24 18:21 Review of Systems Review of Systems Systems Reviewed: All systems reviewed, normal except as documented ED Exam Narrative Physical exam: GENERAL APPEARANCE: awake, alert, oriented to self and date, but has significant confusion regarding the circumstances of her visit today; well-developed, well-nourished, no acute distress VITALS: All vitals were reviewed and the pulse ox is 96% on room air, which is normal according to my interpretation. HEENT: Normocephalic, atraumatic; pupils equal, round, reactive to light; EOMI; mucous membranes pink, moist; oropharynx clear NECK: Supple LUNGS: CTABL; no wheezes, no rales, no rhonchi HEART: Regular rate, regular rhythm; normal S1, S2; no murmurs ABDOMEN: non distended; normal BS; soft, no tenderness, no guarding, no rebound; no masses, no organomegaly, no hernia BACK: no CVA tenderness EXTREMITIES: atraumatic; no edema NEUROLOGIC: awake; alert and oriented oriented to self and date; slow mentation; cranial nerves II-XII grossly intact; no focal sensory or motor deficits PSYCHIATRIC: appropriate mood and affect SKIN: warm, dry, normal color; no rashes Course Course Course Narrative: CXR is ordered to r/o pneumothorax. Quality Measures none Orders Category Date Time Status City Recorder Q4H START 00 Care 06/08/24 18:40 Active Continuous Pulse Oximetry NOW Care 06/08/24 18:40 Active EKG (ED ONLY) *Do not use* NOW Care 06/08/24 17:[address] head/brain wo con Stat Exams 06/08/24 17:40 Completed EKG (ED Only) Stat Exams 06/08/24 17:39 Draft XR chest 1V portable Stat Exams 06/08/24 17:39 Completed XR sacrum coccyx min 2V Stat Exams 06/08/24 18:42 Completed Alcohol, Blood Medical Stat Lab 06/08/24 19:30 Completed Ammonia Stat Lab 06/08/24 19:30 Completed B-Type Natriuretic Peptide Stat Lab 06/08/24 19:30 Completed Blood Culture (Lab) Stat Lab 06/08/24 19:30 Received CBC Stat Lab 06/08/24 19:30 Completed Comprehensive Metabolic Panel Stat Lab 06/08/24 19:30 Completed Drug Screen,Urine Stat Lab 06/08/24 19:30 Completed Free T4 (Free Thyroxine) Stat Lab 06/08/24 19:30 Completed Lactate (Lactic Acid) Stat Lab 06/08/24 19:30 Completed Lipase Stat Lab 06/08/24 19:30 Completed Magnesium Stat Lab 06/08/24 19:30 Completed Partial Thromboplastin Time Stat Lab 06/08/24 19:30 Completed Prothrombin Time with INR Stat Lab 06/08/24 19:30 Completed Troponin I Stat Lab 06/08/24 19:30 Completed Urinalysis Stat Lab 06/08/24 19:00 Completed Urinalysis, C/S if Indicated Stat Lab 06/08/24 19:00 Completed Venous Blood Gas Stat Lab 06/08/24 19:30 Completed Folic Acid Inj Med 06/08/24 19:04 Discontinued 1 mg IVP X1 ONE Thiamine Inj [Vitamin B-1 Inj] Med 06/08/24 19:04 Discontinued 500 mg IVP X1 ONE cefTRIAXone/D5w 1gm IV premix [Rocephin/D5w 1gm IV Med 06/08/24 20:38 Discontinued premix] 1 gm in 50 ml IV X1 Vital Signs Vital signs: Vital Signs Temperature 98.2 F 06/08/24 16:10 Pulse Rate 98 06/08/24 16:10 Respiratory Rate 17 06/08/24 16:10 Blood Pressure 117/79 06/08/24 16:10 Pulse Oximetry (%) 91 L 06/08/24 16:10 Oxygen Delivery Method Room Air 06/08/24 16:10 Syncope MDM Narrative MDM Narrative:: Scribe Attestation: 06/08/24 - Varsha Kuhn am scribing for and in the presence of Dr. Carver. Patient's son at bedside states the patient was dizzy and fell 2 days ago, reporting she hit her head. No LOC. He states he's noticed the patient has been complaining of a headache. He voiced concerns over the patient possibly being on too many medications. He notes the patient shuffles with wide-based gait and falls a lot. Patient is oriented to self and date, but has significant confusion regarding the circumstances of her visit today. She is slow in mentation and thinks she's been here in the ED for 2 days. She notes my tailbone hurts . She states she quit drinking alcohol one month ago. Folic acid and Thiamine ordered. Labs are positive for a UTI. No leukocystosis. VBG is normal. CXR is unremarkable. EKG is negative for any acute ischemia. Vital signs are within normal limits. Rocephin ordered for UTI. At this time, I feel the patient has Wernicke's encephalopathy due to her symptoms. Will consult an admission to the hospitalist. At 2041, I discussed case with Dr. Reece attending Dr. Castaneda from Hospitalist service regarding admission. Discussed patients ED course, exam findings, labs, and radiology results. The Hospitalist agrees to accept the patient for admission Patient data External records reviewed:: [facility] previous records (Per chart review, patient was admitted here on 05/10/24 for NSTEMI.) Clinical information provided by:: patient and family Social determinants that could affect healthcare access:: alcohol use (history of binge drinking) Patient has the following chronic illnesses:: multiple abdominal surgeries, hypothyroidism, anxiety and depression, IBS How is presenting disease/condition affected by chronic disease/condition?: uneffected by Evaluation data The following diagnostics were reviewed and interpreted by me:: lab results, radiology exam(s) and EKG tracing(s) Lab and/or radiology exams considered but not ordered:: none Interpretation Summary: CBC is normal, PT and INR are normal, PTT is normal, VBG is normal, CMP is normal, Troponin is normal, BNP is normal, Free T4 is normal, UA is positive for a UTI, UDS is positive for benzodiazepines, Blood Alcohol is negative, according to my interpretation. EKG done at 1754, NSR, rate of 85, left axis deviation, no ectopy, Q waves in lead III and avF, no acute ischemia, according to my interpretation. [facility] Report Signed Patient: NAYELY PERRY Record#: [id number] Birthdate: 1950 Age/Sex: 73 / F Location: [facility] Attending Dr: Ordering Physician: Gordy Cherry MD Date of Service: 06/08/24 Procedure(s): CT head/brain wo con Accession Number(s): [id number] cc: Gordy Cherry MD; Sawyer Robles MD; Yamile Montilla MD~ Examination: CT brain head without contrast. 2-D sagittal coronal reconstructions Date and time of exam:June 08, 2024 1823 hrs. Indications: Patient fell 2 days ago with injury to the head, head pain CTDI: vol (mGy):42.2 DLP: (mGycm):865 Technique: Multiple CT axial sections of the brain have been obtained, 5 mm slice thickness. Contrast has not been administered. 2-D sagittal, coronal reconstructions have been obtained Low dose protocols were performed. One or more of the following dose reduction techniques were used; automated exposure control, adjustment of the mA and/or KV according to patient size, use of iterative reconstruction technique. Findings: No significant ventricular enlargement. Intra-axial or extra-axial hemorrhage density is not seen. No mass effect or midline shift Basal cisterns are not remarkable. Fourth ventricle is midline. Cranial vault intact. Impression: Negative for acute hemorrhage, mass effect or midline shift Dictated By: Sawyer Robles MD Signed By: <Electronically signed by Sawyer Robles MD in OV> 06/08/24 1846 [facility] Report Signed Patient: NAYELY PERRY Record#: [id number] Birthdate: 1950 Age/Sex: 73 / F Location: [facility] Attending Dr: Ordering Physician: Gordy Cherry MD Date of Service: 06/08/24 Procedure(s): XR chest 1V portable Accession Number(s): [id number] cc: Gordy Cherry MD; Sawyer Robles MD; Yamile Montilla MD~ Examination: AP chest single view Technique: AP portable upright chest single view Exam date and time: June 08, 2024 7059 hours Comparison May 10, 2024 Indications: Chest pain beginning 3 days ago. Findings: Normal heart size Mild elevation right hemidiaphragm. No pneumonia or pulmonary edema Impression: No active disease Dictated By: Sawyer Robles MD Signed By: <Electronically signed by Sawyer Robles MD in OV> 06/08/24 1855 Medications / Prescriptions Medications or Prescriptions considered but not ordered:: none Medication administrations:: Medication Administration History Acetaminophen (Acetaminophen 325 Mg Tablet) 650 mg PO Q6H PRN PRN Reason: Fever >100.3 or pain 1-3 Stop: 07/08/24 21:13 Hydrocodone Bitart/Acetaminophen (Hydrocodone/Apap 5/325 Tablet) 2 tab PO Q6HR PRN PRN Reason: PAIN SCALE 4-10(Mod-Sev Stop: 06/13/24 23:14 Alprazolam (Alprazolam 0.25 Mg Tablet) 0.5 mg PO HS [facility] Stop: 06/13/24 22:39 Enoxaparin Sodium (Enoxaparin Sod Inj 40 Mg/0.4 Ml Syringe) 40 mg SC QDAY [facility] Stop: 06/23/24 08:59 Fluoxetine HCl (Fluoxetine Hcl 10 Mg Capsule) 40 mg PO QDAY [facility] Stop: 07/09/24 08:59 Folic Acid (Folic Acid 1 Mg Tablet) 1 mg PO QDAY [facility] Stop: 07/09/24 08:59 Levothyroxine Sodium (Levothyroxine Sodium 25 Mcg Tablet) 75 mcg PO ACBR [facility] Stop: 07/09/24 05:59 Ondansetron HCl (Ondansetron Inj 2 Mg/Ml Inj 2 Ml) 4 mg IV Q6H PRN; Protocol PRN Reason: NAUSEA OR VOMITING Stop: 07/08/24 21:13 Thiamine HCl (Thiamine Inj 100 Mg/Ml Vial 2 Ml) 500 mg IVP TID [facility] Stop: 07/09/24 05:59 Trazodone HCl (Trazodone Hcl 50 Mg Tablet) 200 mg PO HS [facility] Stop: 07/09/24 21:59 Discontinued Medications Folic Acid (Folic Acid Inj 1 Mg/0.2 Ml) 1 mg IVP X1 ONE Stop: 06/08/24 19:05 Last Admin: 06/08/24 20:14 Dose: 1 mg Documented By: THONY Ceftriaxone Sodium/Dextrose (Rocephin/D5w 1gm Iv Premix) 1 gm in 50 mls @ 100 mls/hr IV X1 ONE Stop: 06/08/24 21:07 Thiamine HCl (Thiamine Inj 100 Mg/Ml Vial 2 Ml) 500 mg IVP X1 ONE Stop: 06/08/24 19:05 Last Admin: 06/08/24 20:13 Dose: 500 mg Documented By: THONY Thiamine HCl (Thiamine 100 Mg Tablet) 300 mg PO TID [facility] Stop: 07/08/24 21:59 Last Admin: 06/08/24 22:03 Dose: Not Given Documented By: THONY Non-Admin Reason: Duplicate Medication on eMAR see above Consultations Consultation(s) initiated? (list below): Yes Consultation #1 (Physician, Specialty, Details): See MDM. Diagnosis Syncope Differential Diagnosis: other (UTI, hemorrhagic CVA, subdural hematoma, alcoholism) Most likely diagnosis given after review of the tests above:: see clinical impression below Admission Indicated Admission indicated?: indicated Admission Request Was there a request for admission?: Yes Admission Attestation Admission request attestation: Discussed case with [] from Hospitalist service regarding admission. Discussed patients ED course, exam findings, labs, and radiology results. The Hospitalist [agrees,declines] to accept the patient for admission. Disposition Plan Disposition Plan: Admit Discharge Plan Plan Patient Disposition: Admit Acute Care w/in Hospital Problem List Clinical Impression: Wernicke encephalopathy
[2024-06-08 19:55] LABS: Base Excess, Venous 2 (-3-3); O2 Saturation, Venous 79 % (96-97); PCO2, Venous 47 mmHg (36-56); PO2, Venous 46 mmHg (15-58); pH, Venous 7.38 (7.33-7.66)
[2024-06-08 19:58] LABS: Basophils % (Auto) 0 % (0-2.5); Eosinophils # (Auto) 0.1 Thou/mm3 (0.0-0.5); Eosinophils % (Auto) 2 % (0-10); Hematocrit 34.9 % (36.0-46.0); Hemoglobin 11.5 g/dL (12.0-16.0); Immature Granulocytes % (Auto) 0 % (0-0); Immature Granulocytes Auto 0.02 Thou/mm3 (0.00-0.00); Lymphocytes # (Auto) 1.2 Thou/mm3 (1.0-4.8); Lymphocytes % (Auto) 17 % (10-50); Mean Corpuscular Hemoglobin 29.2 pg (25.0-35.0); Mean Corpuscular Volume 89 fL (80-100); Monocytes # (Auto) 0.5 Thou/mm3 (0.0-0.8); Monocytes % (Auto) 7 % (0-12); Neutrophils # (Auto) 5.2 Thou/mm3 (1.8-7.7); Neutrophils % (Auto) 74 % (37-80); Nucleated Red Blood Cell % 0 /100 WBC (0); Platelet Count 214 Thou/mm3 (140-440); Red Blood Count 3.94 Miln/mm3 (4.00-5.20)
[2024-06-08 20:05] LABS: Lactate (Lactic Acid) 1.2 mMol/L (0.4-2.0)
[2024-06-08 20:10] LABS: Collection Type, Urine Clean Catch
[2024-06-08] MEDS: THIAMINE INJ 100 MG/ML VIAL 2 ML 500 MG IVP (20:13)
[2024-06-08] MEDS: FOLIC ACID INJ 1 MG/0.2 ML IVP (20:14)
[2024-06-08 20:21] LABS: Bilirubin,Urine Negative (Negative); Blood,Urine Negative (Negative); Clarity,Urine Clear (Clear/Hazy); Color,Urine Lt-Yellow (Lt Yel-Yel); Culture Indicated,Urine Not Indicated; Glucose, Urine Negative (Negative); Ketones,Urine Negative (Negative); Leukocyte Esterase,Urine Positive (Negative); Nitrite,Urine Negative (Negative); Protein,Urine Negative (Neg - Trace); RBC,Urine 3 /hpf (0-3); Specific Gravity,Urine 1.012 (1.001-1.035); Squamous Epithelial Cell,Urine 1 /hpf (0-5); Urobilinogen,Urine Negative mg/dL (0.0-1.0); WBC,Urine 9 /hpf (0-5)
[2024-06-08 20:22] LABS: Partial Thromboplastin Time 23.6 Seconds (22.0-36.0); Prothrombin Time 10.5 Seconds (9.0-12.2)
[2024-06-08 20:23] LABS: Amphetamine/Methamp Scrn,U Negative (Negative); Barbiturate Screen,Urine Negative (Negative); Benzodiazepines Screen,Urine Positive (Negative); Benzoylecgonine Screen, Ur Negative (Negative); Fentanyl Screen,Urine Negative (Negative); Opiate Screen,Urine Negative (Negative); THC Screen,Urine Negative (Negative)
[2024-06-08 20:24] LABS: B-Type Natriuretic Peptide 90 pg/mL (0-100)
[2024-06-08 20:34] LABS: Alanine Aminotransferase 19 U/L (10-49); Albumin, Serum 3.6 gm/dL (3.4-4.8); Albumin/Globulin Ratio 1.7 (1.2-2.2); Alcohol, Blood Medical < 3.0 mg/dL (0-10.0); Alkaline Phosphatase 76 U/L (46-116); Anion Gap 7 (7-16); Aspartate Amino Transferase 23 U/L (0-34); BUN/Creatinine Ratio 17 Ratio (12-20); Bilirubin,Total 0.3 mg/dL (0.3-1.2); Blood Urea Nitrogen 15 mg/dL (9-23); Calcium 8.5 mg/dL (8.3-10.6); Calcium (Corrected) 8.8 mg/dL (8.5-10.1); Carbon Dioxide 26.7 mMol/L (20.0-31.0); Chloride 108 mMol/L (98-107); Creatinine (Component) 0.9 mg/dL (0.6-1.3); Estimated Creatinine Clearance 45.3 mL/min (>60); Free T4 (Free Thyroxine) 1.17 ng/dL (0.89-1.76); Globulin 2.1 gm/dL (2.3-3.5); Glucose 111 mg/dL (74-106); Lipase 30 U/L (12-53); Magnesium 1.7 mg/dL (1.6-2.6); Osmolality,Calculated 284 (275-295); Potassium 3.7 mMol/L (3.4-5.1); Sodium 142 mMol/L (136-145); Total Protein 5.7 gm/dL (5.7-8.2); Troponin I < 0.020 ng/mL (0.0-0.045); eGFR > 60 See Note
[2024-06-08 20:35] LABS: Ammonia < 10 uMol/L (11-32)
--- NOTE | 2024-06-08 22:22 | PD.RESHP ---
Documentation for date of: 06/08/24 [facility] History of Present Illness Chief complaint: ams, chest pain, general weakness, dizziness History of present illness: Patient is a 73-year-old female with a previous medical history of hypothyroidism, anxiety, depression, IBS, fibromyalgia, alcohol abuse, multiple abdominal surgeries who was brought in to the ED by ambulance due to dizziness and syncopal episodes that started a day ago. She reports that she fell during the loss of consciousness and hit her head. She had multiple falls previously. Son at the bedside, reports that in the last few months she became more forgetful, confused started to have balance issues. She also reports chest pain in the left side of her chest. According to the ED physician, on intial presentation she was confused and was not able to correctly name the time when she came to the ED and the reason why. ED course: Blood pressure 117/79, heart rate 98, saturating 95 on room air labs were remarkable for hemoglobin 11.5, WBC count 7.0, INR 1.0, VBG showed pCO2 47 sodium 142, potassium 3.7, chloride 108, carbon dioxide 26.7, BUN 15, creatinine 0.9, lactic acid 1.2, magnesium 1.7, AST 23, ALT 19, ammonia less than 10, troponin I less than 0.020, BNP 19. Head CT was negative for acute hemorrhage or midline shift. Chest x-ray was negative for active disease. Sacrum and coccyx x-ray showed acute nondisplaced fracture of the third sacral segment. EKG showed sinus rhythm. In the ED she received thiamine 500 mg IV x 1, folic acid 1 mg IV x 1. Social history: Denies smoking, reports previous history of alcohol use, denies drinking for 1 month, denies recreational substances. Lives with her son, does not drive, before symptoms was able to ambulate independently. Medications: During review of patient's home medications there were found multiple bottles of hyoscyamine and dicyclomine. She also takes alprazolam, buspirone, fluoxetine paroxetine, trazodone. Surgical history: Zenia fundoplication, gastrectomy, pyloroplasty, cholecystectomy, appendectomy, hysterectomy, , and partial liver resection for hemangioma, thyroidectomy for benign pathology, orthopedic surgeries (shoulder, arm), and eye surgery. Allergies: Penicillin?rash She is going to be acute encephalopathy workup and management. Review of Systems Review of Systems Systems Reviewed: All systems reviewed, normal except as documented Exam Vital Signs Temp Pulse Resp BP Pulse Ox O2 Del Method 98.1 F 74 16 133/81 H 95 Room Air 06/08/24 18:14 06/08/24 22:11 06/08/24 22:11 06/08/24 22:11 06/08/24 22:11 06/08/24 22:11 Narrative Exam Physical Exam General: Awake and in no acute distress. Conversational and non-toxic appearing. HEENT: Normocephalic, atraumatic, mucous membranes moist. Heart: Regular rate and rhythm, no murmurs. Lungs: Clear to auscultation with no wheezing or crackles. Abdomen: Soft, nondistended, nontender, positive bowel sounds. ?No guarding or rebound tenderness. Multiple abdominal surgery scars. Neurologic: Alert and oriented x3, no gross neurological deficit, and patient able to move all 4 extremities. Extremities: No edema. Skin: No rash or ecchymoses. Results: Labs 06/08/24 19:30 06/08/24 19:30 Labs: Short CBC 06/08/24 Range/Units 19:30 WBC 7.0 (3.6-11.0) Thou/mm3 Hgb 11.5 L (12.0-16.0) g/dL Hct 34.9 L (36.0-46.0) % Plt Count 214 D (140-440) Thou/mm3 BMP 06/08/24 19:30 Sodium 142 Potassium 3.7 Chloride 108 H Carbon Dioxide 26.7 BUN 15 Creatinine 0.9 Glucose 111 H Calcium 8.5 Cardiac Enzymes 06/08/24 Range/Units 19:30 Troponin I < 0.020 (0.0-0.045) ng/mL Liver Function 06/08/24 Range/Units 19:30 Total Bilirubin 0.3 (0.3-1.2) mg/dL AST 23 (0-34) U/L ALT 19 (10-49) U/L Alkaline Phosphatase 76 (46-116) U/L Albumin 3.6 (3.4-4.8) gm/dL Urine 06/08/24 Range/Units 19:00 Urine Color Lt-Yellow (Lt Yel-Yel) Urine Clarity Clear (Clear/Hazy) Urine pH 6.0 (5.0-7.0) Ur Specific [place] 1.012 (1.001-1.035) Urine Protein Negative (Neg - Trace) Urine Glucose (UA) Negative (Negative) ABG Interpretation ABG results: 06/08/24 19:30 VBG pH 7.38 VBG pCO2 47 VBG pO2 46 VBG Base Excess 2 Quality Measures Quality Measures VTE prophylaxis Advance care planning discussed with:: patient and child Medications Home Medications and Allergies Home Medications ?Medication ?Instructions ?Recorded ?Confirmed ?Type buspirone 15 mg tablet 15 mg PO BID 06/27/19 06/08/24 History alprazolam 0.5 mg tablet 0.5 mg PO TID 03/03/21 06/08/24 History lisinopril 5 mg tablet 5 mg PO QDAY 07/31/21 06/09/24 History levothyroxine 75 mcg tablet 75 mcg PO QAM 03/12/22 06/08/24 History trazodone 100 mg tablet 200 mg PO HS 03/12/22 06/08/24 History dicyclomine 10 mg capsule See Rx Instructions PO .COMPLEX 06/08/24 06/09/24 History fluoxetine 40 mg capsule mg PO DAILY 06/08/24 History Allergies Allergy/AdvReac Type Severity Reaction Status Date / Time Penicillins Allergy Mild Rash Verified 05/10/24 18:21 Visit Medications Acetaminophen (Acetaminophen 325 Mg Tablet) 650 mg PO Q6H PRN PRN Reason: Fever >100.3 or pain 1-3 Stop: 07/08/24 21:13 Fluoxetine HCl (Fluoxetine Hcl 10 Mg Capsule) 40 mg PO QDAY [facility] Stop: 07/09/24 08:59 Folic Acid (Folic Acid 1 Mg Tablet) 1 mg PO QDAY [facility] Stop: 07/09/24 08:59 Levothyroxine Sodium (Levothyroxine Sodium 25 Mcg Tablet) 75 mcg PO ACBR [facility] Stop: 07/09/24 05:59 Ondansetron HCl (Ondansetron Inj 2 Mg/Ml Inj 2 Ml) 4 mg IV Q6H PRN; Protocol PRN Reason: NAUSEA OR VOMITING Stop: 07/08/24 21:13 Thiamine HCl (Thiamine 100 Mg Tablet) 300 mg PO TID [facility] Stop: 07/08/24 21:59 Last Admin: 06/08/24 22:03 Dose: Not Given Trazodone HCl (Trazodone Hcl 50 Mg Tablet) 200 mg PO HS [facility] Stop: 07/09/24 21:59 Discontinued Medications Folic Acid (Folic Acid Inj 1 Mg/0.2 Ml) 1 mg IVP X1 ONE Stop: 06/08/24 19:05 Last Admin: 06/08/24 20:14 Dose: 1 mg Ceftriaxone Sodium/Dextrose (Rocephin/D5w 1gm Iv Premix) 1 gm in 50 mls @ 100 mls/hr IV X1 ONE Stop: 06/08/24 21:07 Thiamine HCl (Thiamine Inj 100 Mg/Ml Vial 2 Ml) 500 mg IVP X1 ONE Stop: 06/08/24 19:05 Last Admin: 06/08/24 20:13 Dose: 500 mg Assessment & Plan Plan Patient is a 73-year-old female with a previous medical history of hypothyroidism, anxiety, depression, IBS, fibromyalgia, alcohol abuse, multiple abdominal surgeries who was brought in to the ED by ambulance due to dizziness and syncopal episodes that started a day ago. She is going to be acute encephalopathy workup and management. #Acute encephalopathy #Syncopal episodes #Ground level falls Ddx: metabolic vs hypothyroidism vs medication side effect Patient has a history of alcohol abuse. Utox was negative. In the ED she received IV thiamine and folate. Plan: - dicyclomine and hyoscyamine on hold for now - resumed xanax in the lower dose 0.5mg daily - TSH ordered - neurology consulted - thiamine 500 mg PO TID - Folic acid 1 mg po qday - orthostatic vitals - PT eval - B12, folate, iron panel ordered #History of depression #History of anxiety Plan: - resumed home xanax in lower dose - resumed home fluoxetine - resumed home trazodone #Hypertension Home blood pressure medication on hold for now. #Sacral fracture Sacrum and coccyx x-ray showed acute nondisplaced fracture of the third sacral segment. Plan: - ortho consult - pain control Health maintenance: FEN: cardiac DVT prophylaxis: lovenox sc GI prophylaxis: none Dispo: telemetry CODE STATUS: Full code Plan of care discussed with attending Dr. Castaneda. Erinn Reece MD, PGY 1. Attending Provider Attestation/Addendum I attest that I was physically present for the evaluation, physical examination, lab and imaging review of the patient with the residents. I discussed the case with the residents and agree with the findings and plans of care as documented above. Patient is a 73 years old female with past medical history of hypothyroidism, anxiety, depression, IBS, fibromyalgia, alcohol abuse and multiple abdominal surgeries who presented to the ED with complaint of dizziness, syncopal episode and bouts of confusion. As per the son at bedside, patient has been becoming more forgetful, gets confused on and off, has been having issues with balance. In the ED, patient was initially confused during evaluation by ED physician. Her vitals were within normal limits. Lab results show CO2 of 26.7, ammonia less than 10, negative troponin, negative head CT, negative chest x-ray. Patient had a fall at home, x-ray of sacrum and coccyx was obtained, which shows acute nondisplaced fracture of the third sacral segment. We will admit the patient for management of encephalopathy, syncope and ground-level fall. Patient also takes multiple medications at home, including dicyclomine, hyoscyamine, Xanax, fluoxetine, trazodone, buspirone, we will resume her fluoxetine and trazodone and try to hold rest of the medications. We will obtain TSH, syphilis, orthostatic vitals, physical therapy evaluation. We will start her on thiamine, folic acid, obtain neurology consult. We will obtain orthopedic consult for sacral fracture. Evelia Castaneda MD
[2024-06-08] MEDS: ALPRazoLAM 0.25 MG TABLET 0.5 MG PO (23:40)
[2024-06-08] MEDS: cefTRIAXone/D5w 1gm IV premix 1 GM/50 ML BAG IV (23:40)
[2024-06-08] MEDS: ACETAMINOPHEN 325 MG TABLET 650 MG PO (23:41)
[2024-06-09] VITALS (11 sets, daily range): BP systolic 100–124; BP diastolic 60–77; PULSE 66–104; RESP 12–96; TEMP 36.1–37; O2SAT 92–100; BMI 26.2
--- NOTE | 2024-06-09 01:45 | PC.NURSE ---
report was called to Mary Grace MCGREGOR. Pt taken to Rm [id number] on monitor by me.
[2024-06-09] MEDS: traZODone HCL 50 MG TABLET 200 MG PO ×2 (01:51→20:04)
[2024-06-09] MEDS: LEVOTHYROXINE SODIUM 25 MCG TABLET 75 MCG PO (06:09)
[2024-06-09] MEDS: THIAMINE INJ 100 MG/ML VIAL 2 ML 500 MG IVP ×3 (06:11→21:34)
[2024-06-09 06:29] LABS: Ferritin 9 ng/mL (7.3-270.7); Iron 41 mcg/dL (50-170); Percent Iron Saturation 13 % (20-55); Total Iron Binding Capacity 298 mcg/dL (250-425); Unsaturated Iron Binding 257 (225-295)
[2024-06-09 06:31] LABS: Vitamin B12 336 pg/mL (211-911)
[2024-06-09 06:48] LABS: Alanine Aminotransferase 17 U/L (10-49); Albumin, Serum 3.3 gm/dL (3.4-4.8); Albumin/Globulin Ratio 1.7 (1.2-2.2); Alkaline Phosphatase 71 U/L (46-116); Anion Gap 4 (7-16); Aspartate Amino Transferase 23 U/L (0-34); BUN/Creatinine Ratio 14 Ratio (12-20); Bilirubin,Total 0.2 mg/dL (0.3-1.2); Blood Urea Nitrogen 14 mg/dL (9-23); Calcium 8.3 mg/dL (8.3-10.6); Calcium (Corrected) 8.9 mg/dL (8.5-10.1); Carbon Dioxide 29.2 mMol/L (20.0-31.0); Chloride 110 mMol/L (98-107); Estimated Creatinine Clearance 45.6 mL/min (>60); Globulin 1.9 gm/dL (2.3-3.5); Glucose 93 mg/dL (74-106); Magnesium 1.8 mg/dL (1.6-2.6); Osmolality,Calculated 285 (275-295); Phosphorous 3.7 mg/dL (2.4-5.1); Potassium 4.2 mMol/L (3.4-5.1); Sodium 143 mMol/L (136-145); Thyroid Stimulating Hormone 1.95 uIU/mL (0.55-4.78); Total Protein 5.2 gm/dL (5.7-8.2); eGFR > 60 See Note
[2024-06-09 08:37] LABS: Basophils # (Auto) 0.1 Thou/mm3 (0.0-0.2); Basophils % (Auto) 1 % (0-2.5); Eosinophils # (Auto) 0.2 Thou/mm3 (0.0-0.5); Eosinophils % (Auto) 5 % (0-10); Hematocrit 33.5 % (36.0-46.0); Hemoglobin 11.2 g/dL (12.0-16.0); Immature Granulocytes % (Auto) 0 % (0-0); Immature Granulocytes Auto 0.02 Thou/mm3 (0.00-0.00); Lymphocytes # (Auto) 1.4 Thou/mm3 (1.0-4.8); Lymphocytes % (Auto) 30 % (10-50); Mean Corpuscular HGB Conc 33.4 g/dl (31.0-37.0); Mean Corpuscular Hemoglobin 29.6 pg (25.0-35.0); Mean Corpuscular Volume 88 fL (80-100); Monocytes # (Auto) 0.5 Thou/mm3 (0.0-0.8); Monocytes % (Auto) 11 % (0-12); Neutrophils # (Auto) 2.4 Thou/mm3 (1.8-7.7); Neutrophils % (Auto) 53 % (37-80); Nucleated Red Blood Cell % 0 /100 WBC (0); Platelet Count 209 Thou/mm3 (140-440); RDW Standard Deviation 46.3 fL (36.4-46.3); Red Blood Count 3.79 Miln/mm3 (4.00-5.20); White Blood Count 4.6 Thou/mm3 (3.6-11.0)
--- NOTE | 2024-06-09 08:55 | PC.SS ---
Follow up note: On IV antibiotic, pending nuero recommendations, and ortho recommendation. Dr. Barrios is consulting.
[2024-06-09] MEDS: ENOXAPARIN SOD INJ 40 MG/0.4 ML SYRINGE SC (09:40)
[2024-06-09] MEDS: FLUoxetine HCL 10 MG CAPSULE 40 MG PO (09:40)
[2024-06-09] MEDS: FOLIC ACID 1 MG TABLET PO (09:41)
[2024-06-09] MEDS: HYDROcodone/APAP 5/325 TABLET 2 TAB PO ×2 (10:32→16:36)
--- NOTE | 2024-06-09 15:07 | ESPR_ITS ---
Documentation for date of: 06/09/24 Subjective Subjective Interval history: Patient admitted overnight for frequent falls and AMS. This morning patient ANO x 3, does complain of mild pain from the nondisplaced sacral fracture. Patient is pending orthopedist Dr. Sophie mason. Orthostatic vitals were taken and afternoon which were positive. Will encourage increase p.o. intake and given one-time 500 cc bolus NS. Exam Vital Signs Temp Pulse Resp BP Pulse Ox O2 Del Method 96.9 F 94 18 119/70 96 Room Air 06/09/24 12:00 06/09/24 12:00 06/09/24 12:00 06/09/24 12:00 06/09/24 12:00 06/09/24 12:00 Narrative Exam General: Awake and in no acute distress. Conversational and non-toxic appearing. HEENT: Normocephalic, atraumatic, mucous membranes moist. Heart: Regular rate and rhythm, no murmurs. Lungs: Clear to auscultation with no wheezing or crackles. Abdomen: Soft, nondistended, nontender, positive bowel sounds. ?No guarding or rebound tenderness. Multiple abdominal surgery scars. Neurologic: Alert and oriented x3, no gross neurological deficit, and patient able to move all 4 extremities. Extremities: No edema. Skin: No rash or ecchymoses. Objective Labs 06/10/24 05:40 06/10/24 05:40 Labs: Laboratory Results - last 24 hr 06/08/24 06/08/24 06/08/24 19:00 19:30 19:30 WBC 7.0 RBC 3.94 L Hgb 11.5 L Hct 34.9 L MCV 89 MCH 29.2 MCHC 33.0 RDW Std Deviation 46.0 Plt Count 214 D Neut % (Auto) 74 Lymph % (Auto) 17 [place] % (Auto) 7 Eos % (Auto) 2 Baso % (Auto) 0 Neut # (Auto) 5.2 Lymph # (Auto) 1.2 [place] # (Auto) 0.5 Eos # (Auto) 0.1 Baso # (Auto) 0.0 Immature Gran # (Auto) 0.02 H Absolute Nucleated RBC 0.00 Immature Gran % 0 Nucleated RBC % 0 PT 10.5 INR 1.0 APTT 23.6 VBG pH 7.38 VBG pCO2 47 VBG pO2 46 VBG O2 Sat (Keyla) 79 L VBG Base Excess 2 Sodium 142 Potassium 3.7 Chloride 108 H Carbon Dioxide 26.7 Anion Gap 7 BUN 15 Creatinine 0.9 Estim Creat Clear Calc 45.3 L eGFR > 60 BUN/Creatinine Ratio 17 Glucose 111 H Calculated Osmolality 284 Lactic Acid 1.2 Calcium 8.5 Corrected Calcium 8.8 Phosphorus Magnesium 1.7 Iron TIBC Iron Saturation Unsat Iron Binding Ferritin Total Bilirubin 0.3 AST 23 ALT 19 Alkaline Phosphatase 76 Ammonia < 10 L Troponin I < 0.020 B-Natriuretic Peptide 90 Total Protein 5.7 Albumin 3.6 Globulin 2.1 L Albumin/Globulin Ratio 1.7 Lipase 30 Vitamin B12 TSH Free T4 1.17 Cancelled Ur Collection Type Clean Catch Urine Color Lt-Yellow Urine Clarity Clear Urine pH 6.0 Ur Specific [place] 1.012 Urine Protein Negative Urine Glucose (UA) Negative Urine Ketones Negative Urine Blood Negative Urine Nitrite Negative Urine Bilirubin Negative Urine Urobilinogen (Auto) Negative Ur Leukocyte Esterase Positive Urine RBC 3 Urine WBC 9 H Ur Squamous Epith Cells 1 Urine Bacteria None Ur Culture Indicated? Not Indicated Urine Opiates Screen Negative Urine Fentanyl Screen Negative Ur Barbiturates Screen Negative U Amphetamin/Meth Scrn Negative U Benzodiazepines Scrn Positive A U Cocaine Metab Screen Negative U Marijuana (THC) Screen Negative Ethyl Alcohol < 3.0 06/09/24 06/09/24 05:34 07:43 WBC 4.6 RBC 3.79 L Hgb 11.2 L Hct 33.5 L MCV 88 MCH 29.6 MCHC 33.4 RDW Std Deviation 46.3 Plt Count 209 Neut % (Auto) 53 Lymph % (Auto) 30 [place] % (Auto) 11 Eos % (Auto) 5 Baso % (Auto) 1 Neut # (Auto) 2.4 Lymph # (Auto) 1.4 [place] # (Auto) 0.5 Eos # (Auto) 0.2 Baso # (Auto) 0.1 Immature Gran # (Auto) 0.02 H Absolute Nucleated RBC 0.00 Immature Gran % 0 Nucleated RBC % 0 PT INR APTT VBG pH VBG pCO2 VBG pO2 VBG O2 Sat (Keyla) VBG Base Excess Sodium 143 Potassium 4.2 D Chloride 110 H Carbon Dioxide 29.2 Anion Gap 4 L BUN 14 Creatinine 1.0 Estim Creat Clear Calc 45.6 L eGFR > 60 BUN/Creatinine Ratio 14 Glucose 93 Calculated Osmolality 285 Lactic Acid Calcium 8.3 Corrected Calcium 8.9 Phosphorus 3.7 Magnesium 1.8 Iron 41 L TIBC 298 Iron Saturation 13 L Unsat Iron Binding 257 Ferritin 9 Total Bilirubin 0.2 L AST 23 ALT 17 Alkaline Phosphatase 71 Ammonia Troponin I B-Natriuretic Peptide Total Protein 5.2 L Albumin 3.3 L Globulin 1.9 L Albumin/Globulin Ratio 1.7 Lipase Vitamin B12 336 TSH 1.95 Free T4 Ur Collection Type Urine Color Urine Clarity Urine pH Ur Specific [place] Urine Protein Urine Glucose (UA) Urine Ketones Urine Blood Urine Nitrite Urine Bilirubin Urine Urobilinogen (Auto) Ur Leukocyte Esterase Urine RBC Urine WBC Ur Squamous Epith Cells Urine Bacteria Ur Culture Indicated? Urine Opiates Screen Urine Fentanyl Screen Ur Barbiturates Screen U Amphetamin/Meth Scrn U Benzodiazepines Scrn U Cocaine Metab Screen U Marijuana (THC) Screen Ethyl Alcohol ABG Interpretation ABG results: 06/08/24 19:30 VBG pH 7.38 VBG pCO2 47 VBG pO2 46 VBG Base Excess 2 Quality Measures Quality Measures VTE prophylaxis Advance care planning discussed with:: other Assessment & Plan Assessment Current Active Medications: Generic Name Dose Route Start Last Admin Trade Name Freq PRN Reason Stop Dose Admin Acetaminophen 650 mg 06/08/24 21:14 06/08/24 23:41 Acetaminophen 325 Mg Tablet PO 07/08/24 21:13 650 mg Q6H PRN Administration Fever >100.3 or pain 1-3 Hydrocodone Bitart/Acetaminophen 2 tab 06/08/24 23:15 06/09/24 10:32 Hydrocodone/Apap 5/325 Tablet PO 06/13/24 23:14 2 tab Q6HR PRN Administration PAIN SCALE 4-10(Mod-Sev Alprazolam 0.5 mg 06/08/24 22:40 06/08/24 23:40 Alprazolam 0.25 Mg Tablet PO 06/13/24 22:39 0.5 mg HS ALPHONSO Administration Enoxaparin Sodium 40 mg 06/09/24 09:00 06/09/24 09:40 Enoxaparin Sod Inj 40 Mg/0.4 Ml Syringe SC 06/23/24 08:59 40 mg QDAY ALPHONSO Administration Fluoxetine HCl 40 mg 06/09/24 09:00 06/09/24 09:40 Fluoxetine Hcl 10 Mg Capsule PO 07/09/24 08:59 40 mg QDAY ALPHONSO Administration Folic Acid 1 mg 06/09/24 09:00 06/09/24 09:41 Folic Acid 1 Mg Tablet PO 07/09/24 08:59 1 mg QDAY ALPHONSO Administration Levothyroxine Sodium 75 mcg 06/09/24 06:00 06/09/24 06:09 Levothyroxine Sodium 25 Mcg Tablet PO 07/09/24 05:59 75 mcg ACBR ALPHONSO Administration Ondansetron HCl 4 mg 06/08/24 21:14 Ondansetron Inj 2 Mg/Ml Inj 2 Ml IV 07/08/24 21:13 Q6H PRN NAUSEA OR VOMITING Protocol Thiamine HCl 500 mg 06/09/24 06:00 06/09/24 14:17 Thiamine Inj 100 Mg/Ml Vial 2 Ml IVP 07/09/24 05:59 500 mg TID ALPHONSO Administration Trazodone HCl 200 mg 06/09/24 00:00 06/09/24 01:51 Trazodone Hcl 50 Mg Tablet PO 07/09/24 00:00 200 mg HS ALPHONSO Administration Plan Patient is a 73-year-old female with a previous medical history of hypothyroidism, anxiety, depression, IBS, fibromyalgia, alcohol abuse, multiple abdominal surgeries who was brought in to the ED by ambulance due to dizziness and syncopal episodes that started a day ago. She is going to be acute encephalopathy workup and management. #Acute encephalopathy #Syncopal episodes #Ground level falls Ddx: metabolic vs hypothyroidism vs medication side effect Patient has a history of alcohol abuse. Utox was negative. In the ED she received IV thiamine and folate. Orthostatic vitals positive Plan: - dicyclomine and hyoscyamine on hold for now - resumed xanax in the lower dose 0.5mg daily - TSH ordered - neurology consulted - thiamine 500 mg PO TID - Folic acid 1 mg po qday - Orthostatic vitals positive - Administered 500cc bolous NS - PT eval #History of depression #History of anxiety Plan: - resumed home xanax in lower dose - resumed home fluoxetine - resumed home trazodone #Hypertension Home blood pressure medication on hold for now. #Sacral fracture Sacrum and coccyx x-ray showed acute nondisplaced fracture of the third sacral segment. Plan: - ortho consult - pain control Health maintenance: FEN: cardiac DVT prophylaxis: lovenox sc GI prophylaxis: none Dispo: telemetry CODE STATUS: Full code This patient care was discussed with my attending Dr. Kerrie Steiner MD PGY-2 Disclaimer: Minor errors in telephone diaphragm assembler may be present since this note was dictated by speech recognition software. Attending Provider Attestation/Addendum 73-year-old female admitted for encephalopathy. Patient has history of alcohol use, sacral fracture. She has had frequent ground-level falls. Unclear about syncopal episodes. Patient denies loss of consciousness. She has hypertension and history of anxiety and depression. Patient was admitted for further workup.
--- NOTE | 2024-06-09 15:08 | PC.SS ---
SS met with patient regarding her d/c plan.? Pt is alert/oriented.? Pt was admitted for AMS.? Pt confirmed demographic and contact information is correct on facesheet.? Pt resides with son.? Pt ambulates independently without assistance or DME.? Pt is ok with all ADLs.? Pt states she came to hospital due to falling at home.? Pt named her son, Juan Carlos Herrera medical decision maker if she is unable.? SS provided pt with verbal d/c options for home or SNF.? Patient?s choice is to return home upon d/c.? Pt states she followed up with PCP in May and her next appointment is Wednesday.? Son will provide transportation home. D/C plan:? Return home Next of Kin:? ?Juan Carlos Herrera, son, phone# [phone] PCP:? Dr. Yamile Savage Address:? Correct on facesheet
[2024-06-09] MEDS: ONDANSETRON INJ 2 MG/ML INJ 2 ML 4 MG IV (16:18)
--- NOTE | 2024-06-09 18:40 | ESCONSULT_ITS ---
RE: NAYELY PERRY : 1950 DATE OF CONSULTATION: 06/09/2024 Thank you, for asking me to consult on the patient whom I saw on 06/09/2024. HISTORY OF PRESENT ILLNESS: The patient was admitted on 06/08/2024 in telemetry. As per history available, the patient felt dizziness and fell down. The patient injured her low back area. I am being consulted for the fracture of the sacral vertebra. PAST MEDICAL HISTORY: The patient has a history of anxiety, depression, and fibromyalgia. Besides that, the patient has hypothyroidism. There is a history of multiple falls in the past as per patient. The patient also has a history of high blood pressure. PAST SURGICAL HISTORY: The patient has a history of Zenia fundoplication, gastrectomy, , cholecystectomy, appendectomy, hysterectomy, and . Besides that, the patient has had partial liver resection for hemangioma. The patient also had shoulder-arm surgery due to some broken bone. DRUG HISTORY: The patient is on 1. Alprazolam. 2. Lisinopril. 3. Levothyroxine. 4. Trazodone. 5. Dicyclomine. 6. Fluoxetine. ALLERGIES: PENICILLIN. FAMILY HISTORY: Noncontributory. SOCIAL HISTORY: Noncontributory. PHYSICAL EXAMINATION: GENERAL: Alert and oriented lady. VITAL SIGNS: Pulse is 76 per minute. Blood pressure 132/86 mmHg. NECK: Soft and supple. No mass felt. Trachea centrally placed. CARDIOVASCULAR SYSTEM: First and second heart sounds are normal. No murmur heard. RESPIRATORY SYSTEM: Bilateral vesicular breath sounds. Chest clear. ABDOMEN: Soft. No mass felt. Bowel sounds present. PELVIC: Pelvic examination especially the back examination reveal mild tenderness in the lumbosacral region. The patient added that she does not feel any pain while sitting. DIAGNOSTIC DATA: X-ray of the sacrum and coccyx was reviewed. It revealed undisplaced fracture of the third sacral segment. RECOMMENDATIONS: Diagnosis and prognosis were explained to the patient in detail. The patient does not need any special measures. The patient may be up and about and can put full weight on both lower limbs. I will sign off the patient. Once the patient is discharged, I will be happy to see her in my office for further followup. DT: 16:00:22 TT: 17:06:00 Ref: [id number] - TID: [id number]
[2024-06-09] MEDS: SODIUM CHLORIDE 0.9% 500 ML 500 ML 999 ML IV (19:45)
[2024-06-09] MEDS: ALPRazoLAM 0.25 MG TABLET 0.5 MG PO (20:04)
--- NOTE | 2024-06-09 21:50 | PD.NEUROCONS ---
History of Present Illness Data of Consult Requesting Physician: Brandon Sy MD Primary Care Provider: Yamile oMntilla MD Consult Narrative cc:: cc: Brandon Sy MD Meds Home Medications and Allergies Home Medications ?Medication ?Instructions ?Recorded ?Confirmed ?Type buspirone 15 mg tablet 15 mg PO BID 06/27/19 06/08/24 History alprazolam 0.5 mg tablet 0.5 mg PO TID 03/03/21 06/08/24 History lisinopril 5 mg tablet 5 mg PO QDAY 07/31/21 06/09/24 History levothyroxine 75 mcg tablet 75 mcg PO QAM 03/12/22 06/08/24 History trazodone 100 mg tablet 200 mg PO HS 03/12/22 06/08/24 History dicyclomine 10 mg capsule See Rx Instructions PO .COMPLEX 06/08/24 06/09/24 History fluoxetine 40 mg capsule mg PO DAILY 06/08/24 History Allergies Allergy/AdvReac Type Severity Reaction Status Date / Time Penicillins Allergy Mild Rash Verified 05/10/24 18:21 Exam - Neurology Vital Signs Temp Pulse Resp BP Pulse Ox O2 Del Method 97.0 F 78 12 109/60 92 L Room Air 06/09/24 20:00 06/09/24 21:13 06/09/24 21:13 06/09/24 20:00 06/09/24 20:00 06/09/24 20:00 Results Labs 06/09/24 07:43 06/09/24 05:34 Labs: Short CBC 06/09/24 Range/Units 07:43 WBC 4.6 (3.6-11.0) Thou/mm3 Hgb 11.2 L (12.0-16.0) g/dL Hct 33.5 L (36.0-46.0) % Plt Count 209 (140-440) Thou/mm3 BMP 06/09/24 05:34 Sodium 143 Potassium 4.2 D Chloride 110 H Carbon Dioxide 29.2 BUN 14 Creatinine 1.0 Glucose 93 Calcium 8.3 Liver Function 06/09/24 Range/Units 05:34 Total Bilirubin 0.2 L (0.3-1.2) mg/dL AST 23 (0-34) U/L ALT 17 (10-49) U/L Alkaline Phosphatase 71 (46-116) U/L Albumin 3.3 L (3.4-4.8) gm/dL ABG Interpretation ABG results: 06/08/24 19:30 VBG pH 7.38 VBG pCO2 47 VBG pO2 46 VBG Base Excess 2
[2024-06-09] MEDS: ACETAMINOPHEN 325 MG TABLET 650 MG PO (23:56)
[2024-06-10] VITALS (8 sets, daily range): BP systolic 96–130; BP diastolic 60–68; PULSE 68–90; RESP 13–96; TEMP 36.1–36.8; O2SAT 90–98
--- NOTE | 2024-06-10 | XR_ITS ---
Examination: MRI brain without intravenous contrast. Date and time of exam: June 10, 2024, 0839 hours INDICATIONS: Loss of consciousness episode this week, increasing memory loss confusion Technique: Multiple axial and sagittal images of the brain obtained. Siemens high-resolution 1.5 Callie short bore scanners utilized. Sagittal sections, T1-weighted, TR 500, TE 14, are performed. Axial sections proton-density and T2-weighted have been obtained. Inversion recovery axial images, TR 9, 260, TE 111, TI 2500. Diffusion weighted images, axial sections, TR 4800, TE 128, B value 1000 Axial sections, ADC map, TR 4800, TE 128 Findings: Enlargement of the sella turcica is not present. The optic chiasm and infundibular are not remarkable. Prepontine and interpeduncular cisterns are not enlarged. There is no localized enlargement of the medulla or srini. Fourth ventricle and cerebellar tonsils appear normal in position. No subacute area of hemorrhage density is seen. Mass in the cerebellopontine angle region is not evident. Globes symmetrical. Orbital musculature including medial lateral rectus muscles do not exhibit abnormality. Diffusion-weighted images demonstrate no focus of restricted diffusion. Increased white matter signal mild Mass effect upon the ventricular system is not identified. Impression: Negative for acute hemorrhage mass effect or midline shift No acute infarct Mild chronic microvascular white matter change Consider carotid Doppler sonography follow-up
[2024-06-10] MEDS: HYDROcodone/APAP 5/325 TABLET 1 TAB PO (01:06)
[2024-06-10] MEDS: LEVOTHYROXINE SODIUM 25 MCG TABLET 75 MCG PO (05:23)
[2024-06-10] MEDS: THIAMINE INJ 100 MG/ML VIAL 2 ML 500 MG IVP ×3 (05:23→22:35)
[2024-06-10] MEDS: ACETAMINOPHEN 325 MG TABLET 650 MG PO (06:09)
[2024-06-10 06:37] LABS: Alanine Aminotransferase 65 U/L (10-49); Albumin, Serum 3.2 gm/dL (3.4-4.8); Albumin/Globulin Ratio 1.8 (1.2-2.2); Alkaline Phosphatase 84 U/L (46-116); Anion Gap 5 (7-16); Aspartate Amino Transferase 130 U/L (0-34); BUN/Creatinine Ratio 14 Ratio (12-20); Bilirubin,Total 0.2 mg/dL (0.3-1.2); Blood Urea Nitrogen 14 mg/dL (9-23); Calcium (Corrected) 8.6 mg/dL (8.5-10.1); Carbon Dioxide 28.9 mMol/L (20.0-31.0); Chloride 104 mMol/L (98-107); Estimated Creatinine Clearance 45.6 mL/min (>60); Globulin 1.8 gm/dL (2.3-3.5); Glucose 92 mg/dL (74-106); Magnesium 1.9 mg/dL (1.6-2.6); Osmolality,Calculated 276 (275-295); Phosphorous 3.7 mg/dL (2.4-5.1); Potassium 4.4 mMol/L (3.4-5.1); Sodium 138 mMol/L (136-145); eGFR > 60 See Note
[2024-06-10 06:46] LABS: Basophils % (Auto) 1 % (0-2.5); Eosinophils # (Auto) 0.1 Thou/mm3 (0.0-0.5); Eosinophils % (Auto) 3 % (0-10); Hematocrit 30.9 % (36.0-46.0); Hemoglobin 10.1 g/dL (12.0-16.0); Immature Granulocytes % (Auto) 0 % (0-0); Lymphocytes % (Auto) 28 % (10-50); Mean Corpuscular HGB Conc 32.7 g/dl (31.0-37.0); Mean Corpuscular Hemoglobin 30.1 pg (25.0-35.0); Mean Corpuscular Volume 92 fL (80-100); Monocytes # (Auto) 0.3 Thou/mm3 (0.0-0.8); Monocytes % (Auto) 9 % (0-12); Neutrophils # (Auto) 2.2 Thou/mm3 (1.8-7.7); Neutrophils % (Auto) 60 % (37-80); Nucleated Red Blood Cell % 0 /100 WBC (0); Platelet Count 180 Thou/mm3 (140-440); RDW Standard Deviation 49.9 fL (36.4-46.3); Red Blood Count 3.36 Miln/mm3 (4.00-5.20); White Blood Count 3.7 Thou/mm3 (3.6-11.0)
[2024-06-10] MEDS: FOLIC ACID 1 MG TABLET PO (08:25)
[2024-06-10] MEDS: FLUoxetine HCL 10 MG CAPSULE 40 MG PO (08:25)
[2024-06-10] MEDS: ENOXAPARIN SOD INJ 40 MG/0.4 ML SYRINGE SC (08:26)
[2024-06-10] MEDS: HYDROcodone/APAP 5/325 TABLET 2 TAB PO ×3 (09:52→22:35)
--- NOTE | 2024-06-10 11:19 | ESPR_ITS ---
<Statement entered by Maksim Steiner MD - 06/11/24 10:56> I discussed with and supervised the customer operations intern physician involved in the care of this patient. Patient assessment and plan was discussed with entire medicine team, including my attending. I agree with the assessment and plan as documented by customer operations intern doctor. Patient care was discussed with my attending physician Dr. Kerrie Steiner, PGY-2 Documentation for date of: 06/10/24 Subjective Subjective Interval history: Patient examined at bedside. No overnight events. Complains of headache 8/10 and dizziness. Blood sugars well-controlled, blood pressure 96/66. Orthostatic vitals were positive. CBC CMP unremarkable. Imaging had shown fracture of sacrum, for which Dr. Barrios was consulted. As of right now, okay to follow-up outpatient and continue full weightbearing activities per Ortho. Initial PT eval completed. They will reevaluate and update recommendations closer to discharge time. MRI head pending, neurorecommendations pending. Started patient on meclizine 25 mg daily for dizziness. Exam Vital Signs Temp Pulse Resp BP Pulse Ox O2 Del Method O2 Flow Rate 97.2 F 90 16 100/60 96 Nasal Cannula 1 06/10/24 08:00 06/10/24 08:36 06/10/24 08:36 06/10/24 08:00 06/10/24 08:00 06/10/24 08:00 06/10/24 08:36 Narrative Exam General: Elderly female, Awake and in no acute distress. Compliant. HEENT: Normocephalic, atraumatic, mucous membranes moist. Heart: Regular rate and rhythm, no murmurs. Lungs: Clear to auscultation with no wheezing or crackles. Abdomen: Soft, nondistended, nontender, positive bowel sounds. ?No guarding or rebound tenderness. Multiple abdominal surgery scars. Neurologic: Alert and oriented x3, no gross neurological deficit, and patient able to move all 4 extremities. Extremities: No edema. Skin: No rash or ecchymoses. Objective Labs 06/11/24 05:42 06/11/24 05:42 Labs: Laboratory Results - last 24 hr 06/10/24 05:40 WBC 3.7 RBC 3.36 L Hgb 10.1 L Hct 30.9 L MCV 92 MCH 30.1 MCHC 32.7 RDW Std Deviation 49.9 H Plt Count 180 Neut % (Auto) 60 Lymph % (Auto) 28 [place] % (Auto) 9 Eos % (Auto) 3 Baso % (Auto) 1 Neut # (Auto) 2.2 Lymph # (Auto) 1.0 [place] # (Auto) 0.3 Eos # (Auto) 0.1 Baso # (Auto) 0.0 Immature Gran # (Auto) 0.00 Absolute Nucleated RBC 0.00 Immature Gran % 0 Nucleated RBC % 0 Sodium 138 Potassium 4.4 Chloride 104 Carbon Dioxide 28.9 Anion Gap 5 L BUN 14 Creatinine 1.0 Estim Creat Clear Calc 45.6 L eGFR > 60 BUN/Creatinine Ratio 14 Glucose 92 Calculated Osmolality 276 Calcium 8.0 L Corrected Calcium 8.6 Phosphorus 3.7 Magnesium 1.9 Total Bilirubin 0.2 L AST 130 H ALT 65 H Alkaline Phosphatase 84 Total Protein 5.0 L Albumin 3.2 L Globulin 1.8 L Albumin/Globulin Ratio 1.8 ABG Interpretation ABG results: 06/08/24 19:30 VBG pH 7.38 VBG pCO2 47 VBG pO2 46 VBG Base Excess 2 Quality Measures Quality Measures VTE prophylaxis Advance care planning discussed with:: patient Assessment & Plan Assessment Current Active Medications: Generic Name Dose Route Start Last Admin Trade Name Freq PRN Reason Stop Dose Admin Acetaminophen 650 mg 06/08/24 21:14 06/10/24 06:09 Acetaminophen 325 Mg Tablet PO 07/08/24 21:13 650 mg Q6H PRN Administration Fever >100.3 or pain 1-3 Hydrocodone Bitart/Acetaminophen 2 tab 06/08/24 23:15 06/10/24 09:52 Hydrocodone/Apap 5/325 Tablet PO 06/13/24 23:14 2 tab Q6HR PRN Administration PAIN SCALE 4-10(Mod-Sev Alprazolam 0.5 mg 06/08/24 22:40 06/09/24 20:04 Alprazolam 0.25 Mg Tablet PO 06/13/24 22:39 0.5 mg HS ALPHONSO Administration Enoxaparin Sodium 40 mg 06/09/24 09:00 06/10/24 08:26 Enoxaparin Sod Inj 40 Mg/0.4 Ml Syringe SC 06/23/24 08:59 40 mg QDAY ALPHONSO Administration Fluoxetine HCl 40 mg 06/09/24 09:00 06/10/24 08:25 Fluoxetine Hcl 10 Mg Capsule PO 07/09/24 08:59 40 mg QDAY ALPHONSO Administration Folic Acid 1 mg 06/09/24 09:00 06/10/24 08:25 Folic Acid 1 Mg Tablet PO 07/09/24 08:59 1 mg QDAY ALPHONSO Administration Levothyroxine Sodium 75 mcg 06/09/24 06:00 06/10/24 05:23 Levothyroxine Sodium 25 Mcg Tablet PO 07/09/24 05:59 75 mcg ACBR ALPHONSO Administration Meclizine HCl 25 mg 06/10/24 10:45 Meclizine Hcl 25 Mg Tablet PO 07/10/24 10:44 QDAY ALPHONSO Ondansetron HCl 4 mg 06/08/24 21:14 06/09/24 16:18 Ondansetron Inj 2 Mg/Ml Inj 2 Ml IV 07/08/24 21:13 4 mg Q6H PRN Administration NAUSEA OR VOMITING Protocol Thiamine HCl 500 mg 06/09/24 06:00 06/10/24 05:23 Thiamine Inj 100 Mg/Ml Vial 2 Ml IVP 07/09/24 05:59 500 mg TID ALPHONSO Administration Trazodone HCl 200 mg 06/09/24 00:00 06/09/24 20:04 Trazodone Hcl 50 Mg Tablet PO 07/09/24 00:00 200 mg HS ALPHONSO Administration Plan Patient is a 73-year-old female with a previous medical history of hypothyroidism, anxiety, depression, IBS, fibromyalgia, alcohol abuse, multiple abdominal surgeries who was brought in to the ED by ambulance due to dizziness and syncopal episodes that started a day ago. She is going to be acute encephalopathy workup and management. #Acute encephalopathy-resolved #Syncopal episodes #Ground level falls Multifactorial: metabolic vs hypothyroidism vs medication side effect Patient has a history of alcohol abuse. Utox was negative. In the ED she received IV thiamine and folate. Orthostatic vitals positive. TSH normal (1.95) Plan: - dicyclomine and hyoscyamine on hold for now - resumed xanax in the lower dose 0.5mg daily - neurology recs pending - thiamine 500 mg PO TID - Folic acid 1 mg po qday - PT will reeavluate closer to dc. -MRI head pending -started meclazine 25mg daily for dizziness #History of depression #History of anxiety Plan: - resumed home xanax in lower dose - resumed home fluoxetine - resumed home trazodone #Hypertension Takes lisinopril 5mg daily -Home blood pressure medication on hold for now. #Sacral fracture Sacrum and coccyx x-ray showed acute nondisplaced fracture of the third sacral segment. Plan: - ortho Dr. Sophie paul: okay to follow-up outpatient and continue full weightbearing activities - pain control Health maintenance: FEN: cardiac DVT prophylaxis: lovenox sc GI prophylaxis: none Dispo: telemetry CODE STATUS: Full code This patient care was discussed with my attending Dr. Kerrie Velasquez, PGY1 Attending Provider Attestation/Addendum I discussed with and supervised the resident physician who took care of this patient. I agree with the assessment and plan as above. Patient will have physical therapy evaluation. She may need a walker or cane to ambulate safely at home. She is alert and oriented. She has good urine output. She has no abdominal pain.
--- NOTE | 2024-06-10 12:11 | PC.PT ---
06/10/2024 Patient describing signs of vertigo at times and might benefit from outpatient PT specialized in [place] [facility] [employer]ing Maneuver.
--- NOTE | 2024-06-10 12:14 | PC.SS ---
Update: GI workup pending. Dr. Fletcher consulting.
[2024-06-10] MEDS: MECLIZINE HCL 25 MG TABLET PO (13:38)
[2024-06-10] MEDS: IBUPROFEN TAB 200 MG TABLET PO (16:55)
[2024-06-10] MEDS: SUMAtriptan 25 MG TABLET PO (16:55)
--- NOTE | 2024-06-10 17:22 | PD.NEUROPROG ---
Documentation for date of: 06/10/24 Subjective Subjective Interval history: Seen in telemetry today, no new symptoms or issues overnight. Exam - Neurology Vital Signs Temp Pulse Resp BP Pulse Ox O2 Del Method O2 Flow Rate 97.7 F 79 16 104/63 97 Room Air 1 06/10/24 16:00 06/10/24 16:00 06/10/24 16:00 06/10/24 16:00 06/10/24 16:00 06/10/24 16:00 06/10/24 12:00 Narrative Exam GENERAL APPEARANCE: Well hydrated, well-nourished in no acute distress. HEENT: Normocephalic, atraumatic, extraocular movements intact. Pupils: Equal reacting to light and accommodation NECK: Supple, no JVD or bruits. CARDIOVASULAR: Heart: S1, S2 heard, regular without S3-S4 or murmur no rubs or gallops. LUNGS/CHEST: Clear to auscultation bilaterally. No rails, rhonchi, or wheezing. Normal inspection. ABDOMEN: Soft, nontender, with normal bowel sounds. No pulsatile masses. No rebound, rigidity, or guarding. Normal inspection and palpation. EXTREMITIES: Normal inspection and palpation. No edema, clubbing or cyanosis. SKIN: Warm and dry without rashes. Normal inspection. MUSCULOSKELETAL: No cervical, thoracic, lumbar or midline bony tenderness. Normal inspection. NEURO: Alert, awake and oriented x3. Cranial nerves: II through XII grossly intact. Speech and language: Normal with no dysarthria or dysphasia. Motor system: Tone and bulk: Normal: Strength: 5 out of 5 in all 4 extremities; No pronator drift noted. Deep tendon reflexes: 2+ bilaterally symmetrical. Plantar reflex: Downgoing bilaterally. Sensory system: Intact to all modalities of sensation bilaterally. Coordination: Intact to [id number] and ajds-orpl-[id number] test bilaterally. No ataxia, no dysmetria, or dysdiadochokinesia noted. No intention tremors noted. Gait: Normal. Toe, heel, tandem walk all are normal. Romberg: Negative. No signs of meningeal irritation noted. PSYCHIATRIC: Normal mood and affect. Objective Labs 06/11/24 05:42 06/11/24 05:42 Labs: Laboratory Results - last 24 hr 06/10/24 05:40 WBC 3.7 RBC 3.36 L Hgb 10.1 L Hct 30.9 L MCV 92 MCH 30.1 MCHC 32.7 RDW Std Deviation 49.9 H Plt Count 180 Neut % (Auto) 60 Lymph % (Auto) 28 [place] % (Auto) 9 Eos % (Auto) 3 Baso % (Auto) 1 Neut # (Auto) 2.2 Lymph # (Auto) 1.0 [place] # (Auto) 0.3 Eos # (Auto) 0.1 Baso # (Auto) 0.0 Immature Gran # (Auto) 0.00 Absolute Nucleated RBC 0.00 Immature Gran % 0 Nucleated RBC % 0 Sodium 138 Potassium 4.4 Chloride 104 Carbon Dioxide 28.9 Anion Gap 5 L BUN 14 Creatinine 1.0 Estim Creat Clear Calc 45.6 L eGFR > 60 BUN/Creatinine Ratio 14 Glucose 92 Calculated Osmolality 276 Calcium 8.0 L Corrected Calcium 8.6 Phosphorus 3.7 Magnesium 1.9 Total Bilirubin 0.2 L AST 130 H ALT 65 H Alkaline Phosphatase 84 Total Protein 5.0 L Albumin 3.2 L Globulin 1.8 L Albumin/Globulin Ratio 1.8 ABG Interpretation ABG results: 06/08/24 19:30 VBG pH 7.38 VBG pCO2 47 VBG pO2 46 VBG Base Excess 2 Assessment & Plan Additional Assessment & Plan Additional Plan: (1) Altered mental status: Status: Resolved Assessment and plan: Patient is back to baseline. Reassurance given to the patient regarding the MRI brain findings: Mild chronic white matter changes not significant. No cerebellar or cerebral atrophy follow-up with EEG. Advised strongly about the importance of complete alcohol cessation to prevent long-term complications from alcoholism (2) Sacral fracture, closed: Status: Acute Assessment and plan: From a recent fall sustained sacral fracture X-ray showed findings suspicious for acute nondisplaced fracture third sacral segment Use donut cushion
[2024-06-10] MEDS: traZODone HCL 50 MG TABLET 200 MG PO (22:33)
[2024-06-10] MEDS: ALPRazoLAM 0.25 MG TABLET 0.5 MG PO (22:34)
--- NOTE | 2024-06-10 23:19 | PC.NURSE ---
ice pack applied for headache.
[2024-06-11] VITALS (11 sets, daily range): BP systolic 100–141; BP diastolic 54–84; PULSE 71–94; RESP 13–96; TEMP 36.1–36.6; O2SAT 92–98
[2024-06-11] MEDS: LEVOTHYROXINE SODIUM 25 MCG TABLET 75 MCG PO (05:14)
[2024-06-11] MEDS: THIAMINE INJ 100 MG/ML VIAL 2 ML 500 MG IVP ×2 (05:15→22:15)
[2024-06-11] MEDS: HYDROcodone/APAP 5/325 TABLET 2 TAB PO ×3 (05:15→22:15)
[2024-06-11 06:43] LABS: Alanine Aminotransferase 170 U/L (10-49); Albumin, Serum 3.3 gm/dL (3.4-4.8); Albumin/Globulin Ratio 1.7 (1.2-2.2); Alkaline Phosphatase 115 U/L (46-116); Anion Gap 6 (7-16); Aspartate Amino Transferase 205 U/L (0-34); BUN/Creatinine Ratio 11 Ratio (12-20); Basophils % (Auto) 1 % (0-2.5); Bilirubin,Total 0.2 mg/dL (0.3-1.2); Blood Urea Nitrogen 9 mg/dL (9-23); Calcium 8.2 mg/dL (8.3-10.6); Calcium (Corrected) 8.8 mg/dL (8.5-10.1); Carbon Dioxide 28.6 mMol/L (20.0-31.0); Chloride 103 mMol/L (98-107); Creatinine (Component) 0.8 mg/dL (0.6-1.3); Eosinophils # (Auto) 0.2 Thou/mm3 (0.0-0.5); Eosinophils % (Auto) 4 % (0-10); Estimated Creatinine Clearance 56.2 mL/min (>60); Glucose 91 mg/dL (74-106); Hematocrit 31.4 % (36.0-46.0); Hemoglobin 10.3 g/dL (12.0-16.0); Immature Granulocytes % (Auto) 0 % (0-0); Immature Granulocytes Auto 0.01 Thou/mm3 (0.00-0.00); Lymphocytes # (Auto) 1.2 Thou/mm3 (1.0-4.8); Lymphocytes % (Auto) 32 % (10-50); Magnesium 1.8 mg/dL (1.6-2.6); Mean Corpuscular HGB Conc 32.8 g/dl (31.0-37.0); Mean Corpuscular Hemoglobin 29.8 pg (25.0-35.0); Mean Corpuscular Volume 91 fL (80-100); Monocytes # (Auto) 0.3 Thou/mm3 (0.0-0.8); Monocytes % (Auto) 9 % (0-12); Neutrophils % (Auto) 54 % (37-80); Nucleated Red Blood Cell % 0 /100 WBC (0); Osmolality,Calculated 274 (275-295); Phosphorous 2.8 mg/dL (2.4-5.1); Platelet Count 222 Thou/mm3 (140-440); Potassium 3.9 mMol/L (3.4-5.1); RDW Standard Deviation 47.5 fL (36.4-46.3); Red Blood Count 3.46 Miln/mm3 (4.00-5.20); Sodium 138 mMol/L (136-145); Total Protein 5.3 gm/dL (5.7-8.2); White Blood Count 3.7 Thou/mm3 (3.6-11.0); eGFR > 60 See Note
[2024-06-11] MEDS: FLUoxetine HCL 10 MG CAPSULE 40 MG PO (08:20)
[2024-06-11] MEDS: MECLIZINE HCL 25 MG TABLET PO (08:21)
[2024-06-11] MEDS: ENOXAPARIN SOD INJ 40 MG/0.4 ML SYRINGE SC (08:21)
[2024-06-11] MEDS: FOLIC ACID 1 MG TABLET PO (08:21)
--- NOTE | 2024-06-11 09:45 | RESP.EEG ---
EEG completed at this time and ready for review.
[2024-06-11] MEDS: ACETAMINOPHEN 325 MG TABLET 650 MG PO (16:36)
[2024-06-11] MEDS: ONDANSETRON INJ 2 MG/ML INJ 2 ML 4 MG IV ×2 (16:36→22:15)
--- NOTE | 2024-06-11 18:30 | PD.RESPRO ---
Documentation for date of: 06/11/24 Subjective Subjective Interval history: Patient examined at bedside. No overnight events. Complains of headache 8/10 and dizziness. Blood sugars well-controlled, blood pressure 96/66. Orthostatic vitals were positive. CBC CMP unremarkable. MRI head negative, neurorecommendations pending. EEG pending. MRCP tomorrow due to enlarged CBD on liver u/s and uptrending LFTs. Exam Vital Signs Temp Pulse Resp BP Pulse Ox O2 Del Method O2 Flow Rate 97.9 F 94 16 141/80 H 95 Room Air 1 06/11/24 15:55 06/11/24 18:25 06/11/24 18:25 06/11/24 15:55 06/11/24 15:55 06/11/24 15:55 06/10/24 12:00 Narrative Exam General: Elderly female, Awake and in no acute distress. Compliant. HEENT: Normocephalic, atraumatic, mucous membranes moist. Heart: Regular rate and rhythm, no murmurs. Lungs: Clear to auscultation with no wheezing or crackles. Abdomen: Soft, nondistended, nontender, positive bowel sounds. ?No guarding or rebound tenderness. Multiple abdominal surgery scars. Neurologic: Alert and oriented x3, no gross neurological deficit, and patient able to move all 4 extremities. Extremities: No edema. Skin: No rash or ecchymoses. Objective Labs 06/11/24 05:42 06/11/24 05:42 Labs: Laboratory Results - last 24 hr 06/11/24 05:42 WBC 3.7 RBC 3.46 L Hgb 10.3 L Hct 31.4 L MCV 91 MCH 29.8 MCHC 32.8 RDW Std Deviation 47.5 H Plt Count 222 D Neut % (Auto) 54 Lymph % (Auto) 32 [place] % (Auto) 9 Eos % (Auto) 4 Baso % (Auto) 1 Neut # (Auto) 2.0 Lymph # (Auto) 1.2 [place] # (Auto) 0.3 Eos # (Auto) 0.2 Baso # (Auto) 0.0 Immature Gran # (Auto) 0.01 H Absolute Nucleated RBC 0.00 Immature Gran % 0 Nucleated RBC % 0 Sodium 138 Potassium 3.9 D Chloride 103 Carbon Dioxide 28.6 Anion Gap 6 L BUN 9 Creatinine 0.8 Estim Creat Clear Calc 56.2 L eGFR > 60 BUN/Creatinine Ratio 11 L Glucose 91 Calculated Osmolality 274 L Calcium 8.2 L Corrected Calcium 8.8 Phosphorus 2.8 Magnesium 1.8 Total Bilirubin 0.2 L AST 205 H ALT 170 H Alkaline Phosphatase 115 D Total Protein 5.3 L Albumin 3.3 L Globulin 2.0 L Albumin/Globulin Ratio 1.7 ABG Interpretation ABG results: 06/08/24 19:30 VBG pH 7.38 VBG pCO2 47 VBG pO2 46 VBG Base Excess 2 Quality Measures Quality Measures VTE prophylaxis Advance care planning discussed with:: patient Assessment & Plan Assessment Current Active Medications: Generic Name Dose Route Start Last Admin Trade Name Freq PRN Reason Stop Dose Admin Acetaminophen 650 mg 06/08/24 21:14 06/11/24 16:36 Acetaminophen 325 Mg Tablet PO 07/08/24 21:13 650 mg Q6H PRN Administration Fever >100.3 or pain 1-3 Hydrocodone Bitart/Acetaminophen 2 tab 06/08/24 23:15 06/11/24 11:29 Hydrocodone/Apap 5/325 Tablet PO 06/13/24 23:14 2 tab Q6HR PRN Administration PAIN SCALE 4-10(Mod-Sev Alprazolam 0.5 mg 06/08/24 22:40 06/10/24 22:34 Alprazolam 0.25 Mg Tablet PO 06/13/24 22:39 0.5 mg HS ALPHONSO Administration Enoxaparin Sodium 40 mg 06/09/24 09:00 06/11/24 08:21 Enoxaparin Sod Inj 40 Mg/0.4 Ml Syringe SC 06/23/24 08:59 40 mg QDAY ALPHONSO Administration Fluoxetine HCl 40 mg 06/09/24 09:00 06/11/24 08:20 Fluoxetine Hcl 10 Mg Capsule PO 07/09/24 08:59 40 mg QDAY ALPHONSO Administration Folic Acid 1 mg 06/09/24 09:00 06/11/24 08:21 Folic Acid 1 Mg Tablet PO 07/09/24 08:59 1 mg QDAY ALPHONSO Administration Ibuprofen 200 mg 06/10/24 16:29 06/10/24 16:55 Ibuprofen Tab 200 Mg Tablet PO 07/10/24 16:28 200 mg Q6HR PRN Administration Migraine Headache Levothyroxine Sodium 75 mcg 06/09/24 06:00 06/11/24 05:14 Levothyroxine Sodium 25 Mcg Tablet PO 07/09/24 05:59 75 mcg ACBR ALPHONSO Administration Meclizine HCl 25 mg 06/10/24 10:45 06/11/24 08:21 Meclizine Hcl 25 Mg Tablet PO 07/10/24 10:44 25 mg QDAY ALPHONSO Administration Ondansetron HCl 4 mg 06/08/24 21:14 06/11/24 16:36 Ondansetron Inj 2 Mg/Ml Inj 2 Ml IV 07/08/24 21:13 4 mg Q6H PRN Administration NAUSEA OR VOMITING Protocol Thiamine HCl 500 mg 06/09/24 06:00 06/11/24 14:29 Thiamine Inj 100 Mg/Ml Vial 2 Ml IVP 07/09/24 05:59 Not Given TID ALPHONSO Trazodone HCl 200 mg 06/09/24 00:00 06/10/24 22:33 Trazodone Hcl 50 Mg Tablet PO 07/09/24 00:00 200 mg HS ALPHONSO Administration Plan Patient is a 73-year-old female with a previous medical history of hypothyroidism, anxiety, depression, IBS, fibromyalgia, alcohol abuse, multiple abdominal surgeries who was brought in to the ED by ambulance due to dizziness and syncopal episodes that started a day ago. She is going to be acute encephalopathy workup and management. #Acute encephalopathy-resolved #Syncopal episodes #Ground level falls Multifactorial: metabolic vs hypothyroidism vs medication side effect Patient has a history of alcohol abuse. Utox was negative. In the ED she received IV thiamine and folate. Orthostatic vitals positive. TSH normal (1.95) MRI head negative for acute changes. Plan: - dicyclomine and hyoscyamine on hold for now - resumed xanax in the lower dose 0.5mg daily - neurology recs pending - thiamine 500 mg PO TID - Folic acid 1 mg po qday - PT will reeavluate closer to dc. -started meclazine 25mg daily for dizziness #Transaminitis Liver u/s from 05/11/24 at last visit showed enlarged CBD 12mm. No gallbladder. LFTs/ALP slowly uptrending. -MRCP tomorrow to rule out stone or stricture vs side effect of trazodone which is hepatotoxic. -daily CMP to monitor #History of depression #History of anxiety Plan: - resumed home xanax in lower dose - resumed home fluoxetine - resumed home trazodone #Hypertension Takes lisinopril 5mg daily -Home blood pressure medication on hold for now. #Sacral fracture Sacrum and coccyx x-ray showed acute nondisplaced fracture of the third sacral segment. Plan: - ortho Dr. Sophie paul: okay to follow-up outpatient and continue full weightbearing activities - pain control Health maintenance: FEN: cardiac DVT prophylaxis: lovenox sc GI prophylaxis: none Dispo: telemetry CODE STATUS: Full code This patient care was discussed with my attending Dr. Kerrie Velasquez, PGY1 Attending Provider Attestation/Addendum Patient has uptrending LFTs. MRCP pending. EEG also pending. Patient will need physical therapy.
[2024-06-11] MEDS: traZODone HCL 50 MG TABLET 200 MG PO (20:02)
[2024-06-11] MEDS: ALPRazoLAM 0.25 MG TABLET 0.5 MG PO (20:03)
--- NOTE | 2024-06-11 22:54 | PC.NURSE ---
INFORMED BY MT PT 02 AT 84%. PT AWAKE, C/O SLIGHT SOB. NO OBVIOUS RESPIRATORY DISTRESS. + MIN NASAL CONGESTION. PT PLACED ON 2L NC. O2 SATS NOW AT 93%.
[2024-06-12] VITALS (9 sets, daily range): BP systolic 93–162; BP diastolic 64–95; PULSE 76–96; RESP 15–98; TEMP 36–36.6; O2SAT 94–100; BMI 25.4
--- NOTE | 2024-06-12 | XR_ITS ---
MRI abdomen, without contrast. MRCP Date and time of exam: June 12, 2024 1821 hours INDICATIONS: Vomiting abdominal pain, elevated liver function tests on laboratory examination, a large common bile duct on abdomen sonogram May 11, 2024 Technique: Multiple axial and coronal images of the abdomen have been obtained with the Siemens 1.5T MRI scanner. Images obtained included T1 weighted transverse images, T2-weighted transverse images, T2-weighted transverse images fat-suppressed, T2 weighted haste fat suppressed transverse images, T1 weighted images, in and out of phase images, T2-weighted coronal images, breath hold, T2 weighted haze coronal images as well as T2 weighted coronal thick slab images, MRCP. Findings: Intrahepatic biliary tract dilatation Benign liver cyst Enlarged common hepatic common bile duct 10 to 12 mm Abrupt termination of the distal common bile duct, image 11 No pancreatic mass No hydronephrosis Spleen not enlarged No ascites IMPRESSION: Prominent extrahepatic biliary tract obstruction, abrupt termination of the distal common bile duct, differential would include impacted stone in the distal common bile duct versus malignant stricture at the ampulla Recommend ERCP follow-up
--- NOTE | 2024-06-12 00:02 | VVPN_ITS ---
Telemedicine visit statement This visit was conducted with the use of interactive audio and video telecommunications system that permits real time communication between the patient and the provider. Patient's verbal consent for virtual visit was obtained on 06/12/24 at 0002. Documentation for date of: 06/12/24 Subjective Subjective Interval history: Patient is in telemetry. No new symptoms reported. Tolerating oral diet well. Continues to complain of feeling tired and fatigued and generalized weakness Virtual exam Vital Signs Temp Pulse Resp BP Pulse Ox O2 Del Method O2 Flow Rate 97.6 F 87 13 129/72 92 L Room Air 1 06/11/24 19:55 06/11/24 20:00 06/11/24 19:55 06/11/24 19:55 06/11/24 19:55 06/11/24 15:55 06/10/24 12:00 Objective Labs 06/11/24 05:42 06/11/24 05:42 Labs: Laboratory Results - last 24 hr 06/11/24 05:42 WBC 3.7 RBC 3.46 L Hgb 10.3 L Hct 31.4 L MCV 91 MCH 29.8 MCHC 32.8 RDW Std Deviation 47.5 H Plt Count 222 D Neut % (Auto) 54 Lymph % (Auto) 32 [place] % (Auto) 9 Eos % (Auto) 4 Baso % (Auto) 1 Neut # (Auto) 2.0 Lymph # (Auto) 1.2 [place] # (Auto) 0.3 Eos # (Auto) 0.2 Baso # (Auto) 0.0 Immature Gran # (Auto) 0.01 H Absolute Nucleated RBC 0.00 Immature Gran % 0 Nucleated RBC % 0 Sodium 138 Potassium 3.9 D Chloride 103 Carbon Dioxide 28.6 Anion Gap 6 L BUN 9 Creatinine 0.8 Estim Creat Clear Calc 56.2 L eGFR > 60 BUN/Creatinine Ratio 11 L Glucose 91 Calculated Osmolality 274 L Calcium 8.2 L Corrected Calcium 8.8 Phosphorus 2.8 Magnesium 1.8 Total Bilirubin 0.2 L AST 205 H ALT 170 H Alkaline Phosphatase 115 D Total Protein 5.3 L Albumin 3.3 L Globulin 2.0 L Albumin/Globulin Ratio 1.7 ABG Interpretation ABG results: 06/08/24 19:30 VBG pH 7.38 VBG pCO2 47 VBG pO2 46 VBG Base Excess 2 Assessment & Plan Problem List (1) Altered mental status: Status: Resolved Assessment and plan: Patient is back to baseline. Reassurance given to the patient regarding the MRI brain findings: Mild chronic white matter changes not significant. No cerebellar or cerebral atrophy follow-up with EEG. Advised strongly about the importance of complete alcohol cessation to prevent long-term complications from alcoholism (2) Sacral fracture, closed: Status: Acute Assessment and plan: From a recent fall sustained sacral fracture X-ray showed findings suspicious for acute nondisplaced fracture third sacral segment Use donut cushion
[2024-06-12] MEDS: HYDROcodone/APAP 5/325 TABLET 2 TAB PO ×2 (03:55→10:06)
[2024-06-12] MEDS: ONDANSETRON INJ 2 MG/ML INJ 2 ML 4 MG IV ×2 (05:14→19:44)
[2024-06-12] MEDS: LEVOTHYROXINE SODIUM 25 MCG TABLET 75 MCG PO (05:15)
[2024-06-12] MEDS: ENOXAPARIN SOD INJ 40 MG/0.4 ML SYRINGE SC (08:50)
[2024-06-12] MEDS: THIAMINE INJ 250 MG in SODIUM CHLORIDE 0.9% 100 ML 205 MG IV (10:05)
[2024-06-12] MEDS: FOLIC ACID 1 MG TABLET PO (10:05)
[2024-06-12] MEDS: MECLIZINE HCL 25 MG TABLET PO (10:05)
[2024-06-12] MEDS: FLUoxetine HCL 10 MG CAPSULE 40 MG PO (10:05)
--- NOTE | 2024-06-12 10:35 | CHAP ---
Patient was visited by the Spiritual Care Volunteer who prayed for them. (Volunteer was in the hospital from 09:00-10:35).
--- NOTE | 2024-06-12 14:36 | PD.RESPRO ---
Documentation for date of: 06/12/24 Subjective Subjective Interval history: Patient examined at bedside. No overnight events. Complains of headache 8/10 and still dizziness after starting meclazine. Blood sugars well-controlled, blood pressure 133/78. Will consider resuming anti-hypertensives slowly as orthostatic vitals were positive. CBC unremarkable. EEG read pending. CMP shows continued uptrending LFTs. Physical exam abdomen is benign. MRCP pending to evaluate enlarged CBD on liver u/s and uptrending LFTs. Patient given 50 mg sumatriptan x 1 and Tylenol for headache. Holding [place]. Exam Vital Signs Temp Pulse Resp BP Pulse Ox O2 Del Method O2 Flow Rate 97.6 F 91 15 133/78 H 98 Nasal Cannula 2 06/12/24 12:00 06/12/24 12:00 06/12/24 12:00 06/12/24 12:00 06/12/24 12:00 06/12/24 12:00 06/12/24 12:00 Narrative Exam General: Elderly female, Awake and in no acute distress. Compliant. HEENT: Normocephalic, atraumatic, mucous membranes moist. Heart: Regular rate and rhythm, no murmurs. Lungs: Clear to auscultation with no wheezing or crackles. Abdomen: Soft, nondistended, nontender, positive bowel sounds. ?No guarding or rebound tenderness. Multiple abdominal surgery scars. Neurologic: Alert and oriented x3, no gross neurological deficit, and patient able to move all 4 extremities. Extremities: No edema. Skin: No rash or ecchymoses. Objective Labs 06/11/24 05:42 06/11/24 05:42 ABG Interpretation ABG results: 06/08/24 19:30 VBG pH 7.38 VBG pCO2 47 VBG pO2 46 VBG Base Excess 2 Quality Measures Quality Measures VTE prophylaxis Advance care planning discussed with:: patient Assessment & Plan Assessment Current Active Medications: Generic Name Dose Route Start Last Admin Trade Name Freq PRN Reason Stop Dose Admin Acetaminophen 650 mg 06/08/24 21:14 06/11/24 16:36 Acetaminophen 325 Mg Tablet PO 07/08/24 21:13 650 mg Q6H PRN Administration Fever >100.3 or pain 1-3 Hydrocodone Bitart/Acetaminophen 2 tab 06/08/24 23:15 06/12/24 10:06 Hydrocodone/Apap 5/325 Tablet PO 06/13/24 23:14 2 tab Q6HR PRN Administration PAIN SCALE 4-10(Mod-Sev Alprazolam 0.5 mg 06/08/24 22:40 06/11/24 20:03 Alprazolam 0.25 Mg Tablet PO 06/13/24 22:39 0.5 mg HS ALPHONSO Administration Enoxaparin Sodium 40 mg 06/09/24 09:00 06/12/24 08:50 Enoxaparin Sod Inj 40 Mg/0.4 Ml Syringe SC 06/23/24 08:59 40 mg QDAY ALPHONSO Administration Fluoxetine HCl 40 mg 06/09/24 09:00 06/12/24 10:05 Fluoxetine Hcl 10 Mg Capsule PO 07/09/24 08:59 40 mg QDAY ALPHONSO Administration Folic Acid 1 mg 06/09/24 09:00 06/12/24 10:05 Folic Acid 1 Mg Tablet PO 07/09/24 08:59 1 mg QDAY ALPHONSO Administration Thiamine HCl 250 mg/ Sodium 102.5 mls @ 205 mls/hr 06/12/24 09:00 06/12/24 10:05 Chloride IV 07/12/24 08:59 205 mls/hr QDAY ALPHONSO Administration Ibuprofen 200 mg 06/10/24 16:29 06/10/24 16:55 Ibuprofen Tab 200 Mg Tablet PO 07/10/24 16:28 200 mg Q6HR PRN Administration Migraine Headache Levothyroxine Sodium 75 mcg 06/09/24 06:00 06/12/24 05:15 Levothyroxine Sodium 25 Mcg Tablet PO 07/09/24 05:59 75 mcg ACBR ALPHONSO Administration Meclizine HCl 25 mg 06/10/24 10:45 06/12/24 10:05 Meclizine Hcl 25 Mg Tablet PO 07/10/24 10:44 25 mg QDAY ALPHONSO Administration Ondansetron HCl 4 mg 06/08/24 21:14 06/12/24 05:14 Ondansetron Inj 2 Mg/Ml Inj 2 Ml IV 07/08/24 21:13 4 mg Q6H PRN Administration NAUSEA OR VOMITING Protocol Trazodone HCl 200 mg 06/09/24 00:00 06/11/24 20:02 Trazodone Hcl 50 Mg Tablet PO 07/09/24 00:00 200 mg HS ALPHONSO Administration Plan Patient is a 73-year-old female with a previous medical history of hypothyroidism, anxiety, depression, IBS, fibromyalgia, alcohol abuse, multiple abdominal surgeries who was brought in to the ED by ambulance due to dizziness and syncopal episodes that started a day ago. She is going to be acute encephalopathy workup and management. #Acute encephalopathy-resolved #Syncopal episodes #Ground level falls Multifactorial: metabolic vs hypothyroidism vs medication side effect Patient has a history of alcohol abuse. Utox was negative. In the ED she received IV thiamine and folate. Orthostatic vitals positive. TSH normal (1.95) MRI head negative for acute changes. Plan: - dicyclomine and hyoscyamine on hold for now - resumed xanax in the lower dose 0.5mg daily - neurology recs: no intervention. Patient to abstain from alcohol. - thiamine 500 mg PO TID - Folic acid 1 mg po qday - PT will reeavluate closer to dc. -started meclazine 25mg daily for dizziness #Transaminitis Liver u/s from 05/11/24 at last visit showed enlarged CBD 12mm. No gallbladder. LFTs/ALP slowly uptrending. -MRCP pending to rule out stone or stricture vs side effect of trazodone which is hepatotoxic. -daily CMP to monitor #History of depression #History of anxiety #Hx hypothyroidism Plan: - resumed home xanax in lower dose - resumed home fluoxetine - resumed home trazodone -levothyroxine 75mcg daily #Hypertension Takes lisinopril 5mg daily -Home blood pressure medication on hold for now. #Sacral fracture Sacrum and coccyx x-ray showed acute nondisplaced fracture of the third sacral segment. Plan: - ortho Dr. Barrios recs: okay to follow-up outpatient and continue full weightbearing activities - pain control Health maintenance: FEN: cardiac DVT prophylaxis: lovenox sc GI prophylaxis: none Dispo: telemetry CODE STATUS: Full code This patient care was discussed with my attending Dr. Kerrie Velasquez, PGY1 Attending Provider Attestation/Addendum Brain MRI showed no stroke. The patient is alert and oriented. She will need physical therapy. MRCP scheduled. Continue current treatment. She may need custodial facility placement.
[2024-06-12] MEDS: SUMAtriptan 25 MG TABLET 50 MG PO (15:04)
[2024-06-12] MEDS: ACETAMINOPHEN 325 MG TABLET 650 MG PO (15:05)
--- NOTE | 2024-06-12 16:21 | PC.SS ---
Follow up note: Neuro recommendations pending. EEG needs to be read. MRCP pending. Pt will return home upon dc.
[2024-06-12] MEDS: IBUPROFEN TAB 200 MG TABLET PO (19:44)
[2024-06-12] MEDS: traZODone HCL 50 MG TABLET 200 MG PO (20:50)
[2024-06-12] MEDS: ALPRazoLAM 0.25 MG TABLET 0.5 MG PO (20:50)
--- NOTE | 2024-06-12 22:50 | PD.NEUROPROG ---
Documentation for date of: 06/12/24 Subjective Subjective Interval history: Seen in telemetry today, no new symptoms or issues overnight. She is waiting for MRCP today. Exam - Neurology Vital Signs Temp Pulse Resp BP Pulse Ox O2 Del Method O2 Flow Rate 97.5 F 82 25 H 151/83 H 99 Nasal Cannula 2 06/12/24 20:00 06/12/24 20:00 06/12/24 20:00 06/12/24 20:00 06/12/24 20:00 06/12/24 20:00 06/12/24 20:00 Narrative Exam GENERAL APPEARANCE: Well hydrated, well-nourished in no acute distress. HEENT: Normocephalic, atraumatic, extraocular movements intact. Pupils: Equal reacting to light and accommodation NECK: Supple, no JVD or bruits. CARDIOVASULAR: Heart: S1, S2 heard, regular without S3-S4 or murmur no rubs or gallops. LUNGS/CHEST: Clear to auscultation bilaterally. No rails, rhonchi, or wheezing. Normal inspection. ABDOMEN: Soft, nontender, with normal bowel sounds. No pulsatile masses. No rebound, rigidity, or guarding. Normal inspection and palpation. EXTREMITIES: Normal inspection and palpation. No edema, clubbing or cyanosis. SKIN: Warm and dry without rashes. Normal inspection. MUSCULOSKELETAL: No cervical, thoracic, lumbar or midline bony tenderness. Normal inspection. NEURO: Alert, awake and oriented x3. Cranial nerves: II through XII grossly intact. Speech and language: Normal with no dysarthria or dysphasia. Motor system: Tone and bulk: Normal: Strength: 5 out of 5 in all 4 extremities; No pronator drift noted. Deep tendon reflexes: 2+ bilaterally symmetrical. Plantar reflex: Downgoing bilaterally. Sensory system: Intact to all modalities of sensation bilaterally. Coordination: Intact to [id number] and [id number]-[id number] test bilaterally. No ataxia, no dysmetria, or dysdiadochokinesia noted. No intention tremors noted. Gait: Normal. Toe, heel, tandem walk all are normal. Romberg: Negative. No signs of meningeal irritation noted. PSYCHIATRIC: Normal mood and affect. Objective Labs 06/13/24 04:50 06/13/24 04:50 ABG Interpretation ABG results: 06/08/24 19:30 VBG pH 7.38 VBG pCO2 47 VBG pO2 46 VBG Base Excess 2 Assessment & Plan Assessment and plan (1) Altered mental status: Status: Resolved (2) Sacral fracture, closed: Status: Acute Additional Assessment & Plan Additional Plan: (1) Altered mental status: Status: Resolved Assessment and plan: Patient is back to baseline. I reviewed the images independently and interpreted the findings. Reassurance given to the patient that MRI showed mild chronic white matter changes not significant. No cerebellar or cerebral atrophy EEG showed normal study Advised strongly about the importance of complete alcohol cessation to prevent long-term complications from alcoholism Patient is stable from neurology standpoint for discharge. Will see her back in 2 weeks (2) Sacral fracture, closed: Status: Acute Assessment and plan: From a recent fall sustained sacral fracture X-ray showed findings suspicious for acute nondisplaced fracture third sacral segment Use donut cushion Noted that she is not in much pain
[2024-06-13] VITALS (8 sets, daily range): BP systolic 114–137; BP diastolic 70–84; PULSE 73–128; RESP 14–98; TEMP 35.9–36.6; O2SAT 91–97; BMI 24.2
[2024-06-13] MEDS: IBUPROFEN TAB 200 MG TABLET PO ×3 (04:54→21:03)
[2024-06-13] MEDS: SUMAtriptan 25 MG TABLET 50 MG PO (05:33)
[2024-06-13] MEDS: LEVOTHYROXINE SODIUM 25 MCG TABLET 75 MCG PO (05:35)
[2024-06-13 05:40] LABS: Basophils % (Auto) 1 % (0-2.5); Eosinophils # (Auto) 0.2 Thou/mm3 (0.0-0.5); Eosinophils % (Auto) 5 % (0-10); Hematocrit 31.5 % (36.0-46.0); Hemoglobin 10.4 g/dL (12.0-16.0); Immature Granulocytes % (Auto) 0 % (0-0); Immature Granulocytes Auto 0.01 Thou/mm3 (0.00-0.00); Lymphocytes # (Auto) 1.4 Thou/mm3 (1.0-4.8); Lymphocytes % (Auto) 37 % (10-50); Mean Corpuscular Hemoglobin 29.5 pg (25.0-35.0); Mean Corpuscular Volume 90 fL (80-100); Monocytes # (Auto) 0.4 Thou/mm3 (0.0-0.8); Monocytes % (Auto) 11 % (0-12); Neutrophils # (Auto) 1.8 Thou/mm3 (1.8-7.7); Neutrophils % (Auto) 47 % (37-80); Nucleated Red Blood Cell % 0 /100 WBC (0); Platelet Count 199 Thou/mm3 (140-440); RDW Standard Deviation 47.4 fL (36.4-46.3); Red Blood Count 3.52 Miln/mm3 (4.00-5.20); White Blood Count 3.8 Thou/mm3 (3.6-11.0)
[2024-06-13 06:30] LABS: Alanine Aminotransferase 93 U/L (10-49); Albumin, Serum 3.2 gm/dL (3.4-4.8); Albumin/Globulin Ratio 1.7 (1.2-2.2); Alkaline Phosphatase 127 U/L (46-116); Anion Gap 5 (7-16); Aspartate Amino Transferase 50 U/L (0-34); BUN/Creatinine Ratio 11 Ratio (12-20); Bilirubin,Total 0.2 mg/dL (0.3-1.2); Blood Urea Nitrogen 9 mg/dL (9-23); Calcium 8.4 mg/dL (8.3-10.6); Carbon Dioxide 31.2 mMol/L (20.0-31.0); Chloride 105 mMol/L (98-107); Creatinine (Component) 0.8 mg/dL (0.6-1.3); Estimated Creatinine Clearance 53.5 mL/min (>60); Globulin 1.9 gm/dL (2.3-3.5); Glucose 93 mg/dL (74-106); Osmolality,Calculated 279 (275-295); Potassium 4.1 mMol/L (3.4-5.1); Sodium 141 mMol/L (136-145); Total Protein 5.1 gm/dL (5.7-8.2); eGFR > 60 See Note
[2024-06-13] MEDS: FOLIC ACID 1 MG TABLET PO (09:50)
[2024-06-13] MEDS: THIAMINE INJ 250 MG in SODIUM CHLORIDE 0.9% 100 ML 205 MG IV (09:50)
[2024-06-13] MEDS: ENOXAPARIN SOD INJ 40 MG/0.4 ML SYRINGE SC (09:50)
[2024-06-13] MEDS: MECLIZINE HCL 25 MG TABLET PO (09:50)
[2024-06-13] MEDS: FLUoxetine HCL 10 MG CAPSULE 40 MG PO (09:50)
--- NOTE | 2024-06-13 10:27 | CHAP ---
Patient was visited by a spiritual care volunteer on 06/13/2024 between 902 and 929 and received comfort, encouragement and/or prayer.
[2024-06-13] MEDS: ALPRazoLAM 0.25 MG TABLET 0.5 MG PO ×2 (10:58→21:03)
[2024-06-13] MEDS: SENNA TABLET 1 TAB PO (16:18)
--- NOTE | 2024-06-13 18:45 | PD.RESPRO ---
Documentation for date of: 06/13/24 Subjective Subjective Interval history: Patient examined at bedside. No events overnight. Patient continues to have headache 08/24. Denies any aura, dizziness. Vital stable, labs significant for downtrending LFTs AST 50, ALT 93 after MRCP yesterday. MRCP consistent with biliary tract obstruction and abrupt termination of the CBD. No specific stones noted but unable to rule out at this time. Other differentials include stricture. GI Dr. Mcneill was consulted for possible ERCP. Stated that patient should be transferred. Further intervention should be managed at [facility] due to abdominal surgeries resulting in extensively altered GI anatomy. Patient and patient's son both agreed for transfer. Patient has had consistent, dull abdominal pain since the past 2-3 years without any ERCP completed. Transfer nurse was contacted. Team will begin transfer process tomorrow. Blood cultures negative at 48 hours, EEG negative. Patient was placed on nasal cannula 2 L for headache treatment which did improve. Continue to monitor. Exam Vital Signs Temp Pulse Resp BP Pulse Ox O2 Del Method O2 Flow Rate 97.7 F 87 18 125/75 91 L Room Air 1 06/13/24 12:00 06/13/24 16:00 06/13/24 12:00 06/13/24 12:00 06/13/24 12:00 06/13/24 12:00 06/13/24 08:00 Narrative Exam General: Elderly female, Awake and in no acute distress. Compliant. HEENT: Normocephalic, atraumatic, mucous membranes moist. Heart: Regular rate and rhythm, no murmurs. Lungs: Clear to auscultation with no wheezing or crackles. Abdomen: Soft, nondistended, some tenderness to deep palpation, positive bowel sounds. ?No guarding or rebound tenderness. Multiple abdominal surgery scars. Neurologic: Alert and oriented x3, no gross neurological deficit, and patient able to move all 4 extremities. Extremities: No edema. Skin: No rash or ecchymoses. Objective Labs 06/14/24 04:14 06/14/24 04:14 Labs: Laboratory Results - last 24 hr 06/13/24 04:50 WBC 3.8 RBC 3.52 L Hgb 10.4 L Hct 31.5 L MCV 90 MCH 29.5 MCHC 33.0 RDW Std Deviation 47.4 H Plt Count 199 Neut % (Auto) 47 Lymph % (Auto) 37 [place] % (Auto) 11 Eos % (Auto) 5 Baso % (Auto) 1 Neut # (Auto) 1.8 Lymph # (Auto) 1.4 [place] # (Auto) 0.4 Eos # (Auto) 0.2 Baso # (Auto) 0.0 Immature Gran # (Auto) 0.01 H Absolute Nucleated RBC 0.00 Immature Gran % 0 Nucleated RBC % 0 Sodium 141 Potassium 4.1 Chloride 105 Carbon Dioxide 31.2 H Anion Gap 5 L BUN 9 Creatinine 0.8 Estim Creat Clear Calc 53.5 L eGFR > 60 BUN/Creatinine Ratio 11 L Glucose 93 Calculated Osmolality 279 Calcium 8.4 Corrected Calcium 9.0 Total Bilirubin 0.2 L AST 50 H ALT 93 H Alkaline Phosphatase 127 H Total Protein 5.1 L Albumin 3.2 L Globulin 1.9 L Albumin/Globulin Ratio 1.7 ABG Interpretation ABG results: 06/08/24 19:30 VBG pH 7.38 VBG pCO2 47 VBG pO2 46 VBG Base Excess 2 Quality Measures Quality Measures VTE prophylaxis Advance care planning discussed with:: patient Assessment & Plan Assessment Current Active Medications: Generic Name Dose Route Start Last Admin Trade Name Freq PRN Reason Stop Dose Admin Acetaminophen 650 mg 06/08/24 21:14 06/11/24 16:36 Acetaminophen 325 Mg Tablet PO 07/08/24 21:13 650 mg Q6H PRN Administration Fever >100.3 or pain 1-3 Hydrocodone Bitart/Acetaminophen 2 tab 06/08/24 23:15 06/12/24 10:06 Hydrocodone/Apap 5/325 Tablet PO 06/13/24 23:14 2 tab Q6HR PRN Administration PAIN SCALE 4-10(Mod-Sev Alprazolam 0.5 mg 06/08/24 22:40 06/12/24 20:50 Alprazolam 0.25 Mg Tablet PO 06/13/24 22:39 0.5 mg HS ALPHONSO Administration Enoxaparin Sodium 40 mg 06/09/24 09:00 06/13/24 09:50 Enoxaparin Sod Inj 40 Mg/0.4 Ml Syringe SC 06/23/24 08:59 40 mg QDAY ALPHONSO Administration Fluoxetine HCl 40 mg 06/09/24 09:00 06/13/24 09:50 Fluoxetine Hcl 10 Mg Capsule PO 07/09/24 08:59 40 mg QDAY ALPHONSO Administration Folic Acid 1 mg 06/09/24 09:00 06/13/24 09:50 Folic Acid 1 Mg Tablet PO 07/09/24 08:59 1 mg QDAY ALPHONSO Administration Thiamine HCl 250 mg/ Sodium 102.5 mls @ 205 mls/hr 06/12/24 09:00 06/13/24 09:50 Chloride IV 07/12/24 08:59 205 mls/hr QDAY ALPHONSO Administration Ibuprofen 200 mg 06/10/24 16:29 06/13/24 14:42 Ibuprofen Tab 200 Mg Tablet PO 07/10/24 16:28 200 mg Q6HR PRN Administration Migraine Headache Levothyroxine Sodium 75 mcg 06/09/24 06:00 06/13/24 05:35 Levothyroxine Sodium 25 Mcg Tablet PO 07/09/24 05:59 75 mcg ACBR ALPHONSO Administration Meclizine HCl 25 mg 06/10/24 10:45 06/13/24 09:50 Meclizine Hcl 25 Mg Tablet PO 07/10/24 10:44 25 mg QDAY ALPHONSO Administration Ondansetron HCl 4 mg 06/08/24 21:14 06/12/24 19:44 Ondansetron Inj 2 Mg/Ml Inj 2 Ml IV 07/08/24 21:13 4 mg Q6H PRN Administration NAUSEA OR VOMITING Protocol Sennosides 1 tab 06/13/24 15:51 06/13/24 16:18 Senna Tablet PO 07/13/24 15:50 1 tab QDAY PRN Administration CONSTIPATION Protocol Trazodone HCl 200 mg 06/09/24 00:00 06/12/24 20:50 Trazodone Hcl 50 Mg Tablet PO 07/09/24 00:00 200 mg HS ALPHONSO Administration Plan Patient is a 73-year-old female with a previous medical history of hypothyroidism, anxiety, depression, IBS, fibromyalgia, alcohol abuse, multiple abdominal surgeries who was brought in to the ED by ambulance due to dizziness and syncopal episodes that started a day ago. She is going to be acute encephalopathy workup and management. #Acute encephalopathy-resolved #Syncopal episodes #Ground level falls Multifactorial: metabolic vs hypothyroidism vs medication side effect Patient has a history of alcohol abuse. Utox was negative. In the ED she received IV thiamine and folate. Orthostatic vitals positive. TSH normal (1.95) MRI head negative for acute changes. Plan: - dicyclomine and hyoscyamine on hold for now - resumed xanax in the lower dose 0.5mg daily - neurology recs: no intervention. Patient to abstain from alcohol. - thiamine 500 mg PO TID - Folic acid 1 mg po qday - PT will reeavluate closer to [place]. -started meclazine 25mg daily for dizziness #Transaminitis Liver u/s from 05/11/24 at last visit showed enlarged CBD 12mm. No gallbladder. LFTs/ALP slowly uptrending. MRCP consistent with biliary tract obstruction and abrupt termination of the CBD. No specific stones noted but unable to rule out at this time. -transfer team contacted, will start process tomorrow as recommended by GI Dr. Mcneill. -daily CMP to monitor #History of depression #History of anxiety #Hx hypothyroidism Plan: - resumed home xanax in lower dose - resumed home fluoxetine - resumed home trazodone -levothyroxine 75mcg daily #Hypertension Takes lisinopril 5mg daily -Home blood pressure medication on hold for now. #Sacral fracture Sacrum and coccyx x-ray showed acute nondisplaced fracture of the third sacral segment. Plan: - ortho Dr. Barrios recs: okay to follow-up outpatient and continue full weightbearing activities - pain control Health maintenance: FEN: cardiac DVT prophylaxis: lovenox sc GI prophylaxis: none Dispo: telemetry CODE STATUS: Full code This patient care was discussed with my attending Dr. Burr. Lara Velasquez, PGY1 Attending Provider Attestation/Addendum I have examined the patient, reviewed labs and imaging findings, discussed the case with the resident(s), and reviewed entered orders. I agree with the plan of care as outlined in this note, with these additional summaries/recommendations: Patient seen at bedside. No acute overnight events. Patient endorses significant anxiety related to the recent passing of her . Condolences offered. Patient was found to have abrupt termination of distal CBD with differentials including impacted stone versus malignant stricture. Patient was previously sent for ERCP but was not done secondary to insurance issues per patient. She does endorse intermittent mild right upper quadrant pain. T. bili and alkaline phosphatase within normal limits. Transaminitis was present but currently improving. We will consult in-house gastroenterology, recommendations appreciated. Acute encephalopathy has resolved. Patient still endorsing severe headache and we will increase frequency of alprazolam to twice daily as patient was previously taking 3 times a day. Suspect headache may be secondary to benzodiazepine withdrawal. Continue pain management for sacral fracture and follow-up outpatient with PCP/orthopedics. Patient updated on the plan and in agreement. All questions answered to satisfaction. Dr. Leno MD
[2024-06-13] MEDS: traZODone HCL 50 MG TABLET 200 MG PO (21:03)
--- NOTE | 2024-06-13 22:33 | PD.VPROG1 ---
Telemedicine visit statement This visit was conducted with the use of interactive audio and video telecommunications system that permits real time communication between the patient and the provider. Patient's verbal consent for virtual visit was obtained on 06/13/24 at 2233. Documentation for date of: 06/13/24 Subjective Subjective Interval history: Patient is in telemetry. No new symptoms reported. Continues to complain of feeling tired, fatigued and generalized weakness. With persistent abdominal pain and elevated liver enzymes, secondary to extrahepatic biliary obstruction, GI recommended transfer to get ERCP and further surgical intervention. Virtual exam Vital Signs Temp Pulse Resp BP Pulse Ox O2 Del Method O2 Flow Rate 97.4 F 87 14 114/70 95 Nasal Cannula 1.5 06/13/24 20:00 06/13/24 20:00 06/13/24 20:00 06/13/24 20:00 06/13/24 20:00 06/13/24 20:00 06/13/24 20:00 Objective Labs 06/14/24 04:14 06/14/24 04:14 Labs: Laboratory Results - last 24 hr 06/13/24 04:50 WBC 3.8 RBC 3.52 L Hgb 10.4 L Hct 31.5 L MCV 90 MCH 29.5 MCHC 33.0 RDW Std Deviation 47.4 H Plt Count 199 Neut % (Auto) 47 Lymph % (Auto) 37 [place] % (Auto) 11 Eos % (Auto) 5 Baso % (Auto) 1 Neut # (Auto) 1.8 Lymph # (Auto) 1.4 [place] # (Auto) 0.4 Eos # (Auto) 0.2 Baso # (Auto) 0.0 Immature Gran # (Auto) 0.01 H Absolute Nucleated RBC 0.00 Immature Gran % 0 Nucleated RBC % 0 Sodium 141 Potassium 4.1 Chloride 105 Carbon Dioxide 31.2 H Anion Gap 5 L BUN 9 Creatinine 0.8 Estim Creat Clear Calc 53.5 L eGFR > 60 BUN/Creatinine Ratio 11 L Glucose 93 Calculated Osmolality 279 Calcium 8.4 Corrected Calcium 9.0 Total Bilirubin 0.2 L AST 50 H ALT 93 H Alkaline Phosphatase 127 H Total Protein 5.1 L Albumin 3.2 L Globulin 1.9 L Albumin/Globulin Ratio 1.7 ABG Interpretation ABG results: 06/08/24 19:30 VBG pH 7.38 VBG pCO2 47 VBG pO2 46 VBG Base Excess 2 Assessment & Plan Problem List (1) Altered mental status: Status: Resolved Assessment and plan: Patient is back to baseline. Reassurance given to the patient regarding the MRI brain findings: Mild chronic white matter changes not significant. No cerebellar or cerebral atrophy Advised strongly about the importance of complete alcohol cessation to prevent long-term complications from alcoholism (2) Sacral fracture, closed: Status: Acute Assessment and plan: From a recent fall sustained sacral fracture X-ray showed findings suspicious for acute nondisplaced fracture third sacral segment Use donut cushion
[2024-06-14] VITALS (8 sets, daily range): BP systolic 113–139; BP diastolic 65–82; PULSE 69–96; RESP 14–100; TEMP 36.1–36.7; O2SAT 96–99
[2024-06-14 05:32] LABS: Eosinophils # (Auto) 0.2 Thou/mm3 (0.0-0.5); Immature Granulocytes % (Auto) 0 % (0-0); Immature Granulocytes Auto 0.01 Thou/mm3 (0.00-0.00); Nucleated Red Blood Cell % 0 /100 WBC (0); Platelet Count 217 Thou/mm3 (140-440)
[2024-06-14 05:37] LABS: Basophils # (Auto) 0.1 Thou/mm3 (0.0-0.2); Basophils % (Auto) 1 % (0-2.5); Eosinophils % (Auto) 5 % (0-10); Hematocrit 31.2 % (36.0-46.0); Hemoglobin 10.3 g/dL (12.0-16.0); Lymphocytes # (Auto) 1.6 Thou/mm3 (1.0-4.8); Lymphocytes % (Auto) 37 % (10-50); Mean Corpuscular Hemoglobin 29.7 pg (25.0-35.0); Mean Corpuscular Volume 90 fL (80-100); Monocytes # (Auto) 0.4 Thou/mm3 (0.0-0.8); Monocytes % (Auto) 9 % (0-12); Neutrophils # (Auto) 2.1 Thou/mm3 (1.8-7.7); Neutrophils % (Auto) 48 % (37-80); RDW Standard Deviation 47.9 fL (36.4-46.3); Red Blood Count 3.47 Miln/mm3 (4.00-5.20); White Blood Count 4.3 Thou/mm3 (3.6-11.0)
[2024-06-14] MEDS: LEVOTHYROXINE SODIUM 25 MCG TABLET 75 MCG PO (05:43)
[2024-06-14 05:56] LABS: Alanine Aminotransferase 69 U/L (10-49); Albumin, Serum 3.1 gm/dL (3.4-4.8); Albumin/Globulin Ratio 1.6 (1.2-2.2); Alkaline Phosphatase 114 U/L (46-116); Anion Gap 5 (7-16); Aspartate Amino Transferase 31 U/L (0-34); BUN/Creatinine Ratio 14 Ratio (12-20); Bilirubin,Total 0.3 mg/dL (0.3-1.2); Blood Urea Nitrogen 11 mg/dL (9-23); Calcium 8.2 mg/dL (8.3-10.6); Calcium (Corrected) 8.9 mg/dL (8.5-10.1); Carbon Dioxide 32.5 mMol/L (20.0-31.0); Chloride 105 mMol/L (98-107); Creatinine (Component) 0.8 mg/dL (0.6-1.3); Glucose 93 mg/dL (74-106); Osmolality,Calculated 282 (275-295); Potassium 4.2 mMol/L (3.4-5.1); Sodium 142 mMol/L (136-145); Total Protein 5.1 gm/dL (5.7-8.2); eGFR > 60 See Note
[2024-06-14] MEDS: IBUPROFEN TAB 200 MG TABLET PO (07:22)
[2024-06-14] MEDS: MECLIZINE HCL 25 MG TABLET PO (08:20)
[2024-06-14] MEDS: FOLIC ACID 1 MG TABLET PO (08:20)
[2024-06-14] MEDS: ENOXAPARIN SOD INJ 40 MG/0.4 ML SYRINGE SC (08:20)
[2024-06-14] MEDS: FLUoxetine HCL 10 MG CAPSULE 40 MG PO (08:20)
--- NOTE | 2024-06-14 08:30 | PC.CM ---
Addendum entered by Indira Taylor RN 06/14/24 18:25: Patient has been accepted at [facility] by Dr. Lauren Eli (Medicine) and Dr. Graham King (GI). They do not have any beds open at this time. They will call when a bed becomes available. Packet completed along with CD and it is ready for transfer. The number to call and follow up on bed availably is [facility] at [phone]. [facility] sent transfer back agreement. I completed and faxed back today. I updated Dr. Velasquez. Completed packet taken to telemetry floor and I will report off to charge nurse. Patient was also being reviewed by [facility]. I spoke to Courtney at [facility] transfer center. She states they have a call out to their doctor and they are still reviewing patient. I let her know [facility] has accepted patient, but they do not have any beds. I let her know I did not want to cancel the referral with them because we do not know how long it would be before [facility] has a bed. Addendum entered by Indira Taylor RN 06/14/24 15:47: Patient has been accepted at [facility] by Dr. Lauren Eli (Medicine) and Dr. Graham King (GI). They do not have any beds open at this time. They will call when a bed becomes available. Packet completed along with CD and it is ready for transfer. The number to call and follow up on bed availably is [facility] at [phone]. [facility] sent transfer back agreement. I completed and faxed back today. I updated Dr. Velasquez. Addendum entered by Indira Taylor RN 06/14/24 13:30: 1130 I called [facility] and initiated a transfer. I faxed over all requested information. Addendum entered by Indira Taylor RN 06/14/24 11:28: 1105 I received a call from Danielle with [facility] finance. She wanted me to fax a facesheet to [phone]. I faxed her the face sheet. Addendum entered by Indira Taylor RN 06/14/24 10:57: 1045 [facility] transfer nurse Modesta called me and she states they are going to decline patient due to capacity. I asked if she knew if they could manage patient due to hx of gastrectomy and jericho fundoplcation. She states she did not have the answer to that questions because her doctor declined without reviewing patient. She states we can try back tomorrow if we still need a bed. Addendum entered by Indira Taylor RN 06/14/24 10:54: [address] [facility] and I initiated a transfer. I faxed over information. Addendum entered by Indira Taylor RN 06/14/24 10:16: 1015 I received a call back Bing with [facility] and she states they are going to have to decline patient stating she will need higher level care and management due to to history of gastrectomy and jericho fundoplication. Addendum entered by Indira Taylor RN 06/14/24 10:10: [facility] called back and I spoke to Bing. She states she spoke to [facility] and patient does have a history of gastrectomy and jericho fundoplication. Bing states she will check with her doctor, but patient may need to go to a tertiary facility. She states she will get back to me once she speaks to her doctor. Addendum entered by Indira Taylor RN 06/14/24 10:05: I received a call from Bing contreras with [facility] in [place]. I gave here a detailed report on patient. I transferred her to [facility]. Addendum entered by Indira Taylor RN 06/14/24 09:30: 0930 I initiated a transfer to [facility] and I spoke to Xavier transfer nurse. I faxed over information. Addendum entered by Indira Taylor RN 06/14/24 09:15: 0905 I contacted [facility] and spoke to Modesta transfer nurse. I initiated transfer and faxed over paperwork and I pushed over images. Original Note: 817 I reviewed notes and I found Dr. Velasquez put in an order yesterday evening to (transfer to another facility discharge/transfer) patient at 1853 for patient needing ERCP. I spoke to Dr. Velasquez and I let her know she needs to put in (Referral copy coordinator order to generate a transfer request for patient. Patient needs transfer for ERPC. Dr. Velasquez spoke to Dr. Mcneill and he suggested further intervention should be managed at [facility] do to abdominal surgeries resulting on extensively altered GI anatomy. Per Dr. Weber notes, patient has had consistent dull abdominal pain since the past 2-3 years without an ERCP completed.
--- NOTE | 2024-06-14 09:30 | PC.SS ---
Follow up note: pt is a higher level of care transfer.
[2024-06-14] MEDS: THIAMINE INJ 250 MG in SODIUM CHLORIDE 0.9% 100 ML 205 MG IV (09:54)
--- NOTE | 2024-06-14 14:14 | PD.RESPRO ---
Documentation for date of: 06/14/24 Subjective Subjective Interval history: Patient examined at bedside. No events overnight. States she is feeling better overall. Headaches better controlled with Tylenol and oxygen. Vital stable, labs significant for downtrending LFTs and alk phos. Bilirubin 0.3. Transfer to [facility] is still pending. [facility] has declined due to maximum capacity. [facility] also declined stating patient will need higher level of care and management. Answers from [facility] and [facility] are pending. Continue meclizine, O2, Tylenol as needed for headache. Exam Vital Signs Temp Pulse Resp BP Pulse Ox O2 Del Method O2 Flow Rate 97.7 F 95 14 127/65 99 Nasal Cannula 1.5 06/14/24 12:00 06/14/24 12:00 06/14/24 12:00 06/14/24 12:00 06/14/24 12:00 06/14/24 12:00 06/14/24 12:00 Narrative Exam General: Elderly female, Awake and in no acute distress. Compliant. HEENT: Normocephalic, atraumatic, mucous membranes moist. Heart: Regular rate and rhythm, no murmurs. Lungs: Clear to auscultation with no wheezing or crackles. Abdomen: Soft, nondistended, some tenderness to deep palpation, positive bowel sounds. ?No guarding or rebound tenderness. Multiple abdominal surgery scars. Neurologic: Alert and oriented x3, no gross neurological deficit, and patient able to move all 4 extremities. Extremities: No edema. Skin: No rash or ecchymoses. Objective Labs 06/15/24 05:40 06/15/24 05:40 Labs: Laboratory Results - last 24 hr 06/14/24 04:14 WBC 4.3 RBC 3.47 L Hgb 10.3 L Hct 31.2 L MCV 90 MCH 29.7 MCHC 33.0 RDW Std Deviation 47.9 H Plt Count 217 Neut % (Auto) 48 Lymph % (Auto) 37 [place] % (Auto) 9 Eos % (Auto) 5 Baso % (Auto) 1 Neut # (Auto) 2.1 Lymph # (Auto) 1.6 [place] # (Auto) 0.4 Eos # (Auto) 0.2 Baso # (Auto) 0.1 Immature Gran # (Auto) 0.01 H Absolute Nucleated RBC 0.00 Immature Gran % 0 Nucleated RBC % 0 Sodium 142 Potassium 4.2 Chloride 105 Carbon Dioxide 32.5 H Anion Gap 5 L BUN 11 Creatinine 0.8 Estim Creat Clear Calc 55.0 L eGFR > 60 BUN/Creatinine Ratio 14 Glucose 93 Calculated Osmolality 282 Calcium 8.2 L Corrected Calcium 8.9 Total Bilirubin 0.3 AST 31 ALT 69 H Alkaline Phosphatase 114 Total Protein 5.1 L Albumin 3.1 L Globulin 2.0 L Albumin/Globulin Ratio 1.6 ABG Interpretation ABG results: 06/08/24 19:30 VBG pH 7.38 VBG pCO2 47 VBG pO2 46 VBG Base Excess 2 Quality Measures Quality Measures VTE prophylaxis Advance care planning discussed with:: patient Assessment & Plan Assessment Current Active Medications: Generic Name Dose Route Start Last Admin Trade Name Freq PRN Reason Stop Dose Admin Acetaminophen 650 mg 06/08/24 21:14 06/11/24 16:36 Acetaminophen 325 Mg Tablet PO 07/08/24 21:13 650 mg Q6H PRN Administration Fever >100.3 or pain 1-3 Alprazolam 0.5 mg 06/14/24 21:00 Alprazolam 0.25 Mg Tablet PO 06/19/24 20:59 HS ALPHONSO Enoxaparin Sodium 40 mg 06/09/24 09:00 06/14/24 08:20 Enoxaparin Sod Inj 40 Mg/0.4 Ml Syringe SC 06/23/24 08:59 40 mg QDAY ALPHONSO Administration Fluoxetine HCl 40 mg 06/09/24 09:00 06/14/24 08:20 Fluoxetine Hcl 10 Mg Capsule PO 07/09/24 08:59 40 mg QDAY ALPHONSO Administration Folic Acid 1 mg 06/09/24 09:00 06/14/24 08:20 Folic Acid 1 Mg Tablet PO 07/09/24 08:59 1 mg QDAY ALPHONSO Administration Thiamine HCl 250 mg/ Sodium 102.5 mls @ 205 mls/hr 06/12/24 09:00 06/14/24 09:54 Chloride IV 07/12/24 08:59 205 mls/hr QDAY ALPHONSO Administration Ibuprofen 200 mg 06/10/24 16:29 06/14/24 07:22 Ibuprofen Tab 200 Mg Tablet PO 07/10/24 16:28 200 mg Q6HR PRN Administration Migraine Headache Levothyroxine Sodium 75 mcg 06/09/24 06:00 06/14/24 05:43 Levothyroxine Sodium 25 Mcg Tablet PO 07/09/24 05:59 75 mcg ACBR ALPHONSO Administration Meclizine HCl 25 mg 06/10/24 10:45 06/14/24 08:20 Meclizine Hcl 25 Mg Tablet PO 07/10/24 10:44 25 mg QDAY ALPHONSO Administration Ondansetron HCl 4 mg 06/08/24 21:14 06/12/24 19:44 Ondansetron Inj 2 Mg/Ml Inj 2 Ml IV 07/08/24 21:13 4 mg Q6H PRN Administration NAUSEA OR VOMITING Protocol Sennosides 1 tab 06/13/24 15:51 06/13/24 16:18 Senna Tablet PO 07/13/24 15:50 1 tab QDAY PRN Administration CONSTIPATION Protocol Trazodone HCl 200 mg 06/09/24 00:00 06/13/24 21:03 Trazodone Hcl 50 Mg Tablet PO 07/09/24 00:00 200 mg HS ALPHONSO Administration Plan Patient is a 73-year-old female with a previous medical history of hypothyroidism, anxiety, depression, IBS, fibromyalgia, alcohol abuse, multiple abdominal surgeries who was brought in to the ED by ambulance due to dizziness and syncopal episodes that started a day ago. She is going to be acute encephalopathy workup and management. #Acute encephalopathy-resolved #Syncopal episodes #Ground level falls Multifactorial: metabolic vs hypothyroidism vs medication side effect Patient has a history of alcohol abuse. Utox was negative. In the ED she received IV thiamine and folate. Orthostatic vitals positive. TSH normal (1.95) MRI head negative for acute changes. Plan: - dicyclomine and hyoscyamine on hold for now - resumed xanax in the lower dose 0.5mg daily - neurology recs: no intervention. Patient to abstain from alcohol. - thiamine 500 mg PO TID - Folic acid 1 mg po qday - PT will reeavluate closer to [place]. -started meclazine 25mg daily for dizziness #Transaminitis Liver u/s from 05/11/24 at last visit showed enlarged CBD 12mm. No gallbladder. LFTs/ALP slowly uptrending. MRCP consistent with biliary tract obstruction and abrupt termination of the CBD. No specific stones noted but unable to rule out at this time. -transfer pending -daily CMP to monitor #History of depression #History of anxiety #Hx hypothyroidism Plan: - resumed home xanax in lower dose - resumed home fluoxetine - resumed home trazodone -levothyroxine 75mcg daily #Hypertension Takes lisinopril 5mg daily -Home blood pressure medication on hold for now. #Sacral fracture Sacrum and coccyx x-ray showed acute nondisplaced fracture of the third sacral segment. Plan: - ortho Dr. Sophie paul: okay to follow-up outpatient and continue full weightbearing activities - pain control Health maintenance: FEN: cardiac DVT prophylaxis: lovenox sc GI prophylaxis: none Dispo: telemetry CODE STATUS: Full code This patient care was discussed with my attending Dr. Burr. Lara Velasquez, PGY1 I discussed with and supervised the actuarial internship physician who took care of this patient. I personally saw and examined the patient and discussed the assessment and plan with the entire medicine team, including my attending Dr. Leno CABRERA. I agree with the assessment and plan as documented above. Patient interviewed and examined at bedside this a.m. No acute overnight events reported. Patient's LFTs show moderate improvement. Patient was pending transfer for possible biliary tract obstruction. Due to the patient's anatomy secondary to his history of gastrectomy. Patient was excepted at [facility], however pending bed availability. Vladislav Coughlin M.D. Internal Medicine PGY-3 Attending Provider Attestation/Addendum I have examined the patient, reviewed labs and imaging findings, discussed the case with the resident(s), and reviewed entered orders. I agree with the plan of care as outlined in this note, with these additional summaries/recommendations: Patient seen at bedside. No acute overnight events. MRCP showed prominent extrahepatic biliary tract obstruction with abrupt termination of the distal common bile duct with differentials including impacted stone in the distal CBD versus malignant stricture at the ampulla. Patient previously had 10 mm stone common bile duct on MRCP which was not addressed secondary to insurance issues and suspect new MRCP findings are secondary to impacted stone. Case was discussed with in house gastroenterology and patient would benefit from ERCP given she is still symptomatic and endorsing worse than usual right upper quadrant pain. 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 Patient has also had significant history of abdominal surgeries. Transfer initiated. Patient continues to be at baseline mental status. Transaminitis improving. Continue pain management for sacral fracture and physical therapy. Continue home fluoxetine and trazodone. Patient in agreement with transfer. Repeat hematology and chemistry panel in AM. Dr. Leno MD
[2024-06-14] MEDS: ACETAMINOPHEN 325 MG TABLET 650 MG PO ×2 (16:04→21:48)
[2024-06-14] MEDS: SENNA TABLET 1 TAB PO (16:04)
[2024-06-14] MEDS: traZODone HCL 50 MG TABLET 200 MG PO (21:38)
[2024-06-14] MEDS: ALPRazoLAM 0.25 MG TABLET 0.5 MG PO (21:39)
--- NOTE | 2024-06-14 23:38 | PD.VPROG1 ---
Telemedicine visit statement This visit was conducted with the use of interactive audio and video telecommunications system that permits real time communication between the patient and the provider. Patient's verbal consent for virtual visit was obtained on 06/14/24 at 2338. Documentation for date of: 06/14/24 Subjective Subjective Interval history: Patient is in telemetry. No new symptoms reported. Continues to complain of feeling tired, fatigued and generalized weakness. With persistent abdominal pain and elevated liver enzymes, secondary to extrahepatic biliary obstruction, GI recommended transfer to get ERCP and further surgical intervention. Patient got accepted to [facility] and is waiting for a bed. Virtual exam Vital Signs Temp Pulse Resp BP Pulse Ox O2 Del Method O2 Flow Rate 96.9 F 77 15 130/74 99 Nasal Cannula 1.5 06/14/24 20:00 06/14/24 20:00 06/14/24 20:00 06/14/24 20:00 06/14/24 20:00 06/14/24 20:00 06/14/24 20:00 Objective Labs 06/15/24 05:40 06/15/24 05:40 Labs: Laboratory Results - last 24 hr 06/14/24 04:14 WBC 4.3 RBC 3.47 L Hgb 10.3 L Hct 31.2 L MCV 90 MCH 29.7 MCHC 33.0 RDW Std Deviation 47.9 H Plt Count 217 Neut % (Auto) 48 Lymph % (Auto) 37 [place] % (Auto) 9 Eos % (Auto) 5 Baso % (Auto) 1 Neut # (Auto) 2.1 Lymph # (Auto) 1.6 [place] # (Auto) 0.4 Eos # (Auto) 0.2 Baso # (Auto) 0.1 Immature Gran # (Auto) 0.01 H Absolute Nucleated RBC 0.00 Immature Gran % 0 Nucleated RBC % 0 Sodium 142 Potassium 4.2 Chloride 105 Carbon Dioxide 32.5 H Anion Gap 5 L BUN 11 Creatinine 0.8 Estim Creat Clear Calc 55.0 L eGFR > 60 BUN/Creatinine Ratio 14 Glucose 93 Calculated Osmolality 282 Calcium 8.2 L Corrected Calcium 8.9 Total Bilirubin 0.3 AST 31 ALT 69 H Alkaline Phosphatase 114 Total Protein 5.1 L Albumin 3.1 L Globulin 2.0 L Albumin/Globulin Ratio 1.6 ABG Interpretation ABG results: 06/08/24 19:30 VBG pH 7.38 VBG pCO2 47 VBG pO2 46 VBG Base Excess 2 Assessment & Plan Problem List (1) Altered mental status: Status: Resolved Assessment and plan: Patient is back to baseline. Reassurance given to the patient regarding the MRI brain findings: Mild chronic white matter changes not significant. No cerebellar or cerebral atrophy Advised strongly about the importance of complete alcohol cessation to prevent long-term complications from alcoholism (2) Sacral fracture, closed: Status: Acute Assessment and plan: From a recent fall sustained sacral fracture X-ray showed findings suspicious for acute nondisplaced fracture third sacral segment Use donut cushion
[2024-06-15] VITALS (8 sets, daily range): BP systolic 122–143; BP diastolic 72–92; PULSE 66–186; RESP 16–93; TEMP 36.1–36.2; O2SAT 91–97
[2024-06-15] MEDS: LEVOTHYROXINE SODIUM 25 MCG TABLET 75 MCG PO (05:22)
[2024-06-15 06:19] LABS: Basophils % (Auto) 1 % (0-2.5); Eosinophils # (Auto) 0.2 Thou/mm3 (0.0-0.5); Eosinophils % (Auto) 6 % (0-10); Hematocrit 31.8 % (36.0-46.0); Hemoglobin 10.6 g/dL (12.0-16.0); Immature Granulocytes % (Auto) 0 % (0-0); Lymphocytes # (Auto) 1.2 Thou/mm3 (1.0-4.8); Lymphocytes % (Auto) 31 % (10-50); Mean Corpuscular HGB Conc 33.3 g/dl (31.0-37.0); Mean Corpuscular Hemoglobin 29.6 pg (25.0-35.0); Mean Corpuscular Volume 89 fL (80-100); Monocytes # (Auto) 0.4 Thou/mm3 (0.0-0.8); Monocytes % (Auto) 10 % (0-12); Neutrophils # (Auto) 2.1 Thou/mm3 (1.8-7.7); Neutrophils % (Auto) 53 % (37-80); Nucleated Red Blood Cell % 0 /100 WBC (0); Platelet Count 226 Thou/mm3 (140-440); RDW Standard Deviation 47.6 fL (36.4-46.3); Red Blood Count 3.58 Miln/mm3 (4.00-5.20)
[2024-06-15 06:36] LABS: Alanine Aminotransferase 54 U/L (10-49); Albumin, Serum 3.4 gm/dL (3.4-4.8); Albumin/Globulin Ratio 1.6 (1.2-2.2); Alkaline Phosphatase 111 U/L (46-116); Anion Gap 7 (7-16); Aspartate Amino Transferase 25 U/L (0-34); BUN/Creatinine Ratio 14 Ratio (12-20); Bilirubin,Total 0.3 mg/dL (0.3-1.2); Blood Urea Nitrogen 11 mg/dL (9-23); Calcium 8.5 mg/dL (8.3-10.6); Carbon Dioxide 31.5 mMol/L (20.0-31.0); Chloride 101 mMol/L (98-107); Creatinine (Component) 0.8 mg/dL (0.6-1.3); Estimated Creatinine Clearance 54.7 mL/min (>60); Globulin 2.1 gm/dL (2.3-3.5); Glucose 94 mg/dL (74-106); Osmolality,Calculated 276 (275-295); Sodium 139 mMol/L (136-145); Total Protein 5.5 gm/dL (5.7-8.2); eGFR > 60 See Note
--- NOTE | 2024-06-15 08:13 | PC.CC ---
Addendum entered by Bertha Melton RN 06/15/24 17:10: images sent to [facility] Addendum entered by Bertha Melton RN 06/15/24 16:43: [id number]-Kevin from [facility] called back at this time and stated they were waiting for images to be pushed, called for cd to be made, will push images. 1620-Spoke to Kelly at [facility] who states we are still pending a bed Addendum entered by Bertha Melton RN 06/15/24 16:15: Spoke to Rehana at [facility] who states they are still waiting to present case to the doctor Addendum entered by Bertha Melton RN 06/15/24 09:58: DC summary faxed to [facility] Addendum entered by Bertha Melton RN 06/15/24 08:17: Spoke to Alberto at [facility] transfer center, he states patient has just been financially cleared and is now looking for accepting provider, will call back for update Original Note: Spoke to Kelly at [facility] who states patient is still pending a bed, she states most discharges do not happen until late afternoon, she is also requesting a dc summary be faxed to [phone]. Dr. Moulton made aware and states they will put in summary.
--- NOTE | 2024-06-15 08:17 | PD.RESDS ---
Planned Discharge Date 06/15/24 DS: Providers Provider Date of admission: 06/08/24 21:14 Primary care physician: Yamile Montilla MD Admitting Provider: Erinn Reece MD Attending Provider on Admission: Adal Burr MD Consults: 06/08/24 21:18 Consult to Neurology / Tele-Neurology Routine Comment: AMS, hx of alcohol abuse Consulting Provider: Jackson Rincon Referral Physical Therapy Routine Comment: Physician Instructions: 06/08/24 23:17 Consult to Orthopedic Routine Comment: sacral fracture Consulting Provider: Canelo Reardon 06/09/24 18:49 Referral Physical Therapy Routine Comment: Physician Instructions: 06/14/24 08:18 Referral - Sales Exec Routine Service Needed for Transfer: Gastroenterology Addl Comments:: MRCP consistent with biliary tract obstruction and abrupt termination of the CBD. No specific stones noted but unable to rule out at this time. Other differentials include stricture. GI Dr. Mcneill was consulted for possible ERCP. Stated that patient should be transferred. Further intervention should be managed at [facility] due to abdominal surgeries resulting in extensively altered GI anatomy. Patient and patient's son both agreed for transfer. Patient has had consistent, dull abdominal pain since the past 2-3 years without any ERCP completed. Attending Provider on DC: Adal Burr MD Discharging Provider: Adal Burr MD DS: Diagnosis Problem List Completed Was Problem List Reviewed/Reconciled?: Yes Hospital Course Hospital Course Hospital course: Jacqui is a 73 y/o female with PMHx hypothyroidism, anxiety, depression, IBS, fibromyalgia, alcohol abuse, multiple abdominal surgeries (~10) including gastroectomy who was admitted to [facility] on 06/08/2024 for acute encephalopathy and sacral falls and was later found to have extrahepatic biliary obstruction and abrupt termination distal CBD of seen on MRCP. She had come in with unremarkable vitals and was worked and was found to have a Hgb of 11.5, WBC of 7.0, VBG showed pCO2 of 47, sodium 142, potassium 3.7, HCO3, 26, BUN/Cr 15 and 0.9 respectively, Lactate 1.2, Troponin negative x1, BNP 19 and AST/ALT [address] unremarkable for acute hemorrhage or midline shift, CXR unremarkable, however Sacrum and Coccyx Xray showed acute nondisplaced fracture of third sacral segmenet. EKG showed NSR. She was then admitted for further workup and management of fall and encephalopathy. Ortho was consulted, Dr. Barrios, who had recommended conservative management and to follow up outpatient for sacral fracture. Neurology was consulted who recommended thiamine, folate and MRI of brain. MRI of brain did show mild chronic microvascular changes, however no acute pathology at the time. LFTs continued to uptrend for pt. US in april 2024 did show dilated CBD 12mm and therefore which MRCP was ordered during this hospitalization and showed extrahepatic biliary obstruction and abrupt termination of distal CBD. 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 GI in house was spoken with who had recommended transfer for pt for further work up. On June 15, 2024, pt was accepted to [facility] for transfer of higher level of care. Discharge Instructions: Follow up with PCP upon d/c Follow up with GI upon d/c Take Medicines as prescribed Return to ED if symptoms reappear or worsen #Extrahepatic billiary obstruction #Hx of jericho fundoplication #Hx of total gastrectomy #Acute encephalopathy-resolved #Syncopal episodes #Ground level falls #Transaminitis #History of depression #History of anxiety #Hx hypothyroidism #Hypertension #Sacral fracture Discharge summary was reviewed with my attending Dr. Leno Moulton, PGY-1 Time Spent with Patient Time attestation: Total time spent providing and/or coordinating discharge services: Time spent: Greater than 30 minutes Exam Vital Signs Temp Pulse Resp BP Pulse Ox O2 Del Method O2 Flow Rate 97.0 F 84 21 H 134/72 H 97 Room Air 1.5 06/15/24 08:00 06/15/24 08:00 06/15/24 08:00 06/15/24 08:00 06/15/24 08:00 06/15/24 08:00 06/15/24 04:00 Narrative Exam General: Elderly female, Awake and in no acute distress. Compliant. HEENT: Normocephalic, atraumatic, mucous membranes moist. Heart: Regular rate and rhythm, no murmurs. Lungs: Clear to auscultation with no wheezing or crackles. Abdomen: Soft, nondistended, some tenderness to deep palpation, positive bowel sounds. ?No guarding or rebound tenderness. Multiple abdominal surgery scars. Neurologic: Alert and oriented x3, no gross neurological deficit, and patient able to move all 4 extremities. Extremities: No edema. Skin: No rash or ecchymoses. Discharge Plan Plan Patient Disposition: Xfer Other Facility Pt Being Transferred to: [facility] Prescriptions/Referrals Prescriptions/Med Rec: Continued lisinopril 5 mg Tablet 5 mg PO QDAY alprazolam 0.5 mg tablet 0.5 mg PO TID levothyroxine 75 mcg tablet 75 mcg PO QAM Patient Comments: TAKE 1 TABLET BY MOUTH EVERY DAY IN THE MORNING ON AN EMPTY STOMACH trazodone 100 mg tablet 200 mg PO HS Patient Comments: TAKE 2 TABLETS BY MOUTH EVERY DAY AT BEDTIME 90 fluoxetine 40 mg capsule PO DAILY Patient Comments: TAKE 1 CAPSULE BY MOUTH EVERY DAY FOR 90 DAYS dicyclomine 10 mg capsule See Rx Instructions PO .COMPLEX Patient Comments: TAKE 1 CAPSULE BY MOUTH UP TO 3 TIMES A DAY Rx Instructions: orally 10mg up to three times a day; Held buspirone 15 mg Tablet 15 mg PO BID Hold Instructions: see PCP Rx Instructions: 1 & 1/2 tab po bid. Referrals: Yamile Montilla MD [Primary Care Provider] - Patient/Caregiver Discharge Instructions Print Language: Lebanese Stand Alone Forms: Iliana Award Info., Patient Portal Info Letter Discharge Order Discharge Orders: Discharge (Routine); Ordered 06/15/24 Ordered By: Dior Moulton Quality Discharge Quality Measures VTE prophylaxis (Lovenox ) Attestestation MD Attestation I have examined the patient, reviewed labs and imaging findings, discussed the case with the resident(s), and reviewed entered orders. I agree with the plan of care as outlined in this note. Time Spent: [address] Burr
[2024-06-15] MEDS: MECLIZINE HCL 25 MG TABLET PO (09:35)
[2024-06-15] MEDS: FLUoxetine HCL 10 MG CAPSULE 40 MG PO (09:35)
[2024-06-15] MEDS: THIAMINE INJ 250 MG in SODIUM CHLORIDE 0.9% 100 ML 205 MG IV (09:35)
[2024-06-15] MEDS: ENOXAPARIN SOD INJ 40 MG/0.4 ML SYRINGE SC (09:35)
[2024-06-15] MEDS: FOLIC ACID 1 MG TABLET PO (09:41)
[2024-06-15] MEDS: ACETAMINOPHEN 325 MG TABLET 650 MG PO (09:52)
--- NOTE | 2024-06-15 11:33 | CHAP ---
Patient was visited by the Spiritual Care Volunteer who prayed for them. (Volunteer was in the hospital from 10:15-11:33).
--- NOTE | 2024-06-15 12:54 | EKG_ITS ---
[facility] Test Date: 2024-06-15 Pat Name: NAYELY PERRY [facility] Gender[facility] Female Personnel And Payroll Technician: FAIZA : 1950 Requested By: Dior Moulton Order Number: [id number] Reading MD: Dior Moulton Measurements Intervals [place] Rate: 100 P: 34 CT: 128 QRS: -38 QRSD: 73 T: 9 QT: 352 QTc: 455 Interpretive Statements SINUS TACHYCARDIA MARKED LEFT AXIS DEVIATION PATTERN CONSISTENT WITH PULMONARY DISEASE POSSIBLE RIGHT VENTRICULAR CONDUCTION DELAY Compared to ECG 06/08/2024 17:54:32 Sinus rhythm no longer present /store/S0/[id number].pdf
--- NOTE | 2024-06-15 12:55 | PC.NURSE ---
Pts HR went up to the 170-180s while laying in bed, pt states she felt her heart beating in her throat. bp 130/82. Dr. Mark ordered a stat EKG.
[2024-06-15] MEDS: ALPRazoLAM 0.25 MG TABLET 0.5 MG PO (20:34)
[2024-06-15] MEDS: traZODone HCL 50 MG TABLET 200 MG PO (20:34)
[2024-06-15] MEDS: SENNA TABLET 1 TAB PO (20:35)
[2024-06-16] VITALS (8 sets, daily range): BP systolic 120–134; BP diastolic 72–81; PULSE 77–93; RESP 14–97; TEMP 35.9–36.4; O2SAT 95–99; BMI 25.2
[2024-06-16] MEDS: LEVOTHYROXINE SODIUM 25 MCG TABLET 75 MCG PO (05:43)
[2024-06-16 06:18] LABS: Basophils % (Auto) 0 % (0-2.5); Eosinophils # (Auto) 0.2 Thou/mm3 (0.0-0.5); Eosinophils % (Auto) 4 % (0-10); Hematocrit 32.2 % (36.0-46.0); Hemoglobin 10.8 g/dL (12.0-16.0); Immature Granulocytes % (Auto) 0 % (0-0); Immature Granulocytes Auto 0.01 Thou/mm3 (0.00-0.00); Lymphocytes # (Auto) 1.5 Thou/mm3 (1.0-4.8); Lymphocytes % (Auto) 28 % (10-50); Mean Corpuscular HGB Conc 33.5 g/dl (31.0-37.0); Mean Corpuscular Hemoglobin 29.4 pg (25.0-35.0); Mean Corpuscular Volume 88 fL (80-100); Monocytes # (Auto) 0.5 Thou/mm3 (0.0-0.8); Monocytes % (Auto) 9 % (0-12); Neutrophils # (Auto) 3.1 Thou/mm3 (1.8-7.7); Neutrophils % (Auto) 58 % (37-80); Nucleated Red Blood Cell % 0 /100 WBC (0); Platelet Count 251 Thou/mm3 (140-440); RDW Standard Deviation 47.6 fL (36.4-46.3); Red Blood Count 3.67 Miln/mm3 (4.00-5.20); White Blood Count 5.2 Thou/mm3 (3.6-11.0)
[2024-06-16 06:56] LABS: Alanine Aminotransferase 42 U/L (10-49); Albumin, Serum 3.4 gm/dL (3.4-4.8); Albumin/Globulin Ratio 1.7 (1.2-2.2); Alkaline Phosphatase 109 U/L (46-116); Anion Gap 7 (7-16); Aspartate Amino Transferase 19 U/L (0-34); BUN/Creatinine Ratio 18 Ratio (12-20); Bilirubin,Total 0.3 mg/dL (0.3-1.2); Blood Urea Nitrogen 16 mg/dL (9-23); Calcium 8.6 mg/dL (8.3-10.6); Calcium (Corrected) 9.1 mg/dL (8.5-10.1); Carbon Dioxide 32.9 mMol/L (20.0-31.0); Chloride 103 mMol/L (98-107); Creatinine (Component) 0.9 mg/dL (0.6-1.3); Estimated Creatinine Clearance 48.5 mL/min (>60); Glucose 88 mg/dL (74-106); Magnesium 1.9 mg/dL (1.6-2.6); Osmolality,Calculated 285 (275-295); Potassium 4.3 mMol/L (3.4-5.1); Sodium 143 mMol/L (136-145); Total Protein 5.4 gm/dL (5.7-8.2); eGFR > 60 See Note
[2024-06-16] MEDS: ENOXAPARIN SOD INJ 40 MG/0.4 ML SYRINGE SC (08:36)
[2024-06-16] MEDS: THIAMINE INJ 100 MG/ML VIAL 2 ML 250 MG IV (08:36)
[2024-06-16] MEDS: FLUoxetine HCL 10 MG CAPSULE 40 MG PO (08:36)
[2024-06-16] MEDS: FOLIC ACID 1 MG TABLET PO (08:36)
[2024-06-16] MEDS: Magnesium Sulfate 1 gm Ivpb 1 GM/100 ML BAG IV (08:37)
[2024-06-16] MEDS: MECLIZINE HCL 25 MG TABLET PO (08:38)
--- NOTE | 2024-06-16 08:42 | PC.CC ---
Addendum entered by Ángel Douglas RN 06/16/24 19:54: 1414 Dr. Moulton updated me that he spoke to [facility] for peer to peer and they are not agreeable for transfer. Addendum entered by Ángel Douglas RN 06/16/24 13:03: 1300 called [facility] Bed control at [phone], spoke to Chantel for update. Chantel stated they are still waiting on discharge for bed availability. Original Note: [id number] received call from Redd at [facility]. He wants to know the direct number for Dr. Moulton for peer to peer. Called Dr. Moulton got the number and gave it to [facility].
--- NOTE | 2024-06-16 09:05 | PC.SS ---
Follow up note: Pt is higher level of care transfer.
--- NOTE | 2024-06-16 10:44 | CHAP ---
Patient expressed gratitude for visit and prayer.
--- NOTE | 2024-06-16 11:38 | PD.RESPRO ---
Documentation for date of: 06/16/24 Subjective Subjective Interval history: Patient was seen and examined by the bedside. No acute overnight events. Patient reports feeling better, improvement in balance, denies dizziness. Pending transfer for ERCP. Exam Vital Signs Temp Pulse Resp BP Pulse Ox O2 Del Method O2 Flow Rate 97.5 F 84 14 125/72 99 Room Air 1.5 06/16/24 08:00 06/16/24 08:03 06/16/24 08:03 06/16/24 08:00 06/16/24 08:00 06/16/24 08:00 06/15/24 16:00 Narrative Exam Physical Exam General: Awake and in no acute distress. Conversational. HEENT: Normocephalic, atraumatic, mucous membranes moist. Heart: Regular rate and rhythm, no murmurs. Lungs: Clear to auscultation with no wheezing or crackles. Abdomen: Soft, nondistended, nontender, positive bowel sounds. ?No guarding or rebound tenderness. Neurologic: Alert and oriented x3, no gross neurological deficit, and patient able to move all 4 extremities. Extremities: No edema. Skin: No rash or ecchymoses. Objective Labs 06/16/24 05:10 06/16/24 05:10 Labs: Laboratory Results - last 24 hr 06/16/24 05:10 WBC 5.2 RBC 3.67 L Hgb 10.8 L Hct 32.2 L MCV 88 MCH 29.4 MCHC 33.5 RDW Std Deviation 47.6 H Plt Count 251 Neut % (Auto) 58 Lymph % (Auto) 28 [place] % (Auto) 9 Eos % (Auto) 4 Baso % (Auto) 0 Neut # (Auto) 3.1 Lymph # (Auto) 1.5 [place] # (Auto) 0.5 Eos # (Auto) 0.2 Baso # (Auto) 0.0 Immature Gran # (Auto) 0.01 H Absolute Nucleated RBC 0.00 Immature Gran % 0 Nucleated RBC % 0 Sodium 143 Potassium 4.3 Chloride 103 Carbon Dioxide 32.9 H Anion Gap 7 BUN 16 Creatinine 0.9 Estim Creat Clear Calc 48.5 L eGFR > 60 BUN/Creatinine Ratio 18 Glucose 88 Calculated Osmolality 285 Calcium 8.6 Corrected Calcium 9.1 Magnesium 1.9 Total Bilirubin 0.3 AST 19 ALT 42 Alkaline Phosphatase 109 Total Protein 5.4 L Albumin 3.4 Globulin 2.0 L Albumin/Globulin Ratio 1.7 ABG Interpretation ABG results: 06/08/24 19:30 VBG pH 7.38 VBG pCO2 47 VBG pO2 46 VBG Base Excess 2 Quality Measures Quality Measures VTE prophylaxis (Lovenox ) Advance care planning discussed with:: other Assessment & Plan Assessment Current Active Medications: Generic Name Dose Route Start Last Admin Trade Name Freq PRN Reason Stop Dose Admin Acetaminophen 650 mg 06/08/24 21:14 06/15/24 09:52 Acetaminophen 325 Mg Tablet PO 07/08/24 21:13 650 mg Q6H PRN Administration Fever >100.3 or pain 1-3 Alprazolam 0.5 mg 06/14/24 21:00 06/15/24 20:34 Alprazolam 0.25 Mg Tablet PO 06/19/24 20:59 0.5 mg HS ALPHONSO Administration Enoxaparin Sodium 40 mg 06/09/24 09:00 06/16/24 08:36 Enoxaparin Sod Inj 40 Mg/0.4 Ml Syringe SC 06/23/24 08:59 40 mg QDAY ALPHONSO Administration Fluoxetine HCl 40 mg 06/09/24 09:00 06/16/24 08:36 Fluoxetine Hcl 10 Mg Capsule PO 07/09/24 08:59 40 mg QDAY ALPHONSO Administration Folic Acid 1 mg 06/09/24 09:00 06/16/24 08:36 Folic Acid 1 Mg Tablet PO 07/09/24 08:59 1 mg QDAY ALPHONSO Administration Ibuprofen 200 mg 06/10/24 16:29 06/14/24 07:22 Ibuprofen Tab 200 Mg Tablet PO 07/10/24 16:28 200 mg Q6HR PRN Administration Migraine Headache Levothyroxine Sodium 75 mcg 06/09/24 06:00 06/16/24 05:43 Levothyroxine Sodium 25 Mcg Tablet PO 07/09/24 05:59 75 mcg ACBR ALPHONSO Administration Meclizine HCl 25 mg 06/10/24 10:45 06/16/24 08:38 Meclizine Hcl 25 Mg Tablet PO 07/10/24 10:44 25 mg QDAY ALPHONSO Administration Ondansetron HCl 4 mg 06/08/24 21:14 06/12/24 19:44 Ondansetron Inj 2 Mg/Ml Inj 2 Ml IV 07/08/24 21:13 4 mg Q6H PRN Administration NAUSEA OR VOMITING Protocol Sennosides 1 tab 06/13/24 15:51 06/15/24 20:35 Senna Tablet PO 07/13/24 15:50 1 tab QDAY PRN Administration CONSTIPATION Protocol Thiamine HCl 250 mg 06/16/24 09:00 06/16/24 08:36 Thiamine Inj 100 Mg/Ml Vial 2 Ml IV 07/12/24 08:59 250 mg QDAY ALPHONSO Administration Trazodone HCl 200 mg 06/09/24 00:00 06/15/24 20:34 Trazodone Hcl 50 Mg Tablet PO 07/09/24 00:00 200 mg HS ALPHONSO Administration Plan Patient is a 73-year-old female with a previous medical history of hypothyroidism, anxiety, depression, IBS, fibromyalgia, alcohol abuse, multiple abdominal surgeries who was brought in to the ED by ambulance due to dizziness and syncopal episodes that started a day ago. She is pending transfer for ERCP. #Acute encephalopathy-resolved #Syncopal episodes #Ground level falls Multifactorial: metabolic vs hypothyroidism vs medication side effect Patient has a history of alcohol abuse. Utox was negative. In the ED she received IV thiamine and folate. Orthostatic vitals positive. TSH normal (1.95) MRI head negative for acute changes. Plan: - dicyclomine and hyoscyamine on hold for now - xanax in the lower dose 0.5mg daily - abstain from alcohol. - thiamine 500 mg PO TID - Folic acid 1 mg po qday - PT - meclazine 25mg daily for dizziness #Transaminitis #History of depression #History of anxiety #Hx hypothyroidism #Hypertension #Sacral fracture Plan of care discussed with attending Dr. stanford, PGY-[address] stanford and PGY-[address] stanford. Erinn Reece MD, PGY 1. Attending Provider Attestation/Addendum I personally seen and examined the patient at the bedside I agree with resident's findings, assessment and plan of care. Patient is neurologically stable for discharge on thiamine 100 mg a day and folic acid 1 mg a day. Will consider doing EMG nerve conduction study of both upper and lower extremities to evaluate for alcohol-related polyneuropathy contributing to imbalance and sensory loss in the extremities. She is waiting for bed at [facility] for evaluation of common bile duct pathology with the ERCP and further management.
--- NOTE | 2024-06-16 14:36 | ESDS_ITS ---
<Statement entered by Arya Mckinney MD - 06/16/24 22:20> Patient was seen and examined at bedside. Agree on the discharge plan for this patient. - Patient's plan and care discussed with my attending, Dr. Leno Mckinney MD Internal Medicine PGY-2 Planned Discharge Date 06/16/24 DS: Providers Provider Date of admission: 06/08/24 21:14 Primary care physician: Yamile Montilla MD Admitting Provider: Erinn Reece MD Attending Provider on Admission: Adal Burr MD Consults: 06/08/24 21:18 Consult to Neurology / Tele-Neurology Routine Comment: AMS, hx of alcohol abuse Consulting Provider: Jackson Rincon Referral Physical Therapy Routine Comment: Physician Instructions: 06/08/24 23:17 Consult to Orthopedic Routine Comment: sacral fracture Consulting Provider: Canelo Reardon 06/09/24 18:49 Referral Physical Therapy Routine Comment: Physician Instructions: 06/14/24 08:18 Referral - Solar Technician Routine Service Needed for Transfer: Gastroenterology Addl Comments:: MRCP consistent with biliary tract obstruction and abrupt termination of the CBD. No specific stones noted but unable to rule out at this time. Other differentials include stricture. GI Dr. Mcneill was consulted for possible ERCP. Stated that patient should be transferred. Further intervention should be managed at academic institution due to abdominal surgeries resulting in extensively altered GI anatomy. Patient and patient's son both agreed for transfer. Patient has had consistent, dull abdominal pain since the past 2-3 years without any ERCP completed. Attending Provider on DC: Adal Burr MD Discharging Provider: Adal Burr MD DS: Diagnosis Problem List Completed Was Problem List Reviewed/Reconciled?: Yes Hospital Course Hospital Course Hospital course: Jacqui is a 73 y/o female with PMHx hypothyroidism, anxiety, depression, IBS, fibromyalgia, alcohol abuse, multiple abdominal surgeries (~10) including gastroectomy who was admitted to [facility] on 06/08/2024 for acute encephalopathy and sacral falls and was later found to have extrahepatic biliary obstruction and abrupt termination distal CBD of seen on MRCP. She had come in with unremarkable vitals and was worked and was found to have a Hgb of 11.5, WBC of 7.0, VBG showed pCO2 of 47, sodium 142, potassium 3.7, HCO3, 26, BUN/Cr 15 and 0.9 respectively, Lactate 1.2, Troponin negative x1, BNP 19 and AST/ALT [address] unremarkable for acute hemorrhage or midline shift, CXR unremarkable, however Sacrum and Coccyx Xray showed acute nondisplaced fracture of third sacral segmenet. EKG showed NSR. She was then admitted for further workup and management of fall and encephalopathy. Ortho was consulted, Dr. Barrios, who had recommended conservative management and to follow up outpatient for sacral fracture. Neurology was consulted who recommended thiamine, folate and MRI of brain. MRI of brain did show mild chronic microvascular changes, however no acute pathology at the time. LFTs continued to uptrend for pt. US in april 2024 did show dilated CBD 12mm and therefore which MRCP was ordered during this hospitalization and showed extrahepatic biliary obstruction and abrupt termination of distal CBD. 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 GI in house was spoken with who had recommended transfer for pt for further work up. On June 15, 2024, pt was accepted to [facility] for transfer of higher level of care. Discharge Instructions: Follow up with PCP upon d/c Follow up with GI upon d/c Take Medicines as prescribed Return to ED if symptoms reappear or worsen #Extrahepatic billiary obstruction #Hx of jericho fundoplication #Hx of total gastrectomy #Acute encephalopathy-resolved #Syncopal episodes #Ground level falls #Transaminitis #History of depression #History of anxiety #Hx hypothyroidism #Hypertension #Sacral fracture Discharge summary was reviewed with my attending Dr. Leno Moulton, PGY-1 Time Spent with Patient Time attestation: Total time spent providing and/or coordinating discharge services: Time spent: Greater than 30 minutes Exam Vital Signs Temp Pulse Resp BP Pulse Ox O2 Del Method O2 Flow Rate 97.5 F 80 14 125/72 99 Room Air 1.5 06/16/24 12:06/16/24 12:06/16/24 12:06/16/24 12:06/16/24 12:00 06/16/24 12:06/16/24 12:00 Narrative Exam General: Elderly female, Awake and in no acute distress. Compliant. HEENT: Normocephalic, atraumatic, mucous membranes moist. Heart: Regular rate and rhythm, no murmurs. Lungs: Clear to auscultation with no wheezing or crackles. Abdomen: Soft, nondistended, some tenderness to deep palpation, positive bowel sounds. ?No guarding or rebound tenderness. Multiple abdominal surgery scars. Neurologic: Alert and oriented x3, no gross neurological deficit, and patient able to move all 4 extremities. Extremities: No edema. Skin: No rash or ecchymoses. Discharge Plan Plan Patient Disposition: er Other Facility Pt Being Transferred to: [facility] Prescriptions/Referrals Prescriptions/Med Rec: Continued lisinopril 5 mg Tablet 5 mg PO QDAY alprazolam 0.5 mg tablet 0.5 mg PO TID levothyroxine 75 mcg tablet 75 mcg PO QAM Patient Comments: TAKE 1 TABLET BY MOUTH EVERY DAY IN THE MORNING ON AN EMPTY STOMACH trazodone 100 mg tablet 200 mg PO HS Patient Comments: TAKE 2 TABLETS BY MOUTH EVERY DAY AT BEDTIME 90 fluoxetine 40 mg capsule PO DAILY Patient Comments: TAKE 1 CAPSULE BY MOUTH EVERY DAY FOR 90 DAYS dicyclomine 10 mg capsule See Rx Instructions PO .COMPLEX Patient Comments: TAKE 1 CAPSULE BY MOUTH UP TO 3 TIMES A DAY Rx Instructions: orally 10mg up to three times a day; Held buspirone 15 mg Tablet 15 mg PO BID Hold Instructions: see PCP Rx Instructions: 1 & 1/2 tab po bid. Referrals: Yamile Montilla MD [Primary Care Provider] - Patient/Caregiver Discharge Instructions Print Language: [place] Citizen Stand Alone Forms: Iliana Award Info., Patient Portal Info Letter Discharge Order Discharge Orders: Discharge (Routine); Ordered 06/15/24 Ordered By: Dior Moulton Quality Discharge Quality Measures VTE prophylaxis (Lovenox) Attestestation MD Attestation I have examined the patient, reviewed labs and imaging findings, discussed the case with the resident(s), and reviewed entered orders. I agree with the plan of care as outlined in this note. Time Spent: [address] Leno MD
[2024-06-16] MEDS: ACETAMINOPHEN 325 MG TABLET 650 MG PO (16:40)
[2024-06-16] MEDS: traZODone HCL 50 MG TABLET 200 MG PO (20:19)
[2024-06-16] MEDS: ALPRazoLAM 0.25 MG TABLET 0.5 MG PO (20:19)
--- NOTE | 2024-06-16 23:21 | PC.NURSE ---
notifed Dr. Velasquez of [facility] having a run of 7 beat pvc and rate of 140, not sustained. Patient is resting in bed asleep, asymptomatic
[2024-06-17] VITALS (9 sets, daily range): BP systolic 107–135; BP diastolic 70–83; PULSE 73–186; RESP 16–95; TEMP 36–36.5; O2SAT 94–99; BMI 25.2
[2024-06-17] MEDS: LEVOTHYROXINE SODIUM 25 MCG TABLET 75 MCG PO (05:03)
[2024-06-17 05:37] LABS: Basophils % (Auto) 1 % (0-2.5); Eosinophils # (Auto) 0.2 Thou/mm3 (0.0-0.5); Eosinophils % (Auto) 5 % (0-10); Hematocrit 30.7 % (36.0-46.0); Hemoglobin 10.2 g/dL (12.0-16.0); Immature Granulocytes % (Auto) 0 % (0-0); Immature Granulocytes Auto 0.01 Thou/mm3 (0.00-0.00); Lymphocytes # (Auto) 1.6 Thou/mm3 (1.0-4.8); Lymphocytes % (Auto) 37 % (10-50); Mean Corpuscular HGB Conc 33.2 g/dl (31.0-37.0); Mean Corpuscular Hemoglobin 29.3 pg (25.0-35.0); Mean Corpuscular Volume 88 fL (80-100); Monocytes # (Auto) 0.4 Thou/mm3 (0.0-0.8); Monocytes % (Auto) 9 % (0-12); Neutrophils # (Auto) 2.1 Thou/mm3 (1.8-7.7); Neutrophils % (Auto) 48 % (37-80); Nucleated Red Blood Cell % 0 /100 WBC (0); Platelet Count 213 Thou/mm3 (140-440); RDW Standard Deviation 47.5 fL (36.4-46.3); Red Blood Count 3.48 Miln/mm3 (4.00-5.20); White Blood Count 4.4 Thou/mm3 (3.6-11.0)
[2024-06-17 05:57] LABS: Alanine Aminotransferase 34 U/L (10-49); Albumin, Serum 3.4 gm/dL (3.4-4.8); Albumin/Globulin Ratio 1.7 (1.2-2.2); Alkaline Phosphatase 102 U/L (46-116); Anion Gap 7 (7-16); Aspartate Amino Transferase 20 U/L (0-34); BUN/Creatinine Ratio 24 Ratio (12-20); Bilirubin,Total 0.2 mg/dL (0.3-1.2); Blood Urea Nitrogen 19 mg/dL (9-23); Calcium 8.3 mg/dL (8.3-10.6); Calcium (Corrected) 8.8 mg/dL (8.5-10.1); Carbon Dioxide 31.8 mMol/L (20.0-31.0); Chloride 104 mMol/L (98-107); Creatinine (Component) 0.8 mg/dL (0.6-1.3); Estimated Creatinine Clearance 54.5 mL/min (>60); Glucose 90 mg/dL (74-106); Magnesium 2.1 mg/dL (1.6-2.6); Osmolality,Calculated 287 (275-295); Potassium 4.8 mMol/L (3.4-5.1); Sodium 143 mMol/L (136-145); Total Protein 5.4 gm/dL (5.7-8.2); eGFR > 60 See Note
[2024-06-17] MEDS: FLUoxetine HCL 10 MG CAPSULE 40 MG PO (08:32)
[2024-06-17] MEDS: MECLIZINE HCL 25 MG TABLET PO (08:32)
[2024-06-17] MEDS: FOLIC ACID 1 MG TABLET PO (08:32)
[2024-06-17] MEDS: ENOXAPARIN SOD INJ 40 MG/0.4 ML SYRINGE SC (08:32)
--- NOTE | 2024-06-17 12:43 | EKG_ITS ---
[facility] Test Date: 2024-06-17 Pat Name: NAYELY PERRY [facility] Bridge Expert: ANTHONY : 1950 Requested By: Dior Moulton Order Number: [id number] Reading MD: Dior Moulton Measurements Intervals [place] Rate: 114 P: 40 HI: 108 QRS: -42 QRSD: 85 T: 22 QT: 325 QTc: 448 Interpretive Statements SINUS TACHYCARDIA WITH SHORT HI INTERVAL MARKED LEFT AXIS DEVIATION Compared to ECG 06/15/2024 13:05:26 Short HI interval now present /store/S0/[id number].pdf
--- NOTE | 2024-06-17 13:48 | ESPR_ITS ---
<Statement entered by Arya Mckinney MD - 06/18/24 06:46> Patient was seen and examined at bedside. I agree on most of the assessment and plan of this patient. - Patient's plan and care discussed with my attending, Dr. Leno Mckinney MD Internal Medicine PGY-2 Documentation for date of: 06/17/24 Subjective Subjective Interval history: Patient examined at bedside today. No acute overnight events. Is wondering when she will get transferred. She has minimal abdominal pain at this time. No other complaints at this time Exam Vital Signs Temp Pulse Resp BP Pulse Ox O2 Del Method O2 Flow Rate 96.8 F 74 17 134/81 H 94 L Room Air 1.5 06/17/24 08:00 06/17/24 08:00 06/17/24 08:00 06/17/24 08:00 06/17/24 08:00 06/17/24 08:00 06/16/24 12:00 Narrative Exam General: Elderly female, Awake and in no acute distress. Compliant. HEENT: Normocephalic, atraumatic, mucous membranes moist. Heart: Regular rate and rhythm, no murmurs. Lungs: Clear to auscultation with no wheezing or crackles. Abdomen: Soft, nondistended, some tenderness to deep palpation, positive bowel sounds. ?No guarding or rebound tenderness. Multiple abdominal surgery scars. Neurologic: Alert and oriented x3, no gross neurological deficit, and patient able to move all 4 extremities. Extremities: No edema. Skin: No rash or ecchymoses. Objective Labs 06/18/24 06:19 06/18/24 06:19 Labs: Laboratory Results - last 24 hr 06/17/24 04:37 WBC 4.4 RBC 3.48 L Hgb 10.2 L Hct 30.7 L MCV 88 MCH 29.3 MCHC 33.2 RDW Std Deviation 47.5 H Plt Count 213 D Neut % (Auto) 48 Lymph % (Auto) 37 [place] % (Auto) 9 Eos % (Auto) 5 Baso % (Auto) 1 Neut # (Auto) 2.1 Lymph # (Auto) 1.6 [place] # (Auto) 0.4 Eos # (Auto) 0.2 Baso # (Auto) 0.0 Immature Gran # (Auto) 0.01 H Absolute Nucleated RBC 0.00 Immature Gran % 0 Nucleated RBC % 0 Sodium 143 Potassium 4.8 D Chloride 104 Carbon Dioxide 31.8 H Anion Gap 7 BUN 19 Creatinine 0.8 Estim Creat Clear Calc 54.5 L eGFR > 60 BUN/Creatinine Ratio 24 H Glucose 90 Calculated Osmolality 287 Calcium 8.3 Corrected Calcium 8.8 Magnesium 2.1 Total Bilirubin 0.2 L AST 20 ALT 34 Alkaline Phosphatase 102 Total Protein 5.4 L Albumin 3.4 Globulin 2.0 L Albumin/Globulin Ratio 1.7 ABG Interpretation ABG results: 06/08/24 19:30 VBG pH 7.38 VBG pCO2 47 VBG pO2 46 VBG Base Excess 2 Quality Measures Quality Measures VTE prophylaxis (Lovenox) Advance care planning discussed with:: patient Assessment & Plan Assessment Current Active Medications: Generic Name Dose Route Start Last Admin Trade Name Freq PRN Reason Stop Dose Admin Acetaminophen 650 mg 06/08/24 21:14 06/16/24 16:40 Acetaminophen 325 Mg Tablet PO 07/08/24 21:13 650 mg Q6H PRN Administration Fever >100.3 or pain 1-3 Alprazolam 0.5 mg 06/14/24 21:00 06/16/24 20:19 Alprazolam 0.25 Mg Tablet PO 06/19/24 20:59 0.5 mg HS ALPHONSO Administration Enoxaparin Sodium 40 mg 06/09/24 09:00 06/17/24 08:32 Enoxaparin Sod Inj 40 Mg/0.4 Ml Syringe SC 06/23/24 08:59 40 mg QDAY ALPHONSO Administration Fluoxetine HCl 40 mg 06/09/24 09:00 06/17/24 08:32 Fluoxetine Hcl 10 Mg Capsule PO 07/09/24 08:59 40 mg QDAY ALPHONSO Administration Folic Acid 1 mg 06/09/24 09:00 06/17/24 08:32 Folic Acid 1 Mg Tablet PO 07/09/24 08:59 1 mg QDAY ALPHONSO Administration Ibuprofen 200 mg 06/10/24 16:29 06/14/24 07:22 Ibuprofen Tab 200 Mg Tablet PO 07/10/24 16:28 200 mg Q6HR PRN Administration Migraine Headache Levothyroxine Sodium 75 mcg 06/09/24 06:00 06/17/24 05:03 Levothyroxine Sodium 25 Mcg Tablet PO 07/09/24 05:59 75 mcg ACBR ALPHONSO Administration Meclizine HCl 25 mg 06/10/24 10:45 06/17/24 08:32 Meclizine Hcl 25 Mg Tablet PO 07/10/24 10:44 25 mg QDAY ALPHONSO Administration Metoprolol Succinate 12.5 mg 06/17/24 14:00 Metoprolol Succinate Xl 25 Mg Tabcr PO 07/17/24 13:59 QDAY ALPHONSO Ondansetron HCl 4 mg 06/08/24 21:14 06/12/24 19:44 Ondansetron Inj 2 Mg/Ml Inj 2 Ml IV 07/08/24 21:13 4 mg Q6H PRN Administration NAUSEA OR VOMITING Protocol Sennosides 1 tab 06/13/24 15:51 06/15/24 20:35 Senna Tablet PO 07/13/24 15:50 1 tab QDAY PRN Administration CONSTIPATION Protocol Thiamine HCl 500 mg 06/17/24 14:00 Thiamine 100 Mg Tablet PO 07/17/24 13:59 TID ALPHONSO Trazodone HCl 200 mg 06/09/24 00:00 06/16/24 20:19 Trazodone Hcl 50 Mg Tablet PO 07/09/24 00:00 200 mg HS ALPHONSO Administration Plan Assessment Patient is a 73-year-old female with a previous medical history of hypothyroidism, anxiety, depression, IBS, fibromyalgia, alcohol abuse, multiple abdominal surgeries who was brought in to the ED by ambulance due to dizziness and syncopal episodes that started a day ago. She is going to be acute encephalopathy workup and management. #New onset SVT Rapid response was called today for patient experiencing heart rate of 185 and patient was symptomatic with palpitations Patient's electrolytes within normal limits Patient's heart rate came down with vagal maneuvers Patient had experienced a couple bouts of elevated heart rates in the 150s days prior EKG showed heart rate of 118 and had gone out of SVT Telemetry strip appears to be regular with him however P waves difficult to appreciate, likely SVT Adenosine not required at the time as patient's blood pressure was also stable and patient's heart rate went back to mild tachycardia Patient will likely need beta-julia and further workup Plan: ? Cardiology consulted, appreciate recs ? Metoprolol 12.5 XL daily ? Keep magnesium and potassium above 2 and 4 respectively ? Telemetry #Acute encephalopathy-resolved #Syncopal episodes #Ground level falls Multifactorial: metabolic vs hypothyroidism vs medication side effect Patient has a history of alcohol abuse. Utox was negative. In the ED she received IV thiamine and folate. Orthostatic vitals positive. TSH normal (1.95) MRI head negative for acute changes. Plan: - dicyclomine and hyoscyamine on hold for now - resumed xanax in the lower dose 0.5mg daily - neurology recs: no intervention. Patient to abstain from alcohol. - thiamine 500 mg PO TID - Folic acid 1 mg po qday - PT will reeavluate closer to wy. -started meclizine 25mg daily for dizziness #History of total gastrectomy #History of Zenia fundoplication #History of IBS #Transaminitis Liver u/s from 05/11/24 at last visit showed enlarged CBD 12mm. No gallbladder. LFTs/ALP slowly uptrending. MRCP consistent with biliary tract obstruction and abrupt termination of the CBD. No specific stones noted but unable to rule out at this time -transfer pending -daily CMP to monitor #History of depression #History of anxiety #Hx hypothyroidism Plan: - resumed home xanax in lower dose - resumed home fluoxetine - resumed home trazodone -levothyroxine 75mcg daily #Hypertension Takes lisinopril 5mg daily -Home blood pressure medication on hold for now. #Sacral fracture Sacrum and coccyx x-ray showed acute nondisplaced fracture of the third sacral segment. Plan: - ortho Dr. Sophie shelotns: okay to follow-up outpatient and continue full weightbearing activities - pain control #Health Maintenance Disposition: Telemetry DVT prophylaxis: Lovenox GI prophylaxis: None Diet: Cardiac CODE STATUS: Full code Patient seen and care discussed with my senior resident, Dr. Mckinney , and my attending physician, Dr. Leno Moulton, PGY-1 Attending Provider Attestation/Addendum I have examined the patient, reviewed labs and imaging findings, discussed the case with the resident(s), and reviewed entered orders. I agree with the plan of care as outlined in this note, with these additional summaries/recommendations: Patient seen at bedside. No acute overnight events. Patient accepted to [facility] for ERCP and pending transfer based off bed availability. She continues to endorse right upper quadrant pain. This afternoon patient had an episode of supraventricular tachycardia that terminated with vagal maneuvers. Heart rate now back within normal limits and we will start beta-julia and follow-up with cardiology. Dr. Leno MD
--- NOTE | 2024-06-17 13:48 | PD.RESEVENT ---
Documentation for date of: 06/17/24 Event Note Event Note: At around 1250, rapid response was called for patient as patient's heart rate went up to the 180s. Patient was examined and patient had stated that she had felt her heart racing as well. Blood pressure was stable systolic blood pressure in the 120s, and patient was saturating 98% on room air. Patient was not experiencing any chest pain or shortness of breath. On the telemetry box heart rate appeared to be in the 180s and rhythm appeared to be in SVT. Vagal maneuvers were initiated for the patient and patient's heart rate had come down to the 120s with primary vagal maneuvers. EKG was ordered in which it showed sinus tachycardia. Patient's electrolytes were within normal limits including potassium and magnesium above 4 and 2 respectively. Decision was made to start patient on beta-julia with cardiology consult. Patient seen and care discussed with my senior resident, Dr. Mckinney , and my attending physician, Dr. Leno Moulton, PGY-1
--- NOTE | 2024-06-17 13:56 | PC.CC ---
1356 spoke to Foreign at [facility] bed control and gave update on pt. Foreign stated still waiting for bed to open.
[2024-06-17] MEDS: METOPROLOL SUCCINATE XL 25 MG TABCR 12.5 MG PO (14:19)
[2024-06-17] MEDS: THIAMINE 100 MG TABLET 500 MG PO ×2 (14:20→22:03)
[2024-06-17] MEDS: IBUPROFEN TAB 200 MG TABLET PO (15:40)
[2024-06-17] MEDS: ACETAMINOPHEN 325 MG TABLET 650 MG PO (17:23)
[2024-06-17] MEDS: traZODone HCL 50 MG TABLET 200 MG PO (22:03)
[2024-06-17] MEDS: ALPRazoLAM 0.25 MG TABLET 0.5 MG PO (22:04)
--- NOTE | 2024-06-17 22:45 | ESCONSULT_ITS ---
RE: NAYELY PERRY : 1950 DATE OF CONSULTATION: 06/17/2024 CONSULTING PHYSICIANS: Hospitalist, internal medicine _. REASON FOR CONSULTATION: Evaluation of supraventricular tachycardia. HISTORY OF PRESENT ILLNESS: The patient is a 73-year-old lady with a longstanding history of hypertension, anxiety, hypothyroidism, history of recent hospitalization in 04/2024 a month ago for episode of chest pain, elevated troponin level following a stressful event of her friend passing away with stress-related myocardial infarction. She came to the hospital 9 days ago after she had fell, mechanically, accidental fall, suffered injuries and fracture of the vertebra. The patient is planned to be discharged; however, she developed today sudden onset of tachycardia, heart rate 160 beats per minute, appears to be AV node _ and with vagal maneuvers, the symptom has improved and back to normal sinus rhythm, sinus tachycardia, started on a low- dose beta-julia. She is feeling well. She states she has had these arrhythmias about 10-15 years ago when she was in her 40s and 50s. I did evaluate her several years ago for cardiac workup negative. Recent coronary angiogram a month ago was normal coronary arteries, normal left ventricular function. The patient is tolerating low-dose beta-julia well. So far, she is feeling okay. No further arrhythmias. There was only one episode of AV robson reentrant tachycardia lasted several minutes. ALLERGIES: NONE. MEDICATIONS: She normally takes some anxiety medication at home, levothyroxine 75 mcg daily, lisinopril 5 mg daily. PAST MEDICAL HISTORY: Hypertension, hypothyroidism, anxiety. SOCIAL HISTORY: The patient is . She lost her a year ago since then she is grieving loss of , also a friend who recently, caused her a lot of stress and a stress-induced myocardial infarction about a month ago. SOCIAL HISTORY: The patient does not smoke, but she does drink regularly. FAMILY HISTORY: Positive for cardiovascular system. REVIEW OF SYSTEMS: Cardiovascular: Episodes of occasional palpitations, but no frequent episodes of SVT. This is a first episode since several years. Gastrointestinal: No history of nausea or vomiting. PHYSICAL EXAMINATION: General: Well-nourished pleasant thin built female. Alert, awake in no acute distress. Vital Signs: Blood pressure 107/70, pulse rate is 70, respirations 16, temperature normal. HEENT: Head is atraumatic, normocephalic. Eyes normal. Ears normal. Neck: No JVD. Carotid pulses felt. There are no bruits. Heart: S1, S2 regular. No Chest: Symmetrical. Lungs: Clear. No rales or rhonchi. gallops or murmurs. Abdomen: Thin and soft. Extremities: No edema. /Rectal: Not performed. _ echocardiogram showed sinus rhythm within normal limits. Rhythm strip does show evidence of AV robson re-entry type of narrow supraventricular tachycardia with regular rhythm. Appears to be AVNRT. ASSESSMENT: 1. Paroxysmal episode of AVNRT, supraventricular tachycardia. 2. Negative coronary angiogram with history of recent troponin elevation with NSTEMI possibly stress-induced myocardial infarction with normal coronary arteries. 3. Hypothyroidism. 4. Anxiety and depression. RECOMMENDATIONS: Recommended the patient to report any frequent episodes of SVT. If there is increased frequency of SVT, she is a candidate for ablation procedure. Low-dose beta-julia appears to be appropriate as long as she can tolerate with her blood pressure. We can discharge her home on low-dose beta blockers, 25 mg metoprolol succinate daily. I will reevaluate her in my office in 2-3 weeks following discharge. The patient is well known to me in the past as well and if she has frequent episodes of AVNRT, I will refer her to the rolled seat trimmer. DT: 21:13:40 TT: 22:03:00 Ref: [id number] - TID: [id number] MTDD
--- NOTE | 2024-06-17 23:43 | PD.VPROG1 ---
Telemedicine visit statement This visit was conducted with the use of interactive audio and video telecommunications system that permits real time communication between the patient and the provider. Patient's verbal consent for virtual visit was obtained on 06/17/24 at 2343. Documentation for date of: 06/17/24 Subjective Subjective Interval history: Patient is in telemetry. No new symptoms reported. Continues to complain of feeling tired, fatigued and generalized weakness. With persistent abdominal pain and elevated liver enzymes, secondary to extrahepatic biliary obstruction, GI recommended transfer to get ERCP and further surgical intervention. Patient got accepted to [facility] and is waiting for a bed. Virtual exam Vital Signs Temp Pulse Resp BP Pulse Ox O2 Del Method O2 Flow Rate 97.7 F 73 16 107/70 97 Room Air 1.5 06/17/24 20:00 06/17/24 20:00 06/17/24 20:00 06/17/24 20:00 06/17/24 20:00 06/17/24 20:00 06/16/24 12:00 Objective Labs 06/17/24 04:37 06/17/24 04:37 Labs: Laboratory Results - last 24 hr 06/17/24 04:37 WBC 4.4 RBC 3.48 L Hgb 10.2 L Hct 30.7 L MCV 88 MCH 29.3 MCHC 33.2 RDW Std Deviation 47.5 H Plt Count 213 D Neut % (Auto) 48 Lymph % (Auto) 37 [place] % (Auto) 9 Eos % (Auto) 5 Baso % (Auto) 1 Neut # (Auto) 2.1 Lymph # (Auto) 1.6 [place] # (Auto) 0.4 Eos # (Auto) 0.2 Baso # (Auto) 0.0 Immature Gran # (Auto) 0.01 H Absolute Nucleated RBC 0.00 Immature Gran % 0 Nucleated RBC % 0 Sodium 143 Potassium 4.8 D Chloride 104 Carbon Dioxide 31.8 H Anion Gap 7 BUN 19 Creatinine 0.8 Estim Creat Clear Calc 54.5 L eGFR > 60 BUN/Creatinine Ratio 24 H Glucose 90 Calculated Osmolality 287 Calcium 8.3 Corrected Calcium 8.8 Magnesium 2.1 Total Bilirubin 0.2 L AST 20 ALT 34 Alkaline Phosphatase 102 Total Protein 5.4 L Albumin 3.4 Globulin 2.0 L Albumin/Globulin Ratio 1.7 ABG Interpretation ABG results: 06/08/24 19:30 VBG pH 7.38 VBG pCO2 47 VBG pO2 46 VBG Base Excess 2 Assessment & Plan Problem List (1) Altered mental status: Status: Resolved Assessment and plan: Patient is back to baseline. Reassurance given to the patient regarding the MRI brain findings: Mild chronic white matter changes not significant. No cerebellar or cerebral atrophy Advised strongly about the importance of complete alcohol cessation to prevent long-term complications from alcoholism (2) Sacral fracture, closed: Status: Acute Assessment and plan: From a recent fall sustained sacral fracture X-ray showed findings suspicious for acute nondisplaced fracture third sacral segment Use donut cushion
[2024-06-18] VITALS (8 sets, daily range): BP systolic 90–126; BP diastolic 57–74; PULSE 69–104; RESP 17–97; TEMP 36.1–36.4; O2SAT 93–95; BMI 25.0
[2024-06-18] MEDS: THIAMINE 100 MG TABLET 500 MG PO (05:27)
[2024-06-18] MEDS: LEVOTHYROXINE SODIUM 25 MCG TABLET 75 MCG PO (05:27)
[2024-06-18 07:14] LABS: Alanine Aminotransferase 28 U/L (10-49); Albumin, Serum 3.4 gm/dL (3.4-4.8); Albumin/Globulin Ratio 1.7 (1.2-2.2); Alkaline Phosphatase 100 U/L (46-116); Anion Gap 6 (7-16); Aspartate Amino Transferase 21 U/L (0-34); BUN/Creatinine Ratio 19 Ratio (12-20); Basophils # (Auto) 0.1 Thou/mm3 (0.0-0.2); Basophils % (Auto) 1 % (0-2.5); Bilirubin,Total 0.3 mg/dL (0.3-1.2); Blood Urea Nitrogen 17 mg/dL (9-23); Calcium 8.4 mg/dL (8.3-10.6); Calcium (Corrected) 8.9 mg/dL (8.5-10.1); Carbon Dioxide 30.7 mMol/L (20.0-31.0); Chloride 105 mMol/L (98-107); Creatinine (Component) 0.9 mg/dL (0.6-1.3); Eosinophils # (Auto) 0.3 Thou/mm3 (0.0-0.5); Eosinophils % (Auto) 6 % (0-10); Estimated Creatinine Clearance 48.3 mL/min (>60); Glucose 93 mg/dL (74-106); Hematocrit 32.3 % (36.0-46.0); Hemoglobin 10.5 g/dL (12.0-16.0); Immature Granulocytes % (Auto) 0 % (0-0); Lymphocytes # (Auto) 1.6 Thou/mm3 (1.0-4.8); Lymphocytes % (Auto) 37 % (10-50); Mean Corpuscular HGB Conc 32.5 g/dl (31.0-37.0); Mean Corpuscular Hemoglobin 29.4 pg (25.0-35.0); Mean Corpuscular Volume 91 fL (80-100); Monocytes # (Auto) 0.4 Thou/mm3 (0.0-0.8); Monocytes % (Auto) 10 % (0-12); Neutrophils % (Auto) 46 % (37-80); Nucleated Red Blood Cell % 0 /100 WBC (0); Osmolality,Calculated 284 (275-295); Platelet Count 277 Thou/mm3 (140-440); Potassium 4.6 mMol/L (3.4-5.1); RDW Standard Deviation 47.9 fL (36.4-46.3); Red Blood Count 3.57 Miln/mm3 (4.00-5.20); Sodium 142 mMol/L (136-145); Total Protein 5.4 gm/dL (5.7-8.2); White Blood Count 4.3 Thou/mm3 (3.6-11.0); eGFR > 60 See Note
[2024-06-18] MEDS: MECLIZINE HCL 25 MG TABLET PO (08:08)
[2024-06-18] MEDS: METOPROLOL SUCCINATE XL 25 MG TABCR 12.5 MG PO (08:08)
[2024-06-18] MEDS: ENOXAPARIN SOD INJ 40 MG/0.4 ML SYRINGE SC (08:08)
[2024-06-18] MEDS: FLUoxetine HCL 10 MG CAPSULE 40 MG PO (08:08)
--- NOTE | 2024-06-18 08:20 | PC.CC ---
Addendum entered by Ángel Douglas RN 06/18/24 16:05: 1604 called [facility] bed control, spoke to [facility] and informed new steel pickler time is 1830. Addendum entered by Ángel Douglas RN 06/18/24 16:01: 1559 called and informed bedside nurse new steel pickler time is 1830. Addendum entered by Ángel Douglas RN 06/18/24 15:58: 1554 received call from [employer] that they want to push the steel pickler time. New steel pickler time is 1830. Informed ICU charge nurse. Addendum entered by Ángel Douglas RN 06/18/24 15:36: 1535 called [facility] bed control, spoke to [facility] and informed steel pickler time is 1730. Addendum entered by Ángel Douglas RN 06/18/24 15:34: 1529 sent paperwork to [facility] through [employer] Called [facility], spoke to and setup the transport. engineering group leader time is 1730. 1515 transfer packet is complete with CD inside including all signatures. Notified bedside nurse of the transfer packet and bedside nurse already gave the report. Addendum entered by Ángel Douglas RN 06/18/24 14:40: 1432 called [facility] bed control, spoke to [facility] and got accepting information. Pt is going to [facility]. Address [address] [place] [address]. 5 [facility] Room 5260. Accepted by Cristofer Mcbride. 1428 received call from bedside nurse that she received a call from [facility] that they have the bed. She stated she already gave report to the nurse. Addendum entered by Ángel Douglas RN 06/18/24 09:49: 0949 images pushed over to [facility] via [employer]. Addendum entered by Ángel Douglas RN 06/18/24 09:47: 0947 clinicals faxed to [facility]. Addendum entered by Ángel Douglas RN 06/18/24 09:17: 0910 received call from Alana at [facility] and initiated the transfer. She stated she will send the email for acknowledgement, I can either upload clinicals on email or fax it, either is fine and the nurse will give me a call back. Addendum entered by Ángel Douglas RN 06/18/24 08:47: 0845 received call from Boris with [facility] that transfer request is declined due to capacity. Addendum entered by Ángel Douglas RN 06/18/24 08:39: 0838 faxed face sheet to [facility]. Addendum entered by Ángel Douglas RN 06/18/24 08:38: 0829 called [facility], spoke to Boris and initiated the transfer. Boris stated just to fax the face sheet. Original Note: 08 called [facility] to initate the transfer, left VM.
[2024-06-18] MEDS: ACETAMINOPHEN 325 MG TABLET 650 MG PO (09:35)
--- NOTE | 2024-06-18 11:06 | PD.RESPRO ---
Documentation for date of: 06/18/24 Exam Vital Signs Temp Pulse Resp BP Pulse Ox O2 Del Method O2 Flow Rate 97.4 F 104 H 24 H 106/57 L 93 L Room Air 1.5 06/18/24 08:00 06/18/24 10:53 06/18/24 10:53 06/18/24 08:08 06/18/24 08:00 06/18/24 08:00 06/16/24 12:00 Objective Labs 06/18/24 06:19 06/18/24 06:19 Labs: Laboratory Results - last 24 hr 06/18/24 06:19 WBC 4.3 RBC 3.57 L Hgb 10.5 L Hct 32.3 L MCV 91 MCH 29.4 MCHC 32.5 RDW Std Deviation 47.9 H Plt Count 277 D Neut % (Auto) 46 Lymph % (Auto) 37 Gulf % (Auto) 10 Eos % (Auto) 6 Baso % (Auto) 1 Neut # (Auto) 2.0 Lymph # (Auto) 1.6 Gulf # (Auto) 0.4 Eos # (Auto) 0.3 Baso # (Auto) 0.1 Immature Gran # (Auto) 0.00 Absolute Nucleated RBC 0.00 Immature Gran % 0 Nucleated RBC % 0 Sodium 142 Potassium 4.6 Chloride 105 Carbon Dioxide 30.7 Anion Gap 6 L BUN 17 Creatinine 0.9 Estim Creat Clear Calc 48.3 L eGFR > 60 BUN/Creatinine Ratio 19 Glucose 93 Calculated Osmolality 284 Calcium 8.4 Corrected Calcium 8.9 Magnesium 2.0 Total Bilirubin 0.3 AST 21 ALT 28 Alkaline Phosphatase 100 Total Protein 5.4 L Albumin 3.4 Globulin 2.0 L Albumin/Globulin Ratio 1.7 ABG Interpretation ABG results: 06/08/24 19:30 VBG pH 7.38 VBG pCO2 47 VBG pO2 46 VBG Base Excess 2 Quality Measures Quality Measures VTE prophylaxis (Lovenox) Assessment & Plan Assessment Current Active Medications: Generic Name Dose Route Start Last Admin Trade Name Freq PRN Reason Stop Dose Admin Acetaminophen 650 mg 06/08/24 21:14 06/18/24 09:35 Acetaminophen 325 Mg Tablet PO 07/08/24 21:13 650 mg Q6H PRN Administration Fever >100.3 or pain 1-3 Alprazolam 0.5 mg 06/14/24 21:00 06/17/24 22:04 Alprazolam 0.25 Mg Tablet PO 06/19/24 20:59 0.5 mg HS ALPHONSO Administration Enoxaparin Sodium 40 mg 06/09/24 09:00 06/18/24 08:08 Enoxaparin Sod Inj 40 Mg/0.4 Ml Syringe SC 06/23/24 08:59 40 mg QDAY ALPHONSO Administration Fluoxetine HCl 40 mg 06/09/24 09:00 06/18/24 08:08 Fluoxetine Hcl 10 Mg Capsule PO 07/09/24 08:59 40 mg QDAY ALPHONSO Administration Ibuprofen 200 mg 06/10/24 16:29 06/17/24 15:40 Ibuprofen Tab 200 Mg Tablet PO 07/10/24 16:28 200 mg Q6HR PRN Administration Migraine Headache Levothyroxine Sodium 75 mcg 06/09/24 06:00 06/18/24 05:27 Levothyroxine Sodium 25 Mcg Tablet PO 07/09/24 05:59 75 mcg ACBR ALPHONSO Administration Meclizine HCl 25 mg 06/10/24 10:45 06/18/24 08:08 Meclizine Hcl 25 Mg Tablet PO 07/10/24 10:44 25 mg QDAY ALPHONSO Administration Metoprolol Succinate 12.5 mg 06/17/24 14:00 06/18/24 08:08 Metoprolol Succinate Xl 25 Mg Tabcr PO 07/17/24 13:59 12.5 mg QDAY ALPHONSO Administration Ondansetron HCl 4 mg 06/08/24 21:14 06/12/24 19:44 Ondansetron Inj 2 Mg/Ml Inj 2 Ml IV 07/08/24 21:13 4 mg Q6H PRN Administration NAUSEA OR VOMITING Protocol Sennosides 1 tab 06/13/24 15:51 06/15/24 20:35 Senna Tablet PO 07/13/24 15:50 1 tab QDAY PRN Administration CONSTIPATION Protocol Trazodone HCl 200 mg 06/09/24 00:00 06/17/24 22:03 Trazodone Hcl 50 Mg Tablet PO 07/09/24 00:00 200 mg HS ALPHONSO Administration
[2024-06-18] MEDS: KETOROLAC INJ 30 MG/ML VIAL 15 MG IVP (11:25)
--- NOTE | 2024-06-18 14:00 | PC.NURSE ---
Recieved phone call from Maria T at [facility] transfer center (phone# [phone]), they have a bed available for our pt. 5 [facility] room 5260 Updated [facility] with most recent clinical information, was transferred to [facility] RN (phone# [phone]) that will be receiving pt to give her report, will call back with ETA once it is available.
--- NOTE | 2024-06-18 14:53 | PD.RESDS ---
Planned Discharge Date 06/18/24 DS: Providers Provider Date of admission: 06/08/24 21:14 Primary care physician: Yamile Montilla MD Admitting Provider: Erinn Reece MD Attending Provider on Admission: Adal Burr MD Consults: 06/08/24 21:18 Consult to Neurology / Tele-Neurology Routine Comment: AMS, hx of alcohol abuse Consulting Provider: Jackson Rincon Referral Physical Therapy Routine Comment: Physician Instructions: 06/08/24 23:17 Consult to Orthopedic Routine Comment: sacral fracture Consulting Provider: Canelo Reardon 06/09/24 18:49 Referral Physical Therapy Routine Comment: Physician Instructions: 06/14/24 08:18 Referral - Quality Assurance Intern Routine Service Needed for Transfer: Gastroenterology Addl Comments:: MRCP consistent with biliary tract obstruction and abrupt termination of the CBD. No specific stones noted but unable to rule out at this time. Other differentials include stricture. GI Dr. Mcneill was consulted for possible ERCP. Stated that patient should be transferred. [facility] due to abdominal surgeries resulting in extensively altered GI anatomy. Patient and patient's son both agreed for transfer. Patient has had consistent, dull abdominal pain since the past 2-3 years without any ERCP completed. 06/17/24 13:52 Consult to Cardiology Routine Comment: SVT Consulting Provider: Sharron Glez Attending Provider on DC: Adal Burr MD Discharging Provider: Adal Burr MD DS: Diagnosis Problem List Completed Was Problem List Reviewed/Reconciled?: Yes Hospital Course Hospital Course Hospital course: Jacqui is a 73 y/o female with PMHx hypothyroidism, anxiety, depression, IBS, fibromyalgia, alcohol abuse, multiple abdominal surgeries (~10) including gastroectomy who was admitted to [facility] on 06/08/2024 for acute encephalopathy and sacral falls and was later found to have extrahepatic biliary obstruction and abrupt termination distal CBD of seen on MRCP. She had come in with unremarkable vitals and was worked and was found to have a Hgb of 11.5, WBC of 7.0, VBG showed pCO2 of 47, sodium 142, potassium 3.7, HCO3, 26, BUN/Cr 15 and 0.9 respectively, Lactate 1.2, Troponin negative x1, BNP 19 and AST/ALT [address] unremarkable for acute hemorrhage or midline shift, CXR unremarkable, however Sacrum and Coccyx Xray showed acute nondisplaced fracture of third sacral segmenet. EKG showed NSR. She was then admitted for further workup and management of fall and encephalopathy. Ortho was consulted, Dr. Barrios, who had recommended conservative management and to follow up outpatient for sacral fracture. Neurology was consulted who recommended thiamine, folate and MRI of brain. MRI of brain did show mild chronic microvascular changes, however no acute pathology at the time. LFTs continued to uptrend for pt. US in april 2024 did show dilated CBD 12mm and therefore which MRCP was ordered during this hospitalization and showed extrahepatic biliary obstruction and abrupt termination of distal CBD. 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 GI in house was spoken with who had recommended transfer for pt for further work up. On June 15, 2024, pt was accepted to [facility] for transfer of higher level of care. On Jun 17 2024, rapid response was called for patient as she went into SVT, heart rate 185, blood pressure stable, rate improved with vagal maneuvers and was started on low-dose metoprolol XL 12.5 mg. Electrician Shop, Dr. Glez, had recommended her to follow-up outpatient for possible ablation procedure to be done outpatient to continue beta-julia. Discharge Instructions: Follow up with PCP upon d/c Follow up with GI upon d/c Take Medicines as prescribed Return to ED if symptoms reappear or worsen Follow-up with business control manager within 1 week of discharge Hold your Blood pressure medicine, Lisinopril as you need to start a Beta julia medicine for your heart rate as this could also further lower your blood pressure #Extrahepatic billiary obstruction #Hx of jericho fundoplication #Hx of total gastrectomy #Acute encephalopathy-resolved #Syncopal episodes #Ground level falls #Transaminitis #History of depression #History of anxiety #Hx hypothyroidism #Hypertension #Sacral fracture Discharge summary was reviewed with my attending Dr. Leno Moulton, PGY-1 Time Spent with Patient Time attestation: Total time spent providing and/or coordinating discharge services: Time spent: Greater than 30 minutes Exam Vital Signs Temp Pulse Resp BP Pulse Ox O2 Del Method O2 Flow Rate 97.6 F 70 18 90/63 93 L Nasal Cannula 1.5 06/18/24 12:00 06/18/24 12:00 06/18/24 12:00 06/18/24 12:00 06/18/24 12:06/18/24 12:06/16/24 12:00 Narrative Exam General: Elderly female, Awake and in no acute distress. Compliant. HEENT: Normocephalic, atraumatic, mucous membranes moist. Heart: Regular rate and rhythm, no murmurs. Lungs: Clear to auscultation with no wheezing or crackles. Abdomen: Soft, nondistended, some tenderness to deep palpation, positive bowel sounds. ?No guarding or rebound tenderness. Multiple abdominal surgery scars. Neurologic: Alert and oriented x3, no gross neurological deficit, and patient able to move all 4 extremities. Extremities: No edema. Skin: No rash or ecchymoses. Discharge Plan Plan Patient Disposition: [facility] Other Facility Pt Being Transferred to: [facility] Patient condition on transfer: Stable Care Plan Goals: Discharge Instructions: Follow up with PCP upon d/c Follow up with GI upon d/c Take Medicines as prescribed Return to ED if symptoms reappear or worsen Follow-up with business control manager within 1 week of discharge Hold your Blood pressure medicine, Lisinopril as you need to start a Beta julia medicine for your heart rate as this could also further lower your blood pressure Prescriptions/Referrals Prescriptions/Med Rec: Continued alprazolam 0.5 mg tablet 0.5 mg PO TID levothyroxine 75 mcg tablet 75 mcg PO QAM Patient Comments: TAKE 1 TABLET BY MOUTH EVERY DAY IN THE MORNING ON AN EMPTY STOMACH trazodone 100 mg tablet 200 mg PO HS Patient Comments: TAKE 2 TABLETS BY MOUTH EVERY DAY AT BEDTIME 90 fluoxetine 40 mg capsule PO DAILY Patient Comments: TAKE 1 CAPSULE BY MOUTH EVERY DAY FOR 90 DAYS dicyclomine 10 mg capsule See Rx Instructions PO .COMPLEX Patient Comments: TAKE 1 CAPSULE BY MOUTH UP TO 3 TIMES A DAY Rx Instructions: orally 10mg up to three times a day; Held buspirone 15 mg Tablet 15 mg PO BID Hold Instructions: see PCP Rx Instructions: 1 & 1/2 tab po bid. lisinopril 5 mg Tablet 5 mg PO QDAY Hold Instructions: see PCP, will need to be on BB before consider MODESTO/ARB due to tachycardia, Referrals: Yamile Montilla MD [Primary Care Provider] - Patient/Caregiver Discharge Instructions Discharge Activity: activity as tolerated Education Materials: Understanding the Pain Response, Back Safety: Basics of Good Posture, Tailbone (Coccyx) Fracture Print Language: Montserratian Stand Alone Forms: Iliana Award Info., Patient Portal Info Letter Discharge Order Discharge Orders: Discharge (Routine); Ordered 06/15/24 Ordered By: Dior Moulton Quality Discharge Quality Measures VTE prophylaxis (Lovenox) Attestestation MD Attestation I have examined the patient, reviewed labs and imaging findings, discussed the case with the resident(s), and reviewed entered orders. I agree with the plan of care as outlined in this note. Time Spent: [address] Leno MD
--- NOTE | 2024-06-18 16:07 | PC.NURSE ---
Called Maria T at [facility] transfer center and Chanelle MCGREGOR at [facility] to give them transport ETA of 1830 and updated vital signs 97.0 124/69 74 18 93% on RA
--- NOTE | 2024-06-18 18:31 | ESPR_ITS ---
RE: JACQUI MANZO : 1950 DATE OF SERVICE: 06/18/2024 SUBJECTIVE: Jacqui Manzo was admitted to hospital with multiple problems, fell and suffered some back problem and fracture, doing much better now. SVT episode is controlled. She has no further episodes of SVT. She has tolerated low-dose beta-julia well. So far not having any chest pain or shortness of breath. PHYSICAL EXAMINATION: Vital Signs: Blood pressure 124/69 and pulse 74. Neck: Supple. Lungs: Decreased breath sounds. No rales or rhonchi. Heart: S1 and S2 regular. No gallops. Abdomen: Thin and soft. Extremities: No edema. IMPRESSION: 1. Episode of supraventricular tachycardia, resolved, infrequent episodes. 2. Palpitations, stable. RECOMMENDATIONS: Continue low-dose beta-julia. No need for any antiarrhythmic drug therapy. I recommended her to see me for a follow-up in 1-2 weeks following discharge and I will monitor arrhythmias closely. She may require ablation procedure if she has frequent episodes of SVT and AVNRT episodes. DT: 17:44:59 TT: 18:30:00 Ref: [id number] - TID: [id number]
== END 2024-06-18 17:53 | disposition other institution (70) | DRG 963 ==
LOC: SERX 20:47 → SERHOLD 21:49 → S2NX 06-09 01:20
PROVIDERS: Emergency Medicine; Emergency Provider Emergency Medicine; PCP Family Medicine; Visit Provider Student in an Organized Health Care Education/Training Program
DX: S32.10XA Unspecified fracture of sacrum, initial encounter for closed fracture (principal); K83.1 Obstruction of bile duct; S06.9X9A Unspecified intracranial injury with loss of consciousness of unspecified duration, initial encounter; E51.2 Wernicke's encephalopathy; N39.0 Urinary tract infection, site not specified; I47.19 Other supraventricular tachycardia; K58.9 Irritable bowel syndrome, unspecified; F10.10 Alcohol abuse, uncomplicated; F41.9 Anxiety disorder, unspecified; F32.A Depression, unspecified; M79.7 Fibromyalgia; E03.9 Hypothyroidism, unspecified; R29.6 Repeated falls; I10 Essential (primary) hypertension; R55 Syncope and collapse; W18.30XA Fall on same level, unspecified, initial encounter; Y92.009 Unspecified place in unspecified non-institutional (private) residence as the place of occurrence of the external cause; Z63.4 Disappearance and death of family member; Z79.899 Other long term (current) drug therapy; Z90.3 Acquired absence of stomach [part of]; I25.2 Old myocardial infarction; Z88.0 Allergy status to penicillin
CPT/HCPCS: 36415; 70450; 70551; 71045; 72220; 80053; 80307; 80320; 81001; 82140; 82607; 82728; 82803; 83540; 83550; 83605; 83690; 83735; 83880; 84100; 84439; 84443; 84484; 85025; 85610; 85730; 87040; 87077; 87081; 87186; 93005; 94762; 95816; 97162; 99285; J0696; J1650; J1885; J2405; J3411; J3475; J3490; J7040; J7050; S8037; 74181; A9270; G0480

== ENCOUNTER 2024-12-20 08:58 | Outpatient (AMB) | payer MEDICARE, BC, SELFPAY ==
--- NOTE | 2024-12-20 09:20 | GYNCLNT_ITS ---
Vital Signs 12/20/24 09:21 Height 1.57 m Height Method Stated Weight 61.462 kg Weight Measurement Method Standing Scale BMI 24.7 BP 121/75 Blood Pressure Source Automatic Cuff Blood Pressure Location Left Upper Arm Position Sitting Respiration 18 Pulse 95 Pulse Source Monitor Temp 97.9 F Temp Source Oral Pulse Oximetry (%) 97 Oxygen Delivery Method Room Air Allergies/Home Meds Allergies & Medications Allergies Penicillins Allergy (Mild, Verified 12/20/24 09:26) Rash Medication Reconciliation buspirone 15 mg tablet 15 mg PO BID 06/27/19 [History Confirmed 12/20/24] Held on 06/15/24. Instructions: see PCP alprazolam 0.5 mg tablet 0.5 mg PO TID 03/03/21 [History Confirmed 12/20/24] lisinopril 5 mg tablet 5 mg PO QDAY 07/31/21 [History Confirmed 12/20/24] Held on 06/18/24. Instructions: see PCP, will need to be on BB before consider MODESTO/ARB due to tachycardia, levothyroxine 75 mcg tablet 75 mcg PO QAM 03/12/22 [History Confirmed 12/20/24] trazodone 100 mg tablet 200 mg PO HS 03/12/22 [History Confirmed 12/20/24] dicyclomine 10 mg capsule See Rx Instructions PO .COMPLEX 06/08/24 [History Confirmed 12/20/24] fluoxetine 40 mg capsule mg PO DAILY 06/08/24 [History Confirmed 12/20/24] estradiol 0.01% (0.1 mg/gram) vaginal cream 1 g vaginal Q3D 30 days #42.5 grams 12/20/24 [Rx] Intake Visit Data Collection New Patient or Established: Established Patient (seen at [facility] within 3 years) Reason for Visit:: BLADDER CONCERNS Seen by Clinical Staff ONLY (RN/MA): No Salon Assistant Required: No Do You Feel Safe at Home: Yes Authorities Contacted: N/A PCP or OBGYN visit in last 3 months: Yes Hx Now: No Are you currently on any form of Control: No Pain Present Currently: No Pain Scale Used: Blackwood-Hutton/Numerical Pain scale:: 0 Smoking Status Smoking Status: Never smoker Immunizations Flu Vaccine in the Last 12 Months: Yes Flu Vaccine Exclusion Criteria: Already Received Pharmacy Assistant history Pharmacy Assistant History Menopausal: Yes If menopausal, at what age did it occur: 57 Currently sexually active: No If not currently sexually active, have you ever been sexually active: Yes [employer]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 1. Little interest or pleasure in doing things: not at all 2. Feeling down, depressed, or hopeless: not at all Total score: 0 PHQ-9 3. Trouble falling or staying asleep, or sleeping too much: Not at all 4. Feeling tired or having little energy: Not at all 5. Poor appetite or overeating: Not at all 6. Feeling bad about yourself - or that you are a failure or have let yourself or your family down: Not at all 7. Trouble concentrating on things, such as reading the newspaper or watching television: Not at all 8. Moving or speaking so slowly that other people could have noticed? - Or the opposite - being so fidgety or restless that you have been moving around a lot more than usual: not at all 9. Thoughts that you would be better off or of hurting yourself in some way: Not at all Total score: 0 Source: Developed by Drs. Umesh Smith, Lilibeth Muse, Familia Martínez and colleagues, with an educational kandice from [employer]. Depression screen completed yes Social History Living Situation History Housing: House Housing Other:: Pt lives with son Tobacco History Smoking Status: Never smoker Second Hand Smoke Exposure: No Alcohol History Alcohol Intake: Current Alcohol Intake Frequency: holidays/special occasions only Domestic Abuse History Do You Feel Safe at Home: Yes History of Present Illness HPI Narrative Pelvic organ prolapse and constipation, feeling like something is coming out for 2 months Jacqui Manzo is a 74-year-old female who presents for consultation regarding pelvic organ prolapse and constipation. She reports feeling like something is coming out that began approximately 2 months ago, which she had not experienced previously. The patient has a significant surgical history including a hysterectomy performed at age 35 (approximately 40 years ago) for fibroids and bleeding, as well as a separate surgery for a ruptured ovarian cyst. She also underwent thyroid removal and had two surgeries related to complications, including remova l of her entire stomach. 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 As a result of these surgical changes, she is required to eat small quantities and consume liquids, significantly impacting her nutritional intake. The patient reports she has not been sexually active for 16 years. She does not routinely follow with a environmental services project manager despite her complex gastrointestinal surgical history and the associated risk of vitamin deficiencies due to the absence of her stomach. 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 Vaginal canal noted to be very tight with narrowing. No significant prolapse palpated on examination with Valsalva maneuver. Vaginal cuff, bladder, and rectum appear intact without prolapse. Pelvic floor musculature noted to be tight. Office Procedures [facility] Clinic LOC & Office Proc's Nursing/Assessment Patient Status: Established Patient OB Clinic Nursing Assessment: Medication Reconciliation, Update PMH in EMR and Vital Signs OB Clinic Coordination of Care: Complex Care and Chronic Disease 1-5, Consent,records obtained, informed consent, Education Simp Pt/Fam, 1 Ins Authorization, Lab and Imaging orders, Results/Orders obtained and Staff clarify orders Established Patient Charge Established Patient Point Assignment: 120 Established Patient Point Charge: EP Level 4 (120-155) Assessment & Plan Diagnosis / Problem List (1) Postmenopausal atrophic vaginitis: Status: Acute (2) Vaginal stenosis: Status: Acute Plan Pelvic organ prolapse Assessment: Patient reports sensation of something coming out for 2 months. Physical examination reveals no significant prolapse with intact vaginal cuff, bladder, and rectum. Patient has history of hysterectomy 40 years ago at age 35 for fibroids and bleeding. The vaginal canal is very tight and narrowing due to menopause and lack of sexual activity for 16 years. The pelvic floor muscles are tight and constricting the vagina, rectum, and bladder. Plan: - Prescribe vaginal hormone cream to be used 2 times per week for 3 months with applicator to address dryness and discomfort - Referral for pelvic floor physical therapy using vaginal dilators to stretch the vaginal canal - Follow-up appointment in 3 months for menopause follow-up and reassessment - Pharmacy: [facility] [address], [id number] History of total gastrectomy Assessment: Patient underwent total gastrectomy 4 years ago due to complications from nascent surgeries including pyloroplasty where the vagus nerve was nicked, paralyzing the stomach. Currently connected to jejunum and must eat small quantities and liquids only. Risk for vitamin deficiencies due to absence of stomach affecting nutritional absorption. Plan: - Recommend establishment with GI doctor through primary care physician Abner to ensure adequate nutrition and monitor for vitamin deficiencies Advanced Care Planning Advance care planning discussed with:: patient
[2024-12-20 09:21] VITALS: BP 121/75; PULSE 95; RESP 18; TEMP 36.6; O2SAT 97; BMI 24.7
== END 2024-12-20 09:43 | disposition home or self-care (01) ==
LOC: HODSOBC 08:58
PROVIDERS: PCP Family Medicine; Referring Provider Family Medicine; Supervising Provider Obstetrics & Gynecology; Visit Provider Obstetrics & Gynecology
DX: N95.2 Postmenopausal atrophic vaginitis (principal); N89.5 Stricture and atresia of vagina; N81.89 Other female genital prolapse; E03.9 Hypothyroidism, unspecified; I10 Essential (primary) hypertension; Z87.42 Personal history of other diseases of the female genital tract; Z90.710 Acquired absence of both cervix and uterus; Z88.0 Allergy status to penicillin; Z79.890 Hormone replacement therapy; Z79.899 Other long term (current) drug therapy; Z90.3 Acquired absence of stomach [part of]
CPT/HCPCS: 99214; G0463

== ENCOUNTER 2024-12-24 16:58 | Inpatient (IN) | payer MEDICARE, BC, SELFPAY ==
[2024-12-24] VITALS (7 sets, daily range): BP systolic 151–175; BP diastolic 82–109; PULSE 96–121; RESP 14–20; TEMP 36.6–37; O2SAT 94–103; BMI 24.7
--- NOTE | 2024-12-24 17:01 | EKG_ITS ---
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
--- NOTE | 2024-12-24 17:13 | XR_ITS ---
EXAMINATION: AP chest single view TECHNIQUE: AP portable semiupright chest single view Date and time: December 24, 2024, 1728 hours INDICATION: Chest pain beginning 2 days ago. FINDINGS: Normal heart size. The lungs are clear. The osseous structures are demineralized IMPRESSION: No active disease
--- NOTE | 2024-12-24 17:14 | PD.EDADULT ---
ED General RME/HPI General Chief complaint: Chest Pain Stated complaint: CHEST PAIN Time Seen by Provider: 12/24/24 17:10 Arrival date/time: 12/24/24 16:58 CC: Chest pressure chest pain tachycardia HPI intermittent tachycardia and chest pain with constant chest pressure over the past 2 days. Patient has intermittent nausea without vomiting. EMS report significant improvement of the chest pain from 8 to a 5 with nitro paste. Currently the patient is nauseated as well. Patient denies fever shortness of breath or difficulty breathing. Patient's past medical history includes hypertension anxiety hypothyroidism NSTEMI in April 2024 determined to be a stress related myocardial infarction. 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 Related Data Home Medications ?Medication ?Instructions ?Recorded ?Confirmed buspirone 15 mg tablet 15 mg PO BID 06/27/19 12/25/24 levothyroxine 75 mcg tablet 75 mcg PO QAM 03/12/22 12/25/24 dicyclomine 10 mg capsule See Rx Instructions PO .COMPLEX 06/08/24 12/25/24 fluoxetine 40 mg capsule 40 mg PO DAILY 06/08/24 12/25/24 docusate sodium 100 mg capsule 100 mg PO BID PRN constipation 12/25/24 12/25/24 hydroxyzine HCl 50 mg tablet 50 mg PO Q6H PRN anxiety 12/25/24 12/25/24 losartan 50 mg tablet 50 mg PO QDAY 12/25/24 12/25/24 Previous Rx's ?Medication ?Instructions ?Recorded estradiol 0.01% (0.1 mg/gram) 1 g vaginal Q3D 30 days #42.5 grams 12/20/24 vaginal cream Allergies Allergy/AdvReac Type Severity Reaction Status Date / Time Penicillins Allergy Mild Rash Verified 12/20/24 09:26 Review of Systems Review of Systems Narrative Review of Systems: GEN: No fever, no chills, no weight loss EYES: No discharge, no visual changes, no pain HEENT: No ear pain, no congestion, no sore throat PULM: No shortness of breath, no cough, no congestion CV: No chest pain, no dyspnea on exertion, no palpitations GI: No nausea, no vomiting, no diarrhea, no pain, no constipation : No frequency, no urgency, no dysuria MUSC/SKEL: No joint pain, no back pain SKIN: No rash PSYCH: No hallucinations, no depression HEME/LYMPH: No easy bleeding or bruising tendencies NEURO: No weakness, no headache Past Medical History Past Medical History NEUROLOGIC: Positive Neurological Disorders and Head Trauma; Negative Seizures CARDIAC: Positive Cardiac Disorders and Hypertension; Negative Congestive Heart Failure, Edema, Cellulitis or Varicose Veins RESPIRATORY: Negative Chronic Obstructive Pulmonary Disease (COPD), Asthma, Pulmonary Embolism or Sleep Apnea GASTROINTESTINAL: Positive Gastrointestinal Disorders, Gall Bladder Disease, Colitis, Ulcer, Irritable Bowel, Hiatal Hernia and Gastroesophageal Reflux Disease; Negative Hepatitis GENITOURINARY: Negative Genitourinary Disorders or Renal Disease REPRODUCTIVE: Positive Endometriosis and Previous Pregnancies MUSCULOSKELETAL: Positive Musculoskeletal Disorders, Arthritis and Fibromyalgia ENT: Positive Cataracts and Head Trauma ENDOCRINE: Positive Endocrine Disorders, Hypoglycemia and Hypothyroidism; Negative Diabetes Mellitus Type 1 or Diabetes Mellitus Type 2 HEMATOLOGIC: Negative Blood Disorders or Sickle Cell Disease PSYCHO/SOCIAL: Positive Depression (trazadone) and Anxiety (xanax) OTHER HISTORY: Positive Anesthesia Reactions, Chicken Pox, Measles and Rubella (Swedish Measles); Negative Hospitalization, Autoimmune Disease, Shingles, Falls, Blood Transfusions, Blood Transfusion Reaction, Chemotherapy, Radiation Therapy, MRSA, Mumps or Cancer Family History FAMILY HISTORY: Positive Family Psychiatric Problems, Family Respiratory Disorders, Family Cardiac Disorders, Family Gastrointestinal Problems, Family Cancer and Family Surgery; Negative Family Anesthesia Reaction Surgical History SURGICAL: Positive Thyroidectomy, Abdominal Surgery, Bowel Surgery, Hysterectomy and Section; Negative Cardiac Surgery or Pacemaker Social History SMOKING STATUS: Never smoker SECOND HAND EXPOSURE: No ED Exam Narrative Physical exam: [General: Anxious but not in any acute distress Head normocephalic HEENT: Within acceptable limits Neck is supple nontender Chest equal chest rise nontender to palpation Respiratory: Clear to auscultation no wheezes crackles or rubs CV: Rate rhythm is regular, tachycardic, no murmurs rubs or clicks Abdomen is soft nontender no masses positive bowel sounds all 4 quadrants Back: No CVA tenderness no spinous process tenderness from cervical spine thoracic and lumbar spine Skin: Intact no petechiae rash induration ulceration or crepitus Extremities: Moving all extremity against resistance cap refill less than 2 seconds neurosensory intact Neuro: Awake alert oriented x3 Glascow coma 15 no focal deficits] Course Course Course Narrative: Patient's case clinical findings and a rising troponin discussed with Dr. Glez, career transition specialist on-call, it is discovered that the patient had a cath in April of this year. He states to do a third troponin at midnight, if it continues to rise admit her for observation if it decreases discharge her home. He is very familiar with the patient her case and her past medical history. Patient continues to have mild chest pressure but no chest pain and a mild headache. Will address these with morphine after Tylenol was unsuccessful Patient care transferred to Dr. Dr. Jass Ruiz at shift change. Quality Measures none Orders Category Date Time Status EKG (ED ONLY) *Do not use* NOW Care 12/24/24 17:01 Completed NPO NOW Care 12/24/24 22:32 Active Notify provider NOW Care 12/25/24 01:40 Active Diet NPO (NOW) Diet 12/24/24 22:32 Completed EKG (ED Only) Stat Exams 12/24/24 17:01 Draft XR chest 1V Stat Exams 12/24/24 17:13 Completed B-Type Natriuretic Peptide Stat Lab 12/24/24 17:52 Completed CBC Stat Lab 12/24/24 17:52 Completed Comprehensive Metabolic Panel Stat Lab 12/24/24 17:52 Completed Drug Screen,Urine Stat Lab 12/24/24 19:07 Completed LDH (Lactate Dehydrogenase) Stat Lab 12/24/24 17:52 Completed Magnesium Stat Lab 12/24/24 17:52 Completed Partial Thromboplastin Time AM DRAW Lab 12/27/24 05:00 Ordered Partial Thromboplastin Time Stat Lab 12/24/24 17:52 Completed Prothrombin Time with INR AM DRAW Lab 12/27/24 05:00 Ordered Prothrombin Time with INR Stat Lab 12/24/24 17:52 Completed Troponin I Stat Lab 12/24/24 17:52 Completed Troponin I Stat Lab 12/24/24 20:50 Completed Troponin I Stat Lab 12/25/24 00:09 Completed Urinalysis, C/S if Indicated Stat Lab 12/24/24 19:07 Completed Acetaminophen Tab [Tylenol Tab] Med 12/24/24 18:40 Discontinued 650 mg PO X1 ONE Aspirin Chew Med 12/24/24 22:32 Discontinued 324 mg PO X1 ONE Diltiazem Inj [Cardizem Inj] Med 12/25/24 02:03 Discontinued 5 mg IV X1 ONE Heparin Inj Med 12/25/24 01:40 Discontinued 3,650 unit IV X1 ONE Heparin/D5w 25K 250 ML Ivpb [Heparin in D5w Ivpb] Med 12/25/24 01:45 Active 25,000 unit in 250 ml IV 12 units/kg/hr Morphine* Inj Med 12/25/24 02:13 Discontinued 2 mg IVP X1 ONE Morphine* Inj Med 12/24/24 22:40 Discontinued 4 mg IVP X1 ONE Ondansetron Inj [Zofran Inj] Med 12/24/24 22:40 Discontinued 4 mg IVP X1 ONE Ondansetron Odt [Zofran Odt] Med 12/24/24 19:19 Discontinued 4 mg PO X1 ONE Prochlorperazine Inj [Compazine Inj] Med 12/25/24 02:13 Discontinued 2.5 mg IV X1 ONE Vital Signs Vital signs: Vital Signs Blood Pressure 175/94 H 12/24/24 17:01 Discharge Plan Plan Patient Disposition: Admit Acute Care w/in Hospital Patient condition on transfer: Stable Problem List Clinical Impression: ACS (acute coronary syndrome), Non-ST elevation NC (NSTEMI) 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 EKG Interpretation EKG #1: EKG Interpretation: EKG performed at 1907 shows a ventricular rate of 105 VT interval 146 QRS of 182 QTc of 426 is sinus tachycardia. Labs Lab(s) Interpretation(s): CBC shows no acute leukocytosis mild anemia of 10.6 and 33.5 hemoglobin and hematocrit respectively. No thrombocytopenia Coags within acceptable limits CMP shows no significant electrolyte imbalances other than glucose of 139 no transaminitis T. bili elevation no renal impairment Troponin is negative BNP is 100 Urine shows 2+ glucose 1+ ketones 2+ blood negative for nitrites or leukocyte esterase crystals present. Rare bacteria. UDS is negative Repeat troponin has risen to 0.127 Imaging Imaging interpretation: interpreted by me Imaging Interpretation(s): Chest x-ray interpreted by me read by radiology as negative for any acute finding. Medication Administration(s) Medication Administration History Aspirin (Aspirin Ec 81 Mg Tabec) 81 mg PO DAILY ALPHONSO Stop: 01/24/25 08:59 Last Admin: 12/25/24 09:54 Dose: 81 mg Documented By: MARY Buspirone HCl (Buspirone Hcl 5 Mg Tablet) 15 mg PO BID [facility] Stop: 01/24/25 08:59 Last Admin: 12/25/24 08:08 Dose: 15 mg Documented By: MARY Fluoxetine HCl (Fluoxetine Hcl 10 Mg Capsule) 40 mg PO QDAY ALPHONSO Stop: 01/24/25 08:59 Last Admin: 12/25/24 08:08 Dose: 40 mg Documented By: MARY Heparin Sodium (Porcine) (Heparin Sod Inj 5000 Unit/Ml Vial) 3,412 unit IVP X1 ONE Stop: 12/25/24 10:53 Hydroxyzine HCl (Hydroxyzine Hcl 25 Mg Tablet) 50 mg PO QID PRN PRN Reason: anxiety Stop: 01/24/25 05:59 Last Admin: 12/25/24 04:02 Dose: 50 mg Documented By: LEANDRA Heparin Sodium/Dextrose (Heparin In D5w Ivpb) 25,000 unit in 250 mls @ 7.512 mls/hr IV .Q24H [facility]; Protocol Stop: 01/08/25 01:44 Last Admin: 12/25/24 03:20 Dose: 12 units/kg/hr, 7.512 mls/hr Documented By: KOREY Co-signed By: ANURADHA Levothyroxine Sodium (Levothyroxine Sodium 25 Mcg Tablet) 75 mcg PO ACBR [facility] Stop: 01/24/25 05:59 Last Admin: 12/25/24 05:26 Dose: 75 mcg Documented By: FLAKO Metoprolol Succinate (Metoprolol Succinate Xl 25 Mg Tabcr) 25 mg PO QDAY [facility] Stop: 01/24/25 08:59 Last Admin: 12/25/24 08:08 Dose: 25 mg Documented By: MARY Ondansetron HCl (Ondansetron Inj 2 Mg/Ml Inj 2 Ml) 4 mg IVP Q6H PRN; Protocol PRN Reason: NAUSEA OR VOMITING Stop: 01/24/25 03:08 Last Admin: 12/25/24 05:22 Dose: 4 mg Documented By: FLAKO Sennosides (Senna/Docusate Sod 1 Tab Tablet) 2 tab PO QDAY PRN; Protocol PRN Reason: CONSTIPATION Stop: 01/24/25 09:41 Discontinued Medications Acetaminophen (Acetaminophen 325 Mg Tablet) 650 mg PO X1 ONE Stop: 12/24/24 18:41 Last Admin: 12/24/24 18:54 Dose: 650 mg Documented By: DT Acetaminophen (Acetaminophen 325 Mg Tablet) 650 mg PO Q6H PRN PRN Reason: PAIN OR FEVER > 100.4 Stop: 01/24/25 03:08 Aspirin (Aspirin 81 Mg Chew) 324 mg PO X1 ONE Stop: 12/24/24 22:33 Last Admin: 12/24/24 23:06 Dose: 324 mg Documented By: DT Atorvastatin Calcium (Atorvastatin Calcium 20 Mg Tablet) 80 mg PO HS ALPHONSO Stop: 01/24/25 20:59 Diltiazem HCl (Diltiazem Inj 5 Mg/Ml Vial 5 Ml) 5 mg IV X1 ONE Stop: 12/25/24 02:04 Last Admin: 12/25/24 02:16 Dose: 5 mg Documented By: KOREY Diltiazem HCl (Diltiazem 30 Mg Tablet) 10 mg PO X1 ONE Stop: 12/25/24 03:10 Last Admin: 12/25/24 04:11 Dose: Not Given Documented By: LEANDRA Non-Admin Reason: called provider to change order Diltiazem HCl (Diltiazem 30 Mg Tablet) 30 mg PO X1 ONE Stop: 12/25/24 04:07 Last Admin: 12/25/24 07:17 Dose: Not Given Documented By: MARY Non-Admin Reason: Discontinued Docusate Sodium (Docusate Sod 100 Mg Capsule) 100 mg PO QDAY PRN; Protocol PRN Reason: CONSTIPATION Stop: 01/24/25 03:08 Heparin Sodium (Porcine) (Heparin Sod Inj 5000 Unit/Ml Vial) 3,650 unit 60 unit/kg (3650 unit) IV X1 ONE; Protocol Stop: 12/25/24 01:41 Last Admin: 12/25/24 02:11 Dose: Not Given Documented By: DT Non-Admin Reason: Cancelled by Provider Metoclopramide HCl (Metoclopramide Inj 5 Mg/Ml Vial 2 Ml) 5 mg IVP Q6HR ALPHONSO; Protocol Stop: 01/24/25 11:59 Metoclopramide HCl (Metoclopramide Inj 5 Mg/Ml Vial 2 Ml) 5 mg IVP X1 ONE; Protocol Stop: 12/25/24 10:39 Metoprolol Succinate (Metoprolol Succinate Xl 25 Mg Tabcr) 50 mg PO QDAY ALPHONSO Stop: 01/24/25 08:59 Morphine Sulfate (Morphine Sulf Inj 4 Mg/Ml Vial) 4 mg IVP X1 ONE Stop: 12/24/24 22:41 Last Admin: 12/24/24 23:09 Dose: 4 mg Documented By: LEANDRA Morphine Sulfate (Morphine Sulf Inj 4 Mg/Ml Vial) 2 mg IVP X1 ONE Stop: 12/25/24 02:14 Last Admin: 12/25/24 03:24 Dose: 2 mg Documented By: KOREY Morphine Sulfate (Morphine Sulf Inj 4 Mg/Ml Vial) 2 mg IVP X1 ONE Stop: 12/25/24 07:32 Last Admin: 12/25/24 08:08 Dose: 2 mg Documented By: MARY Ondansetron HCl (Ondansetron Odt 4 Mg Tabrap) 4 mg PO X1 ONE; Protocol Stop: 12/24/24 19:20 Last Admin: 12/24/24 19:25 Dose: 4 mg Documented By: LEANDRA Ondansetron HCl (Ondansetron Inj 2 Mg/Ml Inj 2 Ml) 4 mg IVP X1 ONE; Protocol Stop: 12/24/24 22:41 Last Admin: 12/24/24 23:07 Dose: 4 mg Documented By: LEANDRA Ondansetron HCl (Ondansetron Inj 2 Mg/Ml Inj 2 Ml) 4 mg IVP X1 ONE; Protocol Stop: 12/25/24 07:33 Last Admin: 12/25/24 08:08 Dose: 4 mg Documented By: MARY Prochlorperazine Edisylate (Prochlorperazine Inj 5 Mg/Ml Vial 2 Ml) 2.5 mg IV X1 ONE; Protocol Stop: 12/25/24 02:14 Last Admin: 12/25/24 03:24 Dose: 2.5 mg Documented By: KOREY
--- NOTE | 2024-12-24 17:30 | PC.NURSE ---
Pt. here from home to room 4, pt. states she lives with her son, pt. states she went to drug rehab in August and the first 3 weeks in September. 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 Pt. states she no longer takes Xanax or drinks alcohol. Pt. states she has chest pain and at times it is stabbing, pt. was resting with her eyes closed and then startles easily. Pt. appears very anxious.
[2024-12-24 18:01] LABS: Basophils # (Auto) 0.0 Thou/mm3 (0.0-0.2); Basophils % (Auto) 0 % (0-2.5); Eosinophils # (Auto) 0.0 Thou/mm3 (0.0-0.5); Eosinophils % (Auto) 0 % (0-10); Hematocrit 33.5 % (36.0-46.0); Hemoglobin 10.6 g/dL (12.0-16.0); Immature Granulocytes Auto 0.01 Thou/mm3 (0.00-0.00); Lymphocytes # (Auto) 0.9 Thou/mm3 (1.0-4.8); Lymphocytes % (Auto) 15 % (10-50); Mean Corpuscular HGB Conc 31.6 g/dl (31.0-37.0); Mean Corpuscular Hemoglobin 24.7 pg (25.0-35.0); Mean Corpuscular Volume 78 fL (80-100); Monocytes # (Auto) 0.7 Thou/mm3 (0.0-0.8); Monocytes % (Auto) 10 % (0-12); Neutrophils # (Auto) 4.8 Thou/mm3 (1.8-7.7); Neutrophils % (Auto) 74 % (37-80); Nucleated Red Blood Cell # 0.00 Thou/mm3 (0.00-0.00); Nucleated Red Blood Cell % 0 /100 WBC (0); Platelet Count 330 Thou/mm3 (140-440); RDW Standard Deviation 47.7 fL (36.4-46.3); Red Blood Count 4.29 Miln/mm3 (4.00-5.20); White Blood Count 6.5 Thou/mm3 (3.6-11.0)
--- NOTE | 2024-12-24 18:21 | PC.NURSE ---
Pt. states she has a TOBIN 10/25.
[2024-12-24 18:24] LABS: B-Type Natriuretic Peptide 100 pg/mL (0-100)
[2024-12-24 18:34] LABS: Alanine Aminotransferase 40 U/L (10-49); Albumin, Serum 4.2 gm/dL (3.4-4.8); Albumin/Globulin Ratio 2.2 (1.2-2.2); Alkaline Phosphatase 125 U/L (46-116); Anion Gap 9 (7-16); Aspartate Amino Transferase 29 U/L (0-34); BUN/Creatinine Ratio 14 Ratio (12-20); Bilirubin,Total 0.4 mg/dL (0.3-1.2); Blood Urea Nitrogen 13 mg/dL (9-23); Calcium 8.6 mg/dL (8.3-10.6); Calcium (Corrected) 8.6 mg/dL (8.5-10.1); Carbon Dioxide 27.1 mMol/L (20.0-31.0); Chloride 103 mMol/L (98-107); Creatinine (Component) 0.9 mg/dL (0.6-1.3); Estimated Creatinine Clearance 48.7 mL/min (>60); Globulin 1.9 gm/dL (2.3-3.5); Glucose 139 mg/dL (74-106); LDH (Lactate Dehydrogenase) 193 U/L (120-246); Magnesium 2.1 mg/dL (1.6-2.6); Osmolality,Calculated 279 (275-295); Potassium 4.0 mMol/L (3.4-5.1); Sodium 139 mMol/L (136-145); Total Protein 6.1 gm/dL (5.7-8.2); Troponin I < 0.020 ng/mL (0.0-0.045); eGFR > 60 See Note
[2024-12-24 18:44] LABS: INR 1.0 (0.9-1.3); Partial Thromboplastin Time 23.5 Seconds (22.0-36.0); Prothrombin Time 10.2 Seconds (9.0-12.2)
[2024-12-24] MEDS: ACETAMINOPHEN 325 MG TABLET 650 MG PO (18:54)
[2024-12-24 19:15] LABS: Collection Type, Urine Clean Catch
[2024-12-24] MEDS: ONDANSETRON ODT 4 MG TABRAP PO (19:25)
[2024-12-24 19:27] LABS: Amorphous Crystals,Urine Present (Absent); Bacteria,Urine Rare; Bilirubin,Urine Negative (Negative); Blood,Urine 2+ (Negative); Clarity,Urine Clear (Clear/Hazy); Color,Urine Yellow (Lt Yel-Yel); Culture Indicated,Urine Not Indicated; Glucose, Urine 2+ (Negative); Hyaline Casts,Urine < 1 /hpf (0-1); Ketones,Urine 1+ (Negative); Leukocyte Esterase,Urine Negative (Negative); Nitrite,Urine Negative (Negative); PH,Urine 6.0 (5.0-7.0); Protein,Urine 1+ (Neg - Trace); RBC,Urine 13 /hpf (0-3); Specific Gravity,Urine 1.023 (1.001-1.035); Squamous Epithelial Cell,Urine < 1 /hpf (0-5); Urobilinogen,Urine Negative mg/dL (0.0-1.0); WBC,Urine 1 /hpf (0-5)
[2024-12-24 19:29] LABS: Amphetamine/Methamp Scrn,U Negative (Negative); Barbiturate Screen,Urine Negative (Negative); Benzodiazepines Screen,Urine Negative (Negative); Benzoylecgonine Screen, Ur Negative (Negative); Fentanyl Screen,Urine Negative (Negative); Opiate Screen,Urine Negative (Negative); THC Screen,Urine Negative (Negative)
[2024-12-24 22:16] LABS: Troponin I 0.127 ng/mL (0.0-0.045)
[2024-12-24] MEDS: ASPIRIN 81 MG CHEW 324 MG PO (23:06)
[2024-12-24] MEDS: ONDANSETRON INJ 2 MG/ML INJ 2 ML 4 MG IVP (23:07)
[2024-12-24] MEDS: MORPHINE SULF INJ 4 MG/ML VIAL IVP (23:09)
--- NOTE | 2024-12-24 23:49 | PD.EDADDENDU ---
Emergency Room Addendum Addendum Narrative: 2300: Care assumed from Adalid Ely NP. Past medical, surgical, social and family history reviewed. Vitals and home medications reviewed. Results and treatment plan discussed. I will assume the care of the patient at this time and will follow the patient. Please refer to the emergency department record for history and examination from initial visit. 74yo female with recurrent upper substernal chest pain described as squeezing in nature with associated shortness of breath, nausea, and diaphoresis. Noted exertional component. Patient underwent cardiac work-up including serial EKG and enzymatic analysis, the former without any definite ischemic changes. Troponins were trended and noted to be increasing over the course of several hours. Patient complains of persistent pain, which has become more constant. Notably tachycardic, for which patient received IV Cardizem, low dose narcotic analgesics were additionally administered, and IV Heparin initiated without bolus due to patient's history of easy bruisability. Hospitalist consulted, who agrees to admit for ACS pending cardiology consultation in the AM. Of note, PSH includes arm surgery, , ruptured ovarian cyst, hysterectomy (1987), liver surgery, 2 shoulder surgeries, thyroidectomy, cholecystectomy, appendectomy, cataract surgery, 2 jer[place]o fundoplications, pylori plasty, gastrectomy, [place], angiogram per family. Dx: ACS, NSTEMI Critical Care Time: 35 minutes The high probability of sudden, clinically significant deterioration in the patient?s condition required the highest level of my preparedness to intervene urgently. The services I provided to this patient were to treat and/or prevent clinically significant deterioration. Services included the following: chart data review, reviewing nursing notes and/or old charts, documentation time, business information consultant collaboration regarding findings and treatment options, medication orders and management, direct patient care, vital sign assessments and ordering, interpreting and reviewing diagnostic studies and lab tests. Aggregate critical care time includes only time during which I was engaged in work directly related to the patient?s care, as described above, whether at bedside or elsewhere in the Emergency Department. It did not include time spent performing other reported procedures or the services of residents, students, nurses or physician assistants.
[2024-12-25] VITALS (13 sets, daily range): BP systolic 130–164; BP diastolic 87–97; PULSE 86–111; RESP 11–20; TEMP 36–37.2; O2SAT 92–97; BMI 25.2; BMI 22.9
[2024-12-25 01:21] LABS: Troponin I 0.320 ng/mL (0.0-0.045)
[2024-12-25] MEDS: DILTIAZEM INJ 5 MG/ML VIAL 5 ML IV (02:16)
--- NOTE | 2024-12-25 03:19 | PD.RESHP ---
Documentation for date of: 12/25/24 [facility] History of Present Illness History of present illness: 74-year-old female with a past medical history of hypothyroidism, anxiety/depression, IBS, fibromyalgia, and a history of multiple abdominal surgeries (approximately 10), including a gastrectomy, presents with recurrent upper substernal chest pain. The pain is described as squeezing in nature and is associated with shortness of breath, nausea, and diaphoresis. The symptoms began two days ago with intermittent episodes, but today the pain has been constant. The patient reports that the chest pain is worsened with activity and is not relieved by rest. Notably, the patient was recently discharged from an acute rehabilitation facility where she was treated for a 30-year history of Xanax addiction. She completed 33 days of rehab, being discharged in September. The patient is unsure if she has been seen by Dr. Glez in the outpatient setting, but she recalls meeting him during her previous hospitalization, at which time an angiogram was performed. ED course: Initial vitals include T 98.3, BP 175/94, HR 106, RR 18, O2 sat 96% on room air. CBC showed hemoglobin 10.6, MCV 78. CMP showed initial troponin negative with steady increase to 0.320 on the most recent troponin check. Sodium 139, potassium 4.0, creatinine 0.9, magnesium 2.1, LFTs within normal range, BNP negative. EKG showed sinus tachycardia, QTc 484, no ST changes. UA unremarkable. Chest x-ray unremarkable. Patient received aspirin 324 mg x 1, morphine 4 mg IV x 1, diltiazem 5 mg IV x 1, and started on heparin drip. Past medical history: As stated above. Past surgical history: 2 Zenia fundoplications, pylori plasty, gastrectomy, cholecystectomy, appendectomy, liver surgery, thyroidectomy, hysterectomy Allergies: Penicillins Family history: Noncontributory. Social history: No alcohol use anymore for the past 3 months, no smoking, no illicit drug use. Patient admitted for NSTEMI type I versus type II, pending cardiac consult. Review of Systems Review of Systems Narrative Review of Systems: All systems reviewed negative unless stated otherwise above. Exam Vital Signs Temp Pulse Resp BP Pulse Ox O2 Del Method 98.4 F 105 H 20 153/97 H 96 Room Air 12/25/24 02:00 12/25/24 02:16 12/25/24 02:00 12/25/24 02:16 12/25/24 02:00 12/25/24 02:00 Narrative Exam General: AOx3, no acute distress, able to speak full sentences HEENT: NC/AT, mucous membranes moist, bilateral sclera anicteric Cardiovascular: regular rate and rhythm, S1/S2 present, mitral regurg present Pulmonary: clear to auscultation bilaterally, no rales/rhonchi/wheezes Abdominal: soft, non-tender, non-distended, no rebound/guarding, no bowel sounds as no stomach present Musculoskeletal: normal ROM, no peripheral edema Skin: warm and dry, intact, no rashes, Neuro: CN II-XII intact, no focal deficits Results: Labs 12/25/24 09:37 12/25/24 04:09 Labs: Short CBC 12/24/24 Range/Units 17:52 WBC 6.5 (3.6-11.0) Thou/mm3 Hgb 10.6 L (12.0-16.0) g/dL Hct 33.5 L (36.0-46.0) % Plt Count 330 (140-440) Thou/mm3 BMP 12/24/24 17:52 Sodium 139 Potassium 4.0 Chloride 103 Carbon Dioxide 27.1 BUN 13 Creatinine 0.9 Glucose 139 H Calcium 8.6 Cardiac Enzymes 12/24/24 12/24/24 12/25/24 Range/Units 17:52 20:50 00:09 Troponin I < 0.020 0.127 H* 0.320 H* (0.0-0.045) ng/mL Liver Function 12/24/24 Range/Units 17:52 Total Bilirubin 0.4 (0.3-1.2) mg/dL AST 29 (0-34) U/L ALT 40 (10-49) U/L Alkaline Phosphatase 125 H (46-116) U/L Albumin 4.2 (3.4-4.8) gm/dL Urine 12/24/24 Range/Units 19:07 Urine Color Yellow (Lt Yel-Yel) Urine Clarity Clear (Clear/Hazy) Urine pH 6.0 (5.0-7.0) Ur Specific [place] 1.023 (1.001-1.035) Urine Protein 1+ A (Neg - Trace) Urine Glucose (UA) 2+ A (Negative) Quality Measures Quality Measures VTE prophylaxis Advance care planning discussed with:: patient Medications Home Medications and Allergies Home Medications ?Medication ?Instructions ?Recorded ?Confirmed ?Type buspirone 15 mg tablet 15 mg PO BID 06/27/19 12/25/24 History levothyroxine 75 mcg tablet 75 mcg PO QAM 03/12/22 12/25/24 History dicyclomine 10 mg capsule See Rx Instructions PO .COMPLEX 06/08/24 12/25/24 History fluoxetine 40 mg capsule 40 mg PO DAILY 06/08/24 12/25/24 History docusate sodium 100 mg capsule 100 mg PO BID PRN constipation 12/25/24 12/25/24 History hydroxyzine HCl 50 mg tablet 50 mg PO Q6H PRN anxiety 12/25/24 12/25/24 History losartan 50 mg tablet 50 mg PO QDAY 12/25/24 12/25/24 History Allergies Allergy/AdvReac Type Severity Reaction Status Date / Time Penicillins Allergy Mild Rash Verified 12/20/24 09:26 Visit Medications Acetaminophen (Acetaminophen 325 Mg Tablet) 650 mg PO Q6H PRN PRN Reason: PAIN OR FEVER > 100.4 Stop: 01/24/25 03:08 Atorvastatin Calcium (Atorvastatin Calcium 20 Mg Tablet) 80 mg PO HS ALPHONSO Stop: 01/24/25 20:59 Buspirone HCl (Buspirone Hcl 5 Mg Tablet) 15 mg PO BID ALPHONSO Stop: 01/24/25 08:59 Diltiazem HCl (Diltiazem 30 Mg Tablet) 10 mg PO X1 ONE Stop: 12/25/24 03:10 Docusate Sodium (Docusate Sod 100 Mg Capsule) 100 mg PO QDAY PRN; Protocol PRN Reason: CONSTIPATION Stop: 01/24/25 03:08 Fluoxetine HCl (Fluoxetine Hcl 10 Mg Capsule) 40 mg PO QDAY ALPHONSO Stop: 01/24/25 08:59 Heparin Sodium/Dextrose (Heparin In D5w Ivpb) 25,000 unit in 250 mls @ 7.512 mls/hr IV .Q24H ALPHONSO; Protocol Stop: 01/08/25 01:44 Levothyroxine Sodium (Levothyroxine Sodium 25 Mcg Tablet) 75 mcg PO ACBR ALPHONSO Stop: 01/24/25 05:59 Ondansetron HCl (Ondansetron Inj 2 Mg/Ml Inj 2 Ml) 4 mg IVP Q6H PRN; Protocol PRN Reason: NAUSEA OR VOMITING Stop: 01/24/25 03:08 Discontinued Medications Acetaminophen (Acetaminophen 325 Mg Tablet) 650 mg PO X1 ONE Stop: 12/24/24 18:41 Last Admin: 12/24/24 18:54 Dose: 650 mg Aspirin (Aspirin 81 Mg Chew) 324 mg PO X1 ONE Stop: 12/24/24 22:33 Last Admin: 12/24/24 23:06 Dose: 324 mg Diltiazem HCl (Diltiazem Inj 5 Mg/Ml Vial 5 Ml) 5 mg IV X1 ONE Stop: 12/25/24 02:04 Last Admin: 12/25/24 02:16 Dose: 5 mg Heparin Sodium (Porcine) (Heparin Sod Inj 5000 Unit/Ml Vial) 3,650 unit 60 unit/kg (3650 unit) IV X1 ONE; Protocol Stop: 12/25/24 01:41 Last Admin: 12/25/24 02:11 Dose: Not Given Morphine Sulfate (Morphine Sulf Inj 4 Mg/Ml Vial) 4 mg IVP X1 ONE Stop: 12/24/24 22:41 Last Admin: 12/24/24 23:09 Dose: 4 mg Morphine Sulfate (Morphine Sulf Inj 4 Mg/Ml Vial) 2 mg IVP X1 ONE Stop: 12/25/24 02:14 Ondansetron HCl (Ondansetron Odt 4 Mg Tabrap) 4 mg PO X1 ONE; Protocol Stop: 12/24/24 19:20 Last Admin: 12/24/24 19:25 Dose: 4 mg Ondansetron HCl (Ondansetron Inj 2 Mg/Ml Inj 2 Ml) 4 mg IVP X1 ONE; Protocol Stop: 12/24/24 22:41 Last Admin: 12/24/24 23:07 Dose: 4 mg Prochlorperazine Edisylate (Prochlorperazine Inj 5 Mg/Ml Vial 2 Ml) 2.5 mg IV X1 ONE; Protocol Stop: 12/25/24 02:14 Assessment & Plan Plan 74-year-old female with a past medical history of hypothyroidism, anxiety/depression, IBS, fibromyalgia, and a history of multiple abdominal surgeries (approximately 10), including a gastrectomy, presents with recurrent upper substernal chest pain x2 days. Patient admitted for NSTEMI type I vs type II, pending cardiac consult. #NSTEMI Type I (plaque rupture and thrombus formation) vs type II (supply-demand mismatch) #Chest pain with nausea and vomiting Initial Trop was negative --> 0.127 --> 0.320 EKG showed sinus tachycardia, QTc 484, no ST changes Echocardiogram 05/11/24 showed normal LV size and function with estimated EF 55 to 60% Left heart cardiac catheterization 05/11/2024 showed normal coronaries without any angiographically significant obstruction Received aspirin 324 mg p.o. x 1 in ED Plan ? Cardiology consulted, Dr. Glez aware, to see in a.m. ? Trend trop q6h ? Started on atorvastatin 80 mg nightly ? IV Heparin initiated without bolus due to patient's history of easy bruisability. ? Heparin drip will be titrated based on activated aPTT ? Telemetry ? Keep magnesium and potassium above 2 and 4 respectively #Hypertensive urgency Blood pressure on admission 175/94 Patient takes Losartan 50mg daily at home While in ED received diltiazem 5 mg IV push x 1, followed by diltiazem 10 mg p.o. x 1 Plan ? Metoprolol succinate XL 25 mg daily #Hx of Xanax addiction Recently came out of acute rehab facility for Xanax addiction in September ? ABSOLUTELY NO XANAX #Hx of depression #Hx of anxiety #Hx hypothyroidism Plan: ? Resumed home fluoxetine ? Resumed home buspirone ? Resumed home hydroxyzine ? Patient takes Seroquel however unsure of the dose, restart when known ? Resume levothyroxine 75mcg daily #History of total gastrectomy #History of Zenia fundoplication #History of IBS ? Monitor LFTs Health Maintenance: Diet: Cardiac diet GI prophylaxis: None DVT prophylaxis: Heparin drip Antibiotics: None CODE STATUS: Full Disposition: Telemetry Case discussed with my attending Dr. Mcmullen, and senior resident, Dr. Ron Saleem MD PGY-1 Attending Provider Attestation/Addendum After examination of the patient and review of the clinical data I feel that this patient needs admission to the hospital for further treatment/evaluation. Plan of care discussed with patient and is in agreement. I Shola Mcmullen MD, attest that I was physically present for raymond portions of evaluation, and examined patient, labs and imagings and plan of care were discussed with IM residents team, and I agree with the findings and plans documented above.
[2024-12-25] MEDS: Heparin/D5w 25K 250 ML Ivpb 25,000 UNIT/250 ML BAG 7.512 UNIT IV (03:20)
[2024-12-25] MEDS: PROCHLORPERAZINE INJ 5 MG/ML VIAL 2 ML 2.5 MG IV (03:24)
[2024-12-25] MEDS: MORPHINE SULF INJ 4 MG/ML VIAL 2 MG IVP ×4 (03:24→23:27)
[2024-12-25 04:21] LABS: Red Blood Count 4.49 Miln/mm3 (4.00-5.20); White Blood Count 10.4 Thou/mm3 (3.6-11.0)
[2024-12-25 04:22] LABS: Basophils # (Auto) 0.0 Thou/mm3 (0.0-0.2); Basophils % (Auto) 0 % (0-2.5); Eosinophils # (Auto) 0.0 Thou/mm3 (0.0-0.5); Eosinophils % (Auto) 0 % (0-10); Hematocrit 35.1 % (36.0-46.0); Hemoglobin 11.2 g/dL (12.0-16.0); Immature Granulocytes Auto 0.03 Thou/mm3 (0.00-0.00); Lymphocytes # (Auto) 1.0 Thou/mm3 (1.0-4.8); Lymphocytes % (Auto) 9 % (10-50); Mean Corpuscular HGB Conc 31.9 g/dl (31.0-37.0); Mean Corpuscular Hemoglobin 24.9 pg (25.0-35.0); Mean Corpuscular Volume 78 fL (80-100); Monocytes # (Auto) 0.9 Thou/mm3 (0.0-0.8); Monocytes % (Auto) 9 % (0-12); Neutrophils # (Auto) 8.5 Thou/mm3 (1.8-7.7); Neutrophils % (Auto) 81 % (37-80); Nucleated Red Blood Cell # 0.00 Thou/mm3 (0.00-0.00); Nucleated Red Blood Cell % 0 /100 WBC (0); Platelet Count 227 Thou/mm3 (140-440); RDW Standard Deviation 47.9 fL (36.4-46.3)
[2024-12-25 04:38] LABS: Glucose Estimated Average 108 mg/dL (80-131); Hemoglobin A1C 5.4 % Hgb (4.8-6.0)
[2024-12-25 05:02] LABS: Alanine Aminotransferase 281 U/L (10-49); Albumin, Serum 4.3 gm/dL (3.4-4.8); Albumin/Globulin Ratio 2.2 (1.2-2.2); Alkaline Phosphatase 282 U/L (46-116); Anion Gap 9 (7-16); Aspartate Amino Transferase 1131 U/L (0-34); BUN/Creatinine Ratio 13 Ratio (12-20); Bilirubin,Total 0.7 mg/dL (0.3-1.2); Blood Urea Nitrogen 12 mg/dL (9-23); Calcium 8.7 mg/dL (8.3-10.6); Calcium (Corrected) 8.7 mg/dL (8.5-10.1); Carbon Dioxide 28.2 mMol/L (20.0-31.0); Cardiac Risk Estimate 1.8 RATIO (3.7-5.6); Chloride 103 mMol/L (98-107); Cholesterol 218 mg/dL (132-200); Creatinine (Component) 0.9 mg/dL (0.6-1.3); Estimated Creatinine Clearance 49.1 mL/min (>60); Globulin 2.0 gm/dL (2.3-3.5); Glucose 137 mg/dL (74-106); HDL Cholesterol 124 mg/dL (40-60); LDL Cholesterol,Calculated 81 mg/dL (0-130); Magnesium 2.1 mg/dL (1.6-2.6); Osmolality,Calculated 281 (275-295); Potassium 4.2 mMol/L (3.4-5.1); Sodium 140 mMol/L (136-145); Thyroid Stimulating Hormone 5.84 uIU/mL (0.55-4.78); Total Protein 6.3 gm/dL (5.7-8.2); Triglycerides 66 mg/dL (30-150); eGFR > 60 See Note
[2024-12-25] MEDS: ONDANSETRON INJ 2 MG/ML INJ 2 ML 4 MG IVP ×4 (05:22→21:13)
[2024-12-25] MEDS: LEVOTHYROXINE SODIUM 25 MCG TABLET 75 MCG PO (05:26)
[2024-12-25 05:30] LABS: Troponin I 0.510 ng/mL (0.0-0.045)
[2024-12-25 06:16] LABS: Bilirubin,Direct 0.4 mg/dL (0.0-0.3)
--- NOTE | 2024-12-25 06:47 | XR_ITS ---
Examination: Abdomen sonogram, Limited Date and time of exam: December 25, 2024, 1108 hours INDICATIONS: Right lower abdominal pain several years, MRCP June 12, 2024 prominent extrahepatic biliary tract dilatation, cholecystectomy several years ago Technique: Real-time ivey scale transabdominal sonographic images of the upper abdomen obtained. Findings: Absent gallbladder Common bile duct is enlarged, 13 mm no definite stones Pancreatic head 2.2 cm Liver 11.0 cm fatty infiltration no focal liver lesions Normal hepatopetal portal venous 7 Patent IVC IMPRESSION: Abnormal enlargement common bile duct, consider repeat MRCP follow-up
--- NOTE | 2024-12-25 07:02 | ECHO_ITS ---
Patient Info Name: Jacqui Manzo Age: 74 years : 1950 Gender: Female Ht: 157 cm Wt: 57 kg BSA: 1.58 m2 BP: 130 / 93 mmHg HR: 103 bpm Exam Date: 12/25/2024 8:40 AM Admit Date: 12/25/2024 Site: [facility] Room Number: [id number] Patient Status: I Exam Type: CA echo doppler complete Lye Machine Operator: Dulce Maria Sheffield Ordering Physician: Miguel Gutierrez Study Info Indications Troponemia - Primary Location: S2NX Left Ventricular Outflow Tract Name Value Normal LVOT 2D LVOT Diameter 1.8 cm LVOT Doppler LVOT Peak Velocity 76 cm/s LVOT Mean Gradient 1 mmHg LVOT VTI 16 cm LVOT VTI/AV VTI Ratio 0.7 LVOT Stroke Volume 40 ml Pulmonic Valve Name Value Normal PV Doppler PV Peak Velocity 90 cm/s Mitral Valve Name Value Normal MV Doppler MV Decel [place] 823 cm/s2 MV PHT 25 ms MV Area (PHT) 8.9 cm2 4.0-5.0 MV Diastolic Function MV E Peak Velocity 70 cm/s MV A Peak Velocity 71 cm/s MV E/A 1.0 MV Annular TDI MV Septal e' Velocity 8.8 cm/s MV E/e' (Septal) 7.9 MV Lateral e' Velocity 8.8 cm/s MV E/e' (Lateral) 7.9 MV e' Average 8.81 cm/s MV E/e' (Average) 7.9 Tricuspid Valve Name Value Normal TV Regurgitation Doppler TR Peak Velocity 341 cm/s Estimated PAP/RSVP RA Pressure 3 mmHg <=5 PA Systolic Pressure 36 mmHg <36 RV Systolic Pressure 50 mmHg <36 Aortic Valve Name Value Normal AV 2D/MM AV Cusp Sep (MM) 1.4 cm AV Doppler AV Peak Velocity 109 cm/s AV Mean Gradient 3 mmHg AV VTI 24 cm AV Area (Cont Eq VTI) 1.7 cm2 >=3.0 AV Area (Cont Eq Gaudencio) 1.8 cm2 AV DI (Gaudencio) 0.69 AV Regurgitation 2D LVOT Area 2.5 cm2 Ventricles Name Value Normal LV Dimensions 2D/MM IVS Diastolic Thickness (2D) 1.0 cm 0.6-0.9 LVID Diastole (2D) 4.1 cm 3.8-5.2 LVIW Diastolic Thickness (2D) 1.1 cm 0.6-0.9 LVID Systole (2D) 2.7 cm 2.2-3.5 LVOT Diameter 1.8 cm LV Mass (2D Cubed) 141.55 g 67.00-162.00 LV Mass Index (2D Cubed) 90 g/m2 43-95 Relative Wall Thickness (2D) 0.54 <=0.42 IVS/LVIW Diastolic Thickness (2D) 0.91 0.00-1.50 LV Fractional Shortening/Ejection Fraction 2D/MM LV Fractional Shortening (2D) 34 % 27-45 LV EF (2D Teichholz) 64 % Atria Name Value Normal LA Dimensions LA Volume (4C A-L) 38 ml LA Volume (BP A-L) 38 ml Left Ventricle Left ventricular chamber dimension is normal. Left ventricular systolic function is normal with visually estimated ejection fraction of 60-65%. There is mild concentric hypertrophy noted in the left ventricle. Left ventricular segmental wall motion is normal. There is grade I diastolic dysfunction in the left ventricle. Right Ventricle Right ventricular chamber dimension is normal. Right ventricular systolic function is normal. Left Atrium Left atrial chamber dimension is normal. Right Atrium Right atrial chamber dimension is normal. Aortic Valve The aortic valve is trileaflet. There is no aortic valve sclerosis. There is no aortic valve stenosis with a peak velocity of 109 cm/s, mean gradient of 3 mmHg, and aortic valve area of 1.7 cm2. There is no aortic valve regurgitation. Pulmonic Valve The pulmonic valve is normal. There is no pulmonic valve stenosis. There is trace pulmonic regurgitation. Mitral Valve The mitral valve has thickened leaflets. There is no mitral valve stenosis. There is mild mitral valve regurgitation. Tricuspid Valve The tricuspid valve leaflets are normal. There is no tricuspid valve stenosis. There is mild to moderate tricuspid valve regurgitation. Pulmonary hypertension, estimated pulmonary arterial systolic pressure is 36 mmHg and systemic blood pressure of 130 mmHg in systole. Pericardium/Pleural The pericardium appears normal. There is no pericardial effusion. No pleural effusion visualized. Inferior Vena Cava Normal inferior vena cava with >50% collapse upon inspiration consistent with normal right atrial pressure, 3 mmHg. Aorta The aortic measurements are indexed to age and body surface area. The aortic root at the sinus of Valsalva is not well visualized. The prox ascending aorta is not well visualized. Summary 1. Left ventricle size is normal and systolic function is normal. Estimated ejection fraction is 60-65%. There is grade I diastolic dysfunction. There is mild concentric hypertrophy noted. 2. Right ventricle chamber size is normal and systolic function is normal. 3. There is mild mitral valve regurgitation. 4. There is mild to moderate tricuspid valve regurgitation. 5. trace pulmonic valve regurgitation. 6. Normal IVC with estimated RA pressure 3 mmHg. Report Signatures Finalized by Sharron Glez on 12/25/2024 12:52 PM
--- NOTE | 2024-12-25 07:03 | EKG_ITS ---
[facility] Test Date: 2024-12-25 Pat Name: NAYELY PERRY [facility] Gender: Female Collection Support Specialist: SIMEON : 1950 Requested By: Miguel Gutierrez Order Number: [id number] Reading MD: Miguel Gutierrez Measurements Intervals [place] Rate: 98 P: 62 [place]: 140 QRS: -23 QRSD: 92 T: 12 QT: 387 QTc: 495 Interpretive Statements SINUS RHYTHM BORDERLINE LEFT AXIS DEVIATION Compared to ECG 12/24/2024 19:07:50 Sinus tachycardia no longer present /[id number]/[id number]
[2024-12-25 07:35] LABS: INR 1.0 (0.9-1.3); Prothrombin Time 10.3 Seconds (9.0-12.2)
[2024-12-25 07:46] LABS: Acetaminophen < 2.0 mcg/mL (10.0-20.0); Alanine Aminotransferase 350 U/L (10-49); Albumin, Serum 4.4 gm/dL (3.4-4.8); Alkaline Phosphatase 296 U/L (46-116); Bilirubin,Direct 0.3 mg/dL (0.0-0.3); Bilirubin,Total 0.6 mg/dL (0.3-1.2); Creatine Kinase 92 U/L (34-171); Salicylate < 3.0 mg/dL; Total Protein 6.2 gm/dL (5.7-8.2)
[2024-12-25 07:55] LABS: Ammonia < 10 uMol/L (11-32); Aspartate Amino Transferase 1135 U/L (0-34)
--- NOTE | 2024-12-25 07:56 | ESPR_ITS ---
<Statement entered by Kyle Marquez MD - 12/25/24 17:25> Patient seen and examined at bedside. I discussed and supervised with the internet marketing executive physician who took care of this patient. I personally saw and examined the patient. I agree with most of the assessment and plan. Patient continues to have chest pain, squeezing, associated with nausea. Added nitro paste. Trend troponin, slight uptrend, likely NSTEMI type II per cardiology. Has severe livir injury. Liver US unchanged from previous, ordering widespread tests, pending medical records from previous eval. Plan of care discussed with attending Dr. Huber. Kyle Marquez MD PGY-2 Documentation for date of: 12/25/24 Subjective Subjective Interval history: Patient to feeling nauseous, dizzy, continuous squeezing chest pain. Received nitroglycerin PO before, but had severe headache. Gave nitroglycerin patch x1. Gave IV morphine 2 mg x 1 and IV ondansetron 4 mg x 1. Ultrasound liver ordered to rule out Budd Chiari and Echo ordered for troponemia and typical chest pain Stat INR with PT, Creatine Kinase, Acetaminophen, Hepatitis Acute panel, Salicylate, ammonia, Free T4 lab panel ordered. When patient came to ED, lab values for AST 29, ALT 40, ALP 125 troponin<0.020. EKG showed sinus rhythm. However, this morning patient's troponin increased to 0.510, AST 1131, ALT 281, ALP 282. Other lab values showed normal creatinine kinase 92 (rhabdomyolysis ruled out), ammonia<10. Repeat labs showed AST 1135, ALT 350, ALP 296, which could indicate the patient has a true liver injury or NV. Repeat EKG showed sinus rhythm again. Troponin 0.699. Has not peaked yet. A ST levels are too high to be considered NV. Patient did note that about 20years ago she has resected 40% of her liver due to hemangioma In previous admission, the patient was found to have choledocholithiasis, and was referred to [facility] for ERCP. Howver, during pre-procedural screening, she reported occasional dysphagia, after which the procedure was cancelled immediately. No further intervention was performed, and the choledocholithiasis remained untreated. Liver US (12/25/2024): showed enlarged common bile duct ,13mm, no definite stones, Absent gallbladder, Normal hepatopetal portal venous 7, Liver 11.0cm fatty infiltration no focal liver lesions. ECHO (12/25/2024): Normal LV and RV size and systolic function. Mild concentric hypertrophy, EF 60-65% Labs reviewed and patient examined at the bedside. Denies SOB,fevers or chills. Ordered Ceruplasmin, Alpha 1 antitrypsin antibody, EBV mono spot and titer antiboy, HSV type 1 and 2, CMV antibody and DNA, PANCA, anti-Sm antibody, Igg-4 level, Exam Vital Signs Temp Pulse Resp BP Pulse Ox O2 Del Method 97.0 F 101 H 20 130/93 H 95 Room Air 12/25/24 07:35 12/25/24 07:35 12/25/24 07:35 12/25/24 07:35 12/25/24 07:35 12/25/24 07:35 Narrative Exam General: AAO x3, stressed, frail Eye: PERRL, EOMI, normal conjunctiva, no scleral icterus HENT: Normocephalic, atraumatic, hearing intact to conversation at normal volume, moist oral mucosa Neck: Supple, non-tender, no JVD, no lymphadenopathy Lungs: Non-labored respirations, symmetric chest rise, Clear to auscultate bilaterally, No wheezing, rhonchi, crackles Heart: Peripheral pulses intact bilaterally, Regular Rate and Rhythm. Abdomen: Soft, non-tender, non-distended, no palpable masses Musculoskeletal: Normal range of motion and strength, No cyanosis or edema, No visible joint swelling Skin: Skin is warm, dry, no rashes or lesions. Psychiatric: Cooperative, appropriate mood and affect, Awake and alert, not agitated Neuro: Cranial nerves II-XII grossly intact. Strength 5/5 throughout. Sensations intact to light touch. Objective Labs 12/25/24 09:37 12/25/24 04:09 Labs: Laboratory Results - last 24 hr 12/24/24 12/24/24 12/24/24 17:52 19:07 20:50 WBC 6.5 RBC 4.29 Hgb 10.6 L Hct 33.5 L MCV 78 L MCH 24.7 L MCHC 31.6 RDW Std Deviation 47.7 H Plt Count 330 Neut % (Auto) 74 Lymph % (Auto) 15 [place] % (Auto) 10 Eos % (Auto) 0 Baso % (Auto) 0 Neut # (Auto) 4.8 Lymph # (Auto) 0.9 L [place] # (Auto) 0.7 Eos # (Auto) 0.0 Baso # (Auto) 0.0 Immature Gran # (Auto) 0.01 H Absolute Nucleated RBC 0.00 Immature Gran % 0 Nucleated RBC % 0 PT 10.2 INR 1.0 APTT 23.5 Sodium 139 Potassium 4.0 Chloride 103 Carbon Dioxide 27.1 Anion Gap 9 BUN 13 Creatinine 0.9 Estim Creat Clear Calc 48.7 L eGFR > 60 BUN/Creatinine Ratio 14 [address] Glu mg/dL Hemoglobin A1c Calculated Osmolality 279 Calcium 8.6 Corrected Calcium 8.6 Magnesium 2.1 Total Bilirubin 0.4 Direct Bilirubin AST 29 ALT 40 Alkaline Phosphatase 125 H Ammonia Lactate Dehydrogenase 193 Total Creatine Kinase Troponin I < 0.020 0.127 H* B-Natriuretic Peptide 100 Total Protein 6.1 Albumin 4.2 Globulin 1.9 L Albumin/Globulin Ratio 2.2 Triglycerides Cholesterol LDL Cholesterol, Calc HDL Cholesterol Cholesterol/HDL Ratio TSH Ur Collection Type Clean Catch Urine Color Yellow Urine Clarity Clear Urine pH 6.0 Ur Specific [place] 1.023 Urine Protein 1+ A Urine Glucose (UA) 2+ A Urine Ketones 1+ A Urine Blood 2+ A Urine Nitrite Negative Urine Bilirubin Negative Urine Urobilinogen (Auto) Negative Ur Leukocyte Esterase Negative Urine RBC 13 H Urine WBC 1 Ur Squamous Epith Cells < 1 Amorphous Crystals Present A Urine Bacteria Rare Hyaline Casts < 1 Ur Culture Indicated? Not Indicated Salicylates Urine Opiates Screen Negative Urine Fentanyl Screen Negative Acetaminophen Ur Barbiturates Screen Negative U Amphetamin/Meth Scrn Negative U Benzodiazepines Scrn Negative U Cocaine Metab Screen Negative U Marijuana (THC) Screen Negative 12/25/24 12/25/24 12/25/24 00:09 04:09 07:01 WBC 10.4 D RBC 4.49 Hgb 11.2 L Hct 35.1 L MCV 78 L MCH 24.9 L MCHC 31.9 RDW Std Deviation 47.9 H Plt Count 227 D Neut % (Auto) 81 H Lymph % (Auto) 9 L [place] % (Auto) 9 Eos % (Auto) 0 Baso % (Auto) 0 Neut # (Auto) 8.5 H Lymph # (Auto) 1.0 [place] # (Auto) 0.9 H Eos # (Auto) 0.0 Baso # (Auto) 0.0 Immature Gran # (Auto) 0.03 H Absolute Nucleated RBC 0.00 Immature Gran % 0 Nucleated RBC % 0 PT 10.3 INR 1.0 APTT Sodium 140 Potassium 4.2 Chloride 103 Carbon Dioxide 28.2 Anion Gap 9 BUN 12 Creatinine 0.9 Estim Creat Clear Calc 49.1 L eGFR > 60 BUN/Creatinine Ratio 13 Glucose [address] Glu mg/dL 108 Hemoglobin A1c 5.4 Calculated Osmolality 281 Calcium 8.7 Corrected Calcium 8.7 Magnesium 2.1 Total Bilirubin 0.7 0.6 Direct Bilirubin 0.4 H 0.3 AST 1131 H* ALT 281 H 350 H Alkaline Phosphatase 282 H D 296 H Ammonia < 10 L Lactate Dehydrogenase Total Creatine Kinase 92 Troponin I 0.320 H* 0.510 H* B-Natriuretic Peptide Total Protein 6.3 6.2 Albumin 4.3 4.4 Globulin 2.0 L Albumin/Globulin Ratio 2.2 Triglycerides 66 Cholesterol 218 H LDL Cholesterol, Calc 81 HDL Cholesterol 124 H Cholesterol/HDL Ratio 1.8 L TSH 5.84 H Ur Collection Type Urine Color Urine Clarity Urine pH Ur Specific [place] Urine Protein Urine Glucose (UA) Urine Ketones Urine Blood Urine Nitrite Urine Bilirubin Urine Urobilinogen (Auto) Ur Leukocyte Esterase Urine RBC Urine WBC Ur Squamous Epith Cells Amorphous Crystals Urine Bacteria Hyaline Casts Ur Culture Indicated? Salicylates < 3.0 Urine Opiates Screen Urine Fentanyl Screen Acetaminophen < 2.0 L Ur Barbiturates Screen U Amphetamin/Meth Scrn U Benzodiazepines Scrn U Cocaine Metab Screen U Marijuana (THC) Screen Quality Measures Quality Measures VTE prophylaxis Advance care planning discussed with:: patient Assessment & Plan Assessment Current Active Medications: Generic Name Dose Route Start Last Admin Trade Name Freq PRN Reason Stop Dose Admin Buspirone HCl 15 mg 12/25/24 09:00 Buspirone Hcl 5 Mg Tablet PO 01/24/25 08:59 BID ALPHONSO Docusate Sodium 100 mg 12/25/24 03:09 Docusate Sod 100 Mg Capsule PO 01/24/25 03:08 QDAY PRN CONSTIPATION Protocol Fluoxetine HCl 40 mg 12/25/24 09:00 Fluoxetine Hcl 10 Mg Capsule PO 01/24/25 08:59 QDAY ALPHONSO Hydroxyzine HCl 50 mg 12/25/24 03:19 12/25/24 04:02 Hydroxyzine Hcl 25 Mg Tablet PO 01/24/25 05:59 50 mg QID PRN Administration anxiety Heparin Sodium/Dextrose 25,000 unit in 250 mls @ 7.512 mls/hr 12/25/24 01:45 12/25/24 03:20 Heparin In D5w Ivpb IV 01/08/25 01:44 12 units/kg/hr .Q24H ALPHONSO 7.512 mls/hr Protocol Administration 12 UNITS/KG/HR Levothyroxine Sodium 75 mcg 12/25/24 06:00 12/25/24 05:26 Levothyroxine Sodium 25 Mcg Tablet PO 01/24/25 05:59 75 mcg ACBR ALPHONSO Administration Metoprolol Succinate 25 mg 12/25/24 09:00 Metoprolol Succinate Xl 25 Mg Tabcr PO 01/24/25 08:59 QDAY ALPHONSO Ondansetron HCl 4 mg 12/25/24 03:09 12/25/24 05:22 Ondansetron Inj 2 Mg/Ml Inj 2 Ml IVP 01/24/25 03:08 4 mg Q6H PRN Administration NAUSEA OR VOMITING Protocol Plan 74-year-old female with a past medical history of hypothyroidism, anxiety/depression, IBS, fibromyalgia, and a history of multiple abdominal surgeries (approximately 10), including a gastrectomy, presents with recurrent upper substernal chest pain x2 days. Patient admitted for NSTEMI type I vs type II, pending cardiac consult. #NSTEMI Type I (plaque rupture and thrombus formation) vs type II (supply-demand mismatch) -Initial Trop was negative --> 0.127 --> 0.320. Troponin 0.699. Has not peaked yet. -EKG showed sinus tachycardia, QTc 484, no ST changes -Echocardiogram 05/11/24 showed normal LV size and function with estimated EF 55 to 60% -Left heart cardiac catheterization 05/11/2024 showed normal coronaries without any angiographically significant obstruction -Received aspirin 324 mg p.o. x 1 in ED -ECHO (12/25/2024): Normal LV and RV size and systolic function. Mild concnetric hypertrophy, EF 60-65% Plan -Cardiology consulted, Dr. Glez aware, to see in a.m. -Trend trop q6h -Started on atorvastatin 80 mg nightly -IV Heparin initiated without bolus due to patient's history of easy bruisability. -Heparin drip will be titrated based on activated aPTT -Telemetry -Keep magnesium and potassium above 2 and 4 respectively #Transaminitis #Acute liver injury? -In ED, lab values for AST 29, ALT 40, ALP 125 troponin<0.020. In morning of 12/25, AST 1131, ALT 281, ALP 282. Repeat panel showed AST 1135, ALT 350, ALP 296, - Patient did note that about 20years ago she has resected 40% of her liver due to hemangioma -In previous admission, the patient was found to have choledocholithiasis, and was referred to [facility] for ERCP. Howver, during pre-procedural screening, she reported occasional dysphagia, after which the procedure was cancelled immediately. No further intervention was performed, and the choledocholithiasis remained untreated. -Past MRCP(06/12/2024) showed enlarged common hepatic common bile duct 10-12mm. -Liver US (12/25/2024): showed enlarged common bile duct ,13mm, no definite stones, Absent gallbladder, Normal hepatopetal portal venous 7, Liver 11.0cm fatty infiltration no focal liver lesions. Plan: -Continue to monitor LFTs. #Severe Hypertension Blood pressure on admission 175/94 Patient takes Losartan 50mg daily at home While in ED received diltiazem 5 mg IV push x 1, followed by diltiazem 10 mg p.o. x 1 Plan ? Metoprolol succinate XL 25 mg daily #Hx of Xanax addiction Recently came out of acute rehab facility for Xanax addiction in September ? ABSOLUTELY NO XANAX #Hx of depression #Hx of anxiety #Hx hypothyroidism Plan: ? Resumed home fluoxetine ? Resumed home buspirone ? Resumed home hydroxyzine ? Patient takes Seroquel however unsure of the dose, restart when known ? Resume levothyroxine 75mcg daily #History of total gastrectomy #History of Zenia fundoplication #History of IBS ? Monitor LFTs Health Maintenance: Diet: Cardiac diet GI prophylaxis: None DVT prophylaxis: Heparin drip Antibiotics: None CODE STATUS: Full Disposition: Telemetry Assessment and plan discussed with my attending physician Dr. Huber and Dr. Alma Gutierrez (PGY-1) - Internal medicine resident
[2024-12-25] MEDS: METOPROLOL SUCCINATE XL 25 MG TABCR PO (08:08)
[2024-12-25 08:13] LABS: Hepatitis A Antibody IgM Non Reactive (Non React); Hepatitis B Core Antibody IgM Non Reactive (Non React); Hepatitis B Surface Antigen Non Reactive (Non React); Hepatitis C Antibody Non Reactive (Non React)
--- NOTE | 2024-12-25 08:32 | ESCONSULT_ITS ---
<Statement entered by Sharron Glez MD - 12/26/24 17:03> I personally examined evaluated this patient with resident physician PGY 2 Dr. Espinoza, patient appears to be doing little better but still having severe anxiety episode of shortness of breath palpitations rapid heart rate anxiety and panic attack. Patient has had angiogram earlier this year showing completely normal coronary arteries patient has had stress-induced cardiomyopathy cardiac echo showed normal left ventricular wall motion normal ejection fraction. Patient had troponin elevation secondary to stress-induced myocardial ischemia and injury no clear evidence of Takotsubo cardiomyopathy however patient clearly has troponin elevation due to severe myocardial stress. Patient has had counseling and treatment for alcohol and rehabilitation as well as Xanax was also remote causing her to have panic attacks. Will try to avoid all the benzodiazepines use beta-julia propranolol nonselective beta-julia to see if we can help her situation. I reassured that she did not have any heart attack no need to be concerned. She also has had liver enzyme elevation chronically intermittent episodes and common bile duct dilation with no stones she already had a cholecystectomy. Apparently was seen by [facility] already no treatment or no surgery was recommended. 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 Clinically she does not have any jaundice though she has some elevation alkaline phosphatase no evidence of any bilirubin elevation no evidence of any cholangitis at this time. This will be monitored as well. Patient reassured that there is no evidence of acute myocardial infarction with coronary artery disease since he had essentially normal coronary arteries I reviewed the angiogram showed completely normal coronary arteries perfectly normal arteries with no plaque. Will continue to monitor the patient closely. HPI Data of Consult Requesting Physician: Shola Mcmullen MD Admitting Provider: Shola Mcmullen MD Attending Provider: Shola Mcmullen MD Primary Care Provider: Physician No Primary/Family Consult Narrative Reason for consult: Atypical chest pain History of present illness: 73-year-old female with past medical history of hypertension, anxiety, hypothyroidism, benzodiazepine addiction which she was in a rehab for in August 2024, atypical chest pain with negative cardiac workup in the past with left heart cath showing no coronary artery disease, sinus tachycardia who presented to the ED on 12/25 with substernal chest discomfort. Patient stated that the pain felt like a squeezing sensation which was associated with shortness of breath, nausea and apparently started about 3 days ago and has progressively worsened. In the ED, patient presented afebrile, hypertensive 175/94, tachycardic heart rate of 106, but saturating 96 on room air. Pertinent findings included mild troponin increased which has since peaked at 0.699 and is now downtrending. Patient was initially admitted for suspicion for acute coronary syndrome which is unlikely as the patient had a recent left heart cath on 05/11/2024 which was largely unremarkable. 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, cholecystectomy, appendectomy, liver surgery, thyroidectomy, hysterectomy Allergies: # Medications: As listed Family history: Noncontributory Social history: Patient apparently stopped drinking alcohol about 3 months ago but used to drink several bottles of wine a day, benzodiazepine addiction and used to be in acute rehab in August 2024, denies any tobacco or illicit drug use ROS: All 12 systems assessed and the patient denies unless otherwise stated in HPI cc:: cc: Shola Mcmullen MD Exam Vital Signs Temp Pulse Resp BP Pulse Ox O2 Del Method 97.0 F 101 H 20 130/93 H 95 Room Air 12/25/24 07:35 12/25/24 08:08 12/25/24 07:35 12/25/24 08:08 12/25/24 07:35 12/25/24 07:35 Narrative Exam Physical Exam: GENERAL: Awake, answering questions appropriately, appears stated age, anxious HEENT: NC/AT. Moist mucosa. PERRLA/EOMI. CARDIO: Heart RRR, no obvious murmurs, no JVD. PULM: No coughing or visible SOB. Lungs CTA B/L. GI: Abdomen soft, NT/ND, +BS. SKIN/MSK/EXT: No wounds/discoloration/rashes/edema/amputations noted. +Pedal pulses present B/L. NEURO: Oriented x3, Moves extremities x4, no focal neurologic deficits noted Results Labs 12/25/24 09:37 12/25/24 04:09 Labs: Short CBC 12/24/24 12/25/24 Range/Units 17:52 04:09 WBC 6.5 10.4 D (3.6-11.0) Thou/mm3 Hgb 10.6 L 11.2 L (12.0-16.0) g/dL Hct 33.5 L 35.1 L (36.0-46.0) % Plt Count 330 227 D (140-440) Thou/mm3 BMP 12/24/24 12/25/24 17:52 04:09 Sodium 139 140 Potassium 4.0 4.2 Chloride 103 103 Carbon Dioxide 27.1 28.2 BUN 13 12 Creatinine 0.9 0.9 Glucose 139 H 137 H Calcium 8.6 8.7 Cardiac Enzymes 12/24/24 12/24/24 12/25/24 Range/Units 17:52 20:50 00:09 Total Creatine Kinase (34-171) U/L Troponin I < 0.020 0.127 H* 0.320 H* (0.0-0.045) ng/mL 12/25/24 12/25/24 Range/Units 04:09 07:01 Total Creatine Kinase 92 (34-171) U/L Troponin I 0.510 H* (0.0-0.045) ng/mL Liver Function 12/24/24 12/25/24 12/25/24 Range/Units 17:52 04:09 07:01 Total Bilirubin 0.4 0.7 0.6 (0.3-1.2) mg/dL Direct Bilirubin 0.4 H 0.3 (0.0-0.3) mg/dL AST 29 1131 H* 1135 H* (0-34) U/L ALT 40 281 H 350 H (10-49) U/L Alkaline Phosphatase 125 H 282 H D 296 H (46-116) U/L Albumin 4.2 4.3 4.4 (3.4-4.8) gm/dL Urine 12/24/24 Range/Units 19:07 Urine Color Yellow (Lt Yel-Yel) Urine Clarity Clear (Clear/Hazy) Urine pH 6.0 (5.0-7.0) Ur Specific [place] 1.023 (1.001-1.035) Urine Protein 1+ A (Neg - Trace) Urine Glucose (UA) 2+ A (Negative) Quality Measures Quality Measures VTE prophylaxis Advance care planning discussed with:: patient Medications Home Medications and Allergies Home Medications ?Medication ?Instructions ?Recorded ?Confirmed ?Type buspirone 15 mg tablet 15 mg PO BID 06/27/19 History levothyroxine 75 mcg tablet 75 mcg PO QAM 03/12/2212/09 History dicyclomine 10 mg capsule See Rx Instructions PO .COMP GISSELLE 06/08/24 12/25/24 History fluoxetine 40 mg capsule 40 mg PO DAILY 06/08/2412/16 History docusate sodium 100 mg capsule 100 mg PO BID PRN const ipation 12/25/24 12/25/24 History hydroxyzine HCl 50 mg tablet 50 mg PO Q6H PRN anxiety 12/25/24 12/25/24 History losartan 50 mg tablet 50 mg PO QDAY 12/25/2412/25 History Allergies Allergy/AdvReac Type Severity Reaction Status Date / Time Penicillins Allergy Mild Rash Verified 12/20/24 09:26 Visit Medications Buspirone HCl (Buspirone Hcl 5 Mg Tablet) 15 mg PO BID [facility] Stop: 01/24/25 08:59 Last Admin: 12/25/24 08:08 Dose: 15 mg Docusate Sodium (Docusate Sod 100 Mg Capsule) 100 mg PO QDAY PRN; Protocol PRN Reason: CONSTIPATION Stop: 01/24/25 03:08 Fluoxetine HCl (Fluoxetine Hcl 10 Mg Capsule) 40 mg PO QDAY ALPHONSO Stop: 01/24/25 08:59 Last Admin: 12/25/24 08:08 Dose: 40 mg Hydroxyzine HCl (Hydroxyzine Hcl 25 Mg Tablet) 50 mg PO QID PRN PRN Reason: anxiety Stop: 01/24/25 05:59 Last Admin: 12/25/24 04:02 Dose: 50 mg Heparin Sodium/Dextrose (Heparin In D5w Ivpb) 25,000 unit in 250 mls @ 7.512 mls/hr IV .Q24H ALPHONSO; Protocol Stop: 01/08/25 01:44 Last Admin: 12/25/24 03:20 Dose: 12 units/kg/hr, 7.512 mls/hr Levothyroxine Sodium (Levothyroxine Sodium 25 Mcg Tablet) 75 mcg PO ACBR ALPHONSO Stop: 01/24/25 05:59 Last Admin: 12/25/24 05:26 Dose: 75 mcg Metoprolol Succinate (Metoprolol Succinate Xl 25 Mg Tabcr) 25 mg PO QDAY ALPHONSO Stop: 01/24/25 08:59 Last Admin: 12/25/24 08:08 Dose: 25 mg Ondansetron HCl (Ondansetron Inj 2 Mg/Ml Inj 2 Ml) 4 mg IVP Q6H PRN; Protocol PRN Reason: NAUSEA OR VOMITING Stop: 01/24/25 03:08 Last Admin: 12/25/24 05:22 Dose: 4 mg Discontinued Medications Acetaminophen (Acetaminophen 325 Mg Tablet) 650 mg PO X1 ONE Stop: 12/24/24 18:41 Last Admin: 12/24/24 18:54 Dose: 650 mg Acetaminophen (Acetaminophen 325 Mg Tablet) 650 mg PO Q6H PRN PRN Reason: PAIN OR FEVER > 100.4 Stop: 01/24/25 03:08 Aspirin (Aspirin 81 Mg Chew) 324 mg PO X1 ONE Stop: 12/24/24 22:33 Last Admin: 12/24/24 23:06 Dose: 324 mg Atorvastatin Calcium (Atorvastatin Calcium 20 Mg Tablet) 80 mg PO HS [facility] Stop: 01/24/25 20:59 Diltiazem HCl (Diltiazem Inj 5 Mg/Ml Vial 5 Ml) 5 mg IV X1 ONE Stop: 12/25/24 02:04 Last Admin: 12/25/24 02:16 Dose: 5 mg Diltiazem HCl (Diltiazem 30 Mg Tablet) 10 mg PO X1 ONE Stop: 12/25/24 03:10 Last Admin: 12/25/24 04:11 Dose: Not Given Diltiazem HCl (Diltiazem 30 Mg Tablet) 30 mg PO X1 ONE Stop: 12/25/24 04:07 Last Admin: 12/25/24 07:17 Dose: Not Given Heparin Sodium (Porcine) (Heparin Sod Inj 5000 Unit/Ml Vial) 3,650 unit 60 unit/kg (3650 unit) IV X1 ONE; Protocol Stop: 12/25/24 01:41 Last Admin: 12/25/24 02:11 Dose: Not Given Metoprolol Succinate (Metoprolol Succinate Xl 25 Mg Tabcr) 50 mg PO QDAY [facility] Stop: 01/24/25 08:59 Morphine Sulfate (Morphine Sulf Inj 4 Mg/Ml Vial) 4 mg IVP X1 ONE Stop: 12/24/24 22:41 Last Admin: 12/24/24 23:09 Dose: 4 mg Morphine Sulfate (Morphine Sulf Inj 4 Mg/Ml Vial) 2 mg IVP X1 ONE Stop: 12/25/24 02:14 Last Admin: 12/25/24 03:24 Dose: 2 mg Morphine Sulfate (Morphine Sulf Inj 4 Mg/Ml Vial) 2 mg IVP X1 ONE Stop: 12/25/24 07:32 Last Admin: 12/25/24 08:08 Dose: 2 mg Ondansetron HCl (Ondansetron Odt 4 Mg Tabrap) 4 mg PO X1 ONE; Protocol Stop: 12/24/24 19:20 Last Admin: 12/24/24 19:25 Dose: 4 mg Ondansetron HCl (Ondansetron Inj 2 Mg/Ml Inj 2 Ml) 4 mg IVP X1 ONE; Protocol Stop: 12/24/24 22:41 Last Admin: 12/24/24 23:07 Dose: 4 mg Ondansetron HCl (Ondansetron Inj 2 Mg/Ml Inj 2 Ml) 4 mg IVP X1 ONE; Protocol Stop: 12/25/24 07:33 Last Admin: 12/25/24 08:08 Dose: 4 mg Prochlorperazine Edisylate (Prochlorperazine Inj 5 Mg/Ml Vial 2 Ml) 2.5 mg IV X1 ONE; Protocol Stop: 12/25/24 02:14 Last Admin: 12/25/24 03:24 Dose: 2.5 mg Assessment & Plan Plan 74-year-old female with a past medical history of hypothyroidism, anxiety/depression, IBS, fibromyalgia, and a history of multiple abdominal surgeries (approximately 10), including a gastrectomy, presents with recurrent upper substernal chest pain x2 days. Patient admitted for NSTEMI type I vs type II, pending cardiac consult. #NSTEMI type II #Stress-induced cardiomyopathy #Elevated troponin, peaked and downtrending As noted above, patient presented with chest pain, substernally Patient never followed up with outpatient cardiology after the left heart catheterization as she was hospitalized and unfortunately missed her scheduled appointments Initial Trop was negative --> 0.127 --> 0.320. Troponin 0.699, peaked --> 0.613 EKG showed sinus tachycardia, QTc 484, no ST changes Echocardiogram 05/11/24 showed normal LV size and function with estimated EF 55 to 60% Left heart cardiac catheterization 05/11/2024 showed normal coronaries without any angiographically significant obstruction ECHO (12/25/2024): Normal LV and RV size and systolic function. Mild concnetric hypertrophy, EF 60-65% Plan: Start propranolol 20 mg 3 times daily for anxiety causing NSTEMI type II/stress- induced cardiomyopathy Stop trending troponin Stop IV heparin drip Keep magnesium and potassium above 2 and 4 respectively #Acute liver injury #Severe Hypertension #Hx of Xanax/benzodiazepine use disorder #Depression #Anxiety #Hypothyroidism #History of total gastrectomy #History of Zenia fundoplication #History of IBS Rest of medical problems to be managed by primary hospitalist team Patient seen and assessed with attending Dr. Newton Espinoza, DO PGY-2 Internal Medicine - [facility]
--- NOTE | 2024-12-25 08:54 | PC.SS ---
rounding note: Patient has a Cardiology consult. Remains on heparin drip
[2024-12-25] MEDS: ASPIRIN EC 81 MG TABEC PO (09:54)
[2024-12-25 10:20] LABS: Hematocrit 35.9 % (36.0-46.0); Hemoglobin 11.2 g/dL (12.0-16.0)
[2024-12-25 10:25] LABS: Partial Thromboplastin Time 33.2 Seconds (22.0-36.0)
[2024-12-25] MEDS: HEPARIN SOD INJ 5000 UNIT/ML VIAL 3412 UNIT IVP (11:16)
[2024-12-25] MEDS: METOCLOPRAMIDE INJ 5 MG/ML VIAL 2 ML IVP (11:17)
[2024-12-25 12:48] LABS: Free T4 (Free Thyroxine) 1.59 ng/dL (0.89-1.76)
[2024-12-25 12:53] LABS: Troponin I 0.699 ng/mL (0.0-0.045)
--- NOTE | 2024-12-25 15:36 | PC.PT ---
Patient was approached for PT eval at 1000 and reported intense nausea and dizziness. Patient asked to be checked on in the afternoon to see if she was feeling better. PT approached at 1430 for PT eval again. Patient reported to PT she still felt unwell and very nauseous and to postpone PT eval to tomorrow morning. PT informed patient of limited PT coverage tomorrow due to the holiday. Patient verbalized her understanding and asked to be seen tomorrow morning. Will re-attempt PT eval again tomorrow. RN made aware.
--- NOTE | 2024-12-25 16:29 | PC.NURSE ---
patient unable to void, patient complaining of pressure in her urinary bladder bladder scan done with 400ml retaining inbladder, called dr. posey and made aware, new order to place smith catheter.
[2024-12-25 17:53] LABS: Misc Send Out* See Sep Rpt
[2024-12-25 18:20] LABS: Troponin I 0.613 ng/mL (0.0-0.045)
[2024-12-25 18:25] LABS: Partial Thromboplastin Time 83.3 Seconds (22.0-36.0)
--- NOTE | 2024-12-25 19:12 | PC.NURSE ---
Around 1750 patient stated she was not feeling well complained of being hot and flushed. MD called and came to bedside to see patient. MD gave orders for morphine and BS check. BS 148.
[2024-12-25] MEDS: PROPRANOLOL 10 MG TABLET 20 MG PO (21:07)
[2024-12-25 23:17] LABS: Misc Send Out* See Sep Rpt
[2024-12-25] MEDS: SCOPOLAMINE 1 MG TDSY TOP (23:54)
[2024-12-26] VITALS (11 sets, daily range): BP systolic 111–151; BP diastolic 66–85; PULSE 66–80; RESP 12–19; TEMP 36.1–37.2; O2SAT 94–95; BMI 24.2
[2024-12-26] MEDS: LEVOTHYROXINE SODIUM 25 MCG TABLET 75 MCG PO (05:49)
[2024-12-26] MEDS: ONDANSETRON INJ 2 MG/ML INJ 2 ML 4 MG IVP (05:50)
[2024-12-26] MEDS: PROPRANOLOL 10 MG TABLET 20 MG PO ×3 (05:50→21:16)
[2024-12-26] MEDS: SENNA/DOCUSATE SOD 1 TAB TABLET 2 TAB PO (05:56)
[2024-12-26 06:38] LABS: Basophils # (Auto) 0.0 Thou/mm3 (0.0-0.2); Basophils % (Auto) 0 % (0-2.5); Eosinophils # (Auto) 0.0 Thou/mm3 (0.0-0.5); Eosinophils % (Auto) 0 % (0-10); Hematocrit 36.2 % (36.0-46.0); Hemoglobin 11.5 g/dL (12.0-16.0); Immature Granulocytes Auto 0.01 Thou/mm3 (0.00-0.00); Lymphocytes # (Auto) 1.1 Thou/mm3 (1.0-4.8); Lymphocytes % (Auto) 13 % (10-50); Mean Corpuscular HGB Conc 31.8 g/dl (31.0-37.0); Mean Corpuscular Hemoglobin 25.0 pg (25.0-35.0); Mean Corpuscular Volume 79 fL (80-100); Monocytes # (Auto) 0.6 Thou/mm3 (0.0-0.8); Monocytes % (Auto) 8 % (0-12); Neutrophils # (Auto) 6.2 Thou/mm3 (1.8-7.7); Neutrophils % (Auto) 78 % (37-80); Nucleated Red Blood Cell # 0.00 Thou/mm3 (0.00-0.00); Nucleated Red Blood Cell % 0 /100 WBC (0); Platelet Count 393 Thou/mm3 (140-440); RDW Standard Deviation 48.9 fL (36.4-46.3); Red Blood Count 4.60 Miln/mm3 (4.00-5.20); White Blood Count 7.9 Thou/mm3 (3.6-11.0)
[2024-12-26 06:56] LABS: Alanine Aminotransferase 396 U/L (10-49); Albumin, Serum 4.1 gm/dL (3.4-4.8); Albumin/Globulin Ratio 2.1 (1.2-2.2); Alkaline Phosphatase 309 U/L (46-116); Anion Gap 7 (7-16); Aspartate Amino Transferase 489 U/L (0-34); BUN/Creatinine Ratio 11 Ratio (12-20); Bilirubin,Total 0.4 mg/dL (0.3-1.2); Blood Urea Nitrogen 10 mg/dL (9-23); Calcium 8.7 mg/dL (8.3-10.6); Calcium (Corrected) 8.7 mg/dL (8.5-10.1); Carbon Dioxide 32.0 mMol/L (20.0-31.0); Chloride 97 mMol/L (98-107); Creatinine (Component) 0.9 mg/dL (0.6-1.3); Estimated Creatinine Clearance 44.7 mL/min (>60); Globulin 2.0 gm/dL (2.3-3.5); Glucose 115 mg/dL (74-106); Magnesium 1.9 mg/dL (1.6-2.6); Osmolality,Calculated 271 (275-295); Phosphorous 3.4 mg/dL (2.4-5.1); Potassium 4.3 mMol/L (3.4-5.1); Sodium 136 mMol/L (136-145); Total Protein 6.1 gm/dL (5.7-8.2); eGFR > 60 See Note
--- NOTE | 2024-12-26 08:11 | ESPR_ITS ---
<Statement entered by Kyle Marquez MD - 12/26/24 15:17> Patient seen and examined at bedside. I discussed and supervised with the trestle mainternance laborer physician who took care of this patient. I personally saw and examined the patient. I agree with most of the assessment and plan. Plan of care discussed with attending Dr. Castaneda. Kyle Mraquez MD PGY-2 Documentation for date of: 12/26/24 Subjective Subjective Interval history: Troponin levels are downtrending from 0.699 to 0.613. AST downtrending from 1135 to 489. ALT and ALP still remains high (AST:489, and ALT:396). Cardiology assessment suggests a stress-induced etiology with normal ECHO EF60-65%, and repeat EKGs showing normal sinus rhythm. Past left heart cath on 05/11/2024 was largely unremarkable. Discontinued metoprolol and changed to Propranolol 20mg po tid for managment of anxiety causing NSTEMI type II/stress induced cardiomyopathy. Stopped IV heparin. No Overnight events. Labs reviewed and patient examined at the bedside. Denies palpation, SOB, fevers or chills. Exam Vital Signs Temp Pulse Resp BP Pulse Ox O2 Del Method O2 Flow Rate 98.9 F 70 19 143/85 H 94 L Nasal Cannula 1 12/26/24 07:55 12/26/24 07:55 12/26/24 07:55 12/26/24 07:55 12/26/24 07:55 12/26/24 07:55 12/26/24 07:55 Narrative Exam General: AAO x3, stressed, frail Eye: PERRL, EOMI, normal conjunctiva, no scleral icterus HENT: Normocephalic, atraumatic, hearing intact to conversation at normal volume, moist oral mucosa Neck: Supple, non-tender, no JVD, no lymphadenopathy Lungs: Non-labored respirations, symmetric chest rise, Clear to auscultate bilaterally, No wheezing, rhonchi, crackles Heart: Peripheral pulses intact bilaterally, Regular Rate and Rhythm. Abdomen: Soft, non-tender, non-distended, no palpable masses Musculoskeletal: Normal range of motion and strength, No cyanosis or edema, No visible joint swelling Skin: Skin is warm, dry, no rashes or lesions. Psychiatric: Cooperative, appropriate mood and affect, Awake and alert, not agitated Neuro: Cranial nerves II-XII grossly intact. Strength 5/5 throughout. Sensations intact to light touch. Objective Labs 12/27/24 04:05 12/27/24 04:05 Labs: Laboratory Results - last 24 hr 12/25/24 12/25/24 12/25/24 04:09 09:37 09:37 WBC RBC Hgb 11.2 L Hct 35.9 L MCV MCH MCHC RDW Std Deviation Plt Count Neut % (Auto) Lymph % (Auto) [place] % (Auto) Eos % (Auto) Baso % (Auto) Neut # (Auto) Lymph # (Auto) [place] # (Auto) Eos # (Auto) Baso # (Auto) Immature Gran # (Auto) Absolute Nucleated RBC Immature Gran % Nucleated RBC % APTT 33.2 Sodium Potassium Chloride Carbon Dioxide Anion Gap BUN Creatinine Estim Creat Clear Calc eGFR BUN/Creatinine Ratio Glucose Calculated Osmolality Calcium Corrected Calcium Phosphorus Magnesium Total Bilirubin AST ALT Alkaline Phosphatase Troponin I Cancelled 0.699 H* Total Protein Albumin Globulin Albumin/Globulin Ratio Free T4 1.59 Hepatitis A IgM Ab Non Reactive Hep Bs Antigen Non Reactive Hep B Core IgM Ab Non Reactive Hepatitis C Antibody Non Reactive Blood Type O Positive Antibody Screen NEGATIVE Blood Bank Wristband ID Yes 12/25/24 12/26/24 17:40 06:26 WBC 7.9 RBC 4.60 Hgb 11.5 L Hct 36.2 MCV 79 L MCH 25.0 MCHC 31.8 RDW Std Deviation 48.9 H Plt Count 393 D Neut % (Auto) 78 Lymph % (Auto) 13 [place] % (Auto) 8 Eos % (Auto) 0 Baso % (Auto) 0 Neut # (Auto) 6.2 Lymph # (Auto) 1.1 [place] # (Auto) 0.6 Eos # (Auto) 0.0 Baso # (Auto) 0.0 Immature Gran # (Auto) 0.01 H Absolute Nucleated RBC 0.00 Immature Gran % 0 Nucleated RBC % 0 APTT 83.3 H D Sodium 136 Potassium 4.3 Chloride 97 L Carbon Dioxide 32.0 H Anion Gap 7 BUN 10 Creatinine 0.9 Estim Creat Clear Calc 44.7 L eGFR > 60 BUN/Creatinine Ratio 11 L Glucose 115 H Calculated Osmolality 271 L Calcium 8.7 Corrected Calcium 8.7 Phosphorus 3.4 Magnesium 1.9 Total Bilirubin 0.4 AST 489 H ALT 396 H Alkaline Phosphatase 309 H Troponin I 0.613 H* Total Protein 6.1 Albumin 4.1 Globulin 2.0 L Albumin/Globulin Ratio 2.1 Free T4 Hepatitis A IgM Ab Hep Bs Antigen Hep B Core IgM Ab Hepatitis C Antibody Blood Type Antibody Screen Blood Bank Wristband ID Quality Measures Quality Measures none Advance care planning discussed with:: patient Assessment & Plan Assessment Current Active Medications: Generic Name Dose Route Start Last Admin Trade Name Freq PRN Reason Stop Dose Admin Aspirin 81 mg 12/25/24 09:00 12/25/24 09:54 Aspirin Ec 81 Mg Tabec PO 01/24/25 08:59 81 mg DAILY ALPHONSO Administration Buspirone HCl 15 mg 12/25/24 09:00 12/25/24 21:06 Buspirone Hcl 5 Mg Tablet PO 01/24/25 08:59 15 mg BID ALPHONSO Administration Fluoxetine HCl 40 mg 12/25/24 09:00 12/25/24 08:08 Fluoxetine Hcl 10 Mg Capsule PO 01/24/25 08:59 40 mg QDAY ALPHONSO Administration Hydroxyzine HCl 50 mg 12/25/24 03:19 12/25/24 04:02 Hydroxyzine Hcl 25 Mg Tablet PO 01/24/25 05:59 50 mg QID PRN Administration anxiety Levothyroxine Sodium 75 mcg 12/25/24 06:00 12/26/24 05:49 Levothyroxine Sodium 25 Mcg Tablet PO 01/24/25 05:59 75 mcg ACBR ALPHONSO Administration Ondansetron HCl 4 mg 12/25/24 03:09 12/26/24 05:50 Ondansetron Inj 2 Mg/Ml Inj 2 Ml IVP 01/24/25 03:08 4 mg Q6H PRN Administration NAUSEA OR VOMITING Protocol Propranolol HCl 20 mg 12/25/24 22:00 12/26/24 05:50 Propranolol 10 Mg Tablet PO 01/24/25 21:59 20 mg TID ALPHONSO Administration Sennosides 2 tab 12/25/24 09:42 12/26/24 05:56 Senna/Docusate Sod 1 Tab Tablet PO 01/24/25 09:41 2 tab QDAY PRN Administration CONSTIPATION Protocol Plan 74-year-old female with a past medical history of hypothyroidism, anxiety/depression, IBS, fibromyalgia, and a history of multiple abdominal surgeries (approximately 10), including a gastrectomy, presents with recurrent upper substernal chest pain x2 days. Patient admitted for NSTEMI type I vs type II, pending cardiac consult. #Transaminitis #Acute liver injury? -In ED, lab values for AST 29, ALT 40, ALP 125 troponin<0.020. In morning of 12/25, AST 1131, ALT 281, ALP 282. Repeat panel showed AST 1135, ALT 350, ALP 296, - Patient did note that about 20years ago she has resected 40% of her liver due to hemangioma -In previous admission, the patient was found to have choledocholithiasis, and was referred to [facility] for ERCP. Howver, during pre-procedural screening, she reported occasional dysphagia, after which the procedure was cancelled immediately. No further intervention was performed, and the choledocholithiasis remained untreated. -Past MRCP(06/12/2024) showed enlarged common hepatic common bile duct 10-12mm. -Liver US (12/25/2024): showed enlarged common bile duct ,13mm, no definite stones, Absent gallbladder, Normal hepatopetal portal venous 7, Liver 11.0cm fatty infiltration no focal liver lesions. -AST downtrending from 1135 to 489. ALT and ALP still remains high (AST:489, and ALT:396) Plan: -Currently, etiology remains unclear. -Continue to monitor LFTs. #NSTEMI Type II #Stress-Induced Cardiomyopathy -Initial Trop was negative --> 0.127 --> 0.320. Troponin levels are downtrending from 0.699 to 0.613. -EKG showed sinus tachycardia, QTc 484, no ST changes -Echocardiogram 05/11/24 showed normal LV size and function with estimated EF 55 to 60% -Left heart cardiac catheterization 05/11/2024 showed normal coronaries without any angiographically significant obstruction -Received aspirin 324 mg p.o. x 1 in ED -ECHO (12/25/2024): Normal LV and RV size and systolic function. Mild concnetric hypertrophy, EF 60-65% -IV heparin stopped. Plan -Started on Propranolol 20mg PO tid. -Trend trop q6h -Started on Aspirin 81mg po qd -Keep magnesium and potassium above 2 and 4 respectively #Severe Hypertension Blood pressure on admission 175/94 Patient takes Losartan 50mg daily at home While in ED received diltiazem 5 mg IV push x 1, followed by diltiazem 10 mg p.o. x 1 Plan ? Propranolol 20mg po tid. #Hx of Xanax addiction Recently came out of acute rehab facility for Xanax addiction in September ? ABSOLUTELY NO XANAX #Hx of depression #Hx of anxiety #Hx hypothyroidism Plan: ? Resumed home fluoxetine ? Resumed home buspirone ? Resumed home hydroxyzine ? Patient takes Seroquel however unsure of the dose, restart when known ? Resume levothyroxine 75mcg daily #History of total gastrectomy #History of Zenia fundoplication #History of IBS ? Monitor LFTs Health Maintenance: Diet: Cardiac diet GI prophylaxis: None DVT prophylaxis: Heparin drip Antibiotics: None CODE STATUS: Full Disposition: Telemetry Assessment and plan discussed with my attending physician Dr. Castaneda and Dr. Marquez (PGY-2) Dr. Gutierrez (PGY-1) - Internal medicine resident Attending Provider Attestation/Addendum I have seen and examined the patient. I was physically present for the raymond portions of the services provided including history, physical exam, diagnosis, treatment plans and orders. I agree with assessment and plan of care as documented by residents. Patient seen and examined at bedside this morning. Appears comfortable, continues to have some chest discomfort but much improved compared to presentation. Liver function downtrending compared to yesterday. We will continue with propranolol and monitor her heart rate, we will also continue to monitor her liver function for 1 more day. If continues to downtrend and patient remained stable, we will plan for discharge tomorrow. Even though this this note was carefully revised there may still be minor errors in tubing oiler due to voice recognition software. Evelia Castaneda MD
[2024-12-26] MEDS: ASPIRIN EC 81 MG TABEC PO (09:12)
--- NOTE | 2024-12-26 10:55 | PC.PT ---
Pt reports she has a migraine and doesn't want to work with therapy at this moment. Will try evaluation again later.
--- NOTE | 2024-12-26 13:30 | ESPR_ITS ---
<Statement entered by Sharron Glez MD - 12/26/24 17:00> I personally examined evaluated the patient with resident physician PGY 2 Dr Espinoza the patient is doing a lot better today yesterday patient was having severe tachycardia hypertension anxiety and nervous breakdown and stress causing chest pain after propranolol was started she is feeling a lot better heart rate settled blood pressure still slightly elevated. Patient also has common bile duct dilatation I reviewed the old record previous admissions she has had recurrent episodes of CBD dilation up to 13 mm and back down intermittent elevation of liver enzymes as well come down again but there are no clear stone patient already had a cholecystectomy seen by [facility] who did not do any procedures or surgeries. Local medical technicians also has a several MRCP's performed. Patient has chronically dilated bile duct with liver enzymes intermittent elevation as well as intermittent elevation alkaline phosphatase levels. This appears to be chronic I do not think she requires intervention she has no jaundice she does not have any abdominal symptoms at this time. However the patient should probably require outpatient evaluation at tertiary care center such as [facility] if she has significant symptoms. Cardiac miller she is doing a lot better anxiety also better will recommend increasing propranolol dose to 20 mg 3-4 times daily possible discharge home tomorrow on Inderal propranolol long-acting it is 80 mg daily and I will see her for follow-up in a week after discharge and see if we can arrange for her GI evaluation as an outpatient with a tertiary Medical Center get an opinion from a different center such as [place]. Documentation for date of: 12/26/24 Subjective Subjective Interval history: Patient seen and assessed in hospital bed denies having any concerning symptoms at this time. Patient seems to have marked improvement in chest discomfort along with anxiety on propranolol. Will continue current propranolol dose but consider switching to a longer acting when patient is ready to be discharged to increase likelihood of compliance with the medication. Will continue monitoring the patient for any acute changes in chest pain symptoms. Exam Vital Signs Temp Pulse Resp BP Pulse Ox O2 Del Method O2 Flow Rate 97.9 F 72 17 111/78 95 Nasal Cannula 1 12/26/24 12:00 12/26/24 12:00 12/26/24 12:00 12/26/24 12:00 12/26/24 12:00 12/26/24 12:00 12/26/24 12:00 Narrative Exam Physical Exam: GENERAL: Awake, answering questions appropriately, appears stated age HEENT: NC/AT. Moist mucosa. PERRLA/EOMI. CARDIO: Heart RRR, no obvious murmurs, no JVD. PULM: No coughing or visible SOB. Lungs CTA B/L. GI: Abdomen soft, NT/ND, +BS. SKIN/MSK/EXT: No wounds/discoloration/rashes/edema/amputations noted. +Pedal pulses present B/L. NEURO: Oriented x3, Moves extremities x4, no focal neurologic deficits noted Objective Labs 12/26/24 06:26 12/26/24 06:26 Labs: Laboratory Results - last 24 hr 12/25/24 12/26/24 17:40 06:26 WBC 7.9 RBC 4.60 Hgb 11.5 L Hct 36.2 MCV 79 L MCH 25.0 MCHC 31.8 RDW Std Deviation 48.9 H Plt Count 393 D Neut % (Auto) 78 Lymph % (Auto) 13 [place] % (Auto) 8 Eos % (Auto) 0 Baso % (Auto) 0 Neut # (Auto) 6.2 Lymph # (Auto) 1.1 [place] # (Auto) 0.6 Eos # (Auto) 0.0 Baso # (Auto) 0.0 Immature Gran # (Auto) 0.01 H Absolute Nucleated RBC 0.00 Immature Gran % 0 Nucleated RBC % 0 APTT 83.3 H D Sodium 136 Potassium 4.3 Chloride 97 L Carbon Dioxide 32.0 H Anion Gap 7 BUN 10 Creatinine 0.9 Estim Creat Clear Calc 44.7 L eGFR > 60 BUN/Creatinine Ratio 11 L Glucose 115 H Calculated Osmolality 271 L Calcium 8.7 Corrected Calcium 8.7 Phosphorus 3.4 Magnesium 1.9 Total Bilirubin 0.4 AST 489 H ALT 396 H Alkaline Phosphatase 309 H Troponin I 0.613 H* Total Protein 6.1 Albumin 4.1 Globulin 2.0 L Albumin/Globulin Ratio 2.1 Quality Measures Quality Measures none Advance care planning discussed with:: patient Assessment & Plan Assessment Current Active Medications: Generic Name Dose Route Start Last Admin Trade Name Freq PRN Reason Stop Dose Admin Aspirin 81 mg 12/25/24 09:00 12/26/24 09:12 Aspirin Ec 81 Mg Tabec PO 01/24/25 08:59 81 mg DAILY ALPHONSO Administration Buspirone HCl 15 mg 12/25/24 09:00 12/26/24 09:13 Buspirone Hcl 5 Mg Tablet PO 01/24/25 08:59 15 mg BID ALPHONSO Administration Fluoxetine HCl 40 mg 12/25/24 09:00 12/26/24 09:12 Fluoxetine Hcl 10 Mg Capsule PO 01/24/25 08:59 40 mg QDAY ALPHONSO Administration Hydroxyzine HCl 50 mg 12/25/24 03:19 12/25/24 04:02 Hydroxyzine Hcl 25 Mg Tablet PO 01/24/25 05:59 50 mg QID PRN Administration anxiety Levothyroxine Sodium 75 mcg 12/25/24 06:00 12/26/24 05:49 Levothyroxine Sodium 25 Mcg Tablet PO 01/24/25 05:59 75 mcg ACBR ALPHONSO Administration Ondansetron HCl 4 mg 12/25/24 03:09 12/26/24 05:50 Ondansetron Inj 2 Mg/Ml Inj 2 Ml IVP 01/24/25 03:08 4 mg Q6H PRN Administration NAUSEA OR VOMITING Protocol Propranolol HCl 20 mg 12/25/24 22:00 12/26/24 05:50 Propranolol 10 Mg Tablet PO 01/24/25 21:59 20 mg TID ALPHONSO Administration Sennosides 2 tab 12/25/24 09:42 12/26/24 05:56 Senna/Docusate Sod 1 Tab Tablet PO 01/24/25 09:41 2 tab QDAY PRN Administration CONSTIPATION Protocol Plan 74-year-old female with a past medical history of hypothyroidism, anxiety/depression, IBS, fibromyalgia, and a history of multiple abdominal surgeries (approximately 10), including a gastrectomy, presents with recurrent upper substernal chest pain x2 days. Patient admitted for NSTEMI type I vs type II, pending cardiac consult. #NSTEMI type II #Stress-induced cardiomyopathy #Elevated troponin, peaked and downtrending As noted above, patient presented with chest pain, substernally Patient never followed up with outpatient cardiology after the left heart catheterization as she was hospitalized and unfortunately missed her scheduled appointments Initial Trop was negative --> 0.127 --> 0.320. Troponin 0.699, peaked --> 0.613 EKG showed sinus tachycardia, QTc 484, no ST changes Echocardiogram 05/11/24 showed normal LV size and function with estimated EF 55 to 60% Left heart cardiac catheterization 05/11/2024 showed normal coronaries without any angiographically significant obstruction ECHO (12/25/2024): Normal LV and RV size and systolic function. Mild concnetric hypertrophy, EF 60-65% Plan: Continue propranolol 20 mg 3 times daily for anxiety causing NSTEMI type II/stress-induced cardiomyopathy Switch to long-acting propranolol 60-80 mg once a day to increase likelihood of compliance Keep magnesium and potassium above 2 and 4 respectively #Acute liver injury #Hypertension #Hx of Xanax/benzodiazepine use disorder #Depression #Anxiety #Hypothyroidism #History of total gastrectomy #History of Zenia fundoplication #History of IBS Rest of medical problems to be managed by primary hospitalist team Patient seen and assessed with attending Dr. Newton Espinoza, DO PGY-2 Internal Medicine - GME
[2024-12-26 14:20] LABS: Alanine Aminotransferase 356 U/L (10-49); Albumin, Serum 4.4 gm/dL (3.4-4.8); Albumin/Globulin Ratio 2.0 (1.2-2.2); Alkaline Phosphatase 317 U/L (46-116); Anion Gap 8 (7-16); Aspartate Amino Transferase 269 U/L (0-34); BUN/Creatinine Ratio 11 Ratio (12-20); Bilirubin,Total 0.4 mg/dL (0.3-1.2); Blood Urea Nitrogen 11 mg/dL (9-23); Calcium 8.9 mg/dL (8.3-10.6); Calcium (Corrected) 8.9 mg/dL (8.5-10.1); Carbon Dioxide 28.7 mMol/L (20.0-31.0); Chloride 97 mMol/L (98-107); Creatinine (Component) 1.0 mg/dL (0.6-1.3); Estimated Creatinine Clearance 40.2 mL/min (>60); Globulin 2.2 gm/dL (2.3-3.5); Glucose 116 mg/dL (74-106); Osmolality,Calculated 268 (275-295); Potassium 4.0 mMol/L (3.4-5.1); Sodium 134 mMol/L (136-145); Total Protein 6.6 gm/dL (5.7-8.2); eGFR 60 See Note
[2024-12-26 14:48] LABS: Mono Screen Positive (Negative)
--- NOTE | 2024-12-26 14:52 | PC.SS ---
STEAMSHIP AGENT conducted bedside contact with the patient conduct initial assessment and to discuss discharge planning.? Patient confirmed demographic information.? Patient resides at home with son, Juan Carlos Herrera .? Patient is retired.? Patient does not utilize any form of DME to assist with ambulation.? Patient does not utilize home oxygen.? Patient describes the ability to complete ADL?s independently.? Patient identified son, Juan Carlos Herrera as medical surrogate decision maker.? Patient?s PCP is Dr. Montilla.? Patient does not participate with dialysis.? Patient?s medical director of hospice is Dr. Kline.? Patient utilizes [facility] for medication services.? Plan is for the patient to return home at the time of discharge.? Family will provide transportation on behalf of the patient.? No further discharge needs identified by the patient.? No further intervention required at this time, social organization professor will be available to address any further concerns.? Next of Kin: Juan Carlos Herrera D/C Plan: Home
--- NOTE | 2024-12-26 20:09 | PC.NURSE ---
notified Dr. Saleem and Dr. Beckford regarding patient asking about her seroquel home medication, patient takes 2 100mg tablets PO at bedtime, per doctor review of patient's EKG (taken 12/25/24), unable to restart home med for now, will update day team, no other new orders received.
[2024-12-27] VITALS (9 sets, daily range): BP systolic 108–118; BP diastolic 60–65; PULSE 62–82; RESP 17–20; TEMP 36.4–36.6; O2SAT 93–95; BMI 24.2
[2024-12-27 05:44] LABS: INR 0.9 (0.9-1.3); Partial Thromboplastin Time 24.5 Seconds (22.0-36.0); Prothrombin Time 10.1 Seconds (9.0-12.2)
[2024-12-27 05:45] LABS: Basophils # (Auto) 0.0 Thou/mm3 (0.0-0.2); Basophils % (Auto) 1 % (0-2.5); Eosinophils # (Auto) 0.2 Thou/mm3 (0.0-0.5); Eosinophils % (Auto) 3 % (0-10); Hematocrit 34.8 % (36.0-46.0); Hemoglobin 10.9 g/dL (12.0-16.0); Immature Granulocytes Auto 0.01 Thou/mm3 (0.00-0.00); Lymphocytes # (Auto) 1.7 Thou/mm3 (1.0-4.8); Lymphocytes % (Auto) 21 % (10-50); Mean Corpuscular HGB Conc 31.3 g/dl (31.0-37.0); Mean Corpuscular Hemoglobin 24.9 pg (25.0-35.0); Mean Corpuscular Volume 80 fL (80-100); Monocytes # (Auto) 0.9 Thou/mm3 (0.0-0.8); Monocytes % (Auto) 11 % (0-12); Neutrophils # (Auto) 5.3 Thou/mm3 (1.8-7.7); Neutrophils % (Auto) 65 % (37-80); Nucleated Red Blood Cell # 0.00 Thou/mm3 (0.00-0.00); Nucleated Red Blood Cell % 0 /100 WBC (0); Platelet Count 320 Thou/mm3 (140-440); RDW Standard Deviation 48.9 fL (36.4-46.3); Red Blood Count 4.38 Miln/mm3 (4.00-5.20); White Blood Count 8.1 Thou/mm3 (3.6-11.0)
[2024-12-27] MEDS: LEVOTHYROXINE SODIUM 25 MCG TABLET 75 MCG PO (06:05)
[2024-12-27] MEDS: PROPRANOLOL 10 MG TABLET 20 MG PO ×2 (06:07→14:33)
[2024-12-27 06:08] LABS: Alanine Aminotransferase 230 U/L (10-49); Albumin, Serum 3.9 gm/dL (3.4-4.8); Albumin/Globulin Ratio 2.2 (1.2-2.2); Alkaline Phosphatase 239 U/L (46-116); Anion Gap 9 (7-16); Aspartate Amino Transferase 107 U/L (0-34); BUN/Creatinine Ratio 13 Ratio (12-20); Bilirubin,Total 0.3 mg/dL (0.3-1.2); Blood Urea Nitrogen 14 mg/dL (9-23); Calcium 8.5 mg/dL (8.3-10.6); Calcium (Corrected) 8.6 mg/dL (8.5-10.1); Carbon Dioxide 30.1 mMol/L (20.0-31.0); Chloride 97 mMol/L (98-107); Creatinine (Component) 1.1 mg/dL (0.6-1.3); Estimated Creatinine Clearance 36.6 mL/min (>60); Globulin 1.8 gm/dL (2.3-3.5); Glucose 108 mg/dL (74-106); Magnesium 1.8 mg/dL (1.6-2.6); Osmolality,Calculated 273 (275-295); Phosphorous 3.0 mg/dL (2.4-5.1); Potassium 3.7 mMol/L (3.4-5.1); Sodium 136 mMol/L (136-145); Total Protein 5.7 gm/dL (5.7-8.2); eGFR 53 See Note
--- NOTE | 2024-12-27 08:24 | PD.RESPRO ---
Documentation for date of: 12/27/24 Subjective Subjective Interval history: Patient's LFT improved from AST:268 -> 107, ALT: 356 -> 230, ALP: 317 -> 239. Patient is dilated by Dr. Davis a chronic issue with liver enzymes fluctuating. Patient would need to follow-up outpatient [facility] her transaminitis. Per cardiology patient's chest symptoms and tachycardia likely stress-induced with severe anxiety. Was given propranolol 20 mg p.o. 3 times daily which has improved her. On discharge, cardiology recommended a longer acting propranolol 60 to 80 mg daily to control her symptoms. Exam Vital Signs Temp Pulse Resp BP Pulse Ox O2 Del Method O2 Flow Rate 97.8 F 64 20 113/61 93 L Room Air 1 12/27/24 07:26 12/27/24 07:26 12/27/24 07:26 12/27/24 07:26 12/27/24 07:26 12/27/24 07:26 12/27/24 04:00 Objective Labs 12/27/24 04:05 12/27/24 04:05 Labs: Laboratory Results - last 24 hr 12/25/24 12/25/24 12/25/24 17:40 22:51 22:51 WBC RBC Hgb Hct MCV MCH MCHC RDW Std Deviation Plt Count Neut % (Auto) Lymph % (Auto) [place] % (Auto) Eos % (Auto) Baso % (Auto) Neut # (Auto) Lymph # (Auto) [place] # (Auto) Eos # (Auto) Baso # (Auto) Immature Gran # (Auto) Absolute Nucleated RBC Immature Gran % Nucleated RBC % PT INR APTT Sodium Potassium Chloride Carbon Dioxide Anion Gap BUN Creatinine Estim Creat Clear Calc eGFR BUN/Creatinine Ratio Glucose Calculated Osmolality Calcium Corrected Calcium Phosphorus Magnesium Total Bilirubin AST ALT Alkaline Phosphatase Total Protein Albumin Globulin Albumin/Globulin Ratio Monoscreen Positive A Misc Test Result Cancelled Cancelled 12/25/24 12/26/24 12/27/24 22:51 13:56 04:05 WBC 8.1 RBC 4.38 Hgb 10.9 L Hct 34.8 L MCV 80 MCH 24.9 L MCHC 31.3 RDW Std Deviation 48.9 H Plt Count 320 D Neut % (Auto) 65 Lymph % (Auto) 21 [place] % (Auto) 11 Eos % (Auto) 3 Baso % (Auto) 1 Neut # (Auto) 5.3 Lymph # (Auto) 1.7 [place] # (Auto) 0.9 H Eos # (Auto) 0.2 Baso # (Auto) 0.0 Immature Gran # (Auto) 0.01 H Absolute Nucleated RBC 0.00 Immature Gran % 0 Nucleated RBC % 0 PT 10.1 INR 0.9 APTT 24.5 D Sodium 134 L 136 Potassium 4.0 3.7 Chloride 97 L 97 L Carbon Dioxide 28.7 30.1 Anion Gap 8 9 BUN 11 14 Creatinine 1.0 1.1 Estim Creat Clear Calc 40.2 L 36.6 L eGFR 60 53 L BUN/Creatinine Ratio 11 L 13 Glucose 116 H 108 H Calculated Osmolality 268 L 273 L Calcium 8.9 8.5 Corrected Calcium 8.9 8.6 Phosphorus 3.0 Magnesium 1.8 Total Bilirubin 0.4 0.3 AST 269 H 107 H ALT 356 H 230 H Alkaline Phosphatase 317 H 239 H D Total Protein 6.6 5.7 Albumin 4.4 3.9 D Globulin 2.2 L 1.8 L Albumin/Globulin Ratio 2.0 2.2 Monoscreen Misc Test Result Cancelled Quality Measures Quality Measures none Assessment & Plan Assessment Current Active Medications: Generic Name Dose Route Start Last Admin Trade Name Freq PRN Reason Stop Dose Admin Aspirin 81 mg 12/25/24 09:00 12/26/24 09:12 Aspirin Ec 81 Mg Tabec PO 01/24/25 08:59 81 mg DAILY ALPHONSO Administration Buspirone HCl 15 mg 12/25/24 09:00 12/26/24 21:15 Buspirone Hcl 5 Mg Tablet PO 01/24/25 08:59 15 mg BID ALPHONSO Administration Fluoxetine HCl 40 mg 12/25/24 09:00 12/26/24 09:12 Fluoxetine Hcl 10 Mg Capsule PO 01/24/25 08:59 40 mg QDAY ALPHONSO Administration Hydroxyzine HCl 50 mg 12/25/24 03:19 12/25/24 04:02 Hydroxyzine Hcl 25 Mg Tablet PO 01/24/25 05:59 50 mg QID PRN Administration anxiety Levothyroxine Sodium 75 mcg 12/25/24 06:00 12/27/24 06:05 Levothyroxine Sodium 25 Mcg Tablet PO 01/24/25 05:59 75 mcg ACBR ALPHONSO Administration Ondansetron HCl 4 mg 12/25/24 03:09 12/26/24 05:50 Ondansetron Inj 2 Mg/Ml Inj 2 Ml IVP 01/24/25 03:08 4 mg Q6H PRN Administration NAUSEA OR VOMITING Protocol Propranolol HCl 20 mg 12/25/24 22:00 12/27/24 06:07 Propranolol 10 Mg Tablet PO 01/24/25 21:59 20 mg TID ALPHONSO Administration Sennosides 2 tab 12/25/24 09:42 12/26/24 05:56 Senna/Docusate Sod 1 Tab Tablet PO 01/24/25 09:41 2 tab QDAY PRN Administration CONSTIPATION Protocol
--- NOTE | 2024-12-27 08:57 | PC.SS ---
Follow up note: Possible d/c if ok by Dr. Fletcher. Pt will return home upon dc.
--- NOTE | 2024-12-27 08:59 | ESPR_ITS ---
<Statement entered by Sharron Glez MD - 12/30/24 17:54> The patient is personally examined evaluated by me with resident physician Dr. Wade Espinoza and the patient is doing a lot better now tolerate the medications well chest pain improved. Patient is doing a lot better with propranolol tolerated well so far not have any major side effects it seems to have improved her symptoms. Okay to discharge the patient on propranolol will see her for follow-up as an outpatient in my office within 1 week. Agree with the treatment plan recommendation as documented by PGY 2 resident physician will monitor the patient as an outpatient Documentation for date of: 12/27/24 Subjective Subjective Interval history: Patient seen and assessed in hospital bed reports some chest heaviness but no pain with no radiation to any other part of her body. Patient states that she believes the propranolol has tremendously helped her symptoms and she would like to continue taking the medication. Reassured patient that chest discomfort is unlikely to be cardiac in etiology secondary to the fact that she recently had a left heart catheterization which showed patent coronaries. Patient's LFTs continues to downtrend and patient denies having any concerning abdominal pain or clinical signs of bile duct obstruction/infection. Initial elevation could be secondary to biliary tract spasm versus possible stenosis as patient is status post cholecystectomy. Patient will most likely require follow-up with gastroenterology at [facility] once stable to be discharged. Exam Vital Signs Temp Pulse Resp BP Pulse Ox O2 Del Method O2 Flow Rate 97.8 F 64 20 113/61 93 L Room Air 1 12/27/24 07:26 12/27/24 07:26 12/27/24 07:26 12/27/24 07:26 12/27/24 07:26 12/27/24 07:26 12/27/24 04:00 Narrative Exam Physical Exam: GENERAL: Awake, answering questions appropriately, appears stated age HEENT: NC/AT. Moist mucosa. PERRLA/EOMI. CARDIO: Heart RRR, no obvious murmurs, no JVD. PULM: No coughing or visible SOB. Lungs CTA B/L. GI: Abdomen soft, NT/ND, +BS. SKIN/MSK/EXT: No wounds/discoloration/rashes/edema/amputations noted. +Pedal pulses present B/L. NEURO: Oriented x3, Moves extremities x4, no focal neurologic deficits noted Objective Labs 12/27/24 04:05 12/27/24 04:05 Labs: Laboratory Results - last 24 hr 12/25/24 12/25/24 12/25/24 17:40 22:51 22:51 WBC RBC Hgb Hct MCV MCH MCHC RDW Std Deviation Plt Count Neut % (Auto) Lymph % (Auto) Calloway % (Auto) Eos % (Auto) Baso % (Auto) Neut # (Auto) Lymph # (Auto) Calloway # (Auto) Eos # (Auto) Baso # (Auto) Immature Gran # (Auto) Absolute Nucleated RBC Immature Gran % Nucleated RBC % PT INR APTT Sodium Potassium Chloride Carbon Dioxide Anion Gap BUN Creatinine Estim Creat Clear Calc eGFR BUN/Creatinine Ratio Glucose Calculated Osmolality Calcium Corrected Calcium Phosphorus Magnesium Total Bilirubin AST ALT Alkaline Phosphatase Total Protein Albumin Globulin Albumin/Globulin Ratio Monoscreen Positive A Misc Test Result Cancelled Cancelled 12/25/24 12/26/24 12/27/24 22:51 13:56 04:05 WBC 8.1 RBC 4.38 Hgb 10.9 L Hct 34.8 L MCV 80 MCH 24.9 L MCHC 31.3 RDW Std Deviation 48.9 H Plt Count 320 D Neut % (Auto) 65 Lymph % (Auto) 21 Calloway % (Auto) 11 Eos % (Auto) 3 Baso % (Auto) 1 Neut # (Auto) 5.3 Lymph # (Auto) 1.7 Calloway # (Auto) 0.9 H Eos # (Auto) 0.2 Baso # (Auto) 0.0 Immature Gran # (Auto) 0.01 H Absolute Nucleated RBC 0.00 Immature Gran % 0 Nucleated RBC % 0 PT 10.1 INR 0.9 APTT 24.5 D Sodium 134 L 136 Potassium 4.0 3.7 Chloride 97 L 97 L Carbon Dioxide 28.7 30.1 Anion Gap 8 9 BUN 11 14 Creatinine 1.0 1.1 Estim Creat Clear Calc 40.2 L 36.6 L eGFR 60 53 L BUN/Creatinine Ratio 11 L 13 Glucose 116 H 108 H Calculated Osmolality 268 L 273 L Calcium 8.9 8.5 Corrected Calcium 8.9 8.6 Phosphorus 3.0 Magnesium 1.8 Total Bilirubin 0.4 0.3 AST 269 H 107 H ALT 356 H 230 H Alkaline Phosphatase 317 H 239 H D Total Protein 6.6 5.7 Albumin 4.4 3.9 D Globulin 2.2 L 1.8 L Albumin/Globulin Ratio 2.0 2.2 Monoscreen Misc Test Result Cancelled Quality Measures Quality Measures none Advance care planning discussed with:: patient Assessment & Plan Assessment Current Active Medications: Generic Name Dose Route Start Last Admin Trade Name Freq PRN Reason Stop Dose Admin Aspirin 81 mg 12/25/24 09:00 12/26/24 09:12 Aspirin Ec 81 Mg Tabec PO 01/24/25 08:59 81 mg DAILY ALPHONSO Administration Buspirone HCl 15 mg 12/25/24 09:00 12/26/24 21:15 Buspirone Hcl 5 Mg Tablet PO 01/24/25 08:59 15 mg BID ALPHONSO Administration Fluoxetine HCl 40 mg 12/25/24 09:00 12/26/24 09:12 Fluoxetine Hcl 10 Mg Capsule PO 01/24/25 08:59 40 mg QDAY ALPHONSO Administration Hydroxyzine HCl 50 mg 12/25/24 03:19 12/25/24 04:02 Hydroxyzine Hcl 25 Mg Tablet PO 01/24/25 05:59 50 mg QID PRN Administration anxiety Levothyroxine Sodium 75 mcg 12/25/24 06:00 12/27/24 06:05 Levothyroxine Sodium 25 Mcg Tablet PO 01/24/25 05:59 75 mcg ACBR ALPHONSO Administration Ondansetron HCl 4 mg 12/25/24 03:09 12/26/24 05:50 Ondansetron Inj 2 Mg/Ml Inj 2 Ml IVP 01/24/25 03:08 4 mg Q6H PRN Administration NAUSEA OR VOMITING Protocol Propranolol HCl 20 mg 12/25/24 22:00 12/27/24 06:07 Propranolol 10 Mg Tablet PO 01/24/25 21:59 20 mg TID ALPHONSO Administration Sennosides 2 tab 12/25/24 09:42 12/26/24 05:56 Senna/Docusate Sod 1 Tab Tablet PO 01/24/25 09:41 2 tab QDAY PRN Administration CONSTIPATION Protocol Plan 74-year-old female with a past medical history of hypothyroidism, anxiety/depression, IBS, fibromyalgia, and a history of multiple abdominal surgeries (approximately 10), including a gastrectomy, presents with recurrent upper substernal chest pain x2 days. Patient admitted for NSTEMI type I vs type II, pending cardiac consult. #NSTEMI type II #Stress-induced cardiomyopathy #Elevated troponin, peaked and downtrending As noted above, patient presented with chest pain, substernally Patient never followed up with outpatient cardiology after the left heart catheterization as she was hospitalized and unfortunately missed her scheduled appointments Initial Trop was negative --> 0.127 --> 0.320. Troponin 0.699, peaked --> 0.613 EKG showed sinus tachycardia, QTc 484, no ST changes Echocardiogram 05/11/24 showed normal LV size and function with estimated EF 55 to 60% Left heart cardiac catheterization 05/11/2024 showed normal coronaries without any angiographically significant obstruction ECHO (12/25/2024): Normal LV and RV size and systolic function. Mild concnetric hypertrophy, EF 60-65% Plan: Continue propranolol 20 mg 3 times daily for anxiety causing NSTEMI type II/stress-induced cardiomyopathy Switch to long-acting propranolol 60-80 mg once a day to increase likelihood of compliance Keep magnesium and potassium above 2 and 4 respectively #Acute liver injury #Hypertension #Hx of Xanax/benzodiazepine use disorder #Depression #Anxiety #Hypothyroidism #History of total gastrectomy #History of Zenia fundoplication #History of IBS Rest of medical problems to be managed by primary hospitalist team Patient seen and assessed with attending Dr. Newton Espinoza, DO PGY-2 Internal Medicine - GME
[2024-12-27] MEDS: ASPIRIN EC 81 MG TABEC PO (09:06)
--- NOTE | 2024-12-27 10:13 | PC.PT ---
PT approached patient for PT eval at 0930 and observed patient standing at the foot of the bed. Patient had gotten out of bed xI and per psychiatric lpn student, the patient was about to get up and brush her teeth xI in the bathroom. Patient stated she does not want to work with PT again today but did not cite a reason for why. PT informed patient that since this is her 3rd refusal in a row she will be D/C from PT services as she is not willing to participate at this time. Patient verbalized her understanding and did not want to work with PT. Patient also appears to be xI or at least at her baseline mobility. RN and MD Dr. Gutierrez made aware.
--- NOTE | 2024-12-27 12:24 | PC.NURSE ---
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
--- NOTE | 2024-12-27 16:31 | ESDS_ITS ---
<Statement entered by Marcellus Downey MD - 12/28/24 19:25> Patient was seen and examined by me personally. I have reviewed the below documentation by the team resident and agree with its findings. Discharge plan was discussed with the attending, Dr. Evelia Castaneda MD 74-year-old female with past medical history of hypothyroidism, anxiety/depression, IBS, fibromyalgia, status post gastrectomy and multiple abdominal surgeries who was admitted to [facility] for management of cardiac chest pain. Cardiology was consulted, troponins eventually down trended, high suspicion of NSTEMI type II, patient did have history of cardiac cath which was done earlier this year which was negative for any lesions/disease. Echocardiogram obtained during this hospitalization was unremarkable, patient's underlying symptomatology likely secondary to NSTEMI type II/anxiety. Patient did have elevation of AST/ALT/alk phos during this hospitalization however patient does have underlying complex GI pathology for which patient is recommended to follow-up outpatient with tertiary [facility] center, patient was previously transferred from this facility to [facility]. Patient today has no symptoms AST ALT have improved remarkably, patient is stable for discharge, patient to repeat liver panel outpatient and follow-up with gastroenterology outpatient. Will be started on Inderal XL 80 mg for management of underlying anxiety. Responded well to hospital treatment and is stable for discharge. Marcellus Downey MD Internal Medicine, PGY-2 Planned Discharge Date 12/27/24 DS: Providers Provider Date of admission: 12/25/24 03:09 Primary care physician: Physician No Primary/Family Admitting Provider: Shola Mcmullen MD Attending Provider on Admission: Evelia Castaneda MD Consults: 12/25/24 03:14 Consult to Cardiology Stat Comment: Consulting Provider: Sharron Glez 12/26/24 05:22 Consult to Cardiology Routine Comment: ACS, NSTEMI Consulting Provider: Malick Rivas Attending Provider on DC: Miguel Gutierrez DO Discharging Provider: Miguel Gutierrez DO DS: Diagnosis Problem List Completed Was Problem List Reviewed/Reconciled?: Yes Hospital Course Hospital Course Hospital course: Summary: 74-year-old female with a past medical history of hypothyroidism, anxiety/depression, IBS, fibromyalgia, and a history of multiple abdominal surgeries (approximately 10), including a gastrectomy, presents with recurrent upper substernal chest pain x2 days. Patient admitted for NSTEMI type I vs type II, pending cardiac consult. Her troponin and LFTs downtrended. EKG, ECHo, and past left heart cath on 05/11/2024 was normal. Patient was diagnosed with anxiety causing NSTEMI type II/stress induced cardiomyopathy. Patient symptom improved and her vitals and lab were stable. Patient was discharged on 12/27/2024. ED course: Initial vitals include T 98.3, BP 175/94, HR 106, RR 18, O2 sat 96% on room air. CBC showed hemoglobin 10.6, MCV 78. CMP showed initial troponin negative with steady increase to 0.320 on the most recent troponin check. Sodium 139, potassium 4.0, creatinine 0.9, magnesium 2.1, LFTs within normal range, BNP negative. EKG showed sinus tachycardia, QTc 484, no ST changes. UA unremarkable. Chest x-ray unremarkable. Patient received aspirin 324 mg x 1, morphine 4 mg IV x 1, diltiazem 5 mg IV x 1, and started on heparin drip. Hospital Course: Upon admission to the [facility], patient still felt nauseous, dizzy, continuous squeezing chest pain. Gave IV morphine 2 mg x 1 and IV ondansetron 4 mg x 1. When patient came to ED (12/24), lab values for AST 29, ALT 40, ALP 125 troponin<0.020. EKG showed sinus rhythm. However, on 12/25, patient's troponin increased to 0.510, AST 1131, ALT 281, ALP 282. Other lab values showed normal creatinine kinase 92 (rhabdomyolysis ruled out), ammonia<10. Repeat labs showed AST 1135, ALT 350, ALP 296,In previous admission, the patient was found to have choledocholithiasis, and was referred to [facility] for ERCP. Howver, during pre- procedural screening, she reported occasional dysphagia, after which the procedure was cancelled immediately. No further intervention was performed, and the choledocholithiasis remained untreated. Liver US (12/25/2024): showed enlarged common bile duct ,13mm, no definite stones, Absent gallbladder, Normal hepatopetal portal venous 7, Liver 11.0cm fatty infiltration no focal liver lesions. However, Past MRCP(06/12/2024) showed enlarged common hepatic common bile duct 10-12mm, indicating her dilated CBD was likely her chronic issue. ECHO (12/25/2024): Normal LV and RV size and systolic function. Mild concentric hypertrophy, EF 60-65% On 12/26, Troponin levels downtrended from 0.699 to 0.613. AST downtrended from 1135 to 489. ALT and ALP still remained high (AST:489, and ALT:396). Cardiology assessment suggested a stress-induced etiology with normal ECHO EF60-65%, and repeat EKGs showing normal sinus rhythm. Past left heart cath on 05/11/2024 was largely unremarkable. Discontinued metoprolol and changed to Propranolol 20mg po tid for managment of anxiety causing NSTEMI type II/stress induced cardiomyopathy. On 12/27, Patient's LFT improved from AST:268 -> 107, ALT: 356 - > 230, ALP: 317 -> 239. Patient symptom improved and her vitals and lab were stable. Patient was discharged on 12/27/2024. #Transaminitis #Acute liver injury? #NSTEMI Type II #Stress-Induced Cardiomyopathy #Severe Hypertension #Hx of Xanax addiction #Hx of depression #Hx of anxiety #Hx hypothyroidism #Hx of depression #Hx of anxiety #Hx hypothyroidism Instructions: You have been started on the following medications: - Inderal XL 80 mg, take at night without food Please continue taking all other medications as previously prescribed. Please follow up with your primary care doctor in 7-10 days. If you do not have a primary, please come to the [facility]: [address] [place] [address] You have several lab studies pending, follow up on these results with your primary doctor. Please follow up with direct support professional caregiver Dr. Glez in 1 week: Please seek referral for GI evaluation at tertiary medical center. Return to ED if you develop new or worsening symptoms. Assessment and plan discussed with my attending physician Dr. Castaneda and Dr. Downey (PGY-2) Dr. Gutierrez (PGY-1) - Internal medicine resident Time Spent with Patient Time attestation: Total time spent providing and/or coordinating discharge services: 34 minutes Time spent: Greater than 30 minutes Exam Vital Signs Temp Pulse Resp BP Pulse Ox O2 Del Method O2 Flow Rate 97.5 F 71 20 109/61 95 Room Air 1 12/27/24 11:27 12/27/24 14:33 12/27/24 11:27 12/27/24 14:33 12/27/24 11:27 12/27/24 11:27 12/27/24 04:00 Discharge Plan Plan Patient Disposition: HOME (Self Care) Patient condition on transfer: Stable Care Plan Goals: You have been started on the following medications: - Inderal XL 80 mg, take at night without food Please continue taking all other medications as previously prescribed. Please follow up with your primary care doctor in 7-10 days. If you do not have a primary, please come to the [facility]: [address] [place] [address] You have several lab studies pending, follow up on these results with your primary doctor. Please follow up with direct support professional caregiver Dr. Glez in 1 week: Please seek referral for GI evaluation at [facility]. Return to ED if you develop new or worsening symptoms. Prescriptions/Referrals Prescriptions/Med Rec: New Inderal XL 80 mg capsule,extended release 24hr 80 mg PO QDAY 30 Days Qty: 30 2RF Continued estradiol 0.01 % (0.1 mg/gram) cream 1 g vaginal Q3D 30 Days Qty: 42.5 2RF buspirone 15 mg Tablet 15 mg PO BID levothyroxine 75 mcg tablet 75 mcg PO QAM Patient Comments: TAKE 1 TABLET BY MOUTH EVERY DAY IN THE MORNING ON AN EMPTY STOMACH fluoxetine 40 mg capsule 40 mg PO DAILY Patient Comments: TAKE 1 CAPSULE BY MOUTH EVERY DAY FOR 90 DAYS dicyclomine 10 mg capsule See Rx Instructions PO .COMPLEX Patient Comments: TAKE 1 CAPSULE BY MOUTH UP TO 3 TIMES A DAY Rx Instructions: orally 10mg up to three times a day; docusate sodium 100 mg capsule 100 mg PO BID PRN (Reason: constipation) Patient Comments: TAKE 1 CAPSULE BY MOUTH TWICE A DAY NEEDED hydroxyzine HCl 50 mg tablet 50 mg PO Q6H PRN (Reason: anxiety) Patient Comments: TAKE 1 TABLET BY MOUTH EVERY 6 HOURS NEEDED losartan 50 mg tablet 50 mg PO QDAY Patient Comments: TAKE 1 TABLET BY MOUTH EVERY DAY quetiapine 100 mg tablet 200 mg PO HS Patient Comments: TAKE 1-2 TABLETS BY MOUTH AT BEDTIME Referrals: No Primary/Family,Physician [Primary Care Provider] Sharron Glez MD [Physician, Cardiology] Patient/Caregiver Discharge Instructions Discharge Activity: activity as tolerated Education Materials: Your Body's Response to Anxiety, ED Chest Pain, Uncertain Cause Print Language: Croatian Stand Alone Forms: Iliana Award Info., Patient Portal Info Letter Discharge Order Discharge Orders: Discharge (Routine); Ordered 12/27/24 Ordered By: Kyle Marquez Quality Discharge Quality Measures VTE prophylaxis Attestestation MD Attestation I have seen and examined the patient. I was physically present for the raymond portions of the services provided including history, physical exam, diagnosis, treatment plans and orders. I agree with assessment and plan of care as doc umented by residents. Even though this this note was carefully revised there may still be minor errors in epic prelude analyst due to voice recognition software. Evelia Castaneda MD
[2024-12-30 07:03] LABS: CMV DNA, Qn Real Time PCR NOT DETECTED
[2025-01-01 07:04] LABS: CMV DNA, Qn PCR NOT DETECTED Log IU/mL
[2025-01-01 07:06] LABS: Actin Antibody (IgG)* <20 U
[2025-01-02 06:23] LABS: Alpha-1-Antitrypsin* 126 mg/dL (83-199)
[2025-01-05 09:15] LABS: CMV Specimen Source PLASMA
[2025-01-09 06:36] LABS: CMV Antibody (IgG) <0.60 U/mL; CMV Antibody (IgM) <30.00 AU/mL; Ceruloplasmin* 21 mg/dL (14-48); HSV1 IgG Type Specific Ab* 49.80 INDEX; HSV2 IgG Type Specific Ab* <0.90 INDEX
== END 2024-12-27 15:15 | disposition home or self-care (01) | DRG 281 ==
LOC: SERX 12-25 02:08 → SERHOLD 12-25 03:25 → S2NX 12-25 04:36 → S3NX 12-26 11:18
PROVIDERS: Emergency Medicine; Registered Nurse General Practice; Admitting Provider Student in an Organized Health Care Education/Training Program; Emergency Provider Emergency Medicine; Visit Provider Student in an Organized Health Care Education/Training Program
DX: I21.4 Non-ST elevation (NSTEMI) myocardial infarction (principal); I51.81 Takotsubo syndrome; F41.9 Anxiety disorder, unspecified; F32.A Depression, unspecified; K58.9 Irritable bowel syndrome, unspecified; I16.0 Hypertensive urgency; M79.7 Fibromyalgia; I10 Essential (primary) hypertension; K80.50 Calculus of bile duct without cholangitis or cholecystitis without obstruction; Z79.899 Other long term (current) drug therapy; Z90.3 Acquired absence of stomach [part of]; Z90.49 Acquired absence of other specified parts of digestive tract; Z53.9 Procedure and treatment not carried out, unspecified reason; Z90.710 Acquired absence of both cervix and uterus; I25.2 Old myocardial infarction
CPT/HCPCS: 36415; 71045; 76705; 80053; 80061; 80074; 80076; 80307; 80329; 81001; 82103; 82140; 82390; 82550; 82787; 83036; 83615; 83735; 83880; 84100; 84439; 84443; 84484; 85014; 85018; 85025; 85610; 85730; 86015; 86021; 86036; 86308; 86644; 86645; 86664; 86665; 86695; 86696; 86850; 86900; 86901; 87497; 93005; 93225; 93306; 96365; 96366; 96375; 96376; 99284; J0780; J1644; J2270; J2405; J2765; J3490; Q0162; A9270; G0480